=== PATIENT | male | born 1945 | race Caucasian/White ===

== ENCOUNTER → 2019-06-17 16:20 | Outpatient (BNVA) | payer MEDICARE, OTHER, SELFPAY | PROVIDERS: Family Provider Nurse Practitioner; PCP Nurse Practitioner; Visit Provider Nurse Practitioner | DX: M25.519 Pain in unspecified shoulder (principal); M54.2 Cervicalgia | CPT/HCPCS: 72040; 73030 ==

== ENCOUNTER → 2019-07-01 08:05 | Outpatient (BNVA) | payer MEDICARE, OTHER, SELFPAY | PROVIDERS: Family Provider Nurse Practitioner; PCP Nurse Practitioner; Visit Provider Nurse Practitioner | DX: E11.9 Type 2 diabetes mellitus without complications (principal) | CPT/HCPCS: 80053; 80061; 83036 ==

== ENCOUNTER → 2019-07-03 09:35 | Outpatient (BNVA) | payer MEDICARE, OTHER, SELFPAY | PROVIDERS: Family Provider Nurse Practitioner; PCP Nurse Practitioner; Visit Provider Nurse Practitioner | DX: E11.8 Type 2 diabetes mellitus with unspecified complications (principal); E03.8 Other specified hypothyroidism; I10 Essential (primary) hypertension; I25.10 Atherosclerotic heart disease of native coronary artery without angina pectoris; E78.2 Mixed hyperlipidemia; I65.29 Occlusion and stenosis of unspecified carotid artery; K21.9 Gastro-esophageal reflux disease without esophagitis | CPT/HCPCS: 84443 ==

== ENCOUNTER 2019-07-16 13:32 | Outpatient (CLI) | payer MEDICARE, OTHER, SELFPAY ==
--- NOTE | 2019-07-16 14:15 | USCV_ITS ---
Norbert Link Age: 73 Gender: M : 1945 Exam Date: 07/16/2019 13:51 Ordering Phys: Gumaro Foy MD ([email or web address]) Technologist: Nicolette Jain [place] [facility] [place]: CAROTID STENOSIS Risk Factors: Previous Vascular Surgery: None Right Brachial BP: / Left Brachial BP: / Right Left Velocity (cm/s) Spectral Plaque Velocity (cm/s) Spectral Plaque Syst/Diast Broadening Syst/Diast Broadening 46.50/ 6.40 Prox CCA 70.10 / 13.70 32.00/ 8.00 Mid CCA 93.30 / 19.70 30.30/ 9.70 Distal CCA 70.10 / 16.20 175.60/34.20 Prox ICA 101.85/ 22.35 189.00/30.20 Mid ICA 82.80 / 19.70 132.10/23.30 Distal ICA 68.40 / 14.30 55.90 ECA 124.83 5.90 ICA/CCA 1.10 Antegrade Vertebral Antegrade 48.70/ 13.70 cm/s 68.40/ 15.40 cm/s Bi Subclavian Bi 113.6 128.8 0 0 FINDINGS Heavy heterogeneous plaques at the right bifurcation and internal carotid artery Moderate to heavy heterogeneous plaques at the left bifurcation and proximal internal carotid artery. Intimal thickening and minimal plaques in the common carotid arteries bilaterally Antegrade flow in the vertebral arteries bilaterally CONCLUSIONS Heavy heterogeneous plaques at the right bifurcation and internal carotid arterywith velocity elevation consistent with 50-79% stenosis. Moderate to heavy heterogeneous plaques at the left bifurcation and proximal internal carotid arterywith velocity elevation consistent with 16-49% stenosis. Consider CTA, to better evaluate the distal carotids, if this has not been done recently Dr Gumaro Foy MD [facility] (Electronically Signed) Final Date: 20 July 2019 11:14 S
== END 2019-07-16 13:33 | disposition home or self-care (01) ==
LOC: RAD 13:38
PROVIDERS: Family Provider Nurse Practitioner; PCP Nurse Practitioner; Visit Provider Internal Medicine Cardiovascular Disease
DX: I65.23 Occlusion and stenosis of bilateral carotid arteries (principal)
CPT/HCPCS: 93880

== ENCOUNTER 2019-08-12 12:52 | Outpatient (CLI) | payer MEDICARE, OTHER, SELFPAY ==
--- NOTE | 2019-08-12 13:30 | CT_ITS ---
WS: [id number] CT ANGIOGRAM CAROTID ARTERIES HISTORY: carotid artery stenosis TECHNIQUE: CT angiogram is performed of the carotid arteries. During arterial injection imaging is ob tained from the skull base to the aortic arch in 1.25 mm imaging. Coronal and sagittal reformats are submitted, MIP imaging also reviewed. Additional multiplanar reformats of the carotid arteries are quintana bmitted. NASCET criteria utilized. All CT scans at [facility] use at least one of these d ose optimization techniques: automated exposure control; mA and/or kV adjustment per patient size (in cludes targeted exams where dose is matched to clinical indication); or iterative reconstruction. CONTRAST: Visipaque 320; 95 mL IV. DLP: 1953.45 mGy.cm COMPARISON: 11/22/2017 and carotid ultrasound 07/16/2019 Right carotid: Common carotid artery: Arises normally from the innominate artery. No significant plaque or stenosis. Internal carotid artery: Moderate amount of calcified plaque at the bifurcation. Calcification extend s to the bifurcation from the common carotid artery. There is significant stenosis. Proximal RIGHT IC A stenosis 79%. External carotid artery: Patent. Left carotid: Common carotid artery: Common carotid artery arises from the base of the innominate. There is calcifi ed plaque in the mid to distal common carotid artery. Internal carotid artery: Moderate stenosis at the bifurcation with a large amount of calcified plaque . Proximal LEFT ICA stenosis 68%. External carotid artery: Patent. Right vertebral artery: Unremarkable. Left vertebral artery: Unremarkable. Arises normally from the left subclavian artery. Subclavian arteries: No stenosis or abnormality identified. Upper thorax: Normal. Thyroid gland: Normal. Osseous structures: Anterior cervical fusion with interbody spacer at C6-7. Skull base: Moderate plaque through the intracranial carotid arteries. Fluid in the mastoid air cells bilaterally. CT/CT angio neck 71448 IMPRESSION: 1. High-grade stenosis proximal RIGHT ICA 79%. 2. High-grade stenosis proximal LEFT ICA 68%. 3. Moderate carotid artery plaque through the carotid cavernous sinuses approa erik 50% stenosis.
[2019-08-12 14:20] LABS: Blood Urea Nitrogen 22 mg/dL (8-23)
[2019-08-12] MEDS: iodixanol 320 mg/mL 100mL Btl IV (14:30)
== END 2019-08-12 12:53 | disposition home or self-care (01) ==
LOC: CT 12:56
PROVIDERS: Family Provider Nurse Practitioner; PCP Nurse Practitioner; Visit Provider Internal Medicine Cardiovascular Disease
DX: I65.23 Occlusion and stenosis of bilateral carotid arteries (principal)
CPT/HCPCS: 36415; 70498; 82565; 84520

== ENCOUNTER → 2019-09-09 13:45 | Outpatient (BNVA) | payer MEDICARE, OTHER, SELFPAY | PROVIDERS: Family Provider Nurse Practitioner; PCP Nurse Practitioner; Visit Provider Nurse Practitioner | DX: E11.8 Type 2 diabetes mellitus with unspecified complications (principal) | CPT/HCPCS: 80053; 80061; 83036; 83721 ==

== ENCOUNTER 2019-10-19 14:37 | Inpatient (IN) | payer MEDICARE, OTHER, SELFPAY ==
[2019-10-15 09:05] VITALS: BMI 28.5
--- NOTE | 2019-10-15 13:21 | ANES.PREANE2 ---
Pre-Anesthetic Assessment Pre-Anesthetic Assessment: Height/Weight: Height 1.71 m Weight 72.575 kg Proposed Procedure: Operation Date: 10/19/19 08:20 Proposed Procedures p Carotid Endarterectomy 33037 I65.23(Not Applicable) - Parag Parmar MD Social: Social History: No alcohol and No tobacco Exam: Pre-Anes Outpt Exam: alert, oriented x 3, clear to auscultation bilaterally and regular rate & rhythm Airway: MP: 2 Dentition: False Pulmonary: Pulmonary: None reported CV/HEM: CV/HEM: Arrythmia, CAD, HTN, CA and PVD Comments: carotid stenosis, Pacemaker : : Chronic renal Insufficiency GI: GI: GERD Metabolic: Metabolic: DM, Hyperlipidemia and Thyroid Anesthetic Plan: ASA status: 4 Anesthesia: General Risk of > 500 ml blood loss (7ml/kg in children): Yes, adequate IV access and fluids planned PFSH Anesthesia PFSH: Medical History Adult onset hypothyroidism Atherosclerotic cardiovascular disease B12 deficiency Benign hypertension Carotid stenosis Chronic kidney disease, unspecified Controlled diabetes mellitus with complication, without long-term current use of insulin Diabetes GERD (gastroesophageal reflux disease) Mixed hyperlipidemia Presence of cardiac pacemaker Social History Smoking and tobacco status: never smoked Second hand smoke exposure: No Smoking risk assessment/counseling performed?: No Alcohol intake: never Desire information about alcohol rehabilitation?: No Counseling given: No Desire information about substance/drug rehabilitation?: No Counseling given: No Marital status: Single History of recent travel: No Data Anesthesia Cardiac Studies: No Data to Display
--- NOTE | 2019-10-15 13:29 | XR_ITS ---
WS: [id number] XR chest 1V portable [id number] REASON FOR EXAM: Preop right carotid endarterectomy FINDINGS: Dual electrode pacemaker seen extending from the left side. The heart is not enlarged The lung frank are clear there is a scattered calcified granuloma in the right upper lung unchanged since July 14, 2018. There is no pneumonia, pleural effusion, or mass effect. There is a granuloma also seen in the left lung unchanged. XR/XR chest 1V portable [id number] IMPRESSION: Dual electrode pacemaker.
--- NOTE | 2019-10-15 13:29 | ECG_ITS ---
Measurements Intervals [place] Rate: 70 P: 66 NM: 163 QRS: 15 QRSD: 94 T: 42 QT: 389 QTc: 422 SINUS RHYTHM POSSIBLE RIGHT VENTRICULAR CONDUCTION DELAY [RSR (QR) IN V1/V2] Compared to ECG 02/26/2019 09:20:43 No significant changes Electronically Signed On 10-15-2019 14:17:47 CDT by Trish Bui M.D. [email or web address]
[2019-10-15 13:37] LABS: Add Urine Microscopic? NO
[2019-10-15 13:40] LABS: Basophils % 0.5 %; Eosinophils # 0.3 10^3/uL (0.0-0.8); Eosinophils % 3.7 %; Hematocrit 39.8 % (42.0-52.0); Hemoglobin 12.8 g/dL (11.7-16.6); Lymphocytes # 2.1 10^3/uL (0.8-4.8); Lymphocytes % 27.3 %; Mean Corpuscular HGB Conc 32.2 g/dL (30.0-36.0); Mean Corpuscular Hemoglobin 29.9 pg (28.0-34.0); Mean Platelet Volume 10.3 fL (7.4-10.4); Monocytes # 0.5 10^3/uL (0.2-0.9); Monocytes % 6.9 %; Neutrophils # 4.6 10^3/uL (1.8-7.7); Neutrophils % 60.5 %; Nucleated Red Blood Cells % 0 %; Platelet Count 158 10^3/cmm (130-400); Red Blood Count 4.28 10^6/uL (4.1-5.3); Red Cell Distribution Width 14.9 % (12.1-15.1); White Blood Count 7.6 10^3/uL (4.0-10.0)
[2019-10-15 13:49] LABS: INR 1.04 (0.8-1.2)
[2019-10-15 13:54] LABS: Anion Gap 14.6 (5-19); Blood Urea Nitrogen 26 mg/dL (8-23); Calcium 10.2 mg/dL (8.5-10.5); Carbon Dioxide 25 mmol/L (22-29); Chloride 101 mmol/L (98-107); Glucose 354 mg/dL (65-115); Osmolality Calculated 293 mOsm/kg (285-295); Potassium 4.6 mmol/L (3.5-5.1); Sodium 136 mmol/L (136-145)
[2019-10-15 14:49] LABS: Glucose Urine UA 4+ (Normal); Protein Urine Neg (Negative); Specific Gravity, Urine 1.015 (1.005-1.030); Urine Appearance Clear (CLEAR); Urine Color Yellow (Yellow); pH Urine 5 (5-7)
[2019-10-15 14:50] LABS: Bilirubin Urine Neg (NEGATIVE); Blood Urine Neg (Negative); Ketones Urine Negative (Negative); Leukocyte Esterase Urine Negative (Negative); Nitrate Urine Negative (Negative); Urobilinogen Urine Norm (Negative)
[2019-10-19] VITALS (10 sets, daily range): BP systolic 93–123; BP diastolic 44–69; PULSE 71–94; RESP 14–24; TEMP 36.4–36.7; O2SAT 95–100
[2019-10-19 06:58] LABS: Glucose Point of Care 348 mg/dL (70-110)
[2019-10-19] MEDS: insulin regular-human 100 units/1 mL 10 UNIT IVP ×2 (07:10→07:59)
[2019-10-19] MEDS: sodium chloride 0.9% 1,000 ML 30 ML IV (07:10)
--- NOTE | 2019-10-19 07:35 | ANES.PAUD2 ---
Pre-Anesthetic Update Pre-Anesthetic Assessment: Date of Surgery/Procedure: 10/19/19 Proposed Procedure: Operation Date: 10/19/19 08:30 Proposed Procedures p Carotid Endarterectomy 44013 I65.23(Not Applicable) - Parag Parmar MD Any changes to Pre-Anesthetic Assessment?: No Last Intake: Intake Last Liquid Date 10/18/19 Last Liquid Time 19:00 Last Solid Date 10/18/19 Last Solid Time 16:00 Labs Last 48hrs: Laboratory Results - last 48 hr 10/19/19 06:54 POC Glucose 348 Vitals: Temperature 97.5 F L 10/19/19 06:45 Temperature Source Temporal Artery S can 10/19/19 06:45 Pulse Rate 71 10/19/19 06:45 Respiratory Rate 16 10/19/19 06:45 Blood Pressure 104/64 10/19/19 06:45 Blood Pressure Candy n 77 10/19/19 06:45 Pulse Oximetry 98 10/19/19 06:45 Oxygen Delivery Me thod 10/19/19 06:45 Exam: Pre-Anes Outpt Exam: alert, oriented x 3, clear to auscultation bilaterally and regular rate & rhythm Other Pertinent Information: Other Pertinent Information: last plavix on Cardiac Studies: No Data to Display
[2019-10-19 07:51] LABS: Glucose Point of Care 329 mg/dL (70-110)
--- NOTE | 2019-10-19 08:03 | W.PM.OPSUD ---
Surgery/Procedure H&P Update DATE OF PROCEDURE: October 19, 2019 DATE H&P PERFORMED: 10/15/19 H&P UPDATE INFORMATION: I have reviewed H&P completed within last 30 days, I have examined patient prior to procedure (Patient has been appropriately marked for right side carotid endarterectomy) and No changes to prior documentation PREOP DIAGNOSIS: Right internal carotid artery stenosis PLANNED PROCEDURE: Operation Date: 10/19/19 08:30 Proposed Procedures p Carotid Endarterectomy 40094 I65.23(Not Applicable) - Parag Parmar MD
[2019-10-19 08:31] LABS: Glucose Point of Care 246 mg/dL (70-110)
[2019-10-19 08:51] LABS: Glucose Point of Care 216 mg/dL (70-110)
[2019-10-19] MEDS: heparin,porcine 1,000 unit/mL INJ 1 mL 1000 UNIT IRRIGATION (09:35)
[2019-10-19] MEDS: vancomycin 1,000 MG SDV 1000 MG IRRIGATION (09:35)
[2019-10-19 11:37] LABS: Glucose Point of Care 359 mg/dL (70-110)
--- NOTE | 2019-10-19 12:59 | P.OP_ITS ---
Operative Report Date of procedure: October 19, 2019 Pre-op Diagnosis: Right internal carotid artery stenosis Post-op diagnosis: same Procedure Done: Right carotid endarterectomy with patch angioplasty Implants: Hemashield patch Specimens removed/disposition: Right carotid artery plaque Surgeon: Parag Parmar Anesthesia: General Estimated blood loss (mL): 100 Complications: None: Neurologically intact postop Condition: stable Disposition: ICU Brief History: 74-year-old gentleman with bilateral carotid artery disease, 79% on the right and 68% on the left. Right carotid endarterectomy was recommended to reduce the statistical increased risk for spontaneous CVA related to this high-grade lesion. Rationale and risks of the surgery were carefully and frankly reviewed. Proper consents have been reviewed and signed. Procedure: Mr. Link was placed on the OR table and underwent general endotracheal anesthesia with a neurological monitoring endotracheal tube as well as placement of a right radial arterial line. Bihemispheric monitoring pads were placed as well as grounding and sensing pads for nerve conduction evaluation during neck dissection.The entire upper chest and right neck were sterilely prepped and draped. Incision was made along the anterior border of the sternomastoid muscle and carried down to the platysma with cautery. Dissection from this point forward was carried out utilizing Metzenbaum scissors and limited use of bipolar cautery. The internal jugular vein was dissected free and the facial vein was ligated, oversewn, and divided. Dissection was continued down through the ansa cervicalis with preservation of major branches. Minor branches were divided if required to allow for adequate exposure. Nerve conduction evaluation was performed throughout the dissection for protection of the recurrent nerve. We subsequently reached the common carotid artery. Dissection was then continued proximally to distally across the bifurcation. There was moderate adhesive reaction between the soft tissue and the carotid artery at the bifurcation and proximal ICA as well as distal common carotid artery, consistent with the known vascular disease. Vessel loops were placed around the common carotid artery, internal carotid artery, and external carotid artery. Distally, the base of the hypoglossal nerve could be identified and was protected. The internal carotid artery disease went fairly high and extended above the level of the mandibular angle. This did require some traction in this region, but great care was taken to minimize pressure to the hypoglossal nerve, which was protected. Care was taken during this dissection to avoid injury to the vagus nerve. The patient was then heparinized with 10,000 units. The systolic blood pressure was elevated to 160. Following this, in a rapid sequenced fashion, the distal internal carotid artery was clamped followed by clamping of the common carotid artery and external carotid artery. #11 scalpel blade was used to open the common carotid artery proximally. Lynch scissors were then utilized to extend this arteriotomy across the distal common carotid artery and ulcerated very stenotic plaque and continue this further at the bifurcation across the calcific plaque in the internal carotid artery until we had reached normal intima. The internal carotid artery clamp was briefly flashed with evidence of brisk back bleeding, therefore we elected not to shunt. It should be noted that bi-hemispheric oximetry was recorded throughout the procedure. Next, a freer elevator was utilized to create a dissection plane the plaque from intima at the proximal portion of the arteriotomy. This was then divided with a #11 scalpel blade. This plaque was then further dissected along the intimal plane proximally to distally across the bifurcation. Utilizing an everting technique, plaque was removed from the external carotid artery with brisk flow. This plaque was then dissected free up the internal carotid artery but due to continued intimal thickening well beyond our current level, we could not dissected out to a feathered edge we performed a sharp transverse transection of the intima. Heparinized saline solution was utilized to remove any loose debris. Next, a Hemashield patch was brought into the field and sewn into position utilizing a running 6-0 Prolene suture, thereby completing our patch angioplasty. At the completion of the patch, the external carotid artery was opened followed by the common carotid artery and finally the internal carotid artery, thereby reestablishing cerebral flow. Areas of extravasation were repaired with 6-0 Prolene suture. Hand-held Doppler interrogation was performed, after we had to replace one probe at 1 monitor due to default, but was difficult to place the probe as distal as needed on the internal carotid artery to obtain an appropriate signal. Therefore, I elected to perform vascular puncture with direct manometer readings of pressure. This was performed on the external carotid artery which was approximately 90% of the systemic pressure and also performed on the internal carotid artery which was almost exactly the same pressure as our systemic right radial arterial reading. Puncture sites were covered with Surgicel and bleeding ceased spontaneously after heparin reversal. After 5 minutes following micropuncture, heparin was reversed with protamine. Hemostasis was confirmed. The wound was irrigated with antibiotic solution. A small, flat, Candelario-Almanza drain was placed in the wound and connected to bulb suction. Sponge and needle count was correct. The wound was then closed in 2 layers of 3-0 Vicryl suture. Skin was reapproximated in a subcuticular manner with 4-0 Monocryl suture. A pressure dressing was then applied. Mr. Link was awakened from anesthesia and spontaneous movement of all extremities as well as movement to command was noted. He was then transferred to the ICU in stable condition. We did personal financial counselor with his sister by phone throughout the procedure as well as at completion of the procedure. Mr. Link will be monitored in the ICU for the next 24 hours.
--- NOTE | 2019-10-19 13:15 | ANE.PACU2 ---
 Inpatient post-anesthesia follow up: Airway intact: Yes Vital signs: Temperature 97.5 F Pulse Rate 71 Respiratory Rate 16 Blood Pressure 104/64 Pulse Oximetry 98 Oxygen Delivery Me thod Room Air Oxygen Flow Rate Fraction of Inspir ed Oxygen Hydration adequate: Yes Nausea and vomiting: No Pain level: 1 Mental status: Baseline
[2019-10-19 13:32] LABS: Glucose Point of Care 279 mg/dL (70-110)
[2019-10-19] MEDS: lactated ringers 1,000 ML 75 ML IV (14:58)
[2019-10-19 16:51] LABS: Glucose Point of Care 335 mg/dL (70-110)
[2019-10-19] MEDS: ceFAZolin 1,000 MG in sodium chloride 0.9% (plus) 50 ML 100 MG IV (17:03)
--- NOTE | 2019-10-19 18:15 | PC.NURSE ---
D/C ART LINE Arterial line d/c per order. Pressure held until hemostasis achieved. Dressing applied c/d/i. Patient tolerated well.
[2019-10-19] MEDS: aspirin 325 mg Tablet PO (19:28)
[2019-10-19] MEDS: atorvastatin 40 mg Tablet 20 MG PO (20:06)
[2019-10-19 21:51] LABS: Glucose Point of Care 405 mg/dL (70-110)
[2019-10-20] VITALS (8 sets, daily range): BP systolic 101–119; BP diastolic 52–70; PULSE 73–83; RESP 14–22; TEMP 36.5–36.7; O2SAT 94–99
[2019-10-20] MEDS: ceFAZolin 1,000 MG in sodium chloride 0.9% (plus) 50 ML 100 MG IV (01:40)
[2019-10-20] MEDS: TRAMadol 50 mg Tablet PO (03:48)
[2019-10-20] MEDS: lactated ringers 1,000 ML 75 ML IV (03:48)
[2019-10-20 05:54] LABS: Basophils % 0.2 %; Eosinophils % 0.1 %; Hemoglobin 10.2 g/dL (11.7-16.6); Lymphocytes # 1.2 10^3/uL (0.8-4.8); Lymphocytes % 12.4 %; Mean Corpuscular HGB Conc 31.9 g/dL (30.0-36.0); Mean Corpuscular Hemoglobin 30.1 pg (28.0-34.0); Mean Corpuscular Volume 94.4 fL (80-94); Mean Platelet Volume 10.3 fL (7.4-10.4); Monocytes # 0.6 10^3/uL (0.2-0.9); Monocytes % 6.2 %; Neutrophils # 7.7 10^3/uL (1.8-7.7); Neutrophils % 80.4 %; Nucleated Red Blood Cells % 0 %; Platelet Count 120 10^3/cmm (130-400); Red Blood Count 3.39 10^6/uL (4.1-5.3); Red Cell Distribution Width 14.7 % (12.1-15.1); White Blood Count 9.5 10^3/uL (4.0-10.0)
--- NOTE | 2019-10-20 06:03 | P.DS_ITS ---
Discharge Providers Date of Admission: 10/19/19 14:37 Date of Discharge: October 20, 2019 Attending Provider at Admission: Parag Parmar MD Attending Provider at Discharge: Parag Parmar MD Primary Care Provider: SHANNAN Eastman Diagnoses at Discharge Discharge Diagnosis (1) Status post carotid endarterectomy: Status: Acute Reason for Visit Reason for Visit: Reason For Visit: Carotid Stenosis Hospital Course Hospital Course: Mr. iLnk underwent outpatient evaluation for bilateral carotid artery stenoses with subsequent CTA of the neck revealing high-grade right-sided lesion and a 68% left-sided ICA lesion. He was electively admitted for planned carotid endarterectomy to reduce his left testicle increased risk for spontaneous CVA related to this lesion. Yesterday, October 18, he underwent right carotid endarterectomy with patch a ngioplasty. Postoperatively, he remained neurologically intact. No phonation or swallowing difficulties. He convalesced in the ICU with stable vital signs. He had low KAREEN drain output. KAREEN drain was discontinued the morning of the first postop day. Incision clean and dry. No swelling. Trach is midline. Tolerating diet well. Neurologically intact. He will be discharged home today in stable condition. Activity limitations have been provided. He will be scheduled follow-up in heart care services in 1 week. At the time of discharge, he is in stable condition. Physical Exam Neck/C-Spine: COMMON NORMALS: supple GENERAL: Yes normal visual inspection (Right neck incision is clean and dry.) and Yes trachea midline Resp: COMMON NORMALS: clear to auscultation bilaterally EFFORT & INSPECTION: Yes able to speak in complete sentences AUSCULTATION: clear to auscultation bilaterally Cardio: COMMON NORMALS: regular rate, regular rhythm and no murmurs RATE: regular rate RHYTHM: regular rhythm Neuro: COMMON NORMALS: no focal motor deficits and no sensory deficits noted Urinary Catheter Management^: Tay: Cath Placed During This Visit: yes Urinary Catheter Date of Insertion: 10/19/19 Urinary Catheter Time of Insertion: 09:15 Discharge Data Data Completed and Pending: Completed Studies During Hospitalization Category Date Time Status XR chest 1V mark ble [id number] Routine Exams 10/15/19 13:29 Completed Pending at discharge Category Date Time Status Basic Metabolic P jasiel AM LABS Lab 10/20/19 04:00 Ordered PRBC [Leukocyte R educed RBC] Routin e Lab 10/15/19 13:29 Results Type and Screen R outine Lab 10/15/19 13:29 Results Pathology: Surgic al [PTH] Routine Pth 10/19/19 11:16 Ordered Labs from last 24 hours 10/20/19 10/19/19 10/19/19 05:45 20:02 16:45 WBC 9.5 RBC 3.39 L Hgb 10.2 L Hct 32.0 L MCV 94.4 H MCH 30.1 MCHC 31.9 RDW 14.7 Plt Count 120 L MPV 10.3 Neut % (Auto) 80.4 Lymph % (Auto) 12.4 Mcleod % (Auto) 6.2 Eos % (Auto) 0.1 Baso % (Auto) 0.2 Neut # (Auto) 7.7 Lymph # (Auto) 1.2 Mcleod # (Auto) 0.6 Eos # (Auto) 0.0 Baso # (Auto) 0.0 Nucleated RBC % (a uto) 0 Nucleated RBCs # 0.0 POC Glucose 405 335 Blood Type Rho(D) Type Antibody Screen Crossmatch 10/19/19 10/19/19 10/19/19 13:23 11:33 08:47 WBC RBC Hgb Hct MCV MCH MCHC RDW Plt Count MPV Neut % (Auto) Lymph % (Auto) Mcleod % (Auto) Eos % (Auto) Baso % (Auto) Neut # (Auto) Lymph # (Auto) Mcleod # (Auto) Eos # (Auto) Baso # (Auto) Nucleated RBC % (a uto) Nucleated RBCs # POC Glucose 279 359 216 Blood Type Rho(D) Type Antibody Screen Crossmatch 10/19/19 10/19/19 10/19/19 08:26 07:48 06:54 WBC RBC Hgb Hct MCV MCH MCHC RDW Plt Count MPV Neut % (Auto) Lymph % (Auto) Mcleod % (Auto) Eos % (Auto) Baso % (Auto) Neut # (Auto) Lymph # (Auto) Mcleod # (Auto) Eos # (Auto) Baso # (Auto) Nucleated RBC % (a uto) Nucleated RBCs # POC Glucose 246 329 348 Blood Type Rho(D) Type Antibody Screen Crossmatch 10/19/19 06:40 WBC RBC Hgb Hct MCV MCH MCHC RDW Plt Count MPV Neut % (Auto) Lymph % (Auto) Mcleod % (Auto) Eos % (Auto) Baso % (Auto) Neut # (Auto) Lymph # (Auto) Mcleod # (Auto) Eos # (Auto) Baso # (Auto) Nucleated RBC % (a uto) Nucleated RBCs # POC Glucose Blood Type O Positive Rho(D) Type Positive Antibody Screen Negative Crossmatch See Detail Vitals: Last Vital Signs Temp 98.1 F 10/20/19 03:56 Pulse 78 10/20/19 04:00 Resp 20 H 10/20/19 04:00 BP 107/52 10/20/19 04:00 Pulse Ox 97 10/20/19 04:00 Discharge Plan Discharge Patient Disposition: Home, Self-Care Condition: Stable Prescriptions: New hydrocodone-acetaminophen 5-325 mg Tablet 1 tab PO Q6H PRN (Reason: Moderate Pain) Qty: 16 RF: 0 Continued aspirin 325 mg tablet 325 mg PO QDAY RF: 0 atenolol 25 mg tablet 25 mg PO QDAY Qty: 30 RF: 2 clopidogrel 75 mg tablet 75 mg PO QDAY Qty: 30 RF: 2 famotidine 20 mg tablet 20 mg PO BID Qty: 60 RF: 2 fenofibrate nanocrystallized 145 mg tablet 145 mg PO QDAY Qty: 30 RF: 2 glipizide 10 mg tablet extended release 24hr 10 mg PO QDAY Qty: 30 RF: 2 isosorbide mononitrate 30 mg tablet extended release 24 hr 30 mg PO QDAY Qty: 30 RF: 2 levothyroxine 50 mcg tablet 50 mcg PO QDAY Qty: 30 RF: 2 lisinopril 5 mg tablet 5 mg PO QDAY Qty: 30 RF: 2 simvastatin 10 mg tablet 10 mg PO QDAY Qty: 30 RF: 2 diphenhydramine HCl [Benadryl] 25 mg capsule 25 mg PO .COMPLEX PRN (Reason: allergy symptoms) Qty: 1 RF: 0 multivitamin [Daily Multi-Vitamin] Tablet 1 tab PO DAILY RF: 0 Jardiance 10 mg tablet 10 mg PO DAILY RF: 0 Discharge Orders: Discharge Order (Routine); Ordered 10/20/19 Ordered By: Parag Parmar Referrals: Parag Parmar MD [Physician] - 10/29/19 Discharge Diet: Usual diet Discharge Activity: Limit activity as instructed Activity Restrictions/Additional Instructions: May remove bandage tomorrow May begin daily showers in 2 days No swimming or tub baths x 2 weeks No ointments on incision Report drainage, redness, heat, increased pain, or swelling to clinic No heavy lifting or pulling x2 weeks Discharge Attestations Time Spent in Discharge Care*: less than 30 min Specific Discharge Activities: Specific discharge activities: educating patient, discussing with protective services case worker/social workers/dc planners, documenting/other paperwork and evaluating patient/reviewing data Status at Discharge: Cognitive status at discharge: cognitively intact , Functional status at discharge: independent ambulation Overall status at discharge: patient is back to baseline Quality Metrics Clinical Quality Measures During this hospital stay, did patient experience: None Coding Level of Care Code Acute Brass Wind Instrument Maker for Lu Leyva Diagnoses Status post carotid endarterectomy Z98.890
[2019-10-20 06:44] LABS: Anion Gap 17.7 (5-19); Blood Urea Nitrogen 25 mg/dL (8-23); Calcium 7.7 mg/dL (8.5-10.5); Carbon Dioxide 21 mmol/L (22-29); Chloride 102 mmol/L (98-107); Glucose 262 mg/dL (65-115); Osmolality Calculated 288 mOsm/kg (285-295); Potassium 4.7 mmol/L (3.5-5.1); Sodium 136 mmol/L (136-145)
[2019-10-20] MEDS: pantoprazole DR 40 mg Tablet PO (07:53)
[2019-10-20] MEDS: levothyroxine 50 mcg Tablet PO (07:53)
[2019-10-20] MEDS: aspirin 325 mg Tablet PO (07:53)
[2019-10-20] MEDS: clopidogrel 75 mg Tablet PO (07:53)
--- NOTE | 2019-10-20 09:50 | PC.NURSE ---
Discharge Discharge instructions given and patient verbalized understanding. IVs removed x2. Prescription sent to pharmacy. All belongings sent with patient.
== END 2019-10-20 09:52 | disposition home or self-care (01) | DRG 39 ==
LOC: ICU 14:38
PROVIDERS: Admitting Provider Thoracic Surgery (Cardiothoracic Vascular Surgery); Family Provider Nurse Practitioner; PCP Nurse Practitioner; Visit Provider Thoracic Surgery (Cardiothoracic Vascular Surgery)
PROC: 03CK0ZZ Extirpation of Matter from Right Internal Carotid Artery, Open Approach (ICD-10-PCS; CPT 35301; principal; 2019-10-19 08:20)
DX: I65.23 Occlusion and stenosis of bilateral carotid arteries (principal)
CPT/HCPCS: 12345; 36415; 36416; 51702; 71045; 80048; 81003; 82962; 85025; 85610; 86850; 86900; 86920; 88304; 93005; 96372; 96374; J0330; J0690; J1100; J1644; J1815; J2001; J2370; J2405; J2704; J2720; J3010; J3370; J3490; J7030

== ENCOUNTER 2019-11-30 11:48 | Outpatient (CLI) | payer MEDICARE, OTHER, SELFPAY ==
--- NOTE | 2019-11-30 11:45 | USCV_ITS ---
Link Norbert Age: 74 Gender: M : 1945 Exam Date: 11/30/2019 12:05 Ordering Phys: Parag Parmar MD ([facility]) ([email or web address]) Technologist: ALBINO MONSON Exam Location: [facility] [place] Indication: POST RIGHT ICA Risk Factors: Previous Vascular Surgery: Right Brachial BP: / Left Brachial BP: / Right Left Velocity (cm/s) Spectral Plaque Velocity (cm/s) Spectral Plaque Syst/Diast Broadening Syst/Diast Broadening 39.50/ 5.10 Prox CCA 62.20 / 18.60 46.40/ 5.50 Mid CCA 58.60 / 15.60 47.90/ 4.50 Distal CCA 81.50 / 20.20 58.90/ 5.60 Prox ICA 99.40 / 37.30 / Mid ICA 138.30/ 32.60 / Distal ICA 82.70 / 22.10 141.50 ECA 184.90 1.27 ICA/CCA 2.36 Antegrade Vertebral Antegrade 45.30/ 12.00 cm/s 79.40/ 18.70 cm/s Tri Subclavian Tri 125.7 115.8 0 0 FINDINGS No Doppler flow signals in the mid and distal right internal carotid artery. Mild to moderate plaques at the bifurcation and proximal internal carotid artery Moderate to heavy heterogeneous plaques of the left bifurcation and proximal to mid internal carotid artery Antegrade flow in the vertebral arteries bilaterally Normal Doppler flow velocities in the subclavian arteries bilaterally CONCLUSIONS 1. Features of total occlusion of the mid and distal internal carotid artery on the right side. 2. Moderate to heavy heterogeneous plaques at the left bifurcation and proximal to mid internal carotid artery with velocity elevation consistent with 50-79% stenosis. 3. Compared to the study from 07/16/2019, the occlusion of the right internal carotid artery is new. There is progression of disease on the left side, based on the flow velocities. Dr. Parmar was informed about these findings Dr Gumaro Foy MD [facility] (Electronically Signed) Final Date: 01 December 2019 09:12 S
== END 2019-11-30 11:49 | disposition home or self-care (01) ==
LOC: RAD 11:50
PROVIDERS: PCP Nurse Practitioner; Visit Provider Thoracic Surgery (Cardiothoracic Vascular Surgery)
DX: I65.23 Occlusion and stenosis of bilateral carotid arteries (principal)
CPT/HCPCS: 93880

== ENCOUNTER → 2020-01-25 08:31 | Outpatient (BNVA) | payer MEDICARE, OTHER, SELFPAY | PROVIDERS: PCP Nurse Practitioner; Visit Provider Nurse Practitioner | DX: E03.8 Other specified hypothyroidism (principal); E11.8 Type 2 diabetes mellitus with unspecified complications; E78.2 Mixed hyperlipidemia | CPT/HCPCS: 80053; 80061; 83036; 83721; 84443 ==

== ENCOUNTER → 2020-03-18 09:28 | Outpatient (BNVA) | payer MEDICARE, OTHER, SELFPAY | PROVIDERS: PCP Nurse Practitioner; Visit Provider Nurse Practitioner | DX: E11.8 Type 2 diabetes mellitus with unspecified complications (principal); I10 Essential (primary) hypertension; I25.10 Atherosclerotic heart disease of native coronary artery without angina pectoris; E03.8 Other specified hypothyroidism; E78.2 Mixed hyperlipidemia | CPT/HCPCS: 80053; 80061; 83036 ==

== ENCOUNTER → 2020-08-12 09:19 | Outpatient (BNVA) | payer MEDICARE, OTHER, SELFPAY | PROVIDERS: PCP Nurse Practitioner; Visit Provider Nurse Practitioner | DX: E11.8 Type 2 diabetes mellitus with unspecified complications (principal); I10 Essential (primary) hypertension; I25.10 Atherosclerotic heart disease of native coronary artery without angina pectoris; K21.9 Gastro-esophageal reflux disease without esophagitis; E03.8 Other specified hypothyroidism; J30.89 Other allergic rhinitis; E78.2 Mixed hyperlipidemia | CPT/HCPCS: 80053; 80061; 82043; 83036 ==

== ENCOUNTER 2020-08-19 08:44 | Outpatient (CLI) | payer MEDICARE, OTHER, SELFPAY ==
--- NOTE | 2020-08-19 08:45 | USCV_ITS ---
Link, Carl Age: 74 Gender: M : 1945 Exam Date: 08/19/2020 09:05 Ordering Phys: Parag Parmar MD (Andy) ([email or web address] [place]) Technologist: Nicolette Jain [place] [facility] [place]ication: stenosis Risk Factors: Previous Vascular Surgery: Right Brachial BP: / Left Brachial BP: / Right Left Velocity (cm/s) Spectral Plaque Velocity (cm/s) Spectral Plaque Syst/Diast Broadening Syst/Diast Broadening 57.60/ 7.40 Prox CCA 79.10 / 17.20 62.30/ 10.80 Mid CCA 89.30 / 22.30 58.20/ 5.40 Distal CCA 74.40 / 14.90 184.00/10.50 Prox ICA 117.10/ 29.60 / Mid ICA 115.97/ 31.07 / Distal ICA 109.20/ 27.30 224.30 ECA 282.80 2.95 ICA/CCA 1.49 Antegrade Vertebral Antegrade 58.80/ 11.90 cm/s 36.90/ 11.00 cm/s Tri Subclavian Tri 135.2 219.8 0 0 FINDINGS High resistive flow in the right ICA, approximately. No flow is detected in the mid and distal ICA Moderate heterogeneous plaques in the left bifurcation and proximal ICA Mild diffuse plaques in the common carotid arteries bilaterally Elevated velocities in the external carotid arteries bilaterally Elevated velocity in the left subclavian artery CONCLUSIONS 1. Chronically occluded right internal carotid artery. 2. Moderate heterogeneous plaques at the left bifurcation and proximal internal carotid artery with velocity elevation, consistent with less than 50% stenosis. 3. Elevated velocities in the external carotid arteries bilaterally, may suggest hemodynamically significant stenosis. Compared to the previous study from 11/30/2019 elevated Doppler velocities bilaterally, may suggest change in the hemodynamics. Consider CTA, to better evaluate the aortic arch vessels, if clinically indicated Dr Gumaro Foy MD [facility] (Electronically Signed) Final Date: 20 August 2020 19:10 S
== END 2020-08-19 08:45 | disposition home or self-care (01) ==
PROVIDERS: PCP Nurse Practitioner; Visit Provider Thoracic Surgery (Cardiothoracic Vascular Surgery)
DX: I65.23 Occlusion and stenosis of bilateral carotid arteries (principal)
CPT/HCPCS: 93880

== ENCOUNTER 2020-10-07 16:09 | Inpatient (IN) | payer MEDICARE, OTHER, SELFPAY ==
[2020-10-07 16:44] VITALS: BP 150/61; PULSE 67; RESP 18; TEMP 36.9; O2SAT 99; BMI 24.4
--- NOTE | 2020-10-07 17:34 | ECG_ITS ---
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 Measurements Intervals [place] Rate: 67 P: 43 HI: 112 QRS: 9 QRSD: 89 T: 21 QT: 399 QTc: 423 Interpretive Statements SINUS RHYTHM WITH SHORT HI INTERVAL POSSIBLE RIGHT VENTRICULAR CONDUCTION DELAY [RSR (QR) IN V1/V2] Compared to ECG 10/15/2019 13:44:20 Short HI interval now present Electronically Signed On 10-07-2020 19:13:19 CDT by Huey Asencio M.D. [id number]
--- NOTE | 2020-10-07 17:34 | XRR_ITS ---
PROCEDURE INFORMATION: Exam: XR Chest Exam date and time: 10/07/2020 5:58 PM Age: 75 years old Clinical indication: Chest pain; Radiating; Prior surgery; Surgery type: Pacemaker TECHNIQUE: Imaging protocol: XR of the chest. Views: 1 view. Total images: 1 COMPARISON: CR XR chest 1V portable [id number] 10/15/2019 1:31 PM FINDINGS: Tubes, catheters and devices: Pacemaker. Lungs: No visible active interstitial or alveolar airspace disease. Evidence of antecedent granulomatous disease. Pleural spaces: Unremarkable. No pleural effusion. No pneumothorax. Heart/Mediastinum: Cardiac structures and configuration stable with mild arteriosclerosis. Bones/joints: Previous cervical fusion. XR/XR chest 1V portable [id number] IMPRESSION: Nonacute.
--- NOTE | 2020-10-07 17:45 | W.ED.CHESTPA ---
Documented by User: Sha Rios DO 10/13/20 07:22 HPI - Chest Pain General: Chief Complaint: Chest Pain Stated Complaint: L.Arm Pain/CHEST PAIN Time Seen by Provider: 10/07/20 17:34 History of Present Illness: HPI narrative: 75-year-old male who presents emergency room with a history of coronary artery disease. This morning he had an episode of chest pain while at rest that radiated up into his left shoulder and down his left arm. He states he has had multiple stents in the past but he cannot recall the last time he had an angiogram done. He took a single nitro and had relief of pain within 10 minutes he has not had any recurrence of pain since then. This is a first episode he has had like this in months. He is diabetic. He does not smoke. MD complaint: chest pain Pertinent past history: coronary artery disease Onset (ago): hour(s) Timing of current episode: episodic Prior episodes: Yes Onset: during rest Pain location: substernal and left chest Pain radiation: left arm and left shoulder Severity: mild Quality: heaviness and sharp Relieving factors: nitroglycerin Exacerbating factors: nothing Associated symptoms: Deny abdominal pain, diaphoresis, dyspnea, fever(s), leg edema, nausea, palpitations, sense of impending doom, syncope or vomiting Treatment prior to arrival: none Review of Systems Const: Denies: fever(s) or diaphoresis ENMT: Denies: throat pain, ear or mastoid pain, nasal discharge or nasal congestion Card: Denies: palpitations or syncope Resp: Denies: dyspnea GI: Denies: abdominal pain, nausea or vomiting : Denies: flank pain, dysuria, urinary frequency or urinary urgency Skin/Breast: Denies: rash or pruritus [facility] ED PFSH: Medical History Adult onset hypothyroidism Atherosclerotic cardiovascular disease B12 deficiency Benign hypertension Carotid stenosis Chronic kidney disease, unspecified Controlled diabetes mellitus with complication, without long-term current use of insulin Diabetes GERD (gastroesophageal reflux disease) Mixed hyperlipidemia Noncompliance with medication regimen Presence of cardiac pacemaker Surgical History H/O right knee surgery History of cardiac pacemaker in situ History of cervical discectomy History of ear surgery Status post carotid endarterectomy Family History Brother CAD (coronary artery disease) Cancer Diabetes Lung disease Mother CAD (coronary artery disease) Diabetes Family/Other Cancer Diabetes Sister Diabetes Father Diabetes Denies family history of Clotting disorder Dementia Chronic kidney disease (CKD) Suicide Anesthesia complication Bleeding disorder Stroke Social History Smoking and tobacco status: never smoked Second hand smoke exposure: No Smoking risk assessment/counseling performed?: No Alcohol intake: never Desire information about alcohol rehabilitation?: No Counseling given: No Desire information about substance/drug rehabilitation?: No Counseling given: No Adopted: No Caregiver/support person: No Lives independently: Yes Household members: none Housing: House Marital status: Single Number of children: 1 service: Yes branch: [employer] Current occupational status: retired History of recent travel: No Current gender identity: Male Physical Exam Const: COMMON NORMALS: no acute distress GENERAL APPEARANCE: cooperative and comfortable ORIENTATION/CONSCIOUSNESS: Yes awake, Yes oriented to person, Yes oriented to place and Yes oriented to time HENMT: COMMON NORMALS: normocephalic, atraumatic and hearing grossly normal bilaterally HEAD & SCALP: normocephalic and atraumatic Eye: COMMON NORMALS: Equal, round and reactive pupils present, EOMs intact bilaterally, conjunctivae normal and no scleral icterus CONJUNCTIVA: Yes conjunctivae normal PUPIL: Yes Equal, round and reactive pupils present Neck/C-Spine: COMMON NORMALS: full ROM, no lymphadenopathy, supple and no JVD Lymph: LYMPHATIC: no lymphadenopathy noted and no lymphedema noted Resp: COMMON NORMALS: normal respiratory effort, No retractions, No use of accessory muscles and clear to auscultation bilaterally AUSCULTATION: clear to auscultation bilaterally Cardio: COMMON NORMALS: no JVD, regular rate, regular rhythm and No murmurs present (Cardio) RATE: regular rate RHYTHM: regular rhythm GI: COMMON NORMALS: Soft to palpation and No hepatosplenomegaly present AUSCULTATION: Yes normoactive bowel sounds PALPATION: Yes Soft to palpation, No Tenderness to palpation present (GI), No Guarding due to palpation present (GI) and Yes No hepatosplenomegaly present Extremity: COMMON NORMALS: normal to inspection, capillary refill normal, no clubbing, cyanosis or edema, no calf tenderness and no pedal edema Neuro: SENSORIUM/ORIENTATION: Yes oriented to person, Yes oriented to place and Yes oriented to time Skin: COMMON NORMALS: no rashes or lesions noted GENERAL SKIN EXAM: no rashes or lesions noted Course Vital Signs: Vital signs: Vital Signs Temperature 98.0 F 10/10/20 13:32 Pulse Rate 95 10/10/20 13:32 Respiratory Rate 29 H 10/10/20 13:32 Blood Pressure 137/74 10/10/20 13:32 Pulse Oximetry 97 10/10/20 13:32 MDM - Chest Pain MDM Narrative: Medical decision making narrative: Initial troponin is elevated patient started on heparin and Nitropaste. Discussed with Dr. Harkins see his notes for final disposition. Lab Data: Labs: Lab Results 10/07/20 10/07/20 10/07/20 Range/Units 01:58 17:45 17:45 WBC 7.5 (4.0-10.0) 10^3/ uL RBC 3.94 L (4.1-5.3) 10^6/u L Hgb 11.6 L (11.7-16.6) g/dL Hct 36.0 L (42.0-52.0) % MCV 91.4 (80-94) fL MCH 29.4 (28.0-34.0) pg MCHC 32.2 (30.0-36.0) g/dL RDW 13.9 (12.1-15.1) % Plt Count 115 L (130-400) 10^3/c mm MPV 9.9 (7.4-10.4) fL Neut % (Auto) 61.0 % Lymph % (Auto) 25.3 % [place] % (Auto) 7.6 % Eos % (Auto) 5.3 % Baso % (Auto) 0.4 % Neut # (Auto) 4.59 (1.8-7.7) 10^3/u L Lymph # (Auto) 1.9 (0.8-4.8) 10^3/u L [place] # (Auto) 0.6 (0.2-0.9) 10^3/u L Eos # (Auto) 0.4 (0.0-0.8) 10^3/u L Baso # (Auto) 0.0 (0.0-0.1) 10^3/u L Nucleated RBC % (a uto) 0 % Nucleated RBCs # 0.0 /100WBC Sodium 136 (136-145) mmol/L Potassium 4.4 (3.5-5.1) mmol/L Chloride 101 (98-107) mmol/L Carbon Dioxide 27 (22-29) mmol/L Anion Gap 12.4 (5-19) BUN 18 (8-23) mg/dL Creatinine 1.2 (0.7-1.2) mg/dL GFR Calculation Not Reportable Glucose 311 H (65-115) mg/dL Calculated Osmolal ity 296 H (285-295) mOsm/k g Calcium 8.7 (8.5-10.5) mg/dL Total Bilirubin 1.3 H (0.15-1.2) mg/dL AST 33 (0-40) U/L ALT 31 (0-41) U/L Alkaline Phosphata se 121 (40-130) IU/L Troponin T Baselin e (0-15) ng/L Troponin T Hi Sens 6Hr 850.5 H (0-15) ng/L Troponin T Hi Sens 6Hr Delta Not Reportable Total Protein 6.6 (6.6-8.7) g/dL Albumin 4.0 (3.5-5.2) g/dL Globulin 2.6 (1.3-4.6) g/dL 10/07/20 Range/Units 17:45 WBC (4.0-10.0) 10^3/ uL RBC (4.1-5.3) 10^6/u L Hgb (11.7-16.6) g/dL Hct (42.0-52.0) % MCV (80-94) fL MCH (28.0-34.0) pg MCHC (30.0-36.0) g/dL RDW (12.1-15.1) % Plt Count (130-400) 10^3/c mm MPV (7.4-10.4) fL Neut % (Auto) % Lymph % (Auto) % [place] % (Auto) % Eos % (Auto) % Baso % (Auto) % Neut # (Auto) (1.8-7.7) 10^3/u L Lymph # (Auto) (0.8-4.8) 10^3/u L [place] # (Auto) (0.2-0.9) 10^3/u L Eos # (Auto) (0.0-0.8) 10^3/u L Baso # (Auto) (0.0-0.1) 10^3/u L Nucleated RBC % (a uto) % Nucleated RBCs # /100WBC Sodium (136-145) mmol/L Potassium (3.5-5.1) mmol/L Chloride (98-107) mmol/L Carbon Dioxide (22-29) mmol/L Anion Gap (5-19) BUN (8-23) mg/dL Creatinine (0.7-1.2) mg/dL GFR Calculation Glucose (65-115) mg/dL Calculated Osmolal ity (285-295) mOsm/k g Calcium (8.5-10.5) mg/dL Total Bilirubin (0.15-1.2) mg/dL AST (0-40) U/L ALT (0-41) U/L Alkaline Phosphata se (40-130) IU/L Troponin T Baselin e 230 H* (0-15) ng/L Troponin T Hi Sens 6Hr (0-15) ng/L Troponin T Hi Sens 6Hr Delta Total Protein (6.6-8.7) g/dL Albumin (3.5-5.2) g/dL Globulin (1.3-4.6) g/dL Discharge Plan Discharge Patient Disposition: Admitted As Inpatient Admit Provider: Alex Awad Clinical Impression: NSTEMI (non-ST elevated myocardial infarction) Condition: Stable Discharge Diet: Cardiac Discharge Activity: Resume usual activity Coding Level of Care Code ED [employer] for Chg Fwd Exam Comprehensive Documented by User: Malik Harkins DO 10/08/20 03:33 HPI - Chest Pain General: Chief Complaint: Chest Pain Stated Complaint: L.Arm Pain/CHEST PAIN Time Seen by Provider: 10/07/20 17:34 PFSH ED PFSH: Medical History Adult onset hypothyroidism Atherosclerotic cardiovascular disease B12 deficiency Benign hypertension Carotid stenosis Chronic kidney disease, unspecified Controlled diabetes mellitus with complication, without long-term current use of insulin Diabetes GERD (gastroesophageal reflux disease) Mixed hyperlipidemia Noncompliance with medication regimen Presence of cardiac pacemaker Surgical History H/O right knee surgery History of cardiac pacemaker in situ History of cervical discectomy History of ear surgery Status post carotid endarterectomy Family History Brother CAD (coronary artery disease) Cancer Diabetes Lung disease Mother CAD (coronary artery disease) Diabetes Family/Other Cancer Diabetes Sister Diabetes Father Diabetes Denies family history of Clotting disorder Dementia Chronic kidney disease (CKD) Suicide Anesthesia complication Bleeding disorder Stroke Social History Smoking and tobacco status: never smoked Second hand smoke exposure: No Smoking risk assessment/counseling performed?: No Alcohol intake: never Desire information about alcohol rehabilitation?: No Counseling given: No Desire information about substance/drug rehabilitation?: No Counseling given: No Adopted: No Caregiver/support person: No Lives independently: Yes Household members: none Housing: House Marital status: Single Number of children: 1 service: Yes branch: [employer] Current occupational status: retired History of recent travel: No Current gender identity: Male Course Consultations: Consultation #1: irene Vital Signs: Vital signs: Vital Signs Temperature 98.0 F 10/10/20 13:32 Pulse Rate 95 10/10/20 13:32 Respiratory Rate 29 H 10/10/20 13:32 Blood Pressure 137/74 10/10/20 13:32 Pulse Oximetry 97 10/10/20 13:32 MDM - Chest Pain MDM Narrative: Medical decision making narrative: 75-year-old male with a history of coronary disease checked out to me at shift change by Dr. Rios. This gentleman had a brief episode of chest pain at home, which was relieved by nitroglycerin. His pain has not returned. He was hypertensive on arrival. His EKG showed a normal sinus rhythm with a normal axis, no acute ST changes. However, his troponin initially was over 200. This is despite a creatinine of 1.0. He will be admitted for non-ST elevation [place]. He was bolused with heparin in the ER, and Nitropaste was placed on the patient. Lab Data: Labs: Lab Results 10/07/20 10/07/20 10/07/20 Range/Units 01:58 17:45 17:45 WBC 7.5 (4.0-10.0) 10^3/ uL RBC 3.94 L (4.1-5.3) 10^6/u L Hgb 11.6 L (11.7-16.6) g/dL Hct 36.0 L (42.0-52.0) % MCV 91.4 (80-94) fL MCH 29.4 (28.0-34.0) pg MCHC 32.2 (30.0-36.0) g/dL RDW 13.9 (12.1-15.1) % Plt Count 115 L (130-400) 10^3/c mm MPV 9.9 (7.4-10.4) fL Neut % (Auto) 61.0 % Lymph % (Auto) 25.3 % [place] % (Auto) 7.6 % Eos % (Auto) 5.3 % Baso % (Auto) 0.4 % Neut # (Auto) 4.59 (1.8-7.7) 10^3/u L Lymph # (Auto) 1.9 (0.8-4.8) 10^3/u L [place] # (Auto) 0.6 (0.2-0.9) 10^3/u L Eos # (Auto) 0.4 (0.0-0.8) 10^3/u L Baso # (Auto) 0.0 (0.0-0.1) 10^3/u L Nucleated RBC % (a uto) 0 % Nucleated RBCs # 0.0 /100WBC Sodium 136 (136-145) mmol/L Potassium 4.4 (3.5-5.1) mmol/L Chloride 101 (98-107) mmol/L Carbon Dioxide 27 (22-29) mmol/L Anion Gap 12.4 (5-19) BUN 18 (8-23) mg/dL Creatinine 1.2 (0.7-1.2) mg/dL GFR Calculation Not Reportable Glucose 311 H (65-115) mg/dL Calculated Osmolal ity 296 H (285-295) mOsm/k g Calcium 8.7 (8.5-10.5) mg/dL Total Bilirubin 1.3 H (0.15-1.2) mg/dL AST 33 (0-40) U/L ALT 31 (0-41) U/L Alkaline Phosphata se 121 (40-130) IU/L Troponin T Baselin e (0-15) ng/L Troponin T Hi Sens 6Hr 850.5 H (0-15) ng/L Troponin T Hi Sens 6Hr Delta Not Reportable Total Protein 6.6 (6.6-8.7) g/dL Albumin 4.0 (3.5-5.2) g/dL Globulin 2.6 (1.3-4.6) g/dL 10/07/20 Range/Units 17:45 WBC (4.0-10.0) 10^3/ uL RBC (4.1-5.3) 10^6/u L Hgb (11.7-16.6) g/dL Hct (42.0-52.0) % MCV (80-94) fL MCH (28.0-34.0) pg MCHC (30.0-36.0) g/dL RDW (12.1-15.1) % Plt Count (130-400) 10^3/c mm MPV (7.4-10.4) fL Neut % (Auto) % Lymph % (Auto) % [place] % (Auto) % Eos % (Auto) % Baso % (Auto) % Neut # (Auto) (1.8-7.7) 10^3/u L Lymph # (Auto) (0.8-4.8) 10^3/u L [place] # (Auto) (0.2-0.9) 10^3/u L Eos # (Auto) (0.0-0.8) 10^3/u L Baso # (Auto) (0.0-0.1) 10^3/u L Nucleated RBC % (a uto) % Nucleated RBCs # /100WBC Sodium (136-145) mmol/L Potassium (3.5-5.1) mmol/L Chloride (98-107) mmol/L Carbon Dioxide (22-29) mmol/L Anion Gap (5-19) BUN (8-23) mg/dL Creatinine (0.7-1.2) mg/dL GFR Calculation Glucose (65-115) mg/dL Calculated Osmolal ity (285-295) mOsm/k g Calcium (8.5-10.5) mg/dL Total Bilirubin (0.15-1.2) mg/dL AST (0-40) U/L ALT (0-41) U/L Alkaline Phosphata se (40-130) IU/L Troponin T Baselin e 230 H* (0-15) ng/L Troponin T Hi Sens 6Hr (0-15) ng/L Troponin T Hi Sens 6Hr Delta Total Protein (6.6-8.7) g/dL Albumin (3.5-5.2) g/dL Globulin (1.3-4.6) g/dL Discharge Plan Discharge Patient Disposition: Admitted As Inpatient Admit Provider: Alex Awad Clinical Impression: NSTEMI (non-ST elevated myocardial infarction) Condition: Stable Discharge Diet: Cardiac Discharge Activity: Resume usual activity Coding Level of Care Code ED [employer] for Chg Fwd Exam Comprehensive
[2020-10-07 17:50] VITALS: BP 171/71; PULSE 67; PULSE 68; RESP 16; O2SAT 98
[2020-10-07 17:55] LABS: Basophils % 0.4 %; Eosinophils # 0.4 10^3/uL (0.0-0.8); Eosinophils % 5.3 %; Hemoglobin 11.6 g/dL (11.7-16.6); Lymphocytes # 1.9 10^3/uL (0.8-4.8); Lymphocytes % 25.3 %; Mean Corpuscular HGB Conc 32.2 g/dL (30.0-36.0); Mean Corpuscular Hemoglobin 29.4 pg (28.0-34.0); Mean Corpuscular Volume 91.4 fL (80-94); Mean Platelet Volume 9.9 fL (7.4-10.4); Monocytes # 0.6 10^3/uL (0.2-0.9); Monocytes % 7.6 %; Neutrophils # 4.59 10^3/uL (1.8-7.7); Nucleated Red Blood Cells % 0 %; Platelet Count 115 10^3/cmm (130-400); Red Blood Count 3.94 10^6/uL (4.1-5.3); Red Cell Distribution Width 13.9 % (12.1-15.1); White Blood Count 7.5 10^3/uL (4.0-10.0)
[2020-10-07 18:14] LABS: Alanine Aminotransferase 31 U/L (0-41); Alkaline Phosphatase 121 IU/L (40-130); Anion Gap 12.4 (5-19); Aspartate Amino Transferase 33 U/L (0-40); Blood Urea Nitrogen 18 mg/dL (8-23); Calcium 8.7 mg/dL (8.5-10.5); Carbon Dioxide 27 mmol/L (22-29); Chloride 101 mmol/L (98-107); Globulin 2.6 g/dL (1.3-4.6); Glucose 311 mg/dL (65-115); Osmolality Calculated 296 mOsm/kg (285-295); Potassium 4.4 mmol/L (3.5-5.1); Sodium 136 mmol/L (136-145); Total Bilirubin 1.3 mg/dL (0.15-1.2); Total Protein 6.6 g/dL (6.6-8.7)
[2020-10-07 18:21] LABS: Troponin(5th) Baseline 230 ng/L (0-15)
[2020-10-07] MEDS: heparin 5,000 unit/mL INJ 1 mL 4000 UNIT IVP (18:31)
[2020-10-07] MEDS: nitroglycerin 1 gm/inch oint Pkt 1 INCH TOPICAL (18:31)
--- NOTE | 2020-10-07 19:34 | ECG_ITS ---
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
--- NOTE | 2020-10-07 19:46 | PM.HP ---
Providers/Chief Complaint Primary Care Provider: Ree Crooks, ANNAC Chief Complaint: CHEST PAIN History of Present Illness Norbert Link is a 75 year old male who has history of atherosclerotic heart disease, hypertension, pacemaker, mixed hyperlipidemia, carotid endarterectomy, type 2 diabetes, established coronary disease status post 7 stents, presenting today with chief complaint of chest pain. Patient is stating that he was sleeping on his left side when he woke up he started noticing left-sided chest discomfort which was radiating towards his left arm and shoulder, his pain last for about 10 minutes and got relieved with 1 sublingual nitroglycerin, he did not experience any recurrence of symptoms however came to the hospital on request of his sister. He considers himself physically active for his age, no recent orthopnea, PND, shortness of breath, fever, sinus infection, diarrhea. He is describing his chest pain as pressure-like sensation which was radiating towards his left shoulder, duration 10 minutes. No diaphoresis nausea, vomiting or syncopal event. Diagnosis in the ER revealed normal CBC and BMP troponin 230 patient is chest pain-free hemodynamically stable EKG showing normal sinus rhythm with short MS interval status post right carotid endarterectomy by of last year. He had a subsequent occlusion, most probably related to a quite distal dissection. He remains asymptomatic. Recent duplex study performed earlier today reveals a peak velocity on the left side 133 cm/s in the mid ICA Review of Systems Const: Denies: fever(s) Eyes: Denies: change in vision ENMT: Denies: throat pain Card: Reports: chest pain; Denies: syncope, dyspnea on exertion or orthopnea Resp: Denies: dyspnea GI: Denies: abdominal pain : Denies: flank pain Musc: Denies: neck pain Skin/Breast: Denies: rash Neuro: Denies: headache(s) Psych: Denies: anxiety Endo: Denies: polyuria Levar/Lymph: Denies: easy bruising All/Imm: Denies: urticaria Medications/Allergies Home Medications Medication Instructions Recorded Confirmed Last Taken Type aspirin 325 mg tablet 325 mg PO DAILY@0600 06/25/19 10/07/20 10/07/20 History multivitamin [Daily Multi-Vitamin] 1 tab PO DAILY@0600 10/15/19 10/07/20 10/07/20 History pen needle, diabetic 33 gauge x #100 each 04/08/20 10/07/20 Unknown Rx omega-3 fatty acids 1,000 mg 1,000 mg PO DAILY@0600 07/05/20 10/07/20 10/07/20 History capsule fluticasone propionate 50 2 spray INTRANASAL DAILY #16 g 08/12/20 10/07/20 Unknown Rx mcg/actuation nasal spray,suspension Lipitor 40 mg PO DAILY@0610/07/20 10/07/20 10/07/20 History atenolol 25 mg PO DAILY@0610/07/20 10/07/20 10/07/20 History clopidogrel 75 mg PO DAILY@0610/07/20 10/07/20 10/07/20 History famotidine 20 mg PO DAILY@59910/07/20 10/07/20 10/07/20 History glipizide 10 mg PO DAILY@0600 10/07/20 10/07/20 10/07/20 History insulin detemir U-100 [Levemir 25 unit SUBCUT DAILY@0610/07/20 10/07/20 10/07/20 History FlexTouch U-100 Insuln] isosorbide mononitrate 30 mg PO DAILY@0610/07/20 10/07/20 10/07/20 History levothyroxine 50 mcg PO DAILY@0600 10/07/20 10/07/20 10/07/20 History lisinopril 5 mg PO DAILY@0600 10/07/20 10/07/20 10/07/20 History Allergies Allergy/AdvReac Type Severity Reaction Status Date / Time metformin Allergy Severe ADR-Nausea Verified 08/19/20 10:28 Iodinated Contrast Media Allergy Unknown ALGY-Hives Verified 08/19/20 10:28 PFSH Acute PFSH: Medical History (Updated 10/07/20 @ 21:39 by Alex Awad MD) Adult onset hypothyroidism Atherosclerotic cardiovascular disease B12 deficiency Benign hypertension Carotid stenosis Chronic kidney disease, unspecified Controlled diabetes mellitus with complication, without long-term current use of insulin Diabetes GERD (gastroesophageal reflux disease) Mixed hyperlipidemia Noncompliance with medication regimen Presence of cardiac pacemaker Surgical History (Updated 10/07/20 @ 21:39 by Alex Awad MD) H/O right knee surgery History of cardiac pacemaker in situ History of cervical discectomy History of ear surgery Status post carotid endarterectomy Family History Brother CAD (coronary artery disease) Cancer Diabetes Lung disease Mother CAD (coronary artery disease) Diabetes Family/Other Cancer Diabetes Sister Diabetes Father Diabetes Denies family history of Clotting disorder Dementia Chronic kidney disease (CKD) Suicide Anesthesia complication Bleeding disorder Stroke Social History Smoking and tobacco status: never smoked Second hand smoke exposure: No Smoking risk assessment/counseling performed?: No Alcohol intake: never Desire information about alcohol rehabilitation?: No Counseling given: No Desire information about substance/drug rehabilitation?: No Counseling given: No Adopted: No Caregiver/support person: No Lives independently: Yes Household members: none Housing: House Marital status: Single Number of children: 1 service: Yes branch: [employer] Current occupational status: retired History of recent travel: No Current gender identity: Male Vitals/I&O/Wt Last Vital Signs Temp 98.5 F 10/07/20 16:44 Pulse 68 10/07/20 17:50 Resp 16 10/07/20 17:50 BP 171/71 10/07/20 17:50 Pulse Ox 98 10/07/20 17:50 Weight last 48 hrs Weight 70.76 kg Physical Exam Narrative: EXAM NARRATIVE: elderly male very pleasant and cooperative Laying flat in his bed normal hemodynamics saturating well No active chest pain shortness of breath S1, S2 no murmur appreciated no carotid bruit, pacemaker left upper chest Abdomen soft nontender Bilateral breath sounds without adventitious loud stridor or rhonchi Bilateral lower extremity without any edema Appropriate mood and affect No neurological deficits EOMI, PERRLA No skin changes of ischemia gangrene ulcer ,no joint swelling Data : 10/07/20 17:45 10/07/20 17:45 A&P Assessment and plan (1) Unstable angina: Status: Acute (2) NSTEMI (non-ST elevated myocardial infarction): Status: Acute Additional A&P Information NSTEMI with unstable angina Currently chest pain-free EKG without ischemic or infarctive changes, short MS interval troponin above 200, low risk for PE will check D-dimer Started on therapeutic dose of Lovenox however received bolus of heparin as well Echo in the morning to see any new wall motion abnormalities, in case of recurrence of symptoms will consult cardiology on stat basis but for now I will monitor him on cardiac/telemetry floor Type 2 diabetes: Consistent carb diet/cardiac/moderate sliding scale Carotid endarterectomy No active neurological signs or symptoms Continue high-dose aspirin and statin DVT prophylaxis not indicated due to therapeutic dose of Lovenox Chest pain-free Consistent carb diet Full code Attestations Medical Necessity Statement*: Anticipating discharge in less than 48 hours continued overnight monitoring because of troponin leak and history of established coronary disease current diagnoses NSTEMI/unstable angina Time Spent in Patient Care: (>than 50% of time spent in counselling and/or direct pt care on unit). 35mins Coding Level of Care Code Acute Wallpaper Embosser Helper for Lu Leyva Diagnoses Unstable angina I20.0 NSTEMI (non-ST elevated myocardial infarction) I21.4
[2020-10-07 20:35] VITALS: BP 178/70; PULSE 67; RESP 18; O2SAT 98
[2020-10-07 21:06] VITALS: BP 162/78; PULSE 68; RESP 18; O2SAT 98
[2020-10-07 21:09] LABS: D Dimer 0.35 ug/mIFEU (0-0.59)
[2020-10-07 21:40] VITALS: BP 164/79; PULSE 73; RESP 20; O2SAT 100
[2020-10-07 21:42] LABS: Troponin 5 2HR 939.1 ng/L (0-15); Troponin 5 2HR Delta 709.1 ABS# (0-10)
--- NOTE | 2020-10-07 21:49 | PC.NURSE ---
Informed Dr Awad of critical two hour troponin with significant change.
[2020-10-07 22:00] VITALS: PULSE 71
[2020-10-07] MEDS: sodium chloride 0.9% 1,000 ML 30 ML IV (22:34)
[2020-10-07] MEDS: enoxaparin 80 mg/0.8 mL Syringe 70 MG SUBCUT (22:34)
--- NOTE | 2020-10-07 23:31 | PC.NURSE ---
Patient received from ED via stretcher. Patient is A & O x4. Patient vital signs are stable. Patient has no complaints of pain or other needs at this time.
--- NOTE | 2020-10-07 23:34 | ECG_ITS ---
[facility] Test Date: 2020-10-07 Pat Name: Norbert Link Department: Room: 112 Gender: Male Foundation Relations Director: : 1945 Requested By: Sha Vickers Order Number: [id number] Terrell MD: ALAYNA MONTOYA Measurements Intervals Ceres Rate: 76 P: 72 HI: 185 QRS: -1 QRSD: 93 T: 57 QT: 402 QTc: 454 Interpretive Statements SINUS RHYTHM INCOMPLETE RIGHT BUNDLE BRANCH BLOCK [90+ ms QRS DURATION, TERMINAL R IN V1/V2, 40+ ms S IN I/aVL/V4/V5/V6] Compared to ECG 10/07/2020 19:29:53 Incomplete right bundle-branch block now present Electronically Signed On 10-09-2020 22:30:10 CDT by ALAYNA MONTOYA [id number]
[2020-10-08] VITALS (39 sets, daily range): BP systolic 80–164; BP diastolic 48–90; PULSE 68–94; RESP 10–28; TEMP 36.4–36.9; O2SAT 94–98
[2020-10-08 03:03] LABS: Anion Gap 14.4 (5-19); Blood Urea Nitrogen 18 mg/dL (8-23); Calcium 8.4 mg/dL (8.5-10.5); Carbon Dioxide 23 mmol/L (22-29); Chloride 105 mmol/L (98-107); Glucose 237 mg/dL (65-115); Osmolality Calculated 296 mOsm/kg (285-295); Potassium 4.4 mmol/L (3.5-5.1); Sodium 138 mmol/L (136-145)
[2020-10-08 03:12] LABS: Troponin 5 6HR 850.5 ng/L (0-15)
[2020-10-08] MEDS: lisinopril 5 mg Tablet PO (05:13)
[2020-10-08] MEDS: isosorbide mononitrate ER 30 mg Tablet PO (05:13)
[2020-10-08] MEDS: famotidine 20 mg Tablet PO (05:13)
[2020-10-08] MEDS: clopidogrel 75 mg Tablet PO (05:13)
[2020-10-08] MEDS: levothyroxine 50 mcg Tablet PO (05:13)
[2020-10-08] MEDS: atorvastatin 40 mg Tablet 80 MG PO (05:14)
[2020-10-08] MEDS: aspirin 325 mg Tablet PO (05:14)
[2020-10-08 06:34] LABS: Glucose Point of Care 243 mg/dL (70-110)
--- NOTE | 2020-10-08 07:43 | PM.CONSULT ---
Providers/Reason For Consult Consulting Physican/Specialty*: Cardiology Reason for Consult*: Non-ST elevation GA Attending Physician: Alex Awad MD Primary Care Provider: SHANNAN Eastman History of Present Illness History of Present Illness Norbert Link is a 75 year old male past medical history significant for coronary artery disease, peripheral artery disease, history of myocardial infarction status post carotid endarterectomy last year status post multiple stents to RCA and circumflex few years ago woke up yesterday morning with chest pain radiating to left arm and neck. When pain did not subsided he took nitroglycerin and came to ER. He was ruled in for non-ST elevation GA. He was treated as per ACS protocol. His troponin bump was more than 900. Currently he is chest pain-free. His other comorbidities are hypertension and diabetes mellitus. He takes clopidogrel and other optimal medical management. I have been asked by our hospitalist colleague to assist in his care. At this point would recommend proceeding with left heart catheter non-ST elevation GA. I have detailed discussion with the patient regarding all the risks benefits and alternative for the procedure. He understand the risk of urgent emergent surgery, major minor bleed, stroke, arrhythmia and worse case scenario . He takes dual antiplatelet therapy and agrees to take it further for at least couple of years. Review of Systems Const: Denies: fever(s) Eyes: Denies: change in vision or photophobia ENMT: Denies: throat pain Card: Reports: chest pain; Denies: syncope, dyspnea on exertion or orthopnea Resp: Denies: dyspnea GI: Denies: abdominal pain : Denies: flank pain Musc: Denies: neck pain or joint warmth Skin/Breast: Denies: rash Neuro: Denies: headache(s) Psych: Denies: anxiety Endo: Denies: polyuria Levar/Lymph: Denies: easy bruising All/Imm: Denies: urticaria or acute wheezing Meds/Allergies Home Medications and Allergies Home Medications Medication Instructions Recorded Confirmed Last Taken Type aspirin 325 mg tablet 325 mg PO DAILY@0600 06/25/19 10/07/20 10/07/20 History multivitamin [Daily Multi-Vitamin] 1 tab PO DAILY@0600 10/15/19 10/07/20 10/07/20 History pen needle, diabetic 33 gauge x #100 each 04/08/20 10/07/20 Unknown Rx omega-3 fatty acids 1,000 mg 1,000 mg PO DAILY@0607/05/20 10/07/20 10/07/20 History capsule fluticasone propionate 50 2 spray INTRANASAL DAILY #16 g 08/12/20 10/07/20 Unknown Rx mcg/actuation nasal spray,suspension Lipitor 40 mg PO DAILY@0610/07/20 10/07/20 10/07/20 History atenolol 25 mg PO DAILY@0600 10/07/20 10/07/20 10/07/20 History clopidogrel 75 mg PO DAILY@0600 10/07/20 10/07/20 10/07/20 History famotidine 20 mg PO DAILY@0610/07/20 10/07/20 10/07/20 History glipizide 10 mg PO DAILY@0600 10/07/20 10/07/20 10/07/20 History insulin detemir U-100 [Levemir 25 unit SUBCUT DAILY@0610/07/20 10/07/20 10/07/20 History FlexTouch U-100 Insuln] isosorbide mononitrate 30 mg PO DAILY@0600 10/07/20 10/07/20 10/07/20 History levothyroxine 50 mcg PO DAILY@0600 10/07/20 10/07/20 10/07/20 History lisinopril 5 mg PO DAILY@0600 10/07/20 10/07/20 10/07/20 History Allergies Allergy/AdvReac Type Severity Reaction Status Date / Time metformin Allergy Severe ADR-Nausea Verified 08/19/20 10:28 Iodinated Contrast Media Allergy Unknown ALGY-Hives Verified 08/19/20 10:28 Current Medications Current Medications Generic Name Dose Route Start Last Admin Trade Name Freq PRN Reason Stop Dose Admin Aspirin 325 mg 10/08/20 06:00 10/08/20 05:14 Aspirin 325 Mg Tablet PO 325 mg DAILY@0600 [facility] Administration Atorvastatin Calcium 80 mg 10/08/20 06:00 10/08/20 05:14 Atorvastatin 40 Mg Tablet PO 80 mg DAILY@0600 [facility] Administration Clopidogrel Bisulfate 75 mg 10/08/20 06:00 10/08/20 05:13 Clopidogrel 75 Mg Tablet PO 75 mg DAILY@0600 RK Administration Enoxaparin Sodium 70 mg 10/07/20 22:07 10/07/20 22:34 Enoxaparin 80 Mg/0.8 Ml Syringe SUBCUT 70 mg Q12H RK Administration Famotidine 20 mg 10/08/20 06:00 10/08/20 05:13 Famotidine 20 Mg Tablet PO 20 mg DAILY@0600 RK Administration Sodium Chloride 1,000 mls @ 30 mls/hr 10/07/20 22:07 10/07/20 22:34 Sodium Chloride 0.9% IV 30 mls/hr .Q24H RK Administration Isosorbide Mononitrate 30 mg 10/08/20 06:00 10/08/20 05:13 Isosorbide Mononitrate Er 30 Mg Tablet PO 30 mg DAILY@0600 RK Administration Levothyroxine Sodium 50 mcg 10/08/20 06:00 10/08/20 05:13 Levothyroxine 50 Mcg Tablet PO 50 mcg DAILY@0600 RK Administration Lisinopril 5 mg 10/08/20 06:00 10/08/20 05:13 Lisinopril 5 Mg Tablet PO 5 mg DAILY@0600 RK Administration PFSH Acute PFSH: Medical History (Updated 10/08/20 @ 03:33 by Malik Harkins DO) Adult onset hypothyroidism Atherosclerotic cardiovascular disease B12 deficiency Benign hypertension Carotid stenosis Chronic kidney disease, unspecified Controlled diabetes mellitus with complication, without long-term current use of insulin Diabetes GERD (gastroesophageal reflux disease) Mixed hyperlipidemia Noncompliance with medication regimen Presence of cardiac pacemaker Surgical History (Updated 10/07/20 @ 21:39 by Alex Awad MD) H/O right knee surgery History of cardiac pacemaker in situ History of cervical discectomy History of ear surgery Status post carotid endarterectomy Family History Brother CAD (coronary artery disease) Cancer Diabetes Lung disease Mother CAD (coronary artery disease) Diabetes Family/Other Cancer Diabetes Sister Diabetes Father Diabetes Denies family history of Clotting disorder Dementia Chronic kidney disease (CKD) Suicide Anesthesia complication Bleeding disorder Stroke Social History Smoking and tobacco status: never smoked Second hand smoke exposure: No Smoking risk assessment/counseling performed?: No Alcohol intake: never Desire information about alcohol rehabilitation?: No Counseling given: No Desire information about substance/drug rehabilitation?: No Counseling given: No Adopted: No Caregiver/support person: No Lives independently: Yes Household members: none Housing: House Marital status: Single Number of children: 1 service: Yes branch: [employer] Current occupational status: retired History of recent travel: No Current gender identity: Male Dietary Habits: Current diet type/program: diabetic Caffeine: Yes Caffeine intake frequency: coffee Number of coffee servings: 2 During the past year weight has: remained stable Exercise: What type of physical activity do you participate in?: none Safety: Seatbelt use: always Helmet use: No Drive intoxicated or ride with intoxicated trailer driver?: never Vitals/I&O/Wt Last Vital Signs Temp 97.6 F 10/08/20 03:37 Pulse 73 10/08/20 06:00 Resp 18 10/08/20 03:37 BP 164/69 10/08/20 03:37 Pulse Ox 95 10/08/20 03:37 Weight last 48 hrs Weight 156 lb Physical Exam Narrative: EXAM NARRATIVE: GENERAL: Patient is alert, awake and oriented x3. NECK: No jugular vein distension. HEENT: No cyanosis. No icterus. No pallor. HEART: Regular S1 and S2. No murmur, rub or gallop. LUNGS: Clear to auscultate bilaterally. ABDOMEN: Soft, nontender and nondistended. Positive bowel sounds. No guarding, rebound or tenderness. CENTRAL NERVOUS SYSTEM: Grossly nonfocal. EXTREMITIES: Lower extremities without edema bilaterally. A&P Assessment and plan (1) NSTEMI (non-ST elevated myocardial infarction): Patient has been ruled in for non-ST elevation GA. He was treated as per ACS protocol. We will proceed with left heart cath and PCI if indicated. Further plan will advise as per progress of the patient Status: Acute (2) Benign hypertension: Well-controlled. Continue meds Status: Chronic (3) Mixed hyperlipidemia: Continue statin Status: Chronic (4) Presence of cardiac pacemaker: Continue to monitor Status: Acute (5) Controlled diabetes mellitus with complication, without long-term current use of insulin: As per medicine. Status: Chronic Qualifiers: Diabetes mellitus type: type 2 Qualified Code(s): E11.8 - Type 2 diabetes mellitus with unspecified complications Consult Attestations Medical Necessity Statement: Patient require continuation hospitalization for above defined care Coding Level of Care Code New Pt Acute Riveter Hand for Chg Fwd Patient Type New History Comprehensive Exam Comprehensive Medical Decision Making Moderate Complexity Diagnoses NSTEMI (non-ST elevated myocardial infarction) I21.4 Benign hypertension I10 Mixed hyperlipidemia E78.2 Presence of cardiac pacemaker Z95.0 Controlled diabetes mellitus with complication, without long-term current use of insulin E11.8 Diabetes mellitus type: type 2
--- NOTE | 2020-10-08 07:55 | XACV_ITS ---
Exam Room: [facility] Ht: 170 cm Wt: 71 kg BSA: 1.84 m2 Gender: Male : 1945 Any Known Allergies: Other Exam Priority: Routine Procedure(s): Procedure Description: Diagnostic procedure Procedure Description: PCI procedure Procedure Description: Left ventriculography Procedure Description: Drug Eluting Coronary Stent Procedure Description: PTCA Procedure Description: Coronary Angiography Diagnostic Cath Status: Elective Diagnostic Findings * Left Main has no disease. * Left Anterior Descending has no disease. * Proximal Right Coronary Artery: severe 90% stenosis, TING: 3 flow. * Distal Right Coronary Artery to Right Posterior AV: severe 90% stenosis, TING: 2 flow. * Proximal Circumflex: critical 95% stenosis, TING: 2 flow. * Distal Circumflex: total occlusion, TING: 3 flow. * Posterior Descending Right: moderate 50% stenosis, TING: 2 flow. * Coronary angiography shows right dominance. Interventional Findings * Proximal Right Coronary Artery: 90% stenosis treated with a MDT R GABRIELA 2.25X15 DAMEON, and MDT NC EUPHORA RX [id number] BALLOON. 0% residual stenosis, TING: 3 flow. * Distal Right Coronary Artery to Right Posterior AV: 90% stenosis treated with a AB MINI TREK 2.00X12 RX BALLOON. 40% residual stenosis, TING: 3 flow. * Proximal Circumflex: 95% stenosis treated with a AB TREK 2.25X12 RX BALLOON, AB TREK 2.25X20 RX BALLOON, MDT NC EUPHORA RX [id number] BALLOON, MDT R GABRIELA 3.0X15 DAMEON, and MDT NC EUPHORA RX [id number] BALLOON. 0% residual stenosis, TING: 3 flow. * Distal Circumflex: 100% stenosis treated with a MDT R GABRIELA 2.25X12 DAMEON. 0% residual stenosis, TING: 3 flow. * Posterior Descending Right: 50% stenosis treated with a AB MINI TREK 2.00X20 RX BALLOON. 20% residual stenosis, TING: 3 flow. Conclusions 1. There is total occlusion coronary artery disease with two vessel disease. 2. Proximal Right Coronary Artery was treated with a Drug Eluting Stent, and Balloon. 3. Distal Right Coronary Artery to Right Posterior AV was treated with a Balloon. 4. Proximal Circumflex was treated with a Balloon, Balloon, Balloon, Drug Eluting Stent, and Balloon. 5. Distal Circumflex was treated with a Drug Eluting Stent. 6. Posterior Descending Right was treated with a Balloon. Recommendations * Continue current medical management and risk factor modification. Pressures Phase:Rest AO : 48 / 22 ( 32 ) @ 8:36:00 AM 78 / 4 ( 20 ) @ 8:37:00 AM Clinical Evaluation EBL: 5mL-10mL Procedural Details Procedure Consent Obtained. Pre-Procedure Time Out. Identified patient by full name and date of as verbalized by the patient/guarantor. Does the consent match the physician's order: Yes. Accurate & Complete Informed Consent: Yes. Inpatient/Outpatient History & Physical on Chart: Yes. If H&P is completed, is and addenduem needed: No; If yes, is the addendum complete: N/A. Visualize and Verify Site with Patient/Guarantor: N/A. Relevant Radiology Images available: Yes. The risks, benefits, and alternatives of sedation and/or procedure were discussed by physician. The patient agrees to continue. Procedure started. Correct patient, site and procedure confirmed by cath team. Current diagnosis: NSTEMI. PERRLA. 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 Lungs clear x 5 lobes. IV Site on Arrival: 20 gauge in the left anticubital. Pre Procedural Pulses: bilateral dorsalis pedis was 2+. Pre Procedural Pulses: bilateral posterior tibial was 2+. Pre Procedural Pulses: bilateral radial was 3+. Oxygen started at 2liters/min via nasal canula. bilateral groins was prepped with chloroprep then draped in the usual sterile fashion. right radial was prepped with chloroprep then draped in the usual sterile fashion. Physician notified. Baseline sample Acquired. HR: 91 BPM. Equipment: 6F - Femoral. Physician arrived. Physician scrubbed in. Immediate Pre-Procedure Time Out. Correct Patient: Yes; Correct Procedure: Yes; Correct Site: Yes; Correct Patient Position: Yes; Correct Supplies: Yes; Dried Flammable Prep: Yes; Blood Products Available: No;. Lidocaine 1% infiltrated to the right groin. Arterial access obtained. A 5 turkmen JL4 catheter in over wire. Multiple views taken of left coronary artery. Catheter removed over the exchange wire. A 5 turkmen JR4 catheter in over wire. Multiple views taken of right coronary artery. Catheter out. 6 turkmen XB 3.5 guide catheter was inserted over the wire. Guide catheter out. 6 turkmen XB 3 guide catheter was inserted over the wire. Guide catheter out. 6 turkmen JL 3.5 guide catheter was inserted over the wire. [place] guidewire was advanced through the guide catheter to lesion in the prox Circ. Inflation number : 1 A AB TREK 2.25X12 RX BALLOON was prepped and advanced across the Prox CX , then inflated to 12 ISAAC for 0:08 seconds. Inflation number: 2 The AB TREK 2.25X12 RX BALLOON was reinflated across the Prox CX, to 12 ISAAC for 0:17 seconds. Inflation number: 3 The AB TREK 2.25X12 RX BALLOON was reinflated across the Prox CX, to 12 ISAAC for 0:16 seconds. Inflation number: 4 The AB TREK 2.25X12 RX BALLOON was reinflated across the Prox CX, to 12 ISAAC for 0:07 seconds. Inflation number: 5 The AB TREK 2.25X12 RX BALLOON was reinflated across the Prox CX, to 6 ISAAC for 0:08 seconds. Inflation number: 6 The AB TREK 2.25X12 RX BALLOON was reinflated across the Prox CX, to 12 ISAAC for 0:13 seconds. Inflation number: 7 The AB TREK 2.25X12 RX BALLOON was reinflated across the Prox CX, to 4 ISAAC for 0:13 seconds. Inflation number: 8 The AB TREK 2.25X12 RX BALLOON was reinflated across the Prox CX, to 14 ISAAC for 0:15 seconds. Inflation number: 9 The AB TREK 2.25X12 RX BALLOON was reinflated across the Prox CX, to 4 ISAAC for 0:10 seconds. Balloon out. Inflation number : 10 A AB TREK 2.25X20 RX BALLOON was prepped and advanced across the Prox CX , then inflated to 16 ISAAC for 0:18 seconds. Balloon out. Inflation Number : 1 A MDT R GABRIELA 2.25X12 DAMEON -Lot Number# [id number] was prepped and advanced across the Dist CX. The stent was deployed at 16 ISAAC for 0:14 seconds. Expiration date: 05/30/2022. Stent balloon out over wire. 3.0mm x 15mm stent inserted but removed undeployed and intact. Inflation number : 11 A MDT NC EUPHORA RX [id number] BALLOON was prepped and advanced across the Prox CX , then inflated to 20 ISAAC for 0:31 seconds. Inflation number: 12 The MDT NC EUPHORA RX [id number] BALLOON was reinflated across the Prox CX, to 24 ISAAC for 0:17 seconds. Balloon out. Inflation Number : 13 A MDT R GABRIELA 3.0X15 DAMEON -Lot Number#[id number] was prepped and advanced across the Prox CX. The stent was deployed at 18 ISAAC for 0:18 seconds. Stent expiration date: 06/22/2022. Stent balloon out over wire. Inflation number : 14 A MDT NC EUPHORA RX [id number] BALLOON was prepped and advanced across the Prox CX , then inflated to 18 ISAAC for 0:16 seconds. Inflation number: 15 The MDT NC EUPHORA RX [id number] BALLOON was reinflated across the Prox CX, to 18 ISAAC for 0:20 seconds. Balloon out. Wire out. Guide catheter out. 6 turkmen JR 4 guide catheter was inserted over the wire. [place] guidewire was advanced through the guide catheter to lesion in the prox RCA. Inflation number : 1 A AB MINI TREK 2.00X12 RX BALLOON was prepped and advanced across the 1st RPL , then inflated to 16 ISAAC for 0:23 seconds. Balloon out. [place] repositioned to PDA. Wire out. [place] guidewire was advanced through the guide catheter to lesion in the PDA. 2.25mm x 15mm stent inserted but removed undeployed and intact. Wire out. 6 turkmen JR 4 SH guide catheter was inserted over the wire. Runthrough inserted. Inflation number : 1 A AB MINI TREK 2.00X20 RX BALLOON was prepped and advanced across the R PDA , then inflated to 20 ISAAC for 0:19 seconds. Inflation number: 2 The AB MINI TREK 2.00X20 RX BALLOON was reinflated across the R PDA, to 20 ISAAC for 0:10 seconds. Inflation Number : 1 A MDT R GABRIELA 2.25X15 DAMEON -Lot Number# [id number] was prepped and advanced across the Prox RCA. The stent was deployed at 26 ISAAC for 0:05 seconds. Expiration date: 05/13/2022. Stent balloon out over wire. Inflation number : 2 A MDT NC EUPHORA RX [id number] BALLOON was prepped and advanced across the Prox RCA , then inflated to 14 ISAAC for 0:17 seconds. Balloon out. Wire out. Guide catheter out. A Suture was successful obtaining hemostatsis at the Right Femoral artery insertion site. Sheath(s) sutured into position with 2-0 silk and sterile 4x4's and Op-site applied over the site. No oozing or signs and symptoms of hematoma noted. Arterial sheath flushed and connected to tranducer and pressure bag with heparinized saline. Post Procedure: Pulses reassessed and unchanged. PERRLA. 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 No VTE prophylaxis required. Medication's Wasted: Lidocaine 1% = 10 mL. Medication's Wasted: Heparin = 4000 units. Medication's Wasted: Other = Versed 1 mg. Medication's Wasted: Other = Fentanyl 25 mcg. Vital chart was stopped. Total IV fluids: 119 mL. Contrast type used: Omnipaque 300 mgI/mL, 500 mL bottle. PCI Indication: NSTE. [facility] Clinical Fraility Score: 4: Vulnerable. Top Closer Indications: Suspected CAD. Chest Pain Symptom Assessment: Typical Angina Symptoms. Cardiovascular Instability: No. Post-op diagnosis: Multivessel CAD. Complications: None. Estimated blood loss: 5mL-10mL. Procedure completed. Patient transferred by bed to 1st floor. Access Site Site: Right Femoral artery Sheath Size: 6 Fr Hemostasis Method: Suture Hemostasis Success: Successful Procedure Medications Start: 8:23 AM Stop: 8:23 AM Medication: Versed Amount: 1 mg Route: I.V. Start: 8:23 AM Stop: 8:23 AM Medication: Fentanyl Amount: 50 mcg Route: I.V. Start: 8:29 AM Stop: 8:29 AM Medication: Versed Amount: 1 mg Route: I.V. Start: 8:31 AM Stop: 8:31 AM Medication: Fentanyl Amount: 50 mcg Route: I.V. Start: 8:38 AM Stop: 8:38 AM Medication: Versed Amount: 1 mg Route: I.V. Start: 8:50 AM Stop: 8:50 AM Medication: Benadryl Amount: 50 mg Route: I.V. Start: 8:51 AM Stop: 8:51 AM Medication: Lovenox (Enoxaparin) Amount: 40 mg Route: I.V. bolus Start: 8:53 AM Stop: 8:53 AM Medication: Solu-Medrol (methylprednisolone) Amount: 125 mg Route: I.V. Start: 8:54 AM Stop: 8:54 AM Medication: Pepcid Amount: 40 mg Route: I.V. Start: 9:04 AM Stop: 9:04 AM Medication: Versed Amount: 1 mg Route: I.V. Start: 9:23 AM Stop: 9:23 AM Medication: Versed Amount: 1 mg Route: I.V. Start: 9:30 AM Stop: 9:30 AM Medication: Versed Amount: 1 mg Route: I.V. Start: 9:55 AM Stop: 9:55 AM Medication: Versed 1 mg and Fentanyl 25 mcg Amount: 1 Route: I.V. I, the attending physician, have reviewed and verified all procedure medications. Yes, all medications given per verbal order History/Risk Factors Hypertension: No Dyslipidemia: No Peripheral Arterial Disease (PAD): No Myocardial Infarction (ND): No Obesity: No Renal Disease: No Prior Interventions PCI: No CABG: No Valve Surgery: No Report Signatures Finalized by Alex Abraham MD on 10/18/2020 09:32 PM
--- NOTE | 2020-10-08 09:48 | PM.PN ---
Subjective Subjective: Interval history: Overnight labs and H&P reviewed. Patient underwent cardiac cath this morning, had 4 stents placed. Resting comfortably post procedure, no active complaints at this time. 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 Details per cardiology note. ASA , Plavix , atorvastsatin, lisinopril and metoprolol to continue Echocardiogram remains pending Type 2 diabetes: Consistent carb diet/cardiac/moderate sliding scale Carotid endarterectomy No active neurological signs or symptoms Continue high-dose aspirin and statin DVT prophylaxis : lovenox Chest pain-free Consistent carb diet Full code Attestations Medical Necessity Statement*: NSTEMi s/p PCI today Coding Level of Care Code Acute Urology Physician for Lu Leyva Diagnoses Unstable angina I20.0 NSTEMI (non-ST elevated myocardial infarction) I21.4
[2020-10-08 11:36] LABS: Glucose Point of Care 215 mg/dL (70-110)
--- NOTE | 2020-10-08 12:20 | PC.NURSE ---
Patient has femoral sheath to right groin, per order may not dc until 1600. Patient is not following safety instructions and keeps attempting to get out of bed. Patient has been educated over his femoral sheath and to stay in bed and not move his right leg, patient will not follow instructions. Patient has been oriented to room, situation. Patient still tells racebook writer that he will get out of the bed as soon as she leaves his room. Dr. Abraham called at patient bedside and ordered 1:1 sitter until patient is more oriented. Will continue to monitor patient.
[2020-10-08 16:23] LABS: Glucose Point of Care 384 mg/dL (70-110)
[2020-10-08 20:18] LABS: Glucose Point of Care 475 mg/dL (70-110)
--- NOTE | 2020-10-08 22:07 | USCV_ITS ---
Norbert Link Age: 75 Gender: M : 1945 Exam Date: 10/08/2020 14:03 Ordering Phys: Alex Awad MD Technologist: Carine Griffith Exam Location: [facility] Indication: NSTEMI BP: 120 / 54 HR: Rhythm: Sinus Technical Quality: Fair MEASUREMENTS (Male / Female) Normal Values 2D ECHO LV Diastolic Diameter PLAX 3.3 cm 4.2 - 5.9 / 3.9 - 5.3 cm LV Systolic Diameter PLAX 1.5 cm LV Chamber Size 3.4 cm IVS Diastolic Thickness 1.4 cm 0.6 - 1.0 / 0.6 - 0.9 cm IVS Systolic Thickness 1.7 cm LVPW Diastolic Thickness 1.2 cm 0.6 - 1.0 / 0.6 - 0.9 cm LVPW Systolic Thickness 1.5 cm RV Chamber Size 2.2 cm LVOT Diameter 1.7 cm LV Ejection Fraction 2D Teich 85.0 % LV Ejection Fraction MOD 2C 76.3 % LV Ejection Fraction 2C AL 75.8 % LA Diameter 2.8 cm LA Width 2.6 cm LA Height 5.1 cm RA Width 1.6 cm RA Height 3.2 cm Aorta at Sinotubular Diameter 2.6 cm M-MODE LV Diastolic Diameter MM 3.9 cm 4.2 - 5.9 / 3.9 - 5.3 cm LV Systolic Diameter MM 2.3 cm LV Ejection Fraction MM Teich 73.2 % IVS Diastolic Thickness MM 1.2 cm 0.6 - 1.0 / 0.6 - 0.9 cm IVS Systolic Thickness MM 1.1 cm LVPW Diastolic Thickness MM 1.0 cm 0.6 - 1.0 / 0.6 - 0.9 cm LVPW Systolic Thickness MM 1.6 cm RV Diastolic Diameter MM 1.1 cm Aortic Annulus Diameter 2.7 cm LA Ao Ratio MM 1.4 MV E Point Septal Separation 0.8 cm DOPPLER AV Peak Velocity 123.0 cm/s LVOT Peak Velocity 71.0 cm/s AV Area Cont Eq vti 1.7 cm squared AV Area Cont Eq pk 1.3 cm squared MV Area PHT 3.0 cm squared Mitral E to A Ratio 0.7 MV E' Velocity 33.5 cm/s Mitral E to MV E' Ratio 9.5 Mitral E to LV E' Lateral Ratio 7.6 Mitral E to LV E' Septal Ratio 12.8 TV Peak E Velocity 66.0 cm/s Right Atrial Pressure 3.0 mmHg PV Peak Velocity 74.0 cm/s RV Acceleration Time 0.1 s RV Ejection Time 0.2 s RV AcT/ET 0.4 FINDINGS Left Ventricle Normal left ventricular cavity size. Normal left ventricular systolic function. No regional wall motion abnormalities. Left ventricular ejection fraction is estimated at 60 %. Grade I/IV diastolic dysfunction (abnormal relaxation filling pattern), normal to mildly elevated filling pressures. Right Ventricle The right ventricle is normal in size and function. RVSP could not be calculated due to incomplete tricuspid regurgitation velocity profile. Right Atrium The right atrium is normal in size. Left Atrium The left atrium is normal in size. Mitral Valve Moderately thickened mitral valve. No mitral valve stenosis. Mild-moderate mitral valve regurgitation. Aortic Valve Moderate aortic valve calcification. No aortic valve stenosis. Trace aortic valve regurgitation. Tricuspid Valve Structurally normal tricuspid valve without significant stenosis or regurgitation. Pulmonic Valve Structurally normal pulmonic valve without significant stenosis. There is no pulmonic regurgitation. Pericardium Normal pericardium without effusion. Aorta Normal ascending aorta dimension. CONCLUSIONS 1-Normal left ventricular cavity size. Normal left ventricular systolic function. No regional wall motion abnormalities. Left ventricular ejection fraction is estimated at 60 %. Grade I/IV diastolic dysfunction (abnormal relaxation filling pattern), normal to mildly elevated filling pressures. 2-Moderate aortic valve calcification. No aortic valve stenosis. Trace aortic valve regurgitation. 3-Moderately thickened mitral valve. No mitral valve stenosis. Mild-moderate mitral valve regurgitation. 4-The right ventricle is normal in size and function. RVSP could not be calculated due to incomplete tricuspid regurgitation velocity profile. 5-There is no pericardial effusion. 6-Right atrial pressure is around 5 mm of mercury. 7-No significant change since the prior echocardiogram study of. 02/02/2017 Alex Abraham MD (Electronically Signed) Final Date: 08 Oct 2020 23:50 S
[2020-10-09] VITALS (10 sets, daily range): BP systolic 141–163; BP diastolic 57–72; PULSE 85–99; RESP 17–24; TEMP 36.5–36.7; O2SAT 95–98
[2020-10-09 05:35] LABS: Basophils % 0.2 %; Hematocrit 34.1 % (42.0-52.0); Hemoglobin 10.9 g/dL (11.7-16.6); Lymphocytes # 0.9 10^3/uL (0.8-4.8); Lymphocytes % 8.9 %; Mean Corpuscular Hemoglobin 29.1 pg (28.0-34.0); Mean Corpuscular Volume 90.9 fL (80-94); Mean Platelet Volume 10.8 fL (7.4-10.4); Monocytes # 0.4 10^3/uL (0.2-0.9); Monocytes % 4.4 %; Neutrophils # 8.67 10^3/uL (1.8-7.7); Nucleated Red Blood Cells % 0 %; Platelet Count 134 10^3/cmm (130-400); Red Blood Count 3.75 10^6/uL (4.1-5.3); Red Cell Distribution Width 14.1 % (12.1-15.1); White Blood Count 10.1 10^3/uL (4.0-10.0)
[2020-10-09] MEDS: famotidine 20 mg Tablet PO (05:49)
[2020-10-09] MEDS: atorvastatin 40 mg Tablet 80 MG PO (05:49)
[2020-10-09 05:50] LABS: Anion Gap 16.9 (5-19); Blood Urea Nitrogen 28 mg/dL (8-23); Calcium 8.3 mg/dL (8.5-10.5); Carbon Dioxide 21 mmol/L (22-29); Chloride 103 mmol/L (98-107); Glucose 368 mg/dL (65-115); Osmolality Calculated 302 mOsm/kg (285-295); Potassium 4.9 mmol/L (3.5-5.1); Sodium 136 mmol/L (136-145)
[2020-10-09] MEDS: levothyroxine 50 mcg Tablet PO (05:50)
[2020-10-09] MEDS: isosorbide mononitrate ER 30 mg Tablet PO (05:50)
[2020-10-09] MEDS: lisinopril 5 mg Tablet PO (05:50)
[2020-10-09] MEDS: clopidogrel 75 mg Tablet PO (05:50)
[2020-10-09] MEDS: aspirin 325 mg Tablet PO (05:50)
[2020-10-09 06:48] LABS: Glucose Point of Care 361 mg/dL (70-110)
[2020-10-09] MEDS: metoprolol succinate ER (24 HR) 25 mg Tablet 12.5 MG PO (08:00)
--- NOTE | 2020-10-09 10:05 | PC.NURSE ---
Reported creatinine of 1.[address] Abraham. Ordered 100ml/hr normal saline.
[2020-10-09] MEDS: sodium chloride 0.9% 1,000 ML 100 ML IV ×2 (10:22→20:33)
[2020-10-09 11:07] LABS: Glucose Point of Care 368 mg/dL (70-110)
--- NOTE | 2020-10-09 11:19 | PM.PN ---
Subjective Subjective: Interval history: no acute interim events, cr at 1.6 today from 1.1 yesetrday, started on IVF, eager to go home. 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 Type 2 diabetes: Consistent carb diet/cardiac/moderate sliding scale Carotid endarterectomy No active neurological signs or symptoms Continue high-dose aspirin and statin DVT prophylaxis : lovenox Chest pain-free Consistent carb diet Full code Attestations Medical Necessity Statement*: JACK, need fro IVF, monitor for ODETTE Coding Level of Care Code Acute Professor Of Poultry Science for Chg Fwd Diagnoses Unstable angina I20.0 NSTEMI (non-ST elevated myocardial infarction) I21.4
[2020-10-09 16:50] LABS: Glucose Point of Care 360 mg/dL (70-110)
--- NOTE | 2020-10-09 17:28 | P.PN_ITS ---
Subjective Subjective: Interval history: Creatinine has bumped up however it is his baseline in general 1.6 but before test it was 1.0 if we see prior labs it mostly stays around 1.6. He is status post stent to proximal RCA and balloon angioplasty to distal RCA also is status post drug-eluting stent to proximal and distal circumflex. Vitals/I&O/Wt Last Vital Signs Temp 98.0 F 10/09/20 14:50 Pulse 89 10/09/20 14:50 Resp 20 H 10/09/20 14:50 BP 152/62 10/09/20 14:50 Pulse Ox 96 10/09/20 14:50 10/09/20 10/09/20 10/09/20 06:59 14:59 22:59 Intake Total 720 / 720 Balance 720 / 720 Physical Exam Narrative: EXAM NARRATIVE: GENERAL: Patient is alert, awake and oriented x3. NECK: No jugular vein distension. HEENT: No cyanosis. No icterus. No pallor. HEART: Regular S1 and S2. No murmur, rub or gallop. LUNGS: Clear to auscultate bilaterally. ABDOMEN: Soft, nontender and nondistended. Positive bowel sounds. No guarding, rebound or tenderness. CENTRAL NERVOUS SYSTEM: Grossly nonfocal. EXTREMITIES: Lower extremities without edema bilaterally. Data : 10/09/20 04:29 10/09/20 04:29 A&P Assessment and plan (1) NSTEMI (non-ST elevated myocardial infarction): Status post drug-eluting stent to proximal distal circumflex and proximal RCA. Status post balloon angioplasty to distal RCA PLB and PDA from a cardiovascular perspective and patient doing fine. Patient was about to get discharged however her creatinine came back at 1.6 it is changed from 1.0 however if you look most of the time patient creatinine stays in between 1.4-1. 6. We decided to proceed with IV fluid and keep him 1 more day. Patient is feeling much better continue current regimen Status: Acute (2) Benign hypertension: Well-controlled Status: Chronic (3) Chronic kidney disease, unspecified: As above baseline creatinine 1.4-1.5. I will keep IV fluid on for next 10 hours we will recheck creatinine in the morning and hold from GLEN Status: Acute Qualifiers: Chronic kidney disease stage: stage 3 (moderate) Chronic kidney disease stage 3 subtype: stage 3b (GFR 30-44) Qualified Code(s): N18.32 - Chronic kidney disease, stage 3b Attestations Medical Necessity Statement*: Patient require continuation hospitalization for above defined care with Coding Level of Care Code Established Pt Acute Supervisor Yard for Chg Fwd Patient Type Established History Detailed Exam Detailed Medical Decision Making Moderate Complexity Diagnoses NSTEMI (non-ST elevated myocardial infarction) I21.4 Benign hypertension I10 Chronic kidney disease, unspecified N18.32 Chronic kidney disease stage: stage 3 (moderate) Chronic kidney disease stage 3 subtype: stage 3b (GFR 30-44)
[2020-10-09] MEDS: insulin glargine 100 units/1 mL 10 UNIT SUBCUT (20:31)
[2020-10-09] MEDS: temazepam 15 mg Capsule PO (20:33)
[2020-10-09 20:43] LABS: Glucose Point of Care 369 mg/dL (70-110)
[2020-10-10 04:00] VITALS: BP 171/84; PULSE 97; RESP 27; TEMP 36.8; O2SAT 94
[2020-10-10 04:13] LABS: Alanine Aminotransferase 21 U/L (0-41); Albumin Level 3.2 g/dL (3.5-5.2); Alkaline Phosphatase 117 IU/L (40-130); Anion Gap 13.3 (5-19); Aspartate Amino Transferase 24 U/L (0-40); Blood Urea Nitrogen 36 mg/dL (8-23); Carbon Dioxide 22 mmol/L (22-29); Chloride 108 mmol/L (98-107); Globulin 2.3 g/dL (1.3-4.6); Glucose 278 mg/dL (65-115); Osmolality Calculated 306 mOsm/kg (285-295); Potassium 4.3 mmol/L (3.5-5.1); Sodium 139 mmol/L (136-145); Total Bilirubin 0.6 mg/dL (0.15-1.2); Total Protein 5.5 g/dL (6.6-8.7)
[2020-10-10 05:05] VITALS: PULSE 76
--- NOTE | 2020-10-10 05:07 | PC.NURSE ---
Asked patient if he would like a bath or shower. Patient stated I would rather wait until I get home.
[2020-10-10] MEDS: famotidine 20 mg Tablet PO (05:22)
[2020-10-10] MEDS: clopidogrel 75 mg Tablet PO (05:22)
[2020-10-10] MEDS: aspirin 325 mg Tablet PO (05:22)
[2020-10-10] MEDS: isosorbide mononitrate ER 30 mg Tablet PO (05:23)
[2020-10-10] MEDS: levothyroxine 50 mcg Tablet PO (05:23)
[2020-10-10] MEDS: atorvastatin 40 mg Tablet 80 MG PO (05:23)
[2020-10-10] MEDS: sodium chloride 0.9% 1,000 ML 100 ML IV (05:30)
[2020-10-10 07:00] LABS: Glucose Point of Care 280 mg/dL (70-110)
[2020-10-10 07:26] VITALS: BP 137/74; PULSE 95; RESP 29; TEMP 36.7; O2SAT 97
[2020-10-10] MEDS: metoprolol succinate ER (24 HR) 25 mg Tablet 12.5 MG PO (08:41)
--- NOTE | 2020-10-10 09:40 | PC.SOCIAL ---
IMM Update Pg. 2 of IMM Updated and reviewed with patient, who verbalized understanding. Copy provided.
[2020-10-10 11:32] LABS: Glucose Point of Care 403 mg/dL (70-110)
--- NOTE | 2020-10-10 11:38 | P.DS_ITS ---
Discharge Providers Date of Admission: 10/07/20 19:55 Date of Discharge: October 10, 2020 Attending Provider at Admission: Alex Awad MD Attending Provider at Discharge: France Figueroa MD Primary Care Provider: SHANNAN Eastman Diagnoses at Discharge Discharge Diagnosis (1) NSTEMI (non-ST elevated myocardial infarction): Status: Acute (2) Benign hypertension: Status: Chronic (3) Chronic kidney disease, unspecified: Status: Acute Qualifiers: Chronic kidney disease stage: stage 3 (moderate) Chronic kidney disease stage 3 subtype: stage 3b (GFR 30-44) Qualified Code(s): N18.32 - Chronic kidney disease, stage 3b Reason for Visit Reason for Visit: CHEST PAIN Hospital Course Hospital Course Norbert Link is a 75 year old male who has history of atherosclerotic heart disease, hypertension, pacemaker, mixed hyperlipidemia, carotid endarterectomy, type 2 diabetes, established coronary disease status, presented to the ER on 10/07 with c/o chest pain.He was ruled in for non-ST elevation UT. He was treated as per ACS protocol. His troponin bump was more than 900. He underwent LHC on 10/08/20 status post stent to proximal RCA and balloon angioplasty to distal RCA also is status post drug-eluting stent to proximal and distal circumflex. Post porocedure course notable for creatinine bump from 1.1 to 1.6, trending back ove rth apast year his baseline renal function has ranged between 1.4-2.2. He received IVF for 24 hrs, repeat cr stable at 1.7. ow chest pain free, being discharged in stabel condition. Recommend follow up with [facility] in 3 days for creatinien check. 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 Routin e Exams 10/08/20 07:55 Taken Labs from last 24 hours 05/08/2810/10/20 10/10/20 11:30 06:42 03:08 Sodium 139 Potassium 4.3 Chloride 108 H Carbon Dioxide 22 Anion Gap 13.3 BUN 36 H Creatinine 1.7 H GFR Calculation Not Reportable Glucose 278 H POC Glucose 403 H 280 H Calculated Osmolal ity 306 H Calcium 8.0 L Total Bilirubin 0.6 AST 24 ALT 21 Alkaline Phosphata se 117 Total Protein 5.5 L Albumin 3.2 L Globulin 2.3 10/09/20 10/09/20 20:26 16:47 Sodium Potassium Chloride Carbon Dioxide Anion Gap BUN Creatinine GFR Calculation Glucose POC Glucose 369 H 360 H Calculated Osmolal ity Calcium Total Bilirubin AST ALT Alkaline Phosphata se Total Protein Albumin Globulin Vitals: Last Vital Signs Temp 98.0 F 10/10/20 07:26 Pulse 95 10/10/20 07:26 Resp 29 H 10/10/20 07:26 BP 137/74 10/10/20 07:26 Pulse Ox 97 10/10/20 07:26 Discharge Plan Discharge Patient Disposition: Home Condition: Stable Prescriptions: New metoprolol succinate 25 mg Tablet Extended Release 24 Hr 12.5 mg PO DAILY 30 Days Qty: 30 RF: 0 Continued fluticasone propionate [Flonase Allergy Relief] 50 mcg/actuation spray,suspension 2 spray intranasal DAILY Qty: 16 RF: 2 aspirin 325 mg tablet 325 mg PO DAILY@0600 RF: 0 omega-3 fatty acids [Fish Oil Concentrate] 1,000 mg capsule 1,000 mg PO DAILY@0600 RF: 0 (DME) pen needle, diabetic 33 gauge x 5/32 needle See Rx Instructions .ROUTE .MEDSUPPLY Qty: 100 RF: 2 multivitamin [Daily Multi-Vitamin] Tablet 1 tab PO DAILY@0600 RF: 0 Lipitor 40 mg tablet 40 mg PO DAILY@0600 RF: 0 glipizide 10 mg tablet extended release 24hr 10 mg PO DAILY@0600 RF: 0 isosorbide mononitrate 30 mg tablet extended release 24 hr 30 mg PO DAILY@0600 RF: 0 clopidogrel 75 mg tablet 75 mg PO DAILY@0600 RF: 0 famotidine 20 mg tablet 20 mg PO DAILY@0600 RF: 0 levothyroxine 50 mcg tablet 50 mcg PO DAILY@0600 RF: 0 Levemir FlexTouch U-100 Insuln 100 unit/mL (3 mL) insulin pen 25 unit SUBCUT DAILY@0600 RF: 0 Held lisinopril 5 mg tablet 5 mg PO DAILY@0600 RF: 0 Hold Instructions: Resume on 10/14/20. resume after following up with Indira Nevarez Discontinued atenolol 25 mg tablet 25 mg PO DAILY@0600 RF: 0 Discharge Orders: Discharge Order (Routine); Ordered 10/10/20 Ordered By: France Figueroa Other Ambulatory Orders: Comprehensive Metabolic Panel (Routine) Timeframe: 20201013 Facility: [facility] - Location: Lab - Main Lab Ordered By: France Figueroa Referrals: Ree Crooks FNP-C [Primary Care Provider] - 10/19/20 10:40 am (You have a hospital Followup with SHANNAN Alves at [facility] on October 19 at 10:40am) Indira Nevarez FNP [Nurse Practitioner] - 10/13/20 3:15 pm (You have a cardiology followup with KEYA Rodriguez at [facility] on , October 13 at 3:15pm) Discharge Diet: Cardiac Discharge Activity: Resume usual activity Patient Instructions: Metoprolol (By mouth), Opioid Safety, Post Angiogram Home Care Instructions Activity Restrictions/Additional Instructions: Please go to [facility] here at the hospital at LEAST 2 HOURS before you go to your appointment with Indira Nevarez. It is important to get your blood tested within the specified time frame to monitor kidney function . Please check in a admissions prior to heading to the Lab. Thank You Discharge Attestations Time Spent in Discharge Care*: greater than 30 min Status at Discharge: Cognitive status at discharge: cognitively intact , Quality Metrics Clinical Quality Measures During this hospital stay, did patient experience: AMI Clinical Trial Participant: No Contraindication to aspirin (AMI): Aspirin given Contraindication to statin: Statin prescribed Contraindication to PCI: PCI performed Contraindication to Fibrinolytics: Fibrinolytics given Coding Level of Care Code Acute Chg FW DC note Diagnoses NSTEMI (non-ST elevated myocardial infarction) I21.4 Benign hypertension I10 Chronic kidney disease, unspecified N18.32 Chronic kidney disease stage: stage 3 (moderate) Chronic kidney disease stage 3 subtype: stage 3b (GFR 30-44)
[2020-10-10 13:32] VITALS: BP 137/74; PULSE 95; RESP 29; TEMP 36.7; O2SAT 97
--- NOTE | 2020-10-10 13:33 | PC.NURSE ---
Patient education has been given to patient and reinforced. Educated patient on post angiogram home care instructions. IV removed with no issues, pressure dressing applied. Patient had no questions or concerns. Patient left via ambulation and was escorted our with sister by this nurse.
== END 2020-10-10 12:30 | disposition home or self-care (01) | DRG 247 ==
LOC: ER 19:54 → CSU 21:08
PROVIDERS: Family Medicine; Internal Medicine Cardiovascular Disease; Admitting Provider Internal Medicine; Emergency Provider Emergency Medicine; PCP Nurse Practitioner; Visit Provider Student in an Organized Health Care Education/Training Program
PROC: 027236Z Dilation of Coronary Artery, Three Arteries with Three Drug-eluting Intraluminal Devices, Percutaneous Approach (ICD-10-PCS; principal; 2020-10-08 08:30)
PROC: 027236Z Dilation of Coronary Artery, Three Arteries with Three Drug-eluting Intraluminal Devices, Percutaneous Approach (ICD-10-PCS; 2020-10-08 08:30)
DX: I21.4 Non-ST elevation (NSTEMI) myocardial infarction (principal); I25.110 Atherosclerotic heart disease of native coronary artery with unstable angina pectoris; E11.22 Type 2 diabetes mellitus with diabetic chronic kidney disease; I12.9 Hypertensive chronic kidney disease with stage 1 through stage 4 chronic kidney disease, or unspecified chronic kidney disease; N18.32 Chronic kidney disease, stage 3b; E11.51 Type 2 diabetes mellitus with diabetic peripheral angiopathy without gangrene; E78.2 Mixed hyperlipidemia; E03.9 Hypothyroidism, unspecified; K21.9 Gastro-esophageal reflux disease without esophagitis; Z95.0 Presence of cardiac pacemaker; Z82.49 Family history of ischemic heart disease and other diseases of the circulatory system; Z79.82 Long term (current) use of aspirin; Z79.02 Long term (current) use of antithrombotics/antiplatelets; Z79.4 Long term (current) use of insulin; Z95.5 Presence of coronary angioplasty implant and graft
CPT/HCPCS: 36415; 36416; 71045; 80048; 80053; 82962; 84484; 85025; 85378; 93005; 93306; 93454; 96372; 96374; 99285; C1725; C1769; C1874; C1887; C1894; C9600; C9601; J1200; J1644; J1650; J1815 ×2; J2250; J2930; J3010; J3490; J7030; Q9967

== ENCOUNTER 2020-10-13 13:40 | Outpatient (CLI) | payer MEDICARE, OTHER, SELFPAY ==
[2020-10-13 14:38] LABS: Alanine Aminotransferase 24 U/L (0-41); Albumin Level 3.7 g/dL (3.5-5.2); Alkaline Phosphatase 124 IU/L (40-130); Anion Gap 16.3 (5-19); Aspartate Amino Transferase 20 U/L (0-40); Blood Urea Nitrogen 26 mg/dL (8-23); Calcium 8.5 mg/dL (8.5-10.5); Carbon Dioxide 22 mmol/L (22-29); Chloride 100 mmol/L (98-107); Globulin 2.9 g/dL (1.3-4.6); Glucose 399 mg/dL (65-115); Osmolality Calculated 299 mOsm/kg (285-295); Potassium 4.3 mmol/L (3.5-5.1); Sodium 134 mmol/L (136-145); Total Bilirubin 1.4 mg/dL (0.15-1.2); Total Protein 6.6 g/dL (6.6-8.7)
== END 2020-10-13 13:41 | disposition home or self-care (01) ==
LOC: LAB 13:46
PROVIDERS: PCP Nurse Practitioner; Visit Provider Student in an Organized Health Care Education/Training Program
DX: N18.9 Chronic kidney disease, unspecified (principal)
CPT/HCPCS: 36415; 80053

== ENCOUNTER → 2020-10-19 09:45 | Outpatient (BNVA) | payer MEDICARE, OTHER, SELFPAY | PROVIDERS: PCP Nurse Practitioner; Visit Provider Nurse Practitioner | DX: I25.10 Atherosclerotic heart disease of native coronary artery without angina pectoris (principal); E11.65 Type 2 diabetes mellitus with hyperglycemia; E03.8 Other specified hypothyroidism; K21.9 Gastro-esophageal reflux disease without esophagitis; Z79.4 Long term (current) use of insulin | CPT/HCPCS: 80053; 83036 ==

== ENCOUNTER 2020-12-07 09:42 | Inpatient (IN) | payer MEDICARE, OTHER, SELFPAY ==
[2020-12-07] VITALS (7 sets, daily range): BP systolic 99–159; BP diastolic 60–80; PULSE 68–81; RESP 15–20; TEMP 36.4–36.5; O2SAT 95–99; BMI 23.3
--- NOTE | 2020-12-07 09:49 | ECG_ITS ---
[facility] Test Date: 2020-12-07 Pat Name: Norbert Link Department: Room: Gender: Male Urgent Care Physician Assistant: : 1945 Requested By: Anurag Flood Order Number: [id number] Terrell MD: Trish Bui M.D. Measurements Intervals [place] Rate: 82 P: 77 MD: 171 QRS: 16 QRSD: 84 T: 35 QT: 354 QTc: 414 Interpretive Statements SINUS RHYTHM Compared to ECG 10/07/2020 23:55:37 Incomplete right bundle-branch block no longer present Electronically Signed On 12-08-2020 7:03:42 CDT by Trish Bui M.D. [id number] f
--- NOTE | 2020-12-07 09:49 | XR_ITS ---
WS: [id number] Portable AP upright chest, 12/07/2020 Clinical Data: chest pain Comparison: Portable chest, 10/07/2020. Findings: No nodules, masses or effusions are seen. The heart is normal. The pulmonary vascularity is not increased. No pneumonia or pneumothorax is seen. There is a permanent pacemaker in good position . Monitor leads are on the chest wall. There is an anterior cervical disc fusion. XR/XR chest 1V portable [id number] Impression: Prominent cardiac pacemaker.
--- NOTE | 2020-12-07 09:50 | W.ED.CHESTPA ---
HPI - Chest Pain General: Chief Complaint: Chest Pain Stated Complaint: Chest Pain, L arm Pain Time Seen by Provider: 12/07/20 09:48 Source: patient Mode of arrival: ambulatory Limitations: no limitations History of Present Illness: HPI narrative: Chest pain started this morning while walking from the barn. He states chest pain is substernal. Pain also in the left side of the neck and down the left arm. He also had some shortness of breath and nauseated associated with the pain while he was walking. Denies any shortness of breath or nausea now. He states pain was similar to the pain he had with a heart attack in September of this year. Patient was diagnosed with non-STEMI at that time. Patient also has history of chronic kidney disease.. He did have stents at that time. He states he did have his Plavix today. He also took a nitroglycerin which helped his pain. see nursing assessment. 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 Onset (ago): hour(s) (1) Timing of current episode: other (Still has mild chest pain now.) Prior episodes: Yes Onset: during exertion Pain location: substernal Pain radiation: left arm Severity: mild Quality: aching Relieving factors: nitroglycerin and rest Exacerbating factors: exertion Associated symptoms: Reports dyspnea and nausea; Deny abdominal pain, diaphoresis, fever(s), leg edema, palpitations, syncope or vomiting Treatment prior to arrival: nitroglycerin and other (Plavix) Review of Systems Const: Denies: fever(s) or diaphoresis Eyes: Denies: change in vision ENMT: Denies: throat pain Card: Reports: chest pain; Denies: palpitations, edema or syncope Resp: Reports: dyspnea GI: Reports: nausea; Denies: abdominal pain or vomiting : Denies: flank pain Musc: Denies: neck pain or back pain Skin/Breast: Denies: rash or pruritus Neuro: Denies: headache(s) or numbness in extremities Psych: Denies: anxiety Levar/Lymph: Denies: enlarged lymph nodes PFS ED PFSH: Medical History Adult onset hypothyroidism Atherosclerotic cardiovascular disease B12 deficiency Benign hypertension Carotid stenosis Chronic kidney disease, unspecified Coronary artery disease Diabetes Diabetes mellitus with hyperglycemia, with long-term current use of insulin GERD (gastroesophageal reflux disease) Mixed hyperlipidemia Noncompliance with medication regimen Presence of cardiac pacemaker Surgical History H/O right knee surgery History of cardiac pacemaker in situ History of cervical discectomy History of ear surgery Status post carotid endarterectomy Family History Brother CAD (coronary artery disease) Cancer Diabetes Lung disease Mother CAD (coronary artery disease) Diabetes Family/Other Cancer Diabetes Sister Diabetes Father Diabetes Denies family history of Clotting disorder Dementia Chronic kidney disease (CKD) Suicide Anesthesia complication Bleeding disorder Stroke Social History Smoking and tobacco status: never smoked Second hand smoke exposure: No Smoking risk assessment/counseling performed?: No Alcohol intake: never Desire information about alcohol rehabilitation?: No Counseling given: No Desire information about substance/drug rehabilitation?: No Counseling given: No Adopted: No Caregiver/support person: No Lives independently: Yes Household members: none Housing: House Marital status: Single Number of children: 1 service: Yes branch: [employer] Current occupational status: retired History of recent travel: No Current gender identity: Male Physical Exam Const: COMMON NORMALS: no acute distress, patient oriented x3, no limitations and well nourished GENERAL APPEARANCE: cooperative HENMT: COMMON NORMALS: normocephalic and atraumatic HEAD & SCALP: normocephalic and atraumatic FACE & SINUS: normal facial exam Eye: COMMON NORMALS: EOMs intact bilaterally Neck/C-Spine: COMMON NORMALS: full ROM, no lymphadenopathy, supple, no meningeal signs and no JVD GENERAL: Yes normal visual inspection and No JVD Lymph: LYMPHATIC: no lymphadenopathy noted Chest: COMMONS NORMALS: normal inspection of the chest and normal palpation of entire chest wall CHEST: No Ecchymosis present and No rash Resp: COMMON NORMALS: normal respiratory effort, No retractions, No use of accessory muscles and clear to auscultation bilaterally EFFORT & INSPECTION: No respiratory distress AUSCULTATION: clear to auscultation bilaterally Cardio: COMMON NORMALS: no JVD, regular rate, regular rhythm and Peripheral pulses 2+ throughout JUGULAR VENOUS DISTENTION: no JVD RATE: regular rate RHYTHM: regular rhythm PERIPHERAL PULSES: Peripheral pulses 2+ throughout GI: COMMON NORMALS: Normal to inspection, nondistended, normoactive bowel sounds present, Soft to palpation, non-tender, no masses and no bruits PALPATION: Yes Soft to palpation : COMMON NORMALS: Yes no CVA tenderness BLADDER/KIDNEY EXAM: Yes no CVA tenderness Back/Pelvis: COMMON NORMALS: no CVA tenderness Extremity: COMMON NORMALS: normal to inspection, full ROM and capillary refill normal NARRATIVE EXTREMITY EXAM: Peripheral pulses are normal. Neuro: COMMON NORMALS: patient oriented x3, CN's II-XII intact bilaterally, moves all extremities, no focal motor deficits and no sensory deficits noted MENINGEAL SIGNS: Yes no meningeal signs Psych: COMMON NORMALS: mental status grossly normal, Normal thought process present, cooperative, normal affect and speech normal (Talkative) SPEECH: Yes normal speech (Talkative) THOUGHT PROCESS: Normal thought process present Skin: COMMON NORMALS: no rashes or lesions noted, no wounds, no jaundice and no petechiae GENERAL SKIN EXAM: no rashes or lesions noted Course Vital Signs: Vital signs: Vital Signs Temperature 97.6 F 12/07/20 11:45 Pulse Rate 81 12/07/20 12:49 Respiratory Rate 20 H 12/07/20 12:49 Blood Pressure 99/73 12/07/20 12:49 Pulse Oximetry 99 12/07/20 12:49 MDM - Chest Pain MDM Narrative: Medical decision making narrative: 1204: Patient feeling fine now. He has no chest pain now. No shortness of breath. Patient has telemetry showing normal sinus rhythm heart rate is 79. 1218: No chest pain or shortness of breath. Patient states he takes insulin and glipizide for control of his diabetes. He is not on Metformin. 1245: d/w dr. muniz hospitalist. will admit. asked that I call [employer]. 1250: d/w dr. granado. continue present therapy. will see as health management consultant today. Orders written for admit to [facility]. Lab Data: Attestation: I reviewed the patient's lab results. Labs: Lab Results 12/07/20 12/07/20 12/07/20 Range/Units 09:55 09:55 09:55 WBC 7.4 (4.0-10.0) 10^3/ uL RBC 3.99 L (4.1-5.3) 10^6/u L Hgb 11.8 (11.7-16.6) g/dL Hct 36.5 L (42.0-52.0) % MCV 91.5 (80-94) fL MCH 29.6 (28.0-34.0) pg MCHC 32.3 (30.0-36.0) g/dL RDW 14.2 (12.1-15.1) % Plt Count 131 (130-400) 10^3/c mm MPV 9.9 (7.4-10.4) fL Neut % (Auto) 63.6 % Lymph % (Auto) 24.8 % Faulk % (Auto) 5.8 % Eos % (Auto) 4.6 % Baso % (Auto) 0.8 % Neut # (Auto) 4.70 (1.8-7.7) 10^3/u L Lymph # (Auto) 1.8 (0.8-4.8) 10^3/u L Faulk # (Auto) 0.4 (0.2-0.9) 10^3/u L Eos # (Auto) 0.3 (0.0-0.8) 10^3/u L Baso # (Auto) 0.1 (0.0-0.1) 10^3/u L Nucleated RBC % (a uto) 0 % Nucleated RBCs # 0.0 /100WBC PT (12.1-14.9) SECO NDS INR (0.8-1.2) APTT (23.9-36.7) SECO NDS Sodium 136 (136-145) mmol/L Potassium 4.6 (3.5-5.1) mmol/L Chloride 102 (98-107) mmol/L Carbon Dioxide 22 (22-29) mmol/L Anion Gap 16.6 (5-19) BUN 19 (8-23) mg/dL Creatinine 1.5 H (0.7-1.2) mg/dL GFR Calculation Not Reportable Glucose 305 H (65-115) mg/dL Calculated Osmolal ity 296 H (285-295) mOsm/k g Calcium 9.0 (8.5-10.5) mg/dL Troponin T Baselin e 55 H (0-15) ng/L Troponin T 120 [place] (0-15) ng/L Delta Troponin T (0-10) ABS# NT-Pro-B Natriuret Pep 344 (0-450) pg/mL 12/07/20 12/07/20 Range/Units 10:00 11:45 WBC (4.0-10.0) 10^3/ uL RBC (4.1-5.3) 10^6/u L Hgb (11.7-16.6) g/dL Hct (42.0-52.0) % MCV (80-94) fL MCH (28.0-34.0) pg MCHC (30.0-36.0) g/dL RDW (12.1-15.1) % Plt Count (130-400) 10^3/c mm MPV (7.4-10.4) fL Neut % (Auto) % Lymph % (Auto) % Faulk % (Auto) % Eos % (Auto) % Baso % (Auto) % Neut # (Auto) (1.8-7.7) 10^3/u L Lymph # (Auto) (0.8-4.8) 10^3/u L Faulk # (Auto) (0.2-0.9) 10^3/u L Eos # (Auto) (0.0-0.8) 10^3/u L Baso # (Auto) (0.0-0.1) 10^3/u L Nucleated RBC % (a uto) % Nucleated RBCs # /100WBC PT 15.20 H (12.1-14.9) SECO NDS INR 1.16 (0.8-1.2) APTT 37.1 H (23.9-36.7) SECO NDS Sodium (136-145) mmol/L Potassium (3.5-5.1) mmol/L Chloride (98-107) mmol/L Carbon Dioxide (22-29) mmol/L Anion Gap (5-19) BUN (8-23) mg/dL Creatinine (0.7-1.2) mg/dL GFR Calculation Glucose (65-115) mg/dL Calculated Osmolal ity (285-295) mOsm/k g Calcium (8.5-10.5) mg/dL Troponin T Baselin e (0-15) ng/L Troponin T 120 [address] [place] 120.0 H (0-15) ng/L Delta Troponin T 65.0 H* (0-10) ABS# NT-Pro-B Natriuret Pep (0-450) pg/mL 2-hour troponin has elevated. Delta is 65. Patient continues to have no chest pain. No shortness of breath. Imaging Data^: CXR: Attestation: I personally reviewed and interpreted this imaging study as follows: Radiologist's impression: [place] [id number] [facility].[place], [place] [address]PWgf ReportSigned Patient: Norbert Link #: [id number]: 1945cct#:[id number]/Sex: 75 / MADM Date: 12/07/20Loc: ERRoom/Bed:Attending Dr: Ordering Provider/Ordering MD: Anurag Jesus MD Date of Service: 12/07/20 Procedure(s): XR chest 1V portable [id number] Accession Number(s): [id number] Report Number: [id number] WS: [id number] Portable AP upright chest, 12/07/2020 Clinical Data: chest pain Comparison: Portable chest, 10/07/2020. Findings: No nodules, masses or effusions are seen. The heart is normal. The pulmonary vascularity is not increased. No pneumonia or pneumothorax is seen. There is a permanent pacemaker in good position. Monitor leads are on the chest wall. There is an anterior cervical disc fusion. XR/XR chest 1V portable [id number] Impression: Prominent cardiac pacemaker. Dictated By:Nitza Isaac MDSigned By:Nitza Isaac MDSigned Date/Time:12/07/20 1028 EKG Data^: EKG 1: Attestation: I personally reviewed and interpreted this EKG as follows: EKG interpretation date: 12/07/20 EKG interpretation time: 09:56 Prior EKG tracings: available for review (no change from 10/07/20) Interpretation: Normal sinus rhythm. Normal EKG. Normal TX interval. Normal QRS interval. Normal QT interval. Normal QRS, normal ST segment, normal P waves, normal T wave. Normal axis. Impression normal EKG. EKG 2: Attestation: I personally reviewed and interpreted this EKG as follows: EKG interpretation date: 12/07/20 EKG interpretation time: 11:39 Prior EKG tracings: available for review Interpretation: No changes to the EKG from previous earlier today. EKG appears normal. Normal sinus rhythm. Normal TX interval. Normal QRS interval. Normal QT interval. Normal axis. Normal T waves. Normal ST segment. Impression: normal EKG Critical Care Time Critical Care Time: Critical Care Time: Yes Total Critical Care Time: 45 Attestation: See orders. Patient given IV heparin due to mildly elevated troponin. Diagnosis non-STEMI. Discharge Plan Discharge Patient Disposition: Admitted As Inpatient Clinical Impression: Unstable angina pectoris, Non-ST elevated myocardial infarction (non-STEMI) Chronic kidney disease (CKD) Qualifiers: Chronic kidney disease stage: unspecified stage Qualified Code(s): N18.9 - Chronic kidney disease, unspecified Condition: Stable Coding Level of Care Code ED Hand Spring Repairer for g Fwd Exam Comprehensive
[2020-12-07 10:02] LABS: Basophils # 0.1 10^3/uL (0.0-0.1); Basophils % 0.8 %; Eosinophils # 0.3 10^3/uL (0.0-0.8); Eosinophils % 4.6 %; Hematocrit 36.5 % (42.0-52.0); Hemoglobin 11.8 g/dL (11.7-16.6); Lymphocytes # 1.8 10^3/uL (0.8-4.8); Lymphocytes % 24.8 %; Mean Corpuscular HGB Conc 32.3 g/dL (30.0-36.0); Mean Corpuscular Hemoglobin 29.6 pg (28.0-34.0); Mean Corpuscular Volume 91.5 fL (80-94); Mean Platelet Volume 9.9 fL (7.4-10.4); Monocytes # 0.4 10^3/uL (0.2-0.9); Monocytes % 5.8 %; Neutrophils % 63.6 %; Nucleated Red Blood Cells % 0 %; Platelet Count 131 10^3/cmm (130-400); Red Blood Count 3.99 10^6/uL (4.1-5.3); Red Cell Distribution Width 14.2 % (12.1-15.1); White Blood Count 7.4 10^3/uL (4.0-10.0)
[2020-12-07 10:25] LABS: INR 1.16 (0.8-1.2)
[2020-12-07 10:26] LABS: Partial Thromboplastin Time 37.1 SECONDS (23.9-36.7)
[2020-12-07 10:30] LABS: Troponin(5th) Baseline 55 ng/L (0-15)
[2020-12-07 10:37] LABS: Anion Gap 16.6 (5-19); Blood Urea Nitrogen 19 mg/dL (8-23); Carbon Dioxide 22 mmol/L (22-29); Chloride 102 mmol/L (98-107); Glucose 305 mg/dL (65-115); NT Pro B Type Natriuretic Pept 344 pg/mL (0-450); Osmolality Calculated 296 mOsm/kg (285-295); Potassium 4.6 mmol/L (3.5-5.1); Sodium 136 mmol/L (136-145)
[2020-12-07] MEDS: heparin drip 25,000 UNIT/500 ML PREMIX 16.44 UNIT IV (11:21)
[2020-12-07] MEDS: heparin 5,000 unit/mL INJ 1 mL 4000 UNIT IVP (11:23)
--- NOTE | 2020-12-07 11:49 | ECG_ITS ---
[facility] Test Date: 2020-12-07 Pat Name: Norbert Link Department: Room: Gender: Male Food Order Expediter: : 1945 Requested By: Anurag Flood Order Number: [id number] Terrell MD: Trish Bui M.D. Measurements Intervals [place] Rate: 73 P: 67 IA: 178 QRS: 0 QRSD: 82 T: 18 QT: 370 QTc: 409 Interpretive Statements SINUS RHYTHM Compared to ECG 12/07/2020 09:54:32 No significant changes Electronically Signed On 12-08-2020 7:19:15 CDT by Trish Bui M.D. [id number]
--- NOTE | 2020-12-07 12:16 | PC.NURSE ---
Critical 2hr troponin of 120 (delta 65) reported to Dr. Jesus
--- NOTE | 2020-12-07 12:49 | USCV_ITS ---
Norbert Link Age: 75 Gender: M : 1945 Exam Date: 12/07/2020 13:23 Ordering Phys: You Escalante MD Technologist: Wandy Negrete Exam Location: [facility] [place]ication: NSTEMI WITH STENTS IN 10/28 BP: 117 / 60 HR: 66 Rhythm: Sinus Technical Quality: Adequate MEASUREMENTS (Male / Female) Normal Values 2D ECHO LV Diastolic Diameter PLAX 3.3 cm 4.2 - 5.9 / 3.9 - 5.3 cm LV Systolic Diameter PLAX 2.7 cm LV Chamber Size 3.0 cm IVS Diastolic Thickness 1.0 cm 0.6 - 1.0 / 0.6 - 0.9 cm IVS Systolic Thickness 1.4 cm LVPW Diastolic Thickness 1.4 cm 0.6 - 1.0 / 0.6 - 0.9 cm LVPW Systolic Thickness 1.5 cm RV Chamber Size 2.5 cm LVOT Diameter 2.1 cm LV Ejection Fraction 2D Teich 53.5 % LV Ejection Fraction MOD 2C 72.5 % LV Ejection Fraction 2C AL 71.9 % LA Diameter 3.1 cm LA Width 2.7 cm LA Height 4.2 cm RA Width 3.8 cm RA Height 3.2 cm Aorta at Sinotubular Diameter 2.8 cm M-MODE Aortic Annulus Diameter 2.9 cm LA Ao Ratio MM 1.2 MV E Point Septal Separation 0.5 cm DOPPLER AV Peak Velocity 114.0 cm/s LVOT Peak Velocity 71.0 cm/s AV Area Cont Eq vti 2.0 cm squared AV Area Cont Eq pk 2.1 cm squared MV Area PHT 2.8 cm squared Mitral E to A Ratio 0.7 MV E' Velocity 31.0 cm/s Mitral E to MV E' Ratio 8.5 Mitral E to LV E' Lateral Ratio 10.4 Mitral E to LV E' Septal Ratio 7.2 TR Peak Velocity 104.7 cm/s TR Peak Gradient 4.4 mmHg TR Mean Velocity 89.7 cm/s TR Mean Gradient 3.3 mmHg TR Velocity Time Integral 30.3 cm TV Peak E Velocity 61.0 cm/s PV Peak Velocity 68.0 cm/s RV Acceleration Time 0.1 s RV Ejection Time 0.3 s RV AcT/ET 0.4 FINDINGS Left Ventricle Normal left ventricular size. LV systolic function is normal with EF of 55-60%. No regional wall motion abnormalities.Grade 1 diastolic dysfunction. Right Ventricle The right ventricle is normal in size and function. Pacemaker wire is noted Right Atrium The right atrium is normal in size. Pacemaker wire is noted Left Atrium The left atrium is normal in size. Mitral Valve Mild mitral annular calcification is noted. There is no mitral regurgitation. Aortic Valve Thickened aortic valve without stenosis. There is no aortic regurgitation. Tricuspid Valve Structurally normal tricuspid valve without significant stenosis or regurgitation. Insufficient TR jet to calculate RVSP Pulmonic Valve Structurally normal pulmonic valve without significant stenosis. There is no pulmonic regurgitation. Pericardium Normal pericardium without effusion. Aorta Normal ascending aorta dimension. CONCLUSIONS LV systolic function is normal with EF of 55-60% Grade 1 diastolic dysfunction No significant valvular heart disease Compared to prior echocardiogram from 10/08/2020, no significant changes are noted Huey Asencio MD (Electronically Signed) Final Date: 07 December 2020 17:05 S
--- NOTE | 2020-12-07 13:05 | ED_ITS ---
HPI - Chest Pain General: Chief Complaint: Chest Pain Stated Complaint: Chest Pain, L arm Pain Time Seen by Provider: 12/07/20 09:48 Source: patient Mode of arrival: ambulatory Limitations: no limitations History of Present Illness: Pain location: substernal Quality: aching Relieving factors: nitroglycerin and rest Exacerbating factors: exertion PFSH ED PFSH: Medical History Adult onset hypothyroidism Atherosclerotic cardiovascular disease B12 deficiency Benign hypertension Carotid stenosis Chronic kidney disease, unspecified Coronary artery disease Diabetes Diabetes mellitus with hyperglycemia, with long-term current use of insulin GERD (gastroesophageal reflux disease) Mixed hyperlipidemia Noncompliance with medication regimen Presence of cardiac pacemaker Surgical History H/O right knee surgery History of cardiac pacemaker in situ History of cervical discectomy History of ear surgery Status post carotid endarterectomy Family History Brother CAD (coronary artery disease) Cancer Diabetes Lung disease Mother CAD (coronary artery disease) Diabetes Family/Other Cancer Diabetes Sister Diabetes Father Diabetes Denies family history of Clotting disorder Dementia Chronic kidney disease (CKD) Suicide Anesthesia complication Bleeding disorder Stroke Social History Smoking and tobacco status: never smoked Second hand smoke exposure: No Smoking risk assessment/counseling performed?: No Alcohol intake: never Desire information about alcohol rehabilitation?: No Counseling given: No Desire information about substance/drug rehabilitation?: No Counseling given: No Adopted: No Caregiver/support person: No Lives independently: Yes Household members: none Housing: House Marital status: Single Number of children: 1 service: Yes branch: [employer] Current occupational status: retired History of recent travel: No Current gender identity: Male Course Vital Signs: Vital signs: Vital Signs Temperature 97.6 F 12/07/20 11:45 Pulse Rate 81 12/07/20 12:49 Respiratory Rate 20 H 12/07/20 12:49 Blood Pressure 99/73 12/07/20 12:49 Pulse Oximetry 99 12/07/20 12:49 MDM - Chest Pain Lab Data: Labs: Lab Results 12/07/20 12/07/20 12/07/20 Range/Units 09:55 09:55 09:55 WBC 7.4 (4.0-10.0) 10^3/ uL RBC 3.99 L (4.1-5.3) 10^6/u L Hgb 11.8 (11.7-16.6) g/dL Hct 36.5 L (42.0-52.0) % MCV 91.5 (80-94) fL MCH 29.6 (28.0-34.0) pg MCHC 32.3 (30.0-36.0) g/dL RDW 14.2 (12.1-15.1) % Plt Count 131 (130-400) 10^3/c mm MPV 9.9 (7.4-10.4) fL Neut % (Auto) 63.6 % Lymph % (Auto) 24.8 % Parker % (Auto) 5.8 % Eos % (Auto) 4.6 % Baso % (Auto) 0.8 % Neut # (Auto) 4.70 (1.8-7.7) 10^3/u L Lymph # (Auto) 1.8 (0.8-4.8) 10^3/u L Parker # (Auto) 0.4 (0.2-0.9) 10^3/u L Eos # (Auto) 0.3 (0.0-0.8) 10^3/u L Baso # (Auto) 0.1 (0.0-0.1) 10^3/u L Nucleated RBC % (a uto) 0 % Nucleated RBCs # 0.0 /100WBC PT (12.1-14.9) SECO NDS INR (0.8-1.2) APTT (23.9-36.7) SECO NDS Sodium 136 (136-145) mmol/L Potassium 4.6 (3.5-5.1) mmol/L Chloride 102 (98-107) mmol/L Carbon Dioxide 22 (22-29) mmol/L Anion Gap 16.6 (5-19) BUN 19 (8-23) mg/dL Creatinine 1.5 H (0.7-1.2) mg/dL GFR Calculation Not Reportable Glucose 305 H (65-115) mg/dL Calculated Osmolal ity 296 H (285-295) mOsm/k g Calcium 9.0 (8.5-10.5) mg/dL Troponin T Baselin e 55 H (0-15) ng/L Troponin T 120 Min wilfred (0-15) ng/L Delta Troponin T (0-10) ABS# NT-Pro-B Natriuret Pep 344 (0-450) pg/mL 12/07/20 12/07/20 Range/Units 10:00 11:45 WBC (4.0-10.0) 10^3/ uL RBC (4.1-5.3) 10^6/u L Hgb (11.7-16.6) g/dL Hct (42.0-52.0) % MCV (80-94) fL MCH (28.0-34.0) pg MCHC (30.0-36.0) g/dL RDW (12.1-15.1) % Plt Count (130-400) 10^3/c mm MPV (7.4-10.4) fL Neut % (Auto) % Lymph % (Auto) % Parker % (Auto) % Eos % (Auto) % Baso % (Auto) % Neut # (Auto) (1.8-7.7) 10^3/u L Lymph # (Auto) (0.8-4.8) 10^3/u L [place] # (Auto) (0.2-0.9) 10^3/u L Eos # (Auto) (0.0-0.8) 10^3/u L Baso # (Auto) (0.0-0.1) 10^3/u L Nucleated RBC % (a uto) % Nucleated RBCs # /100WBC PT 15.20 H (12.1-14.9) SECO NDS INR 1.16 (0.8-1.2) APTT 37.1 H (23.9-36.7) SECO NDS Sodium (136-145) mmol/L Potassium (3.5-5.1) mmol/L Chloride (98-107) mmol/L Carbon Dioxide (22-29) mmol/L Anion Gap (5-19) BUN (8-23) mg/dL Creatinine (0.7-1.2) mg/dL GFR Calculation Glucose (65-115) mg/dL Calculated Osmolal ity (285-295) mOsm/k g Calcium (8.5-10.5) mg/dL Troponin T Baselin e (0-15) ng/L Troponin T 120 Min wilfred 120.0 H (0-15) ng/L Delta Troponin T 65.0 H* (0-10) ABS# NT-Pro-B Natriuret Pep (0-450) pg/mL Discharge Plan Discharge Patient Disposition: Admitted As Inpatient Clinical Impression: Unstable angina pectoris, Non-ST elevated myocardial infarction (non-STEMI) Chronic kidney disease (CKD) Qualifiers: Chronic kidney disease stage: unspecified stage Qualified Code(s): N18.9 - Chronic kidney disease, unspecified Condition: Stable Coding Level of Care Code ED Rehab Director for Lu Leyva
--- NOTE | 2020-12-07 13:54 | P.HP_ITS ---
Providers/Chief Complaint Primary Care Provider: Ree Crooks, KEYA-C Chief Complaint: Chest Pain, L arm Pain History of Present Illness Norbert Link is a 75 year old male with a past medical history of CAD, hypertension, pacemaker placement, hyperlipidemia, carotid endarterectomy, type 2 diabetes, recent history of CAD status post stent placement proximal and distal circumflex, and RCA who presents to [facility] due to complaints of chest pain. Patient tells me that this morning he woke up at 8 AM, to start some byers, only start developed severe substernal chest pain, radiating down the left arm, associate with shortness of breath, it lasted a few minutes, he called his sister, who advised him to take a nitroglycerin and she would come pick him up. He tells me that he took the nitroglycerin and the chest pain improved. Denies a history of chest pain since his hospital discharge. Tells that he is compliant with aspirin, statin, Plavix. No history of smoking. No history of drug use. No recent fevers, no chills, no cough, no sick contacts, work-up in the emergency room showed troponin of 55, 120-minute 120, delta 65, EKG no acute ST-T wave changes, creatinine of 1.5, Dr. Asencio has been consulted, patient has been placed on a heparin drip, hospitalist team was called for admission Review of Systems Const: Denies: fever(s), chills, fatigue or malaise Eyes: Denies: change in vision ENMT: Denies: nasal congestion Resp: Denies: dyspnea, productive cough, non-productive cough or wheezing GI: Denies: abdominal pain, nausea, vomiting, hematemesis or diarrhea : Denies: flank pain Musc: Denies: neck pain or back pain Skin/Breast: Denies: rash Neuro: Denies: headache(s), dizziness or vertigo Psych: Denies: anxiety or depression Endo: Denies: polyuria or polydipsia Medications/Allergies Home Medications Medication Instructions Recorded Confirmed Last Taken Type aspirin 325 mg tablet 325 mg PO DAILY@0600 06/25/19 12/07/20 12/07/20 History multivitamin [Daily Multi-Vitamin] 1 tab PO DAILY@0600 10/15/19 12/07/20 12/07/20 History pen needle, diabetic 33 gauge x #100 each 04/08/20 12/07/20 Unknown Rx omega-3 fatty acids 1,000 mg 1,000 mg PO DAILY@0600 07/05/20 12/07/20 12/07/20 History capsule atorvastatin 40 mg tablet 40 mg PO DAILY@0600 #30 tab 10/19/20 12/07/20 12/07/20 Rx clopidogrel 75 mg tablet 75 mg PO DAILY@0600 #30 tab 10/19/20 12/07/20 12/07/20 Rx famotidine 20 mg tablet 20 mg PO DAILY@0600 #30 tab 10/19/20 12/07/20 12/07/20 Rx glipizide 10 mg tablet, extended 10 mg PO DAILY@0600 #30 tab 10/19/20 12/07/20 12/07/20 Rx release 24 hr isosorbide mononitrate 30 mg 30 mg PO DAILY@0600 #30 tab 10/19/20 12/07/20 12/07/20 Rx tablet,extended release 24 hr levothyroxine 50 mcg tablet 50 mcg PO DAILY@0600 #30 tab 10/19/20 12/07/20 Unknown Rx lisinopril 5 mg tablet 5 mg PO DAILY@0600 #30 tab 10/19/20 12/07/20 12/07/20 Rx insulin detemir U-100 [Levemir 35 unit SUBCUT DAILY@0600 12/07/20 12/07/2012/07 History FlexTouch U-100 Insuln] metoprolol succinate 12.5 mg PO DAILY@0600 12/07/20 12/07/20 12/07/20 History vit C,P-Kk-rrykd-lutein-zeaxan 1 tab PO BID@0600,1800 12/07/20 12/07/20 12/07/20 History [PreserVision AREDS-2] Allergies Allergy/AdvReac Type Severity Reaction Status Date / Time metformin Allergy Severe ADR-Nausea Verified 10/13/20 15:36 Iodinated Contrast Media Allergy Unknown ALGY-Hives Verified 10/13/20 15:36 PFSH Acute PFSH: Medical History Adult onset hypothyroidism Atherosclerotic cardiovascular disease B12 deficiency Benign hypertension Carotid stenosis Chronic kidney disease, unspecified Coronary artery disease Diabetes Diabetes mellitus with hyperglycemia, with long-term current use of insulin GERD (gastroesophageal reflux disease) Mixed hyperlipidemia Noncompliance with medication regimen Presence of cardiac pacemaker Surgical History H/O right knee surgery History of cardiac pacemaker in situ History of cervical discectomy History of ear surgery Status post carotid endarterectomy Family History Brother CAD (coronary artery disease) Cancer Diabetes Lung disease Mother CAD (coronary artery disease) Diabetes Family/Other Cancer Diabetes Sister Diabetes Father Diabetes Denies family history of Clotting disorder Dementia Chronic kidney disease (CKD) Suicide Anesthesia complication Bleeding disorder Stroke Social History Smoking and tobacco status: never smoked Second hand smoke exposure: No Smoking risk assessment/counseling performed?: No Alcohol intake: never Desire information about alcohol rehabilitation?: No Counseling given: No Desire information about substance/drug rehabilitation?: No Counseling given: No Adopted: No Caregiver/support person: No Lives independently: Yes Household members: none Housing: House Marital status: Single Number of children: 1 service: Yes branch: [employer] Current occupational status: retired History of recent travel: No Current gender identity: Male Vitals/I&O/Wt Last Vital Signs Temp 97.6 F 12/07/20 11:45 Pulse 81 12/07/20 12:49 Resp 20 H 12/07/20 12:49 BP 99/73 12/07/20 12:49 Pulse Ox 99 12/07/20 12:49 Weight last 48 hrs Weight 68.492 kg Physical Exam Const: COMMON NORMALS: no acute distress and patient oriented x3 HENMT: COMMON NORMALS: normocephalic HEAD & SCALP: normocephalic Eye: COMMON NORMALS: Equal, round and reactive pupils present and EOMs intact bilaterally GENERAL EYE: appearance normal, both eyes and all related structures PUPIL: Yes Equal, round and reactive pupils present Lymph: LYMPHATIC: no lymphadenopathy noted Resp: COMMON NORMALS: normal respiratory effort, No retractions, No use of accessory muscles and clear to auscultation bilaterally AUSCULTATION: clear to auscultation bilaterally Cardio: COMMON NORMALS: no JVD, regular rate, regular rhythm, S1 normal heart sound present, S2 normal heart sound present, No gallops present (Cardio), No clicks present (Cardio) and No murmurs present (Cardio) RATE: regular rate RHYTHM: regular rhythm HEART SOUNDS: S1 normal heart sound present and S2 normal heart sound present GI: COMMON NORMALS: Normal to inspection, nondistended, normoactive bowel sounds present, Soft to palpation and non-tender Extremity: COMMON NORMALS: normal to inspection and no pedal edema Neuro: COMMON NORMALS: patient oriented x3, CN's II-XII intact bilaterally, moves all extremities and no focal motor deficits Psych: COMMON NORMALS: mental status grossly normal, Normal thought process present and cooperative THOUGHT PROCESS: Normal thought process present Data : 12/07/20 09:55 12/07/20 09:55 A&P Assessment and plan (1) Non-ST elevated myocardial infarction (non-STEMI): Plan -Monitor for chest pain -Serial troponins, serial EKGs, troponin monitoring, EKG monitoring, telemetry monitoring -Aspirin, Plavix, statin, -Currently on heparin drip -If continues to have chest pain will have to place a nitro drip -Creatinine 1.5, about at baseline -Takes Levemir 35 units in the afternoon, hold for now, low-dose sliding scale -Cardiac echocardiogram -Full code -Heparin for DVT prophylaxis Status: Acute (2) Chronic kidney disease (CKD): Status: Acute Qualifiers: Chronic kidney disease stage: unspecified stage Qualified Code(s): N18.9 - Chronic kidney disease, unspecified (3) Diabetes mellitus with hyperglycemia, with long-term current use of insulin: Status: Chronic Qualifiers: Diabetes mellitus type: type 2 Qualified Code(s): E11.65 - Type 2 diabetes mellitus with hyperglycemia; Z79.4 - exterminator helper termite (current) use of insulin (4) Coronary artery disease: Status: Acute Qualifiers: Coronary Disease-Associated Artery/Lesion type: [place] artery [place] vs. transplanted heart: [place] heart Associated angina: with unspecified form of angina Qualified Code(s): I25.119 - Atherosclerotic heart disease of [place] coronary artery with unspecified angina pectoris (5) GERD (gastroesophageal reflux disease): Status: Chronic (6) Status post carotid endarterectomy: Status: Acute (7) Adult onset hypothyroidism: Status: Chronic (8) Atherosclerotic cardiovascular disease: Status: Chronic Attestations Medical Necessity Statement*: Patient requires hospitalization, outpatient with observation, for chest pain, NSTEMI Coding Level of Care Code Acute Teacher Associate for Chg Fwd Diagnoses Non-ST elevated myocardial infarction (non-STEMI) I21.4 Chronic kidney disease (CKD) N18.9 Chronic kidney disease stage: unspecified stage Diabetes mellitus with hyperglycemia, with long-term current use of insulin E11.65; Z79.4 Diabetes mellitus type: type 2 Coronary artery disease I25.119 Coronary Disease-Associated Artery/Lesion type: [place] artery [place] vs. transplanted heart: [place] heart Associated angina: with unspecified form of angina GERD (gastroesophageal reflux disease) K21.9 Status post carotid endarterectomy Z98.890 Adult onset hypothyroidism E03.8 Atherosclerotic cardiovascular disease I25.10
--- NOTE | 2020-12-07 15:49 | ECG_ITS ---
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 Measurements Intervals [place] Rate: 73 P: 68 DC: 189 QRS: 2 QRSD: 85 T: 39 QT: 373 QTc: 413 Interpretive Statements SINUS RHYTHM Compared to ECG 12/07/2020 11:36:58 No significant changes Electronically Signed On 12-08-2020 7:14:20 CDT by Trish Bui M.D. [id number]
[2020-12-07 17:10] LABS: Troponin 5 6HR 255.4 ng/L (0-15); Troponin 5 6HR Delta 200.4 ng/L (0-12)
[2020-12-07 17:28] LABS: Glucose Point of Care 105 mg/dL (70-110)
--- NOTE | 2020-12-07 18:55 | P.CONIM_ITS ---
Providers/Reason For Consult Consulting Physician/Specialty*: Huey Asencio MD/Cardiology Reason for Consult*: NSTEMI Requesting Physician: Dr Jesus Attending Physician: You Escalante MD Primary Care Provider: SHANNAN Eastman History of Present Illness History of Present Illness Norbert Link is a 75 year old male with a past medical history of CAD, hypertension, pacemaker placement, hyperlipidemia, carotid endarterectomy, type 2 diabetes, recent PCI to proximal and distal left circumflex artery and RCA who presented to the hospital with complaints of chest pain. According to patient earlier in the morning he was working and started noticing severe substernal chest pain radiating to the jaw and between the shoulder blades. He called his sister who advised to take nitro. After 2 nitros chest pain started improving. He came to the hospital there was found to have significantly elevated troponin with an upward trend consistent with non-ST elevation [place]. Review of Systems Const: Denies: fever(s), chills, fatigue or malaise Eyes: Denies: change in vision ENMT: Denies: nasal congestion Card: Reports: chest pain Resp: Denies: dyspnea, productive cough, non-productive cough or wheezing GI: Denies: abdominal pain, nausea, vomiting, hematemesis or diarrhea : Denies: flank pain Musc: Denies: neck pain or back pain Skin/Breast: Denies: rash Neuro: Denies: headache(s), dizziness or vertigo Psych: Denies: anxiety or depression Endo: Denies: polyuria or polydipsia Meds/Allergies Home Medications and Allergies Home Medications Medication Instructions Recorded Confirmed Last Taken Type aspirin 325 mg tablet 325 mg PO DAILY@0600 06/25/19 12/07/20 12/07/20 History multivitamin [Daily Multi-Vitamin] 1 tab PO DAILY@59910/15/19 12/07/20 12/07/20 History pen needle, diabetic 33 gauge x #100 each 04/08/20 12/07/20 Unknown Rx omega-3 fatty acids 1,000 mg 1,000 mg PO DAILY@0600 07/05/20 12/07/20 12/07/20 History capsule atorvastatin 40 mg tablet 40 mg PO DAILY@0600 #30 tab 10/19/20 12/07/20 12/07/20 Rx clopidogrel 75 mg tablet 75 mg PO DAILY@0600 #30 tab 10/19/20 12/07/20 12/07/20 Rx famotidine 20 mg tablet 20 mg PO DAILY@0600 #30 tab 10/19/20 12/07/20 12/07/20 Rx glipizide 10 mg tablet, extended 10 mg PO DAILY@0600 #30 tab 10/19/20 12/07/20 12/07/20 Rx release 24 hr isosorbide mononitrate 30 mg 30 mg PO DAILY@0600 #30 tab 10/19/20 12/07/20 12/07/20 Rx tablet,extended release 24 hr levothyroxine 50 mcg tablet 50 mcg PO DAILY@0600 #30 tab 10/19/20 12/07/20 Unknown Rx lisinopril 5 mg tablet 5 mg PO DAILY@0600 #30 tab 10/19/20 12/07/20 12/07/20 Rx insulin detemir U-100 [Levemir 35 unit SUBCUT DAILY@0600 12/07/20 12/07/20 12/07/20 History FlexTouch U-100 Insuln] metoprolol succinate 12.5 mg PO DAILY@0600 12/07/20 12/07/20 12/07/20 History vit C,M-Nh-sbvkw-lutein-zeaxan 1 tab PO BID@0600,1800 12/07/20 12/07/20 12/07/20 History [PreserVision AREDS-2] Allergies Allergy/AdvReac Type Severity Reaction Status Date / Time metformin Allergy Severe ADR-Nausea Verified 10/13/20 15:36 Iodinated Contrast Media Allergy Unknown ALGY-Hives Verified 10/13/20 15:36 Current Medications Current Medications Generic Name Dose Route Start Last Admin Trade Name Freq PRN Reason Stop Dose Admin Heparin Sodium/Sodium Chloride 25,000 unit in 500 mls @ 16.438 mls/hr 12/07/20 11:00 12/07/20 11:21 Heparin Drip IV 12 unit/kg/hr .Q24H RK 16.44 mls/hr Administration 12 UNIT/KG/HR PFSH Acute PFSH: Medical History Adult onset hypothyroidism Atherosclerotic cardiovascular disease B12 deficiency Benign hypertension Carotid stenosis Chronic kidney disease, unspecified Coronary artery disease Diabetes Diabetes mellitus with hyperglycemia, with long-term current use of insulin GERD (gastroesophageal reflux disease) Mixed hyperlipidemia Noncompliance with medication regimen Presence of cardiac pacemaker Surgical History H/O right knee surgery History of cardiac pacemaker in situ History of cervical discectomy History of ear surgery Status post carotid endarterectomy Family History Brother CAD (coronary artery disease) Cancer Diabetes Lung disease Mother CAD (coronary artery disease) Diabetes Family/Other Cancer Diabetes Sister Diabetes Father Diabetes Denies family history of Clotting disorder Dementia Chronic kidney disease (CKD) Suicide Anesthesia complication Bleeding disorder Stroke Social History Smoking and tobacco status: never smoked Second hand smoke exposure: No Smoking risk assessment/counseling performed?: No Alcohol intake: never Desire information about alcohol rehabilitation?: No Counseling given: No Desire information about substance/drug rehabilitation?: No Counseling given: No Adopted: No Caregiver/support person: No Lives independently: Yes Household members: none Housing: House Marital status: Single Number of children: 1 service: Yes branch: [employer] Current occupational status: retired History of recent travel: No Current gender identity: Male Vitals/I&O/Wt Last Vital Signs Temp 97.6 F 12/07/20 11:45 Pulse 79 12/07/20 14:42 Resp 16 12/07/20 14:42 BP 114/68 12/07/20 14:42 Pulse Ox 98 12/07/20 14:42 Weight last 48 hrs Weight 151 lb Physical Exam Narrative: EXAM NARRATIVE: GENERAL: Patient is alert, awake and oriented x3. [] NECK: No jugular vein distension. [] HEENT: No cyanosis. No icterus. No pallor. [] HEART: Regular S1 and S2. No murmur, rub or gallop. [] LUNGS: Clear to auscultate bilaterally. [] ABDOMEN: Soft, nontender and nondistended. Positive bowel sounds. No guarding, rebound or tenderness. [] CENTRAL NERVOUS SYSTEM: Grossly nonfocal. [] EXTREMITIES: Lower extremities with 1+ edema bilaterally. Pulses palpable in the lower extremities, both dorsalis pedis and posterior tibial. [] A&P Assessment and plan (1) Non-ST elevated myocardial infarction (non-STEMI): Status: Acute (2) Chronic kidney disease (CKD): Status: Acute Qualifiers: Chronic kidney disease stage: unspecified stage Qualified Code(s): N18.9 - Chronic kidney disease, unspecified (3) Diabetes mellitus with hyperglycemia, with long-term current use of insulin: Status: Chronic Qualifiers: Diabetes mellitus type: type 2 Qualified Code(s): E11.65 - Type 2 diabetes mellitus with hyperglycemia; Z79.4 - assisted (current) use of insulin (4) Coronary artery disease: Status: Acute Qualifiers: Coronary Disease-Associated Artery/Lesion type: [place] artery [place] vs. transplanted heart: [place] heart Associated angina: with unspecified form of angina Qualified Code(s): I25.119 - Atherosclerotic heart disease of [place] coronary artery with unspecified angina pectoris (5) Carotid stenosis: Status: Acute Qualifiers: Laterality: bilateral Qualified Code(s): I65.23 - Occlusion and stenosis of bilateral carotid arteries Patient has presented with non-ST elevation [place]. Continue aspirin and Plavix. Therapeutic anticoagulation with IV heparin. Keep patient n.p.o. past midnight for left heart cath with possible percutaneous coronary intervention in the morning. Risks and benefits of the procedure have been described. Patient understands the risks and benefits and wants to proceed with the procedure. Patient has CKD with a elevated creatinine. IV fluids to be started today. He has contrast allergy and will be premedicated with prednisone and Benadryl. Echocardiogram performed today did not reveal significant wall motion abnormalities. Thank you for involving us with the care of this patient. We will continue to follow. Please call with questions. Coding Level of Care Code Acute Environmental Safety Specialist for Lu Leyva Diagnoses Non-ST elevated myocardial infarction (non-STEMI) I21.4 Chronic kidney disease (CKD) N18.9 Chronic kidney disease stage: unspecified stage Diabetes mellitus with hyperglycemia, with long-term current use of insulin E11.65; Z79.4 Diabetes mellitus type: type 2 Coronary artery disease I25.119 Coronary Disease-Associated Artery/Lesion type: [place] artery [place] vs. transplanted heart: [place] heart Associated angina: with unspecified form of angina Carotid stenosis I65.23 Laterality: bilateral
--- NOTE | 2020-12-07 23:19 | PC.NURSE ---
arrived from ED, Heparin gtt running at 16 ml/hr, per weight based protocol should be runnig at 20 ml/hr, no PTT drawn since 10:00 AM, Heparin shut off PTT drawn and protocol started over
[2020-12-07 23:57] LABS: Partial Thromboplastin Time 110.9 SECONDS (23.9-36.7)
[2020-12-08] VITALS (37 sets, daily range): BP systolic 108–169; BP diastolic 51–111; PULSE 66–100; RESP 14–27; TEMP 36.5; O2SAT 94
[2020-12-08] MEDS: diphenhydrAMINE 50 mg Capsule PO (04:58)
[2020-12-08] MEDS: sodium chloride 0.9% 1,000 ML 50 ML IV ×2 (04:58→11:16)
[2020-12-08 05:07] LABS: Basophils % 0.6 %; Eosinophils # 0.4 10^3/uL (0.0-0.8); Eosinophils % 5.3 %; Hematocrit 36.2 % (42.0-52.0); Hemoglobin 11.6 g/dL (11.7-16.6); Lymphocytes # 1.7 10^3/uL (0.8-4.8); Lymphocytes % 25.2 %; Mean Corpuscular Hemoglobin 29.1 pg (28.0-34.0); Mean Platelet Volume 10.1 fL (7.4-10.4); Monocytes # 0.5 10^3/uL (0.2-0.9); Monocytes % 6.6 %; Neutrophils # 4.23 10^3/uL (1.8-7.7); Neutrophils % 61.9 %; Nucleated Red Blood Cells % 0 %; Platelet Count 119 10^3/cmm (130-400); Red Blood Count 3.98 10^6/uL (4.1-5.3); Red Cell Distribution Width 14.1 % (12.1-15.1); White Blood Count 6.8 10^3/uL (4.0-10.0)
[2020-12-08 05:16] LABS: INR 1.22 (0.8-1.2)
[2020-12-08 05:23] LABS: Alanine Aminotransferase 21 U/L (0-41); Albumin Level 3.6 g/dL (3.5-5.2); Alkaline Phosphatase 88 IU/L (40-130); Anion Gap 12.5 (5-19); Aspartate Amino Transferase 26 U/L (0-40); Blood Urea Nitrogen 20 mg/dL (8-23); Calcium 9.1 mg/dL (8.5-10.5); Carbon Dioxide 27 mmol/L (22-29); Chloride 104 mmol/L (98-107); Globulin 2.9 g/dL (1.3-4.6); Glucose 164 mg/dL (65-115); Magnesium 1.7 mg/dL (1.7-2.3); Osmolality Calculated 294 mOsm/kg (285-295); Phosphorus 3.3 mg/dL (2.5-4.5); Potassium 4.5 mmol/L (3.5-5.1); Sodium 139 mmol/L (136-145); Total Bilirubin 0.7 mg/dL (0.15-1.2); Total Protein 6.5 g/dL (6.6-8.7)
[2020-12-08 05:27] LABS: Partial Thromboplastin Time 139.7 SECONDS (23.9-36.7)
--- NOTE | 2020-12-08 06:05 | XACV_ITS ---
Exam Room: [facility] Ht: 170 cm Wt: 68 kg BSA: 1.81 m2 Gender: Male : 1945 Any Known Allergies: Other Exam Priority: Routine Procedure(s): Procedure Description: Diagnostic procedure Procedure Description: PCI procedure Procedure Description: Drug Eluting Coronary Stent Procedure Description: PTCA Procedure Description: Coronary Angiography Diagnostic Cath Status: Urgent Diagnostic Findings * Left Anterior Descending has mild luminal irregularities. * Proximal lcx stent has 20% in stent restenosis. Very Distal Circumflex: significant 80% stenosis, TING: 3 flow. * RCA has mid to distal vessel stents. Distal stent has severe 90% in stent restenosis. This stenosis continues into the non-stented segment and extends into the PDA and PLV ostia. Distal Right Coronary Artery to Distal Right Coronary Artery: severe 90% stenosis, TING: 2 flow. * Left Main has no disease. * Coronary angiography shows right dominance. PCI Status: Urgent PCI Indication: NSTE - ACS Interventional Findings * Procedure details: We engaged RCA with a JR4 guide catheter. IV heparin was administered to maintain an ACT above 250 seconds. A 0.014 run-through guidewire was used to cross the stenosis and was placed in PDA branch. 2.25 x 12 mm semicompliant balloon was used to predilate the stenosis in the distal RCA/ PDA branch. This was followed by placement of 2.25x 15 mm resolute Gabriela drug-eluting stent. We postdilated the stent with 2.5x6 mm NC balloon. At this time final angiogram was performed that showed excellent stent expansion, TING-3 flow and no residual stenosis. Guidewire and guide catheter were removed. 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 * Distal Right Coronary Artery to Distal Right Coronary Artery: 90% stenosis treated with a AB TREK 2.25X12 RX BALLOON, AB TREK 2.50X12 RX BALLOON, MDAleena Azevedo GABRIELA 2.25X15 DAMEON, and MDT ADEOLA EUPHORA RX [id number] BALLOON. 0% residual stenosis, TING: 3 flow. Conclusions 1. Severe stenosis of the distal RCA/PDA/PLV s/p successful revascularization with DAMEON x 1 (from distal RCA to PDA). 2. Distal LCx has severe stenosis but lesion is very distal in a small sized vessel. Plan for medical therapy. 3. Distal Right Coronary Artery to Distal Right Coronary Artery was treated with a Balloon, Balloon, Drug Eluting Stent, and Balloon. Recommendations * Aspirin and plavix for atleast 1 year. * Aggressive risk factor modification. * Order echocardiogram. * High intensity statin therapy. * Outpatient cardiology follow up in 4 weeks. Interventional RX Recommendation: PCI w/o planned CABG Diagnostic RX Recommendation: PCI w/o planned CABG Anticoagulation: Heparin Pressures Phase:Rest AO : 90 / 54 ( 71 ) @ 6:03:00 AM Clinical Evaluation EBL: 5mL-10mL Procedural Details Procedure Consent Obtained. Admit Source: In Patient. Identified patient by full name and date of as verbalized by the patient/guarantor. Identified patient by full name and date of as verbalized by the patient/guarantor. Does the consent match the physician's order: Yes. Accurate & Complete Informed Consent: Yes. Inpatient/Outpatient History & Physical on Chart: Yes. If H&P is completed, is and addenduem needed: Yes; If yes, is the addendum complete: No. The risks, benefits, and alternatives of sedation and/or procedure were discussed by physician. The patient agrees to continue. Procedure started. Correct patient, site and procedure confirmed by cath team. Current diagnosis: NSTEMI. IV Fluids: 0.9% NaCl at KVO. 0 mL infused prior to pathology lab technician. Oxygen started at 2liters/min via nasal canula. bilateral groins was prepped with chloroprep then draped in the usual sterile fashion. Physician notified. Baseline sample Acquired. HR: 81 BPM. Physician arrived. Physician scrubbed in. Immediate Pre-Procedure Time Out. Correct Patient: Yes; Correct Procedure: Yes; Correct Site: Yes; Correct Patient Position: Yes; Correct Supplies: Yes; Dried Flammable Prep: Yes; Blood Products Available: N/A. Lidocaine 1% infiltrated to the right groin. Arterial access obtained with micropuncture set. A 5 israeli JL4 catheter in over wire. Multiple views taken of left coronary artery. Catheter out. A 5 israeli JR4 catheter in over wire. Multiple views taken of right coronary artery. Catheter out. 6 israeli JR 4 guide catheter was inserted over the wire. Runthrough guidewire was advanced through the guide catheter to lesion in the PDA. Inventory is TR 180cm Runthrough NS extra floppy 0.014 wire. Inventory is TR 180cm Runthrough NS extra floppy 0.014 wire. 6 israeli JR 4 SH guide catheter was inserted over the wire. Runthrough guidewire was advanced through the guide catheter to lesion in the PLV. Inflation number : 1 A AB TREK 2.25X12 RX BALLOON was prepped and advanced across the Dist RCA , then inflated to 12 ISAAC for 0:17 seconds. Inflation number: 2 The AB TREK 2.25X12 RX BALLOON was reinflated across the Dist RCA, to 12 ISAAC for 0:17 seconds. Inflation number: 3 The AB TREK 2.25X12 RX BALLOON was reinflated across the Dist RCA, to 14 ISAAC for 0:15 seconds. Balloon out. Results checked. Runthrough wire to PLV out. Perez Roa was relieved by Magdalena Kidd, BUTTON BROACHER as monitoring person. MDT R GABRIELA 2.25x15 DAMEON inserted, unable to cross lesion in RCA. Intact stent removed. Guideliner inserted. MDT R GABRIELA 2.25x15 DAMEON inserted, unable to cross lesion in RCA. Intact stent removed. Inflation number : 4 A AB TREK 2.50X12 RX BALLOON was prepped and advanced across the Dist RCA , then inflated to 8 ISAAC for 0:14 seconds. Inflation number: 5 The AB TREK 2.50X12 RX BALLOON was reinflated across the Dist RCA, to 8 ISAAC for 0:10 seconds. Inflation number: 6 The AB TREK 2.50X12 RX BALLOON was reinflated across the Dist RCA, to 12 ISAAC for 0:10 seconds. Inflation Number : 7 A MDT R GABRIELA 2.25X15 DAMEON -Lot Number# [id number] exp date 05/07/2022 was prepped and advanced across the Dist RCA. The stent was deployed at 12 ISAAC for 0:23 seconds. Stent balloon out over wire. Guideliner out. Results checked. Inflation number : 8 A MDT NC EUPHORA RX [id number] BALLOON was prepped and advanced across the Dist RCA , then inflated to 14 ISAAC for 0:15 seconds. Inflation number: 9 The MDT NC EUPHORA RX [id number] BALLOON was reinflated across the Dist RCA, to 12 ISAAC for 0:17 seconds. Balloon out. Results checked. Wire out. A Right femoral angiogram was performed to determine safe placement of closure device. Guide catheter out. A Angio-Seal VIP ([place]) was successful obtaining hemostatsis at the Right Femoral artery insertion site. Angioseal placed without complications. No signs or symptoms of hematoma noted. Sterile dressing applied per usual sterile fashion. Post Procedure: Pulses reassessed and unchanged. Physician scrubbed out. PERRLA. Strong, equal hand neurology physician bilaterally. No VTE prophylaxis required. [facility] Clinical Fraility Score: 3: Managing Well. 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 Chest Pain Symptom Assessment: Typical Angina Symptoms. Cardiovascular Instability: No. PCI Indication: NSTE. Post-op diagnosis: NSTEMI. Complications: none. Contrast type used: Visipaque 320 mgI/mL, 500 mL bottle. Medication's Wasted: Nitro = 49.9 mg. Total IV fluids: 500 mL. Medication's Wasted: Lidocaine 1% = 10 mL. Medication's Wasted: Heparin = 2000 units. Estimated blood loss: 5mL-10mL. Procedure completed. Patient transferred by bed to ICU. Access Site Site: Right Femoral artery Sheath Size: 6 Fr Hemostasis Method: Angio-Seal VIP ([place]) Hemostasis Success: Successful Procedure Medications Start: 6:14 AM Stop: 6:14 AM Medication: Versed Amount: 1 mg Route: I.V. Start: 6:15 AM Stop: 6:15 AM Medication: Fentanyl Amount: 50 mcg Route: I.V. Start: 6:15 AM Stop: 6:15 AM Medication: Solu-Medrol (methylprednisolone) Amount: 125 mg Route: I.V. Start: 6:22 AM Stop: 6:22 AM Medication: Versed Amount: 1 mg Route: I.V. Start: 6:34 AM Stop: 6:34 AM Medication: Heparin Amount: 7000 units Route: I.V. Start: 6:36 AM Stop: 6:36 AM Medication: Fentanyl Amount: 25 mcg Route: I.V. Start: 6:47 AM Stop: 6:47 AM Medication: 0.9% Saline Amount: 250 ml Route: I.V. bolus Start: 6:52 AM Stop: 6:52 AM Medication: Heparin Amount: 2000 units Route: I.V. Start: 6:57 AM Stop: 6:57 AM Medication: Fentanyl Amount: 25 mcg Route: I.V. Start: 7:07 AM Stop: 7:07 AM Medication: Nitrogylcerin Amount: 100 mcg Route: I.C. Start: 7:08 AM Stop: 7:08 AM Medication: 0.9% Saline Amount: 250 ml Route: I.V. bolus Start: 7:19 AM Stop: 7:19 AM Medication: Plavix Amount: 300 mg Route: P.O. I, the attending physician, have reviewed and verified all procedure medications. Yes, all medications given per verbal order History/Risk Factors Hypertension: Yes Dyslipidemia: Yes Peripheral Arterial Disease (PAD): No Myocardial Infarction (TX): Yes Obesity: No Renal Disease: No Tobacco Use: Never Prior Interventions PCI: Yes CABG: No Valve Surgery: No Date of PCI: 10/07/2020 Report Signatures Finalized by Huey Asencio MD on 12/22/2020 05:31 PM
--- NOTE | 2020-12-08 06:05 | PC.NURSE ---
patient off unit at this time with supervisor dental laboratory staff
--- NOTE | 2020-12-08 06:06 | PC.NURSE ---
0500 bilateral right groin and wrist cleaned with chlorexidine for 0600 cath
--- NOTE | 2020-12-08 06:11 | W.PM.OPSUD ---
Surgery/Procedure H&P Update DATE OF PROCEDURE: December 08, 2020 DATE H&P PERFORMED: 12/07/20 H&P UPDATE INFORMATION: I have reviewed H&P completed within last 30 days and No changes to prior documentation PREOP DIAGNOSIS: NSTEMI PRIMARY INDICATION FOR PROCEDURE: NSTEMI PLANNED PROCEDURE: Left heart cath with possible percutaneous coronary intervention PATIENT REASSESSED PRIOR TO SEDATION, WITH NO CHANGE NOTED: Yes PHYSICAL EXAM: alert, oriented x 3, clear to auscultation bilaterally and regular rate & rhythm AIRWAY EVAL/ANESTHESIA PLAN: ASA III, Monitored Anesthesia, Local Anesthesia, Risks, benefits & alternatives of sedation and/or procedure discussed and Patient agrees to continue as planned
[2020-12-08 06:22] LABS: Thyroid Stimulating Hormone 2.17 uIU/mL (0.27-4.20)
[2020-12-08 06:36] LABS: NT Pro B Type Natriuretic Pept 584 pg/mL (0-450)
--- NOTE | 2020-12-08 09:05 | PC.CHAP ---
Pastoral Care Encounter/Spiritual Assessment Type of Contact [] Declined regulatory affairs internship visit [] Patient/Family/Request visit [] Outpatient visit [] Follow-up visit [] Physician referral [] Code/Alert [x] Routine visit [] Staff referral [] Actively dying [] Patient sleeping [x] Family support [] [] Out of room [] Palliative care [] [] Receiving care in room [] Pre-surgical visit [] Trauma [] Long length of stay [x] ICU visit [] Other: Relational/Emotional Strength [] Patient feels connected with others/family/visitors/staff [] Distress [] Loneliness/isolation [] Abandonment Spirituality of Patient [x] Person of [place] [] Attends Spiritism of their [place] [] Believes in Prayer [] Reads Bible or Islam materials [] There are Spiritual issues to be addressed General Engineer Interventions [x] Prayer [x] Active listening [x] Non-anxious presence [x] Spiritual/emotional support [] Crisis/trauma care [] Spiritual counseling [] Bereavement support [] Provided bereavement packet [] Provided Bible/devotional materials [] Provided toy/stuffed animal, coloring book to patient or family member [] Provided Communion [] Anointing/[place] [] Salvation [x] Completed spiritual assessment [] Other: Impact on Illness or Injury [] Angry [] Fearful [] Anxious [] Often cries [] Exhaustion [] Unable to work [] Unable to attend temple [] Unable to walk/stand [] Unable to read [] Unable to drive [] Unable to eat/drink [] Unable to sleep [] Unable to be with family [] Patient intubated [] Other: Summary patient had surgery... scheduled to go home tomorrow.. very pleasant individual... Time spent with patient 10 min
--- NOTE | 2020-12-08 09:18 | P.PN_ITS ---
Subjective Subjective: Interval history: Patient is doing well. He underwent successful revascularization of the distal RCA to PDA today. Vitals/I&O/Wt Last Vital Signs Temp 97.6 F 12/07/20 11:45 Pulse 77 12/08/20 08:26 Resp 22 H 12/08/20 04:00 BP 151/84 12/08/20 04:00 Pulse Ox 94 12/08/20 08:26 12/07/20 12/08/20 12/08/20 22:59 06:59 14:59 Intake Total 303.393 / 303.393 Output Total 400 / 400 Balance -96.607 / -96.607 Weight last 48 hrs Weight 151 lb Physical Exam Narrative: EXAM NARRATIVE: GENERAL: Patient is alert, awake and oriented x3. [] NECK: No jugular vein distension. [] HEENT: No cyanosis. No icterus. No pallor. [] HEART: Regular S1 and S2. No murmur, rub or gallop. [] LUNGS: Clear to auscultate bilaterally. [] ABDOMEN: Soft, nontender and nondistended. Positive bowel sounds. No guarding, rebound or tenderness. [] CENTRAL NERVOUS SYSTEM: Grossly nonfocal. [] EXTREMITIES: Lower extremities with 1+ edema bilaterally. Pulses palpable in the lower extremities, both dorsalis pedis and posterior tibial. [] Data : 12/08/20 04:30 12/08/20 04:30 A&P Assessment and plan (1) Non-ST elevated myocardial infarction (non-STEMI): Status: Acute (2) Chronic kidney disease (CKD): Status: Acute Qualifiers: Chronic kidney disease stage: unspecified stage Qualified Code(s): N18.9 - Chronic kidney disease, unspecified (3) Diabetes mellitus with hyperglycemia, with long-term current use of insulin: Status: Chronic Qualifiers: Diabetes mellitus type: type 2 Qualified Code(s): E11.65 - Type 2 diabetes mellitus with hyperglycemia; Z79.4 - extermination inspector (current) use of insulin (4) Coronary artery disease: Status: Acute Qualifiers: Coronary Disease-Associated Artery/Lesion type: [place] artery [place] vs. transplanted heart: [place] heart Associated angina: with unspecified form of angina Qualified Code(s): I25.119 - Atherosclerotic heart disease of [place] coronary artery with unspecified angina pectoris (5) Carotid stenosis: Status: Acute Qualifiers: Laterality: bilateral Qualified Code(s): I65.23 - Occlusion and stenosis of bilateral carotid arteries Patient presented with non-ST elevation [place]. He underwent successful revascularization of distal RCA into PDA with DAMEON x1. He is overall doing well. Continue aspirin and Plavix. Stop therapeutic heparin Given elevated creatinine we will continue with IV fluids. Echocardiogram performed, did not reveal significant wall motion abnormalities. Thank you for involving us with the care of this patient. We will continue to follow. Please call with questions. Attestations Medical Necessity Statement*: Care expected to cross 2 midnights. Coding Level of Care Code Acute Wind Site Manager for [facility] Fwd Diagnoses Non-ST elevated myocardial infarction (non-STEMI) I21.4 Chronic kidney disease (CKD) N18.9 Chronic kidney disease stage: unspecified stage Diabetes mellitus with hyperglycemia, with long-term current use of insulin E11.65; Z79.4 Diabetes mellitus type: type 2 Coronary artery disease I25.119 Coronary Disease-Associated Artery/Lesion type: [place] artery [place] vs. transplanted heart: [place] heart Associated angina: with unspecified form of angina Carotid stenosis I65.23 Laterality: bilateral
--- NOTE | 2020-12-08 10:00 | PC.NURSE ---
Pt attempting to get out of bed. Instructed pt that he is to remain in bed and not bend the right leg until 1400. States that he understands
[2020-12-08] MEDS: levothyroxine 50 mcg Tablet PO (11:13)
[2020-12-08] MEDS: famotidine 20 mg Tablet PO (11:14)
[2020-12-08] MEDS: atorvastatin 40 mg Tablet PO (11:15)
[2020-12-08] MEDS: aspirin 325 mg Tablet 81 MG PO (11:15)
[2020-12-08] MEDS: metoprolol succinate ER (24 HR) 25 mg Tablet 12.5 MG PO (11:16)
[2020-12-08] MEDS: sodium chloride 0.9% 1,000 ML 100 ML IV ×2 (11:26→17:56)
--- NOTE | 2020-12-08 12:55 | PC.NURSE ---
Pt sitting with his legs up. reminded him that he needs to straighten his legs out.
--- NOTE | 2020-12-08 14:31 | PM.PN ---
Subjective Subjective: Interval history: This morning patient was examined, he has returned for the cardiac catheterization lab, he was found to have severe distal RCA stenosis, stent was placed by Dr. Asencio, he tells me he is doing well, no chest pain currently, Vitals/I&O/Wt Last Vital Signs Temp 97.6 F 12/07/20 11:45 Pulse 87 12/08/20 13:15 Resp 18 12/08/20 13:15 BP 142/66 12/08/20 13:15 Pulse Ox 94 12/08/20 08:26 12/07/20 12/08/20 12/08/20 22:59 06:59 14:59 Intake Total 303.393 / 303.393 555 / 555 Output Total 400 / 400 700 / 700 Balance -96.607 / -96.607 -145 / -145 Weight last 48 hrs Weight 68.492 kg Physical Exam Const: COMMON NORMALS: no acute distress and patient oriented x3 Resp: COMMON NORMALS: normal respiratory effort, No retractions, No use of accessory muscles and clear to auscultation bilaterally AUSCULTATION: clear to auscultation bilaterally Cardio: COMMON NORMALS: regular rate, regular rhythm, S1 normal heart sound present and S2 normal heart sound present RATE: regular rate RHYTHM: regular rhythm HEART SOUNDS: S1 normal heart sound present and S2 normal heart sound present GI: COMMON NORMALS: Normal to inspection, nondistended, normoactive bowel sounds present, Soft to palpation and non-tender PALPATION: Yes Soft to palpation Extremity: COMMON NORMALS: no pedal edema Neuro: COMMON NORMALS: patient oriented x3 Psych: COMMON NORMALS: mental status grossly normal Data : 12/08/20 04:30 12/08/20 04:30 A&P Assessment and plan (1) Non-ST elevated myocardial infarction (non-STEMI): -Status post drug-eluting stent to RCA Plan -Monitor for chest pain -Aspirin, Plavix, statin, -Imdur -Monitor creatinine, continue IV fluids -Takes Levemir 35 units resume tomorrow morning -Cardiac echocardiogram shows an EF of 55 to 60%, grade 1 diastolic dysfunction -Full code -Heparin for DVT prophylaxis to be resumed after 24 hours -will moved to cardiac stepdown unit Status: Acute (2) Chronic kidney disease (CKD): Status: Acute Qualifiers: Chronic kidney disease stage: unspecified stage Qualified Code(s): N18.9 - Chronic kidney disease, unspecified (3) Diabetes mellitus with hyperglycemia, with long-term current use of insulin: Status: Chronic Qualifiers: Diabetes mellitus type: type 2 Qualified Code(s): E11.65 - Type 2 diabetes mellitus with hyperglycemia; Z79.4 - custodial (current) use of insulin (4) Coronary artery disease: Status: Acute Qualifiers: Coronary Disease-Associated Artery/Lesion type: [place] artery [place] vs. transplanted heart: [place] heart Associated angina: with unspecified form of angina Qualified Code(s): I25.119 - Atherosclerotic heart disease of [place] coronary artery with unspecified angina pectoris (5) GERD (gastroesophageal reflux disease): Status: Chronic (6) Status post carotid endarterectomy: Status: Acute (7) Adult onset hypothyroidism: Status: Chronic (8) Atherosclerotic cardiovascular disease: Status: Chronic Attestations Medical Necessity Statement*: Patient requires hospitalization for chest pain, status post RCA stenting Coding Level of Care Code Acute Registered Clinical Dietitian for [facility] Fwd Diagnoses Non-ST elevated myocardial infarction (non-STEMI) I21.4 Chronic kidney disease (CKD) N18.9 Chronic kidney disease stage: unspecified stage Diabetes mellitus with hyperglycemia, with long-term current use of insulin E11.65; Z79.4 Diabetes mellitus type: type 2 Coronary artery disease I25.119 Coronary Disease-Associated Artery/Lesion type: [place] artery [place] vs. transplanted heart: [place] heart Associated angina: with unspecified form of angina GERD (gastroesophageal reflux disease) K21.9 Status post carotid endarterectomy Z98.890 Adult onset hypothyroidism E03.8 Atherosclerotic cardiovascular disease I25.10
[2020-12-08 17:51] LABS: Glucose Point of Care 454 mg/dL (70-110)
[2020-12-08 19:09] LABS: Glucose Point of Care 460 mg/dL (70-110)
--- NOTE | 2020-12-08 19:09 | PC.NURSE ---
BS recheck was 460. Called Dr. Escalante to let him know and told him that his 0600 am Levimer was not given prior to his cath surgery. New orders received.
[2020-12-08 20:58] LABS: Glucose Point of Care 377 mg/dL (70-110)
[2020-12-09] VITALS: BP 129/67; PULSE 91; RESP 17
[2020-12-09 04:00] VITALS: BP 117/71; PULSE 85; RESP 21; TEMP 36.7
[2020-12-09 04:03] LABS: Basophils % 0.2 %; Lymphocytes # 0.9 10^3/uL (0.8-4.8); Lymphocytes % 8.6 %; Mean Corpuscular HGB Conc 32.4 g/dL (30.0-36.0); Mean Corpuscular Hemoglobin 29.5 pg (28.0-34.0); Mean Corpuscular Volume 91.2 fL (80-94); Mean Platelet Volume 10.2 fL (7.4-10.4); Monocytes # 0.6 10^3/uL (0.2-0.9); Monocytes % 5.8 %; Neutrophils # 9.05 10^3/uL (1.8-7.7); Neutrophils % 84.6 %; Nucleated Red Blood Cells % 0 %; Platelet Count 132 10^3/cmm (130-400); Red Blood Count 3.73 10^6/uL (4.1-5.3); Red Cell Distribution Width 14.1 % (12.1-15.1); White Blood Count 10.7 10^3/uL (4.0-10.0)
[2020-12-09 04:12] LABS: INR 1.13 (0.8-1.2)
[2020-12-09 04:22] LABS: Alanine Aminotransferase 19 U/L (0-41); Albumin Level 3.8 g/dL (3.5-5.2); Alkaline Phosphatase 92 IU/L (40-130); Anion Gap 15.7 (5-19); Aspartate Amino Transferase 18 U/L (0-40); Blood Urea Nitrogen 23 mg/dL (8-23); Calcium 8.7 mg/dL (8.5-10.5); Carbon Dioxide 22 mmol/L (22-29); Chloride 107 mmol/L (98-107); Globulin 2.6 g/dL (1.3-4.6); Glucose 195 mg/dL (65-115); Magnesium 1.6 mg/dL (1.7-2.3); Osmolality Calculated 299 mOsm/kg (285-295); Phosphorus 2.8 mg/dL (2.5-4.5); Potassium 4.7 mmol/L (3.5-5.1); Sodium 140 mmol/L (136-145); Total Bilirubin 0.7 mg/dL (0.15-1.2); Total Protein 6.4 g/dL (6.6-8.7)
[2020-12-09] MEDS: sodium chloride 0.9% 1,000 ML 100 ML IV (04:23)
[2020-12-09 04:24] LABS: NT Pro B Type Natriuretic Pept 1958 pg/mL (0-450)
[2020-12-09] MEDS: atorvastatin 40 mg Tablet PO (05:28)
[2020-12-09] MEDS: famotidine 20 mg Tablet PO (05:28)
[2020-12-09] MEDS: levothyroxine 50 mcg Tablet PO (05:28)
[2020-12-09] MEDS: isosorbide mononitrate ER 30 mg Tablet PO (05:29)
[2020-12-09] MEDS: clopidogrel 75 mg Tablet PO (05:29)
[2020-12-09] MEDS: omega-3 fatty acids 1,000 mg Capsule 1000 MG PO (05:29)
[2020-12-09] MEDS: metoprolol succinate ER (24 HR) 25 mg Tablet 12.5 MG PO (05:29)
[2020-12-09] MEDS: aspirin 325 mg Tablet 81 MG PO (05:30)
[2020-12-09 06:00] VITALS: PULSE 83
[2020-12-09 06:31] LABS: Glucose Point of Care 185 mg/dL (70-110)
--- NOTE | 2020-12-09 07:52 | PM.PN ---
Subjective Subjective: Interval history: Patient is doing well. No complaints of chest pain, shortness of breath or palpitations. Vitals/I&O/Wt Last Vital Signs Temp 98.1 F 12/09/20 04:00 Pulse 83 12/09/20 06:00 Resp 21 H 12/09/20 04:00 BP 117/71 12/09/20 04:00 Pulse Ox 94 12/08/20 08:26 12/08/20 12/09/20 12/09/20 22:59 06:59 14:59 Intake Total 650 / 1205 2000 / 3205 Output Total 800 / 1500 Balance 650 / 505 1200 / 1705 Weight last 48 hrs Weight 151 lb Physical Exam Narrative: EXAM NARRATIVE: GENERAL: Patient is alert, awake and oriented x3. [] NECK: No jugular vein distension. [] HEENT: No cyanosis. No icterus. No pallor. [] HEART: Regular S1 and S2. No murmur, rub or gallop. [] LUNGS: Clear to auscultate bilaterally. [] ABDOMEN: Soft, nontender and nondistended. Positive bowel sounds. No guarding, rebound or tenderness. [] CENTRAL NERVOUS SYSTEM: Grossly nonfocal. [] EXTREMITIES: Lower extremities with 1+ edema bilaterally. Pulses palpable in the lower extremities, both dorsalis pedis and posterior tibial. [] Data : 12/09/20 03:45 12/09/20 03:45 A&P Assessment and plan (1) Non-ST elevated myocardial infarction (non-STEMI): Status: Acute (2) Chronic kidney disease (CKD): Status: Acute Qualifiers: Chronic kidney disease stage: unspecified stage Qualified Code(s): N18.9 - Chronic kidney disease, unspecified (3) Diabetes mellitus with hyperglycemia, with long-term current use of insulin: Status: Chronic Qualifiers: Diabetes mellitus type: type 2 Qualified Code(s): E11.65 - Type 2 diabetes mellitus with hyperglycemia; Z79.4 - intermediate (current) use of insulin (4) Coronary artery disease: Status: Acute Qualifiers: Coronary Disease-Associated Artery/Lesion type: [place] artery [place] vs. transplanted heart: [place] heart Associated angina: with unspecified form of angina Qualified Code(s): I25.119 - Atherosclerotic heart disease of [place] coronary artery with unspecified angina pectoris (5) Carotid stenosis: Status: Acute Qualifiers: Laterality: bilateral Qualified Code(s): I65.23 - Occlusion and stenosis of bilateral carotid arteries Patient presented with non-ST elevation [place]. He underwent successful revascularization of distal RCA into PDA with DAMEON x1. He is overall doing well. Continue aspirin and Plavix. Creatinine has remained stable since the procedure Echocardiogram performed, did not reveal significant wall motion abnormalities. Thank you for involving us with the care of this patient. Patient is ready to be discharged from cardiology standpoint. Please call with questions. Attestations Medical Necessity Statement*: Care expected to cross 2 midnights. Coding Level of Care Code Acute Construction Trades Teacher for [facility] Fwd Diagnoses Non-ST elevated myocardial infarction (non-STEMI) I21.4 Chronic kidney disease (CKD) N18.9 Chronic kidney disease stage: unspecified stage Diabetes mellitus with hyperglycemia, with long-term current use of insulin E11.65; Z79.4 Diabetes mellitus type: type 2 Coronary artery disease I25.119 Coronary Disease-Associated Artery/Lesion type: [place] artery [place] vs. transplanted heart: [place] heart Associated angina: with unspecified form of angina Carotid stenosis I65.23 Laterality: bilateral
[2020-12-09 08:00] VITALS: BP 128/56; PULSE 89; RESP 12; O2SAT 96
--- NOTE | 2020-12-09 11:17 | PC.CHAP ---
Pastoral Care Encounter/Spiritual Assessment Type of Contact [] Declined relationship mgr visit [] Patient/Family/Request visit [] Outpatient visit [] Follow-up visit [] Physician referral [] Code/Alert [] Routine visit [] Staff referral [] Actively dying [] Patient sleeping [] Family support [] [] Out of room [] Palliative care [] [xx] Receiving care in room [] Pre-surgical visit [] Trauma [] Long length of stay [] ICU visit [] Other: Relational/Emotional Strength [] Patient feels connected with others/family/visitors/staff [] Distress [] Loneliness/isolation [] Abandonment Spirituality of Patient [] Person of [place] [] Attends Oriental Orthodox of their [place] [] Believes in Prayer [] Reads Bible or Latter Day materials [] There are Spiritual issues to be addressed Unix Manager Interventions [] Prayer [] Active listening [] Non-anxious presence [] Spiritual/emotional support [] Crisis/trauma care [] Spiritual counseling [] Bereavement support [] Provided bereavement packet [] Provided Bible/devotional materials [] Provided toy/stuffed animal, coloring book to patient or family member [] Provided Communion [] Anointing/[place] [] Salvation [] Completed spiritual assessment [] Other: Impact on Illness or Injury [] Angry [] Fearful [] Anxious [] Often cries [] Exhaustion [] Unable to work [] Unable to attend sikhism [] Unable to walk/stand [] Unable to read [] Unable to drive [] Unable to eat/drink [] Unable to sleep [] Unable to be with family [] Patient intubated [] Other: Summary Patient was being very uncooperative with staff requiring customs and border protection inspector attention at time of relationship mgr's rounds. Follow up is needed at later time. Time spent with patient 1 minute
[2020-12-09 11:28] LABS: Glucose Point of Care 290 mg/dL (70-110)
[2020-12-09 11:37] VITALS: BP 135/55; PULSE 96; RESP 12; O2SAT 96
--- NOTE | 2020-12-09 12:20 | P.DS_ITS ---
Discharge Providers Date of Admission: 12/08/20 15:00 Date of Discharge: December 09, 2020 Attending Provider at Admission: You Escalante MD Attending Provider at Discharge: You Escalante MD Primary Care Provider: SHANNAN Eastman Diagnoses at Discharge Discharge Diagnosis (1) Non-ST elevated myocardial infarction (non-STEMI): Status: Acute (2) Chronic kidney disease (CKD): Status: Acute Qualifiers: Chronic kidney disease stage: unspecified stage Qualified Code(s): N18.9 - Chronic kidney disease, unspecified (3) Diabetes mellitus with hyperglycemia, with long-term current use of insulin: Status: Chronic Qualifiers: Diabetes mellitus type: type 2 Qualified Code(s): E11.65 - Type 2 diabetes mellitus with hyperglycemia; Z79.4 - half-way (current) use of insulin (4) Coronary artery disease: Status: Acute Qualifiers: Coronary Disease-Associated Artery/Lesion type: [place] artery [place] vs. transplanted heart: [place] heart Associated angina: with unspecified form of angina Qualified Code(s): I25.119 - Atherosclerotic heart disease of [place] coronary artery with unspecified angina pectoris (5) GERD (gastroesophageal reflux disease): Status: Chronic (6) Status post carotid endarterectomy: Status: Acute (7) Adult onset hypothyroidism: Status: Chronic (8) Atherosclerotic cardiovascular disease: Status: Chronic Reason for Visit Reason for Visit: Chest Pain, L arm Pain Hospital Course Hospital Course Norbert Link is a 75 year old male with a past medical history of CAD, hypertension, pacemaker placement, hyperlipidemia, carotid endarterectomy, type 2 diabetes, recent history of CAD status post stent placement proximal and distal circumflex, and RCA who presents to [facility] due to complaints of chest pain. Patient was admitted to [facility] for non-ST elevation myocardial infarct, cardiology was consulted, had a cardiac catheterization status post drug-eluting stent to RCA, tolerated procedure well, creatinine monitor for the next 24 hours with IV hydration, creatinine on discharge 1.4. Patient was advised to continue aspirin, Plavix, statin, Imdur and follow-up with cardiology as outpatient. Physical Exam Const: COMMON NORMALS: no acute distress and patient oriented x3 Resp: COMMON NORMALS: normal respiratory effort, No retractions, No use of accessory muscles and clear to auscultation bilaterally AUSCULTATION: clear to auscultation bilaterally Cardio: COMMON NORMALS: regular rate, regular rhythm, S1 normal heart sound present and S2 normal heart sound present RATE: regular rate RHYTHM: regular rhythm HEART SOUNDS: S1 normal heart sound present and S2 normal heart sound present GI: COMMON NORMALS: Normal to inspection, nondistended, normoactive bowel sounds present and Soft to palpation PALPATION: Yes Soft to palpation Neuro: COMMON NORMALS: patient oriented x3 Psych: COMMON NORMALS: mental status grossly normal Discharge Data Data Completed and Pending: Completed Studies During Hospitalization Category Date Time Status XR chest 1V mark ble [id number] Stat Exams 12/07/20 09:49 Completed CV. echo complete * [id number] Stat Ultrasound 12/07/20 12:49 Completed Pending at discharge Category Date Time Status PEER COUNSELOR request for service Routin e Exams 12/08/20 06:05 Taken Complete Blood Co unt w/Auto AM LABS Lab 12/10/20 04:00 Ordered Comprehensive Met abolic Panel AM LA BS Lab 12/10/20 04:00 Ordered Magnesium AM LABS Lab 12/10/20 04:00 Ordered NT Pro B Type Leonela riuretic Pept QAM Lab 12/10/20 06:00 Ordered Phosphorus AM LAB S Lab 12/10/20 04:00 Ordered Prothrombin Time INR AM LABS Lab 12/10/20 04:00 Ordered Labs from last 24 hours 12/09/20 12/09/20 12/09/20 11:24 06:23 03:45 WBC RBC Hgb Hct MCV MCH MCHC RDW Plt Count MPV Neut % (Auto) Lymph % (Auto) [place] % (Auto) Eos % (Auto) Baso % (Auto) Neut # (Auto) Lymph # (Auto) [place] # (Auto) Eos # (Auto) Baso # (Auto) Nucleated RBC % (a uto) Nucleated RBCs # PT INR Sodium Potassium Chloride Carbon Dioxide Anion Gap BUN Creatinine GFR Calculation Glucose POC Glucose 290 H 185 H Calculated Osmolal ity Calcium Phosphorus Magnesium Total Bilirubin AST ALT Alkaline Phosphata se NT-Pro-B Natriuret Pep 1958 H Total Protein Albumin Globulin 12/09/20 12/09/20 12/09/20 03:45 03:45 03:45 WBC 10.7 H RBC 3.73 L Hgb 11.0 L Hct 34.0 L MCV 91.2 MCH 29.5 MCHC 32.4 RDW 14.1 Plt Count 132 MPV 10.2 Neut % (Auto) 84.6 Lymph % (Auto) 8.6 [place] % (Auto) 5.8 Eos % (Auto) 0.0 Baso % (Auto) 0.2 Neut # (Auto) 9.05 H Lymph # (Auto) 0.9 [place] # (Auto) 0.6 Eos # (Auto) 0.0 Baso # (Auto) 0.0 Nucleated RBC % (a uto) 0 Nucleated RBCs # 0.0 PT 14.80 INR 1.13 Sodium 140 Potassium 4.7 Chloride 107 Carbon Dioxide 22 Anion Gap 15.7 BUN 23 Creatinine 1.4 H GFR Calculation Not Reportable Glucose 195 H POC Glucose Calculated Osmolal ity 299 H Calcium 8.7 Phosphorus 2.8 Magnesium 1.6 L Total Bilirubin 0.7 AST 18 ALT 19 Alkaline Phosphata se 92 NT-Pro-B Natriuret Pep Total Protein 6.4 L Albumin 3.8 Globulin 2.6 12/08/20 12/08/20 12/08/20 20:45 19:05 17:47 WBC RBC Hgb Hct MCV MCH MCHC RDW Plt Count MPV Neut % (Auto) Lymph % (Auto) [place] % (Auto) Eos % (Auto) Baso % (Auto) Neut # (Auto) Lymph # (Auto) [place] # (Auto) Eos # (Auto) Baso # (Auto) Nucleated RBC % (a uto) Nucleated RBCs # PT INR Sodium Potassium Chloride Carbon Dioxide Anion Gap BUN Creatinine GFR Calculation Glucose POC Glucose 377 H 460 H 454 H Calculated Osmolal ity Calcium Phosphorus Magnesium Total Bilirubin AST ALT Alkaline Phosphata se NT-Pro-B Natriuret Pep Total Protein Albumin Globulin Vitals: Last Vital Signs Temp 98.1 F 12/09/20 04:00 Pulse 96 12/09/20 11:37 Resp 12 12/09/20 11:37 BP 135/55 12/09/20 11:37 Pulse Ox 96 12/09/20 11:37 Discharge Plan Discharge Patient Disposition: Home Condition: Stable Prescriptions: New aspirin 325 mg Tablet 81 mg PO DAILY@0600 30 Days Qty: 30 RF: 0 nitroglycerin 0.4 mg Tablet, Sublingual 0.4 mg sublingual Q5M PRN (Reason: Chest Pain) 30 Days Qty: 30 RF: 0 Continued omega-3 fatty acids [Fish Oil Concentrate] 1,000 mg capsule 1,000 mg PO DAILY@0600 RF: 0 lisinopril 5 mg tablet 5 mg PO DAILY@0600 Qty: 30 RF: 2 Hold Instructions: Resume on 10/14/20. resume after following up with Indira Nevarez glipizide 10 mg tablet extended release 24hr 10 mg PO DAILY@0600 Qty: 30 RF: 2 levothyroxine 50 mcg tablet 50 mcg PO DAILY@0600 Qty: 30 RF: 2 (DME) pen needle, diabetic 33 gauge x 5/32 needle See Rx Instructions .ROUTE .MEDSUPPLY Qty: 100 RF: 2 multivitamin [Daily Multi-Vitamin] Tablet 1 tab PO DAILY@0600 RF: 0 metoprolol succinate 25 mg tablet extended release 24 hr 12.5 mg PO DAILY@0600 RF: 0 Levemir FlexTouch U-100 Insuln 100 unit/mL (3 mL) insulin pen 35 unit SUBCUT DAILY@0600 RF: 0 PreserVision AREDS-2 250-90-40-1 mg Capsule 1 tab PO BID@0600,1800 RF: 0 Lipitor 40 mg tablet 40 mg PO DAILY@0600 30 Days Qty: 30 RF: 2 famotidine 20 mg tablet 20 mg PO DAILY@0600 Qty: 30 RF: 0 clopidogrel 75 mg tablet 75 mg PO DAILY@0600 30 Days Qty: 30 RF: 0 isosorbide mononitrate 30 mg tablet extended release 24 hr 30 mg PO DAILY@0600 30 Days Qty: 30 RF: 0 Discontinued aspirin 325 mg tablet 325 mg PO DAILY@0600 RF: 0 Discharge Orders: Discharge Order (Routine); Ordered 12/09/20 Ordered By: You Escalante Referrals: Ree Crooks, RADIOLOGIC ELECTRONIC SPECIALIST-C [Primary Care Provider] - Huey Asencio M.D [Physician] - 4-7 days Discharge Diet: Cardiac Discharge Activity: Resume usual activity Patient Instructions: Myocardial Infarction (DC), Opioid Safety Activity Restrictions/Additional Instructions: -Please take aspirin, statin, Plavix as prescribed -Please follow-up with cardiology in 1 week -Please follow-up with primary care in 1 to 2 weeks Discharge Attestations Time Spent in Discharge Care*: less than 30 min Status at Discharge: Cognitive status at discharge: cognitively intact , Quality Metrics Clinical Quality Measures During this hospital stay, did patient experience: AMI Clinical Trial Participant: No Contraindication to aspirin (AMI): Aspirin given Contraindication to statin: Statin prescribed Coding Level of Care Code Acute Chg FW DC note Diagnoses Non-ST elevated myocardial infarction (non-STEMI) I21.4 Chronic kidney disease (CKD) N18.9 Chronic kidney disease stage: unspecified stage Diabetes mellitus with hyperglycemia, with long-term current use of insulin E11.65; Z79.4 Diabetes mellitus type: type 2 Coronary artery disease I25.119 Coronary Disease-Associated Artery/Lesion type: [place] artery [place] vs. transplanted heart: [place] heart Associated angina: with unspecified form of angina GERD (gastroesophageal reflux disease) K21.9 Status post carotid endarterectomy Z98.890 Adult onset hypothyroidism E03.8 Atherosclerotic cardiovascular disease I25.10
[2020-12-09 12:53] VITALS: BP 135/55; PULSE 96; RESP 12; O2SAT 96
== END 2020-12-09 13:15 | disposition home or self-care (01) | DRG 247 ==
LOC: ER 15:10 → ICU 17:47 → CSU 12-08 22:36
PROVIDERS: Internal Medicine; Admitting Provider Family Medicine; Emergency Provider Family Medicine; PCP Nurse Practitioner; Visit Provider Family Medicine
PROC: 027034Z Dilation of Coronary Artery, One Artery with Drug-eluting Intraluminal Device, Percutaneous Approach (ICD-10-PCS; principal; 2020-12-08 06:00)
PROC: 027034Z Dilation of Coronary Artery, One Artery with Drug-eluting Intraluminal Device, Percutaneous Approach (ICD-10-PCS; 2020-12-08 06:00)
DX: I21.4 Non-ST elevation (NSTEMI) myocardial infarction (principal); I25.119 Atherosclerotic heart disease of native coronary artery with unspecified angina pectoris; Z95.5 Presence of coronary angioplasty implant and graft; E11.22 Type 2 diabetes mellitus with diabetic chronic kidney disease; E11.65 Type 2 diabetes mellitus with hyperglycemia; I12.9 Hypertensive chronic kidney disease with stage 1 through stage 4 chronic kidney disease, or unspecified chronic kidney disease; N18.9 Chronic kidney disease, unspecified; Z95.0 Presence of cardiac pacemaker; E78.2 Mixed hyperlipidemia; K21.9 Gastro-esophageal reflux disease without esophagitis; E03.9 Hypothyroidism, unspecified; Z79.4 Long term (current) use of insulin; Z79.02 Long term (current) use of antithrombotics/antiplatelets
CPT/HCPCS: 36415; 36416; 71045; 80048; 80053; 82962; 83735; 83880; 84100; 84443; 84484; 85025; 85610; 85730; 93005; 93306; 93454; 94664; 96372; 97161; 97165; 97530; 99291; 99292; C1725; C1760; C1769; C1874; C1887; C1894; C9600; G0378; J1644; J1815; J2250; J2930; J3010; J3490; J7030; Q0163; Q9967

== ENCOUNTER → 2021-01-02 12:30 | Outpatient (BNVA) | payer MEDICARE, OTHER, SELFPAY | PROVIDERS: PCP Nurse Practitioner; Visit Provider Internal Medicine Cardiovascular Disease | DX: I65.29 Occlusion and stenosis of unspecified carotid artery (principal); E78.2 Mixed hyperlipidemia; R06.02 Shortness of breath; Z95.0 Presence of cardiac pacemaker | CPT/HCPCS: 80048 ==

== ENCOUNTER → 2021-01-23 08:31 | Outpatient (BNVA) | payer MEDICARE, OTHER, SELFPAY | PROVIDERS: PCP Nurse Practitioner; Visit Provider Nurse Practitioner | DX: E11.65 Type 2 diabetes mellitus with hyperglycemia (principal); Z79.4 Long term (current) use of insulin | CPT/HCPCS: 80048 ==

== ENCOUNTER 2021-02-20 12:23 | Outpatient (CLI) | payer MEDICARE, OTHER, SELFPAY ==
--- NOTE | 2021-02-20 12:45 | USCV_ITS ---
Link Norbert Age: 75 Gender: M : 1945 Exam Date: 02/20/2021 13:00 Ordering Phys: Parag Parmar MD (Andy) ([email or web address] [place]) Technologist: Brianne Zuniga Exam Location: [facility] [place] Indication: KNOWN RIGHT ICA OCCLUSION Risk Factors: Previous Vascular Surgery: Right Brachial BP: / Left Brachial BP: / Right Left Velocity (cm/s) Spectral Plaque Velocity (cm/s) Spectral Plaque Syst/Diast Broadening Syst/Diast Broadening 46.60/ 10.10 Prox CCA 109.20/ 26.50 35.70/ 9.30 Mid CCA 86.00 / 28.70 129.00/17.60 Distal CCA 83.80 / 28.70 / Prox ICA 110.40/ 43.40 / Mid ICA 64.50 / 21.80 / Distal ICA 98.10 / 34.20 129.00 ECA 203.30 ICA/CCA 1.01 Antegrade Vertebral Antegrade 49.10/ 13.40 cm/s 53.00/ 15.40 cm/s Tri Subclavian Tri 108.1 122.4 0 0 FINDINGS Comparison:. 08/19/20. Known complete occlusion right ICA. Moderate plaque in the right CCA. Moderate diffuse atherosclerotic plaque left carotid without significant stenosis. Bilateral antegrade vertebral arteries. CONCLUSIONS Chronic occlusion right ICA. Left ICA stenosis < 50%. Diffuse irregular plaque left carotid artery. Dr. Lauren Escalona DO (Electronically Signed) Final Date: 20 February 2021 13:39 S
== END 2021-02-20 12:24 | disposition home or self-care (01) ==
LOC: US 12:25
PROVIDERS: PCP Nurse Practitioner; Visit Provider Thoracic Surgery (Cardiothoracic Vascular Surgery)
DX: I65.23 Occlusion and stenosis of bilateral carotid arteries (principal)
CPT/HCPCS: 93880

== ENCOUNTER → 2021-04-14 08:56 | Outpatient (BNVA) | payer MEDICARE, OTHER, SELFPAY | PROVIDERS: PCP Nurse Practitioner; Visit Provider Nurse Practitioner | DX: E11.65 Type 2 diabetes mellitus with hyperglycemia (principal); Z79.4 Long term (current) use of insulin | CPT/HCPCS: 80053; 83036 ==

== ENCOUNTER 2021-05-19 13:32 | Inpatient (IN) | payer MEDICARE, OTHER, SELFPAY ==
[2021-05-19] VITALS (7 sets, daily range): BP systolic 119–128; BP diastolic 59–71; PULSE 76–86; RESP 16; TEMP 36.8; O2SAT 97–100; BMI 21.9
--- NOTE | 2021-05-19 13:38 | XR_ITS ---
WS: [id number] Exam: XR chest 1V portable [id number] Date/Time of Exam: 05/19/2021 1:38 PM Reason For Exam: sob Comparison 12/07/2020. The lungs are clear and fully expanded. No pleural effusions. Cardiomediastinal silhouette is unremar kable. Coronary artery stenting is noted. A permanent cardiac pacer superimposes the left chest. XR/XR chest 1V portable [id number] IMPRESSION: 1. No acute cardiopulmonary finding.
[2021-05-19 14:58] LABS: Basophils # 0.1 10^3/uL (0.0-0.1); Basophils % 0.6 %; Eosinophils # 0.4 10^3/uL (0.0-0.8); Eosinophils % 2.4 %; Hematocrit 39.5 % (42.0-52.0); Hemoglobin 12.5 g/dL (11.7-16.6); Lymphocytes # 1.6 10^3/uL (0.8-4.8); Mean Corpuscular HGB Conc 31.6 g/dL (30.0-36.0); Mean Corpuscular Hemoglobin 28.7 pg (28.0-34.0); Mean Corpuscular Volume 90.6 fl (80-94); Mean Platelet Volume 9.9 fL (7.4-10.4); Monocytes # 1.1 10^3/uL (0.2-0.9); Monocytes % 6.9 %; Neutrophils % 79.5 %; Nucleated Red Blood Cells % 0 %; Platelet Count 209 10^3/cmm (130-400); Red Blood Count 4.36 10^6/uL (4.1-5.3); Red Cell Distribution Width 14.1 % (12.1-15.1); White Blood Count 15.7 10^3/uL (4.0-10.0)
--- NOTE | 2021-05-19 15:14 | W.ED.GENADLT ---
HPI - General Adult General: Chief complaint: Altered Mental Status Stated complaint: COUGH,N/V FALL ABD PAINS RIB PAINS Time Seen by Provider: 05/19/21 15:13 History of Present Illness: HPI narrative: Mr. Link is a 75-year-old gentleman with complicated past medical history including hypertension, hyperlipidemia, diabetes, CAD, CKD, history of stroke with carotid disease who presents to the emergency department due to generalized symptoms. Symptom onset was 4 days ago and gradual. The patient endorses abdominal pain, nausea, vomiting, increased falls and generalized malaise. No fevers identified or other specific source of infection. He has fallen for unclear reasons and hit his head. Overall the intensity symptoms is moderate. Course has been worsening. No other known specific exacerbating relieving factors identified. Upon learning of findings supplemental history includes a number of months of weight loss related to pain after eating, he uses significant bouts of [id number] medications and still has decreased p.o. intake. Review of Systems General: Reports: 10 or more systems reviewed and unremarkable except in HPI and below PFSH ED PFSH: Medical History Adult onset hypothyroidism Atherosclerotic cardiovascular disease B12 deficiency Benign hypertension Carotid stenosis Chronic kidney disease, unspecified Coronary artery disease COVID-19 vaccine administered 2 primary doses and booster Diabetes mellitus with hyperglycemia, with long-term current use of insulin GERD (gastroesophageal reflux disease) Mixed hyperlipidemia Noncompliance with medication regimen Presence of cardiac pacemaker Surgical History H/O right knee surgery History of cardiac pacemaker in situ History of cervical discectomy History of ear surgery History of PTCA -distal RCA DAMEON 12/2020 -proximal RCA DAMEON, distal RCA balloon angioplasty, proximal and distal left circumflex DAMEON 10/2020 -previous RCA and circ stents in 2010 Status post carotid endarterectomy (10/19/19) right Family History Brother CAD (coronary artery disease) Cancer Diabetes Lung disease Mother CAD (coronary artery disease) Diabetes Family/Other Cancer Diabetes Sister Diabetes Father Diabetes Denies family history of Clotting disorder Dementia Chronic kidney disease (CKD) Suicide Anesthesia complication Bleeding disorder Stroke Social History Smoking and tobacco status: former smoker Second hand smoke exposure: No Alcohol intake: never Adopted: No Caregiver/support person: No Lives independently: Yes Household members: none Housing: House Marital status: Single Number of children: 1 service: Yes branch: [employer] Current occupational status: retired Current occupation: [employer] Current gender identity: Male Physical Exam Narrative: EXAM NARRATIVE: GENERAL/CONSTITUTIONAL - somwhat ill-appearing. Eyes - PERRL, no conjunctival injection ENMT - Atraumatic external nose and ears. dry mucous membranes NECK - supple. trachea midline CARDIOVASCULAR - regular rate and rhythm. Peripheral pulses 2+ and equal RESPIRATORY -clear to auscultation bilaterally. No retractions or accessory muscle use. ABDOMEN/GI - generalized ttp, worse in upper abd. No remote peritonitis. MSK - Extremities without obvious deformity or tenderness to palpation SKIN - Warm, Dry NEURO - alert and appropriately oriented. Moves all extremities equally. Course ED course: - Patient was seen and evaluated by me at bedside - Patient placed on cardiac monitors, IV access obtained - Initial evaluation notable for exam as noted above - symptom treatment ordered - Labs notable for leukocytosis, mild transaminitis, elevated creatinine - Imaging notable for CT concerning for cholecystitis confirmed on ultrasound. Additional imaging obtained due to recurrent falls, balance problems, rib pain concerning for fracture and other concerning elements of history reported by patient - Discussed with general surgery - Upon serial reexamination after treatment the patient was improved with analgesia - Based on patient history, evaluation, labs, and imaging as interpreted the most likely cause of the patient's condition is acute cholecystitis - The results of ED evaluation were discussed with the patient including plan for admission due to requirement for level of care not available if discharged to prevent significant worsening/deterioration. -hospitalist contacted and agreed to admit the patient - Patient was admitted without further deterioration or significant events. Vital Signs: Vital signs: Vital Signs Temperature 97.9 F 05/21/21 14:44 Pulse Rate 81 05/21/21 14:44 Respiratory Rate 18 05/21/21 14:44 Blood Pressure 120/61 05/21/21 14:44 Pulse Oximetry 99 05/21/21 14:44 MDM - General Adult Medical Records: Attestation: I reviewed the patient's medical records. Lab Data: Attestation: I reviewed the patient's lab results. Labs: Lab Results 05/19/21 05/19/21 05/19/21 14:50 14:50 14:50 WBC 15.7 10^3/uL H 10 ^3/uL (4.0-10.0) RBC 4.36 10^6/uL 10^6 /uL (4.1-5.3) Hgb 12.5 g/dL g/dL (11.7-16.6) Hct 39.5 % L % (42.0-52.0) MCV 90.6 fl fl (80-94) MCH 28.7 pg pg (28.0-34.0) MCHC 31.6 g/dL g/dL (30.0-36.0) RDW 14.1 % % (12.1-15.1) Plt Count 209 10^3/cmm 10^3 /cmm (130-400) MPV 9.9 fL fL (7.4-10.4) Neut % (Auto) 79.5 % % Lymph % (Auto) 10.0 % % [place] % (Auto) 6.9 % % Eos % (Auto) 2.4 % % Baso % (Auto) 0.6 % % Neut # (Auto) 12.50 10^3/uL H 1 0^3/uL (1.8-7.7) Lymph # (Auto) 1.6 10^3/uL 10^3/ uL (0.8-4.8) [place] # (Auto) 1.1 10^3/uL H 10^ 3/uL (0.2-0.9) Eos # (Auto) 0.4 10^3/uL 10^3/ uL (0.0-0.8) Baso # (Auto) 0.1 10^3/uL 10^3/ uL (0.0-0.1) Nucleated RBC % (a uto) 0 % % Nucleated RBCs # 0.0 /100WBC /100W BC PT INR APTT Sodium 133 mmol/L L mmol /L (136-145) Potassium 4.3 mmol/L mmol/L (3.5-5.1) Chloride 97 mmol/L L mmol/ L (98-107) Carbon Dioxide 18 mmol/L L mmol/ L (22-29) Anion Gap 22.3 H (5-19) BUN 31 mg/dL H mg/dL (8-23) Creatinine 1.5 mg/dL H mg/dL (0.7-1.2) GFR Calculation Not Reportable Glucose 242 mg/dL H mg/dL (65-115) POC Glucose Calculated Osmolal ity 291 mOsm/kg mOsm/ kg (285-295) Calcium 8.5 mg/dL mg/dL (8.5-10.5) Phosphorus Magnesium Total Bilirubin 1.4 mg/dL H mg/dL (0.15-1.2) AST 49 U/L H U/L (0-40) ALT 48 U/L H U/L (0-41) Alkaline Phosphata se 287 IU/L H IU/L (40-130) Troponin T Baselin e Troponin T 120 Min [place] Troponin T Troponin T Hi Sens 6Hr Troponin T Hi Sens 6Hr Delta C-Reactive Protein NT-Pro-B Natriuret Pep Total Protein 6.1 g/dL L g/dL (6.6-8.7) Albumin 3.7 g/dL g/dL (3.5-5.2) Globulin 2.4 g/dL g/dL (1.3-4.6) Lipase 34 U/L U/L (13-60) Procalcitonin TSH 1.61 uIU/mL uIU/m L (0.27-4.20) Urine Color Urine Appearance Urine pH Ur Specific Gravit y Urine Protein Urine Glucose (UA) Urine Ketones Urine Blood Urine Nitrate Urine Bilirubin Urine Urobilinogen Ur Leukocyte Harmony ase SARS-CoV-2 Ag (Rap id) 05/19/21 05/19/21 05/19/21 15:30 17:16 18:21 WBC RBC Hgb Hct MCV MCH MCHC RDW Plt Count MPV Neut % (Auto) Lymph % (Auto) [place] % (Auto) Eos % (Auto) Baso % (Auto) Neut # (Auto) Lymph # (Auto) [place] # (Auto) Eos # (Auto) Baso # (Auto) Nucleated RBC % (a uto) Nucleated RBCs # PT INR APTT Sodium Potassium Chloride Carbon Dioxide Anion Gap BUN Creatinine GFR Calculation Glucose POC Glucose 120 mg/dL H mg/dL (70-110) Calculated Osmolal ity Calcium Phosphorus Magnesium Total Bilirubin AST ALT Alkaline Phosphata se Troponin T Baselin e Troponin T 120 Min [place] Troponin T Troponin T Hi Sens 6Hr Troponin T Hi Sens 6Hr [place] C-Reactive Protein NT-Pro-B Natriuret Pep Total Protein Albumin Globulin Lipase Procalcitonin TSH Urine Color Yellow (Yellow) Urine Appearance Clear (CLEAR) Urine pH 5 (5-7) Ur Specific Gravit y 1.010 (1.005-1.030) Urine Protein Neg (Negative) Urine Glucose (UA) 4+ H (Normal) Urine Ketones Negative (Negative) Urine Blood Neg (Negative) Urine Nitrate Negative (Negative) Urine Bilirubin Neg (Negative) Urine Urobilinogen Norm mg/dL mg/dL (Negative) Ur Leukocyte Harmony ase Negative (Negative) SARS-CoV-2 Ag (Rap id) Negative (Negative) 05/19/21 05/19/21 05/19/21 19:00 20:16 21:05 WBC RBC Hgb Hct MCV MCH MCHC RDW Plt Count MPV Neut % (Auto) Lymph % (Auto) [place] % (Auto) Eos % (Auto) Baso % (Auto) Neut # (Auto) Lymph # (Auto) [place] # (Auto) Eos # (Auto) Baso # (Auto) Nucleated RBC % (a uto) Nucleated RBCs # PT INR APTT Sodium Potassium Chloride Carbon Dioxide Anion Gap BUN Creatinine GFR Calculation Glucose POC Glucose 149 mg/dL H mg/dL (70-110) Calculated Osmolal ity Calcium Phosphorus Magnesium Total Bilirubin AST ALT Alkaline Phosphata se Troponin T Baselin e 49 ng/L H ng/L (0-15) Troponin T 120 Min [place] 39.55 ng/L H ng/L (0-15) Delta Troponin T -9.45 ABS# L ABS# (0-10) Troponin T Hi Sens 6Hr Troponin T Hi Sens 6Hr [place] C-Reactive Protein NT-Pro-B Natriuret Pep Total Protein Albumin Globulin Lipase Procalcitonin TSH Urine Color Urine Appearance Urine pH Ur Specific Gravit y Urine Protein Urine Glucose (UA) Urine Ketones Urine Blood Urine Nitrate Urine Bilirubin Urine Urobilinogen Ur Leukocyte Harmony ase SARS-CoV-2 Ag (Rap id) 05/20/21 05/20/21 05/20/21 01:05 01:29 01:29 WBC 13.4 10^3/uL H 10 ^3/uL (4.0-10.0) RBC 4.20 10^6/uL 10^6 /uL (4.1-5.3) Hgb 11.9 g/dL g/dL (11.7-16.6) Hct 37.1 % L % (42.0-52.0) MCV 88.3 fl fl (80-94) MCH 28.3 pg pg (28.0-34.0) MCHC 32.1 g/dL g/dL (30.0-36.0) RDW 14.1 % % (12.1-15.1) Plt Count 168 10^3/cmm 10^3 /cmm (130-400) MPV 9.5 fL fL (7.4-10.4) Neut % (Auto) 78.6 % % Lymph % (Auto) 9.5 % % [place] % (Auto) 7.7 % % Eos % (Auto) 3.6 % % Baso % (Auto) 0.3 % % Neut # (Auto) 10.49 10^3/uL H 1 0^3/uL (1.8-7.7) Lymph # (Auto) 1.3 10^3/uL 10^3/ uL (0.8-4.8) [place] # (Auto) 1.0 10^3/uL H 10^ 3/uL (0.2-0.9) Eos # (Auto) 0.5 10^3/uL 10^3/ uL (0.0-0.8) Baso # (Auto) 0.0 10^3/uL 10^3/ uL (0.0-0.1) Nucleated RBC % (a uto) 0 % % Nucleated RBCs # 0.0 /100WBC /100W BC PT INR APTT Sodium Potassium Chloride Carbon Dioxide Anion Gap BUN Creatinine GFR Calculation Glucose POC Glucose 140 mg/dL H mg/dL (70-110) Calculated Osmolal ity Calcium Phosphorus Magnesium Total Bilirubin AST ALT Alkaline Phosphata se Troponin T Baselin e Troponin T 120 Min [place] Troponin T Troponin T Hi Sens 6Hr 40.40 ng/L H ng/L (0-15) Troponin T Hi Sens 6Hr [place] -8.60 ng/L L ng/L (0-12) C-Reactive Protein NT-Pro-B Natriuret Pep Total Protein Albumin Globulin Lipase Procalcitonin TSH Urine Color Urine Appearance Urine pH Ur Specific Gravit y Urine Protein Urine Glucose (UA) Urine Ketones Urine Blood Urine Nitrate Urine Bilirubin Urine Urobilinogen Ur Leukocyte Harmony ase SARS-CoV-2 Ag (Rap id) 05/20/21 05/20/21 05/20/21 01:29 01:29 01:29 WBC RBC Hgb Hct MCV MCH MCHC RDW Plt Count MPV Neut % (Auto) Lymph % (Auto) [place] % (Auto) Eos % (Auto) Baso % (Auto) Neut # (Auto) Lymph # (Auto) [place] # (Auto) Eos # (Auto) Baso # (Auto) Nucleated RBC % (a uto) Nucleated RBCs # PT 15.40 SECONDS H S ECONDS (12.1-14.9) INR 1.19 (0.8-1.2) APTT 39.0 SECONDS H SE CONDS (23.9-36.7) Sodium 136 mmol/L mmol/L (136-145) Potassium 4.2 mmol/L mmol/L (3.5-5.1) Chloride 101 mmol/L mmol/L (98-107) Carbon Dioxide 17 mmol/L L mmol/ L (22-29) Anion Gap 22.2 H (5-19) BUN 29 mg/dL H mg/dL (8-23) Creatinine 1.4 mg/dL H mg/dL (0.7-1.2) GFR Calculation Not Reportable Glucose 143 mg/dL H mg/dL (65-115) POC Glucose Calculated Osmolal ity 290 mOsm/kg mOsm/ kg (285-295) Calcium 7.9 mg/dL L mg/dL (8.5-10.5) Phosphorus 2.9 mg/dL mg/dL (2.5-4.5) Magnesium 2.1 mg/dL mg/dL (1.7-2.3) Total Bilirubin 1.4 mg/dL H mg/dL (0.15-1.2) AST 68 U/L H U/L (0-40) ALT 57 U/L H U/L (0-41) Alkaline Phosphata se 330 IU/L H IU/L (40-130) Troponin T Baselin e Troponin T 120 Min [place] Troponin T Troponin T Hi Sens 6Hr Troponin T Hi Sens 6Hr [place] C-Reactive Protein 122.2 mg/L H mg/L (0.0-4.9) NT-Pro-B Natriuret Pep 364 pg/mL pg/mL (0-450) Total Protein 5.9 g/dL L g/dL (6.6-8.7) Albumin 3.6 g/dL g/dL (3.5-5.2) Globulin 2.3 g/dL g/dL (1.3-4.6) Lipase Procalcitonin 0.49 ng/mL ng/mL (0-0.5) TSH Urine Color Urine Appearance Urine pH Ur Specific Gravit y Urine Protein Urine Glucose (UA) Urine Ketones Urine Blood Urine Nitrate Urine Bilirubin Urine Urobilinogen Ur Leukocyte Harmony ase SARS-CoV-2 Ag (Rap id) 05/20/21 05/20/21 05/20/21 06:31 11:17 17:17 WBC RBC Hgb Hct MCV MCH MCHC RDW Plt Count MPV Neut % (Auto) Lymph % (Auto) [place] % (Auto) Eos % (Auto) Baso % (Auto) Neut # (Auto) Lymph # (Auto) [place] # (Auto) Eos # (Auto) Baso # (Auto) Nucleated RBC % (a uto) Nucleated RBCs # PT INR APTT Sodium Potassium Chloride Carbon Dioxide Anion Gap BUN Creatinine GFR Calculation Glucose POC Glucose 121 mg/dL H mg/dL 249 mg/dL H mg/dL 154 mg/dL H mg/dL (70-110) (70-110) (70-110) Calculated Osmolal ity Calcium Phosphorus Magnesium Total Bilirubin AST ALT Alkaline Phosphata se Troponin T Baselin e Troponin T 120 Min [place] Troponin T Troponin T Hi Sens 6Hr Troponin T Hi Sens 6Hr [place] C-Reactive Protein NT-Pro-B Natriuret Pep Total Protein Albumin Globulin Lipase Procalcitonin TSH Urine Color Urine Appearance Urine pH Ur Specific Gravit y Urine Protein Urine Glucose (UA) Urine Ketones Urine Blood Urine Nitrate Urine Bilirubin Urine Urobilinogen Ur Leukocyte Harmony ase SARS-CoV-2 Ag (Rap id) EKG Data^: EKG 1: Attestation: I personally reviewed and interpreted this EKG as follows: EKG interpretation date: 05/19/21 EKG interpretation time: 20:51 Interpretation: Twelve-lead EKG shows a regular rhythm at a rate of 78. SC interval 176. QRS duration 92. QTc 415. Normal [place]. . Interpretation: Sinus rhythm. . Computer generated interpretation: Chest X-Ray 05/19/21 13:38 IMPRESSION: 1. No acute cardiopulmonary finding. Head CT 05/19/21 15:21 IMPRESSION: 1. No acute intracranial hemorrhage or edema. 2. Mild atrophy and mild chronic microvascular ischemic disease. No acute infarct. Chest/Abdomen/Pelvis CT 05/19/21 16:05 IMPRESSION: 1. No acute finding. 2. Left pulmonary nodules measuring up to 5 mm. For patients at low risk (minimal or absent history of smoking and of other known risk factors), no routine follow-up is indicated. For patients at high risk (history of smoking or of other known risk factors), consider optional CT Chest at 12 IMPRESSION: 1. Findings suspicious for acute cholecystitis with multiple small calcified gallstones. Follow-up with gallbladder ultrasound is recommended. 2. Mild diverticulosis of the distal colon. No diverticulitis. Abdomen Ultrasound 05/19/21 18:08 IMPRESSION: 1. Small gallstones with mild gallbladder wall thickening, suspicious for acute cholecystitis. Discharge Plan Discharge Patient Disposition: Placed in Observation Admit Provider: Jeanna Canseco Clinical Impression: Cholecystitis Discharge Diet: As Directed Discharge Activity: Increase activity as tolerated Coding Level of Care Code ED Manager Drug Safety for Chg Gordon
--- NOTE | 2021-05-19 15:17 | PC.NURSE ---
PT TAKEN DIRECTLY TO ROOM AND REPORT GIVEN TO YULIYA RN ASSUMED CARE.
--- NOTE | 2021-05-19 15:21 | CT_ITS ---
WS: [id number] CT HEAD NONCONTRAST HISTORY: fall, hit head on anticoagulation TECHNIQUE: Contiguous axial imaging performed through the brain in 2.5 mm imaging. Bone and soft tiss ue windows. Sagittal and coronal reformats reviewed. All CT scans at [facility] use at least one of these dose optimization techniques: automated exposure control; mA and/or kV adjustment per pa tient size (includes targeted exams where dose is matched to clinical indication); or iterative recon struction. DLP: 884.39 mGy.cm COMPARISON: 07/14/2018 No acute intracranial hemorrhage, midline shift or mass effect. Mild bilateral atrophy and mild chronic microvascular ischemic disease. No prior infarct. Lacunar infarct anterior limb RIGHT internal capsule. Ventricles: Asymmetry of the lateral ventricles is stable. The LEFT lateral ventricle is larger than the RIGHT. There is a very mild ventriculomegaly which is probably related to atrophy. Intracranial carotid artery calcifications, moderate. Paranasal sinuses: As visualized are clear. Mastoid air cells: Well pneumatized. Calvarium and scalp: Skull is intact with no soft tissue edema or swelling. CT/CT head wo con* [id number] IMPRESSION: 1. No acute intracranial hemorrhage or edema. 2. Mild atrophy and mild chronic microvascular ischemic disease. No acute infa rct.
[2021-05-19 15:28] LABS: Alanine Aminotransferase 48 U/L (0-41); Albumin Level 3.7 g/dL (3.5-5.2); Alkaline Phosphatase 287 IU/L (40-130); Anion Gap 22.3 (5-19); Aspartate Amino Transferase 49 U/L (0-40); Blood Urea Nitrogen 31 mg/dL (8-23); Calcium 8.5 mg/dL (8.5-10.5); Carbon Dioxide 18 mmol/L (22-29); Chloride 97 mmol/L (98-107); Globulin 2.4 g/dL (1.3-4.6); Glucose 242 mg/dL (65-115); Osmolality Calculated 291 mOsm/kg (285-295); Potassium 4.3 mmol/L (3.5-5.1); Sodium 133 mmol/L (136-145); Total Bilirubin 1.4 mg/dL (0.15-1.2); Total Protein 6.1 g/dL (6.6-8.7)
[2021-05-19 15:33] LABS: Glucose Point of Care 120 mg/dL (70-110)
[2021-05-19 15:47] LABS: Lipase 34 U/L (13-60); Thyroid Stimulating Hormone 1.61 uIU/mL (0.27-4.20)
--- NOTE | 2021-05-19 16:05 | CTR_ITS ---
PROCEDURE INFORMATION: Exam: CT Chest Without Contrast; Diagnostic Exam date and time: 05/19/2021 4:05 PM Age: 75 years old Clinical indication: Nausea and vomiting; Cough and shortness of breath; Prior surgery; Surgery type: Pacemaker, carotid; Additional info: Cough, n/v, weakness, fall, ? infection source. TECHNIQUE: Imaging protocol: Diagnostic computed tomography of the chest without contrast. Radiation optimization: All CT scans at this facility use at least one of these dose optimization techniques: automated exposure control; mA and/or kV adjustment per patient size (includes targeted exams where dose is matched to clinical indication); or iterative reconstruction. COMPARISON: CT Abdomen/Pelvis Renal [id number] 10/25/2016 3:52 PM RADIATION DOSE METRICS: Total DLP (mGy-cm): 1111.65 FINDINGS: Tubes, catheters and devices: Left-sided pacemaker with leads in the heart. Lungs: Emphysema. Calcified granuloma and adjacent scarring in the right upper lobe. Smaller 4 mm perifissural nodule along the left diaphragm, most likely pulmonary lymph node. Calcified granuloma in the lingula. 5 mm left upper lobe nodule, series 4, image 32. Pleural spaces: Unremarkable. No pneumothorax. No pleural effusion. Heart: Coronary artery calcifications. The heart size is normal. Aorta: Unremarkable. No aortic aneurysm. Lymph nodes: No lymphadenopathy. Bones/joints: Fusion hardware in the lower cervical spine. Mild degenerative changes of the thoracic spine. No fracture identified. Soft tissues: Unremarkable. months. (Reference: Nancy) References: Nancy H, et al. Guidelines for Management of Incidental Pulmonary Nodules Detected on CT Images: From the Fleischner Society 2017. Radiology. 2017;284(1):228-243. PROCEDURE INFORMATION: Exam: CT Abdomen And Pelvis Without Contrast Exam date and time: 05/19/2021 4:05 PM Age: 75 years old Clinical indication: Nausea and vomiting; Cough and shortness of breath; Prior surgery; Surgery type: Pacemaker, carotid; Additional info: Cough, n/v, weakness, fall, ? infection source. TECHNIQUE: Imaging protocol: Computed tomography of the abdomen and pelvis without contrast. Radiation optimization: All CT scans at this facility use at least one of these dose optimization techniques: automated exposure control; mA and/or kV adjustment per patient size (includes targeted exams where dose is matched to clinical indication); or iterative reconstruction. COMPARISON: CT Abdomen/Pelvis Renal [id number] 10/25/2016 3:52 PM RADIATION DOSE METRICS: Total DLP (mGy-cm): 1111.65 FINDINGS: Liver: Normal. No mass. Gallbladder and bile ducts: Distended gallbladder with multiple small calcified stones, mild wall thickening, and pericholecystic fat stranding. The bile ducts are within normal limits. Pancreas: Normal. No ductal dilation. Spleen: Calcified granulomas in the spleen. Small splenule near the hilum. Adrenal glands: Normal. No mass. Kidneys and ureters: Bilateral perinephric stranding is most likely chronic and physiologic. No calculus or hydronephrosis. Stomach and bowel: Mild diverticulosis of the distal colon. No diverticulitis. The stomach and small bowel are unremarkable. No wall thickening or obstruction. Appendix: The appendix is visualized and is normal. Intraperitoneal space: Unremarkable. No free air. No significant fluid collection. Vasculature: Severe atherosclerotic disease. Calcified plaque at the origin of the celiac artery with probable mild stenoses. Lymph nodes: Unremarkable. No enlarged lymph nodes. Urinary bladder: Unremarkable as visualized. Reproductive: Unremarkable as visualized. Bones/joints: Mild degenerative changes of the lumbar spine. No fracture identified. Soft tissues: Fat stranding in the anterior abdominal wall is most likely medication injection sites. CT/CT chest abd pel wo con IMPRESSION: 1. No acute finding. 2. Left pulmonary nodules measuring up to 5 mm. For patients at low risk (minimal or absent history of smoking and of other known risk factors), no routine follow-up is indicated. For patients at high risk (history of smoking or of other known risk factors), consider optional CT Chest at 12 IMPRESSION: 1. Findings suspicious for acute cholecystitis with multiple small calcified gallstones. Follow-up with gallbladder ultrasound is recommended. 2. Mild diverticulosis of the distal colon. No diverticulitis.
[2021-05-19] MEDS: sodium chloride 0.9% 500 ML 999 ML IV (16:45)
[2021-05-19 17:50] LABS: SARS Covid-2 Antigen Negative (Negative)
--- NOTE | 2021-05-19 18:08 | USR_ITS ---
PROCEDURE INFORMATION: Exam: US Abdomen, Limited; Right Upper Quadrant Exam date and time: 05/19/2021 6:08 PM Age: 75 years old Clinical indication: Abdominal pain; Acute; Additional info: Abnormal CT, ? cholecystitis TECHNIQUE: Imaging protocol: US abdomen. Real time ultrasound with image documentation. Limited exam focused on the right upper quadrant. COMPARISON: CT chest abd pel wo con 05/19/2021 4:30 PM FINDINGS: Liver: The liver is of normal echogenicity measuring 13.9 cm. Gallbladder: Small gallstones in the dependent portion of the gallbladder. The gallbladder wall is mildly thickened measuring 3.6 mm. Positive Reese's sign. Common bile duct: Normal. No stones. No dilation. Pancreas: Visualized pancreas is unremarkable. Right kidney: Normal. No mass. No hydronephrosis. Intraperitoneal space: No ascites. US/US abdomen limited [id number] IMPRESSION: 1. Small gallstones with mild gallbladder wall thickening, suspicious for acute cholecystitis.
[2021-05-19 18:32] LABS: Add Urine Microscopic? NO; Charge for UA Resulting for Rev
[2021-05-19 18:37] LABS: Urine Appearance Clear (CLEAR); Urine Color Yellow (Yellow)
[2021-05-19 18:38] LABS: Bilirubin Urine Neg (Negative); Blood Urine Neg (Negative); Glucose Urine UA 4+ (Normal); Ketones Urine Negative (Negative); Leukocyte Esterase Urine Negative (Negative); Nitrate Urine Negative (Negative); Protein Urine Neg (Negative); Urobilinogen Urine Norm (Negative); pH Urine 5 (5-7)
[2021-05-19] MEDS: piperacillin-tazobactam 4.5 GM in sodium chloride 0.9% (plus) 50 ML IV (20:17)
--- NOTE | 2021-05-19 20:30 | ECG_ITS ---
[facility] Test Date: 2021-05-19 Pat Name: Norbert Link Department: Room: Gender: Male Documentation Clerk: : 1945 Requested By: Enrrique Alvarez Order Number: [id number] Terrell MD: Huey Asencio M.D. Measurements Intervals [place] Rate: 78 P: 68 NM: 176 QRS: 14 QRSD: 92 T: 52 QT: 381 QTc: 437 Interpretive Statements SINUS RHYTHM WITH OCCASIONAL VENTRICULAR PREMATURE COMPLEXES Compared to ECG 12/07/2020 16:20:35 Ventricular premature complex(es) now present Electronically Signed On 05-20-2021 7:35:21 PRIVACY SPECIALIST by Huey Asencio M.D. [id number]
--- NOTE | 2021-05-19 20:35 | P.HP_ITS ---
Providers/Chief Complaint Admitting Physician: Jeanna Canseco MD Primary Care Provider: Ree Crooks, NUCLE[employer]ONS CUSTODIAN-C Chief Complaint: COUGH,N/V FALL ABD PAINS RIB PAINS History of Present Illness Norbert Link is a 75 year old male who presented to the emergency room with chief complaint of abdominal pain and episodes of vomiting. He has also been weaker and had a couple of falls. Symptoms have been present to some degree for about a week or so. In the past couple of days he has had 6-7 episodes of vomiting bilious material. No hematemesis. Pain in the abdomen is rated at a 6-7 out of 10, but has become constant. It is located in the periumbilical area extending to the epigastrium and right upper quadrant. Occasionally it radiates up into his chest and left shoulder. He lives alone and is generally fairly active, taking care of his horses daily. He has not been inhibited in his activities of daily living until the past couple of days. Denies worsening chest pain or dyspnea on exertion when he is out and about. He has felt weaker and reports falling down in his house at least twice and one other time outside of the house. He said he just felt overwhelmingly weak and his legs gave out. He states he chronically has issues with his left upper extremity functioning right although his strength is good. Denies numbness. He has not had similar abdominal pain symptoms before. Work-up in the emergency room included a CT scan that showed some gallstones and mild elevation in liver function studies. White count was 15,000. Gallbladder ultrasound showed some mild gallbladder wall thickening and small gallstones along with a positive Reese sign, suspici ous for acute cholecystitis. Patient received a dose of Zosyn and surgery was consulted. He is being admitted for further evaluation and treatment. In talking with the patient and on review of prior medical records, he has a known history of coronary artery disease with stent placement as recently as December of this year. He is chronically on aspirin and Plavix. Rapid Covid testing was done in the emergency room and was negative. PCR has been sent this patient given potential for surgical intervention. Patient is fully vaccinated including recent booster. Review of Systems Const: Reports: change in appetite and change in weight (Weight loss); Denies: fever(s) or chills Eyes: Denies: change in vision ENMT: Reports: dry mouth and nasal congestion; Denies: throat pain Card: Reports: chest pain (sometimes, I am just used to it , not worse recently); Denies: palpitations, edema or dyspnea on exertion Resp: Reports: dyspnea (with pain, nausea, cough) and non-productive cough (mild); Denies: productive cough, wheezing or chest congestion GI: Reports: abdominal pain, nausea and vomiting; Denies: diarrhea, constipation, hematochezia or melena : Reports: other (darker urine, not bloody); Denies: difficulty urinating Musc: Reports: extremity pain (left upper extremity shoulder other joints, not new, does not stop his ADLs) Skin/Breast: Denies: rash or sores Neuro: Reports: weakness in extremities (general more than focal, except left arm don't work right sometimes ), difficulty walking and frequent falls (x3 last week, no injury); Denies: headache(s), numbness in extremities, dizziness or confusion Psych: Denies: anxiety or depression Levar/Lymph: Denies: easy bruising or easy bleeding Medications/Allergies Home Medications Medication Instructions Recorded Confirmed Last Taken Type multivitamin [Daily Multi-Vitamin] 1 tab PO DAILY@0600 10/15/19 05/19/21 05/19/21 History omega-3 fatty acids 1,000 mg 1,000 mg PO DAILY@0600 07/05/20 05/19/21 05/19/21 History capsule PreserVision AREDS-2 1 tab PO BID@0600,1800 12/07/20 05/19/21 05/19/21 History pen needle, diabetic 33 gauge x #100 each 12/23/20 05/19/21 Unknown Rx aspirin 81 mg tablet,delayed 81 mg PO DAILY 12/27/20 05/19/21 05/19/21 History release clopidogrel 75 mg tablet 75 mg PO DAILY@0600 #90 tab 04/06/21 05/19/21 05/19/21 Rx atorvastatin 40 mg tablet 40 mg PO DAILY@0600 30 Days #30 tab 04/14/21 05/19/21 05/19/21 Rx empagliflozin 25 mg tablet 25 mg PO QAM #90 tab 04/14/21 05/19/21 05/19/21 Rx isosorbide mononitrate 30 mg 30 mg PO DAILY@0600 30 Days #30 tab 11/05/21 12/10/21 12/10/21 Rx tablet,extended release 24 hr levothyroxine 50 mcg tablet 50 mcg PO DAILY@0600 #30 tab 04/14/21 05/19/21 05/19/21 Rx lisinopril 5 mg tablet 5 mg PO DAILY@0600 #30 tab 04/14/21 05/19/21 05/19/21 Rx metoprolol succinate 25 mg 12.5 mg PO DAILY@0600 #16 tab 04/14/21 05/19/21 05/19/21 Rx tablet,extended release 24 hr cyanocobalamin (vitamin B-12) 500 mcg PO DAILY 05/19/21 05/19/21 05/19/21 History [Vitamin B-12] famotidine 20 mg PO DAILY@0600 05/19/21 05/19/21 05/19/21 History insulin detemir U-100 [Levemir 64 unit SUBCUT DAILY@1500 05/19/21 05/19/21 05/18/21 History FlexTouch U-100 Insuln] Allergies Allergy/AdvReac Type Severity Reaction Status Date / Time metformin Allergy Severe ADR-Nausea Verified 03/23/21 10:15 Iodinated Contrast Media Allergy Unknown ALGY-Hives Verified 03/23/21 10:15 PFSH Acute PFSH: Medical History (Updated 05/19/21 @ 22:59 by Jeanna Canseco MD) Adult onset hypothyroidism Atherosclerotic cardiovascular disease B12 deficiency Benign hypertension Carotid stenosis Chronic kidney disease, unspecified Coronary artery disease COVID-19 vaccine administered 2 primary doses and booster Diabetes mellitus with hyperglycemia, with long-term current use of insulin GERD (gastroesophageal reflux disease) Mixed hyperlipidemia Noncompliance with medication regimen Presence of cardiac pacemaker Surgical History (Updated 05/19/21 @ 22:49 by Jeanna Canseco MD) H/O right knee surgery History of cardiac pacemaker in situ History of cervical discectomy History of ear surgery History of PTCA -distal RCA DAMEON 12/2020 -proximal RCA DAMEON, distal RCA balloon angioplasty, proximal and distal left circumflex DAMEON 10/2020 -previous RCA and circ stents in 2010 Status post carotid endarterectomy (10/19/19) right Family History Brother CAD (coronary artery disease) Cancer Diabetes Lung disease Mother CAD (coronary artery disease) Diabetes Family/Other Cancer Diabetes Sister Diabetes Father Diabetes Denies family history of Clotting disorder Dementia Chronic kidney disease (CKD) Suicide Anesthesia complication Bleeding disorder Stroke Social History (Updated 05/19/21 @ 23:22 by Jeanna Canseco MD) Smoking and tobacco status: former smoker Second hand smoke exposure: No Alcohol intake: never Substance/Drug Use: never Adopted: No Caregiver/support person: No Lives independently: Yes Household members: none Housing: House Marital status: Single Number of children: 1 service: Yes branch: [employer] Current occupational status: retired Current occupation: [employer] Current gender identity: Male Vitals/I&O/Wt Last Vital Signs Temp 98.2 F 05/19/21 14:59 Pulse 76 05/19/21 20:17 Resp 16 05/19/21 14:59 BP 121/71 05/19/21 20:17 Pulse Ox 98 05/19/21 20:17 05/19/21 05/19/21 05/19/21 06:59 14:59 22:59 Intake Total 500 / 500 Balance 500 / 500 Weight last 48 hrs Weight 63.503 kg Physical Exam Narrative: EXAM NARRATIVE: Constitutional: Asleep, easily arousable, slightly hard of hearing, looks like he has not been feeling well, alert and oriented x3 HEENT: Normocephalic, atraumatic, slightly muddy sclera, extraocular movements are intact, nasopharynx is clear, oropharynx edentulous with dry mucous membranes Neck: Supple Respiratory: Clear to auscultation bilaterally Cardiovascular: Regular rate and rhythm, no murmurs gallops or rubs, pacemaker intact left upper chest Abdomen: Soft, tender in the epigastric, right upper quadrant regions and to a lesser degree in right flank, positive bowel sounds, some voluntary guarding but no rebound Extremities: No pitting edema or acute synovitis Skin: Dry, scattered minor ecchymoses and evidence of chronic sun exposure Neuro: Speech clear, face symmetric with a sunken cheek appearance from edentulous status, pupils are reactive, strength is equal in both upper extremities proximally and distally and distally in the lower extremities, toes downgoing Psych: Normal affect Data : 05/19/21 14:50 05/19/21 14:50 Other Labs: Laboratory Results WBC 15.7 10^3/uL (4.0-10.0) H 05/19/21 14:50 RBC 4.36 10^6/uL (4.1-5.3) 05/19/21 14:50 Hgb 12.5 g/dL (11.7-16.6) 05/19/21 14:50 Hct 39.5 % (42.0-52.0) L 05/19/21 14:50 MCV 90.6 fl (80-94) 05/19/21 14:50 MCH 28.7 pg (28.0-34.0) 05/19/21 14:50 MCHC 31.6 g/dL (30.0-36.0) 05/19/21 14:50 RDW 14.1 % (12.1-15.1) 05/19/21 14:50 Plt Count 209 10^3/cmm (130-400) 05/19/21 14:50 MPV 9.9 fL (7.4-10.4) 05/19/21 14:50 Neut % (Auto) 79.5 % 05/19/21 14:50 Lymph % (Auto) 10.0 % 05/19/21 14:50 [place]k % (Auto) 6.9 % 05/19/21 14:50 Eos % (Auto) 2.4 % 05/19/21 14:50 Baso % (Auto) 0.6 % 05/19/21 14:50 Neut # (Auto) 12.50 10^3/uL (1.8-7.7) H 05/19/21 14:50 Lymph # (Auto) 1.6 10^3/uL (0.8-4.8) 05/19/21 14:50 [place]k # (Auto) 1.1 10^3/uL (0.2-0.9) H 05/19/21 14:50 Eos # (Auto) 0.4 10^3/uL (0.0-0.8) 05/19/21 14:50 Baso # (Auto) 0.1 10^3/uL (0.0-0.1) 05/19/21 14:50 Nucleated RBC % (auto) 0 % 05/19/21 14:50 Nucleated RBCs # 0.0 /100WBC 05/19/21 14:50 Sodium 133 mmol/L (136-145) L 05/19/21 14:50 Potassium 4.3 mmol/L (3.5-5.1) 05/19/21 14:50 Chloride 97 mmol/L (98-107) L 05/19/21 14:50 Carbon Dioxide 18 mmol/L (22-29) L 05/19/21 14:50 Anion Gap 22.3 (5-19) H 05/19/21 14:50 BUN 31 mg/dL (8-23) H 05/19/21 14:50 Creatinine 1.5 mg/dL (0.7-1.2) H 05/19/21 14:50 GFR Calculation Not Reportable 05/19/21 14:50 Glucose 242 mg/dL (65-115) H 05/19/21 14:50 POC Glucose 120 mg/dL (70-110) H 05/19/21 15:30 Calculated Osmolality 291 mOsm/kg (285-295) 05/19/21 14:50 Calcium 8.5 mg/dL (8.5-10.5) 05/19/21 14:50 Total Bilirubin 1.4 mg/dL (0.15-1.2) H 05/19/21 14:50 AST 49 U/L (0-40) H 05/19/21 14:50 ALT 48 U/L (0-41) H 05/19/21 14:50 Alkaline Phosphatase 287 IU/L (40-130) H 05/19/21 14:50 Total Protein 6.1 g/dL (6.6-8.7) L 05/19/21 14:50 Albumin 3.7 g/dL (3.5-5.2) 05/19/21 14:50 Globulin 2.4 g/dL (1.3-4.6) 05/19/21 14:50 Lipase 34 U/L (13-60) 05/19/21 14:50 TSH 1.61 uIU/mL (0.27-4.20) 05/19/21 14:50 Urine Color Yellow (Yellow) 05/19/21 18:21 Urine Appearance Clear (CLEAR) 05/19/21 18:21 Urine pH 5 (5-7) 05/19/21 18:21 Ur Specific [place] 1.010 (1.005-1.030) 05/19/21 18:21 Urine Protein Neg (Negative) 05/19/21 18:21 Urine Glucose (UA) 4+ (Normal) H 05/19/21 18:21 Urine Ketones Negative (Negative) 05/19/21 18:21 Urine Blood Neg (Negative) 05/19/21 18:21 Urine Nitrate Negative (Negative) 05/19/21 18:21 Urine Bilirubin Neg (Negative) 05/19/21 18:21 Urine Urobilinogen Norm mg/dL (Negative) 05/19/21 18:21 Ur Leukocyte Esterase Negative (Negative) 05/19/21 18:21 SARS-CoV-2 Ag (Rapid) Negative (Negative) 05/19/21 17:16 Impressions Chest X-Ray 05/19/21 13:38 IMPRESSION: 1. No acute cardiopulmonary finding. Head CT 05/19/21 15:21 IMPRESSION: 1. No acute intracranial hemorrhage or edema. 2. Mild atrophy and mild chronic microvascular ischemic disease. No acute infarct. Chest/Abdomen/Pelvis CT 05/19/21 16:05 IMPRESSION: 1. No acute finding. 2. Left pulmonary nodules measuring up to 5 mm. For patients at low risk (minimal or absent history of smoking and of other known risk factors), no routine follow-up is indicated. For patients at high risk (history of smoking or of other known risk factors), consider optional CT Chest at 12 IMPRESSION: 1. Findings suspicious for acute cholecystitis with multiple small calcified gallstones. Follow-up with gallbladder ultrasound is recommended. 2. Mild diverticulosis of the distal colon. No diverticulitis. Abdomen Ultrasound 05/19/21 18:08 IMPRESSION: 1. Small gallstones with mild gallbladder wall thickening, suspicious for acute cholecystitis. Other data: EKG: per my interpretation sinus rhythm 78, PVC noted, no acute st segment chanes Prior or outside records reviewed: reveiewed records from procedures and admissions this year as well as cardio and CV surgery outpatient notes Discussed with other providers: Dr. Bagley A&P Assessment and plan (1) Cholecystitis: Acute, present on admission. Suboptimal candidate for surgical i ntervention given percutaneous intervention in the coronary arteries a few months ago necessitating continued antiplatelet therapy. He has however been quite symptomatic the last couple of days with abdominal pain that is progressed to constant and vomiting along with several falls. He has gallbladder wall thickening, mild elevation in LFTs and some leukocytosis. Clinically appears dry in association with symptoms. Status: Acute (2) History of PTCA: Had stenting of proximal RCA and proximal and left distal circumflex in October followed in December by distal RCA stenting. Follows with Dr. Foy on an outpatient basis. Spoke briefly with him regarding antiplatelet therapy. Recommendation is not to stop aspirin and Plavix at this time. Describes some chest pain occasionally radiating up into his left arm though difficult to ascertain any recent change with this suggestive of ongoing angina. Chronically on aspirin, statin, Plavix, isosorbide mononitrate, GLEN inhibitor and beta-blockade Status: Chronic (3) Diabetes mellitus with hyperglycemia, with long-term current use of insulin: Chronically on Levemir and empagliflozin, currently with hyperglycemia and some glucosuria Status: Chronic Qualifiers: Diabetes mellitus type: type 2 Qualified Code(s): E11.65 - Type 2 diabetes mellitus with hyperglycemia; Z79.4 - halfway (current) use of insulin (4) Chronic kidney disease (CKD): Stage IIIa, baseline creatinine around 1.5 Status: Chronic Qualifiers: Chronic kidney disease stage: unspecified stage Qualified Code(s): N18.9 - Chronic kidney disease, unspecified (5) Status post carotid endarterectomy: Right-sided in October 2019. Carotid Doppler in February of this year showed chronic occlusion of the right ICA with left ICA stenosis less than 50%. Complains of some nonspecific left upper extremity not working right at times but good strength and no numbness presently. Has had some falls recently but has coincided with episodes of vomiting and abdominal pain. He denies any focal weakness or other definitive symptoms precipitating falls. Status: Chronic (6) Benign hypertension: Controlled on current medication regimen Status: Chronic (7) Presence of cardiac pacemaker: Left upper chest Status: Chronic (8) Adult onset hypothyroidism: Chronically on levothyroxine Status: Chronic (9) GERD (gastroesophageal reflux disease): Chronically on Pepcid Status: Chronic (10) B12 deficiency: Chronically on B12 replacement Status: Chronic (11) Pulmonary nodule: On CT imaging, given advanced age, current size and comorbid conditions will defer to primary care and other providers to determine utility of repeat imaging. He does have a prior history of smoking. Status: Chronic Additional A&P Information Observation admission currently Surgical consultation with Dr. Bagley, discussed with him Zosyn IV Check CRP Recheck LFTs in the morning Clear liquids currently Low volume IV fluids Check orthostatic vital signs Monitor renal function acute change Covid PCR has been sent in the event that he does require surgical intervention Current plan is for initiation of medical management with reevaluation given comorbid conditions Continue home aspirin, Plavix given percutaneous coronary intervention less than 6 months ago Continue statin, omega-3, isosorbide, beta-blockade, lisinopril Serial cardiac enzymes and EKGs Sliding scale insulin and a significantly lower dose of long-acting insulin Continue home levothyroxine PPI currently, hold home Pepcid Continue home B12, other home vitamins currently held Pain control as needed Laxative therapy Fall precautions Primary care or other chronic providers to follow-up regarding pulmonary nodule incidentally noted Supportive care otherwise Findings, concerns and plans were discussed with patient including the fact that we will reevaluate him tomorrow before making any determination regarding surgical intervention. SCDs currently for DVT prophylaxis, no pharmacological prophylaxis secondary to potential need for surgical intervention in the next 24 hours Anticipate discharge home, patient lives alone and is independent in his ADLs normally CODE STATUS was discussed and while patient would not want long-term resuscitative efforts, he does want to be full code in the short-term. Order has been written. Attestations Medical Necessity Statement*: Anticipated stay greater than two midnights presently in a 75-year-old gentleman with evidence of acute cholecystitis. While he has been quite symptomatic by description and has objective findings on labs and imaging, he had percutaneous coronary intervention less than 6 months ago and is on antiplatelet therapy. Gallbladder wall thickening and LFT elevations are mild and he has not yet required any pain control or antiemetics in the emergency room. Will initiate treatment medically with IV antibiotics and reevaluation in the morning. Coding Level of Care Code Acute Market Asset Protection Manager for Chg Fwd Diagnoses Cholecystitis K81.9 History of PTCA Z98.61 Diabetes mellitus with hyperglycemia, with long-term current use of insulin E11.65; Z79.4 Diabetes mellitus type: type 2 Chronic kidney disease (CKD) N18.9 Chronic kidney disease stage: unspecified stage Status post carotid endarterectomy Z98.890 Benign hypertension I10 Presence of cardiac pacemaker Z95.0 Adult onset hypothyroidism E03.8 GERD (gastroesophageal reflux disease) K21.9 B12 deficiency E53.8 Pulmonary nodule R91.1
[2021-05-19 21:01] LABS: Troponin(5th) Baseline 49 ng/L (0-15)
[2021-05-19 21:31] LABS: Troponin 5 2HR 39.55 ng/L (0-15)
[2021-05-20] VITALS (7 sets, daily range): BP systolic 96–128; BP diastolic 55–75; PULSE 74–84; RESP 16–18; TEMP 36.4–36.9; O2SAT 92–98; BMI 21.8
[2021-05-20 01:30] LABS: Glucose Point of Care 140 mg/dL (70-110)
[2021-05-20 01:38] LABS: Basophils % 0.3 %; Eosinophils # 0.5 10^3/uL (0.0-0.8); Eosinophils % 3.6 %; Hematocrit 37.1 % (42.0-52.0); Hemoglobin 11.9 g/dL (11.7-16.6); Lymphocytes # 1.3 10^3/uL (0.8-4.8); Lymphocytes % 9.5 %; Mean Corpuscular HGB Conc 32.1 g/dL (30.0-36.0); Mean Corpuscular Hemoglobin 28.3 pg (28.0-34.0); Mean Corpuscular Volume 88.3 fl (80-94); Mean Platelet Volume 9.5 fL (7.4-10.4); Monocytes % 7.7 %; Neutrophils # 10.49 10^3/uL (1.8-7.7); Neutrophils % 78.6 %; Nucleated Red Blood Cells % 0 %; Platelet Count 168 10^3/cmm (130-400); Red Cell Distribution Width 14.1 % (12.1-15.1); White Blood Count 13.4 10^3/uL (4.0-10.0)
[2021-05-20] MEDS: pantoprazole DR 40 mg Tablet PO ×2 (01:45→08:33)
[2021-05-20] MEDS: sodium chlor 0.9% + KCl 20 mEq 20 MEQ/1,000 ML BAG 75 MEQ IV ×2 (01:45→16:19)
[2021-05-20 01:50] LABS: INR 1.19 (0.8-1.2)
[2021-05-20 02:05] LABS: NT Pro B Type Natriuretic Pept 364 pg/mL (0-450); Procalcitonin 0.49 ng/mL (0-0.5)
[2021-05-20 02:16] LABS: C Reactive Protein 122.2 mg/L (0.0-4.9)
--- NOTE | 2021-05-20 02:30 | ECG_ITS ---
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 Measurements Intervals [place] Rate: 78 P: 73 WV: 181 QRS: 17 QRSD: 88 T: 45 QT: 374 QTc: 427 Interpretive Statements SINUS RHYTHM Compared to ECG 05/19/2021 20:49:27 Ventricular premature complex(es) no longer present Electronically Signed On 05-20-2021 7:43:45 PORTER SAMPLE CASE by Huey Asencio M.D. [email or web address]
[2021-05-20 02:39] LABS: Alanine Aminotransferase 57 U/L (0-41); Albumin Level 3.6 g/dL (3.5-5.2); Alkaline Phosphatase 330 IU/L (40-130); Anion Gap 22.2 (5-19); Aspartate Amino Transferase 68 U/L (0-40); Blood Urea Nitrogen 29 mg/dL (8-23); Calcium 7.9 mg/dL (8.5-10.5); Carbon Dioxide 17 mmol/L (22-29); Chloride 101 mmol/L (98-107); Globulin 2.3 g/dL (1.3-4.6); Glucose 143 mg/dL (65-115); Magnesium 2.1 mg/dL (1.7-2.3); Osmolality Calculated 290 mOsm/kg (285-295); Phosphorus 2.9 mg/dL (2.5-4.5); Potassium 4.2 mmol/L (3.5-5.1); Sodium 136 mmol/L (136-145); Total Bilirubin 1.4 mg/dL (0.15-1.2); Total Protein 5.9 g/dL (6.6-8.7)
[2021-05-20] MEDS: piperacillin-tazobactam 3.375 GM in sodium chloride 0.9% (plus) 50 ML IV ×3 (03:50→17:43)
--- NOTE | 2021-05-20 04:56 | P.CONIM_ITS ---
Providers/Reason For Consult Consulting Physician/Specialty*: Anthony Bagley MD Reason for Consult*: Acute cholecystitis Requesting Physician: Dr. Canseco Attending Physician: Jeanna aCnseco MD Primary Care Provider: KEYA Eastman-Scooter History of Present Illness History of Present Illness Chief Complaint: My tummy hurts but I feel better now History of present illness: Mr.Carl Jhon Link is a pleasant 75 year old male presented to the emergency department with worsening abdominal pain being intermittent in nature for the past week or so with nausea and vomiting. Patient was further evaluated and was found that he does have upper abdominal pain particularly in the epigastrium and right side without being referred mostly dull aching. Nothing seems to make it better or worse. Yet during the clinical encounter patient feels better now. And he reports that he does have history of fatty dyspepsia and he tries to avoid greasy food. But he was never aware that he does have gallbladder stones. Patient 6 months ago had a coronary artery stent and was placed on aspirin and Plavix since December 2020. Patient currently denies any nausea vomiting fevers or chills or jaundice CT scan of the abdomen pelvis shows 1. No acute finding. 2. Left pulmonary nodules measuring up to 5 mm. For patients at low risk (minimal or absent history of smoking and of other known risk factors), no routine follow-up is indicated. For patients at high risk (history of smoking or of other known risk factors), consider optional CT Chest at 12 IMPRESSION: 1. Findings suspicious for acute cholecystitis with multiple small calcified gallstones. Follow-up with gallbladder ultrasound is recommended. 2. Mild diverticulosis of the distal colon. No diverticulitis. Ultrasound liver and gallbladder shows 1. Small gallstones with mild gallbladder wall thickening, suspicious for acute cholecystitis. General surgery was consulted for further evaluation and potential management. During the clinical encounter patient reports that he is hungry and he wants to go home Review of Systems General: Reports: 10 or more systems reviewed and unremarkable except in HPI and below Meds/Allergies Home Medications and Allergies Home Medications Medication Instructions Recorded Confirmed Last Taken Type multivitamin [Daily Multi-Vitamin] 1 tab PO DAILY@0600 10/15/19 05/19/21 05/19/21 History omega-3 fatty acids 1,000 mg 1,000 mg PO DAILY@0600 07/05/20 05/19/21 05/19/21 History capsule PreserVision AREDS-2 1 tab PO BID@0600,1800 12/07/20 05/19/21 05/19/21 History pen needle, diabetic 33 gauge x #100 each 12/23/20 05/19/21 Unknown Rx aspirin 81 mg tablet,delayed 81 mg PO DAILY 12/27/20 05/19/21 05/19/21 History release clopidogrel 75 mg tablet 75 mg PO DAILY@0600 #90 tab 04/06/21 05/19/21 05/19/21 Rx atorvastatin 40 mg tablet 40 mg PO DAILY@0600 30 Days #30 tab 04/14/21 05/19/21 05/19/21 Rx empagliflozin 25 mg tablet 25 mg PO QAM #90 tab 04/14/21 05/19/21 05/19/21 Rx isosorbide mononitrate 30 mg 30 mg PO DAILY@0600 30 Days #30 tab 04/14/21 05/19/21 05/19/21 Rx tablet,extended release 24 hr levothyroxine 50 mcg tablet 50 mcg PO DAILY@0600 #30 tab 04/14/21 05/19/21 05/19/21 Rx lisinopril 5 mg tablet 5 mg PO DAILY@0600 #30 tab 04/14/21 05/19/21 05/19/21 Rx metoprolol succinate 25 mg 12.5 mg PO DAILY@0600 #16 tab 04/14/21 05/19/21 05/19/21 Rx tablet,extended release 24 hr cyanocobalamin (vitamin B-12) 500 mcg PO DAILY 05/19/21 05/19/21 05/19/21 History [Vitamin B-12] famotidine 20 mg PO DAILY@0600 05/19/21 05/19/21 05/19/21 History insulin detemir U-100 [Levemir 64 unit SUBCUT DAILY@1500 05/19/21 05/19/21 05/18/21 History FlexTouch U-100 Insuln] Allergies Allergy/AdvReac Type Severity Reaction Status Date / Time metformin Allergy Severe ADR-Nausea Verified 05/20/21 08:58 Iodinated Contrast Media Allergy Unknown ALGY-Hives Verified 05/20/21 08:58 Current Medications Current Medications Generic Name Dose Route Start Last Admin Trade Name Tatyana PRN Reason Stop Dose Admin Potassium Chloride/Sodium Chloride 20 meq in 1,000 mls @ 75 mls/hr 05/20/21 00:33 05/20/21 03:54 Sodium Chlor 0.9% + Kcl 20 Meq IV 0 mls/hr .[id number] RK Infusion Piperacillin Sod/Tazobactam 50 mls @ 12.5 mls/hr 05/20/21 03:00 05/20/21 03:50 Sod 3.375 gm/ Sodium Chloride IV 12.5 mls/hr Q8H RK Administration Protocol Insulin Human Lispro 0 unit 05/20/21 00:33 05/20/21 01:34 Insulin Lispro 100 Unit/1 Ml SUBCUT Not Given BEDTIME RK Protocol Pantoprazole Sodium 40 mg 05/20/21 00:33 05/20/21 01:[address] 40 Mg Tablet PO 40 mg DAILY RK Administration PFSH Acute PFSH: Medical History Adult onset hypothyroidism Atherosclerotic cardiovascular disease B12 deficiency Benign hypertension Carotid stenosis Chronic kidney disease, unspecified Coronary artery disease COVID-19 vaccine administered 2 primary doses and booster Diabetes mellitus with hyperglycemia, with long-term current use of insulin GERD (gastroesophageal reflux disease) Mixed hyperlipidemia Noncompliance with medication regimen Presence of cardiac pacemaker Surgical History H/O right knee surgery History of cardiac pacemaker in situ History of cervical discectomy History of ear surgery History of PTCA -distal RCA DAMEON 12/2020 -proximal RCA DAMEON, distal RCA balloon angioplasty, proximal and distal left circumflex DAMEON 10/2020 -previous RCA and circ stents in 2010 Status post carotid endarterectomy (10/19/19) right Family History Brother CAD (coronary artery disease) Cancer Diabetes Lung disease Mother CAD (coronary artery disease) Diabetes Family/Other Cancer Diabetes Sister Diabetes Father Diabetes Denies family history of Clotting disorder Dementia Chronic kidney disease (CKD) Suicide Anesthesia complication Bleeding disorder Stroke Social History Smoking and tobacco status: former smoker Second hand smoke exposure: No Alcohol intake: never Substance/Drug Use: never Adopted: No Caregiver/support person: No Lives independently: Yes Household members: none Housing: House Marital status: Single Number of children: 1 service: Yes branch: [employer] Current occupational status: retired Current occupation: [employer] Current gender identity: Male Vitals/I&O/Wt Last Vital Signs Temp 97.6 F 05/20/21 00:33 Pulse 83 05/20/21 00:36 Resp 18 05/20/21 00:33 BP 128/59 05/20/21 00:36 Pulse Ox 98 05/20/21 00:36 05/19/21 05/19/21 05/20/21 14:59 22:59 06:59 Intake Total 550 / 550 161.25 / 711.25 Balance 550 / 550 161.25 / 711.25 Weight last 48 hrs Weight 141 lb 9.6 oz Weight 140 lb Physical Exam Const: COMMON NORMALS: no acute distress and patient oriented x3 GENERAL APPEARANCE: cooperative ORIENTATION/CONSCIOUSNESS: Yes awake, Yes oriented to person, Yes oriented to place and Yes oriented to time HENMT: COMMON NORMALS: normocephalic HEAD & SCALP: normocephalic Eye: COMMON NORMALS: Equal, round and reactive pupils present and no scleral icterus PUPIL: Yes Equal, round and reactive pupils present Lymph: LYMPHATIC: no lymphadenopathy noted Chest: COMMONS NORMALS: normal inspection of the chest Resp: COMMON NORMALS: normal respiratory effort and clear to auscultation bilaterally AUSCULTATION: clear to auscultation bilaterally Cardio: COMMON NORMALS: S1 normal heart sound present and S2 normal heart sound present; negative for No murmurs present (Cardio) HEART SOUNDS: S1 normal heart sound present and S2 normal heart sound present GI: COMMON NORMALS: Soft to palpation; negative for No hepatosplenomegaly present INSPECTION: Yes normal to inspection PALPATION: Yes Soft to palpation, No Firmness to palpation present (GI), Yes Tenderness to palpation present (GI) Details: RUQ (Positive Reese's sign), No Guarding due to palpation present (GI), No Rigid due to palpation and No No hepatosplenomegaly present Neuro: COMMON NORMALS: patient oriented x3 SENSORIUM/ORIENTATION: Yes oriented to person, Yes oriented to place and Yes oriented to time Psych: COMMON NORMALS: mental status grossly normal Skin: COMMON NORMALS: no rashes or lesions noted GENERAL SKIN EXAM: no rashes or lesions noted A&P Assessment and plan (1) Cholecystitis: After history taking physical examination and reviewing the chart and images of the ultrasound and the CT scan of the abdomen and pelvis with my personal interpretation, there is evidence of mild wall thickness of the gallbladder and associated cholelithiasis. Concerning for acute calculus cholecystitis. From surgical standpoint of view patient would benefit from laparoscopic cholecystectomy once he is off blood thinners and medically optimized. Any intervention at the present will carry higher risk particularly on the patient's cardiac condition. I agree on managing the patient's conservatively for now we will plan to see the patient on outpatient basis to schedule his surgery down the road. We will continue to follow on patient's clinical progress Patient can have full liquid diet Assurance and education All questions have been answered and all concerns have been addressed to patient's satisfaction. Thank you for consulting general surgery to participate taking care Mr. 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
[2021-05-20] MEDS: clopidogrel 75 mg Tablet PO (06:28)
[2021-05-20] MEDS: omega-3 fatty acids 1,000 mg Capsule 1000 MG PO (06:28)
[2021-05-20] MEDS: isosorbide mononitrate ER 30 mg Tablet PO (06:28)
[2021-05-20] MEDS: metoprolol succinate ER (24 HR) 25 mg Tablet 12.5 MG PO (06:28)
[2021-05-20] MEDS: atorvastatin 40 mg Tablet PO (06:28)
[2021-05-20] MEDS: levothyroxine 50 mcg Tablet PO (06:28)
[2021-05-20] MEDS: lisinopril 5 mg Tablet PO (06:29)
[2021-05-20] MEDS: docusate sodium 100 mg Capsule PO ×2 (08:33→17:43)
[2021-05-20] MEDS: cyanocobalamin 1,000 mcg Tablet 500 MCG PO (08:33)
[2021-05-20] MEDS: aspirin 81 mg EC Tablet PO (08:34)
--- NOTE | 2021-05-20 11:40 | PC.CHAP ---
Pastoral Care Encounter/Spiritual Assessment Type of Contact [] Declined fine arts teacher visit [] Patient/Family/Request visit [] Outpatient visit [] Follow-up visit [] Physician referral [] Code/Alert [XX] Routine visit [] Staff referral [] Actively dying [] Patient sleeping [] Family support [] [] Out of room [] Palliative care [] [] Receiving care in room [] Pre-surgical visit [] Trauma [] Long length of stay [] ICU visit [] Other: Relational/Emotional Strength [XX] Patient feels connected with others/family/visitors/staff [] Distress [] Loneliness/isolation [] Abandonment Spirituality of Patient [] Person of [place] [] Attends Oriental Orthodox of their [place] [] Believes in Prayer [] Reads Bible or Mosque materials [] There are Spiritual issues to be addressed Stage Manager Interventions [] Prayer [XX] Active listening [XX] Non-anxious presence [] Spiritual/emotional support [] Crisis/trauma care [] Spiritual counseling [] Bereavement support [] Provided bereavement packet [] Provided Bible/devotional materials [] Provided toy/stuffed animal, coloring book to patient or family member [] Provided Communion [] Anointing/[place] [] Salvation [XX] Completed spiritual assessment [] Other: Impact on Illness or Injury [] Angry [] Fearful [] Anxious [] Often cries [] Exhaustion [] Unable to work [] Unable to attend uatsdin [] Unable to walk/stand [] Unable to read [] Unable to drive [] Unable to eat/drink [] Unable to sleep [] Unable to be with family [] Patient intubated [XX] Other: Pt understands that treatment will be antibiotics so he wants to go home. Summary Pt reports that surgery not an option due to being on blood thinners, so he wants to go home. He does not have a way to communicate with family, so fine arts teacher reminded him to ask nurse to call his family if he wants to speak with them. Stage Manager partially completed spiritual assessment but did not finish due to patient being sleepy and requesting that fine arts teacher let him sleep. Time spent with patient 5 mins
--- NOTE | 2021-05-20 11:47 | PM.PN ---
Subjective Subjective: Interval history: Patient was seen and examined this morning, denies any abdominal pain nausea vomiting. His other vitals and labs have been reviewed. Medications: Reviewed: Yes Vitals/I&O/Wt Last Vital Signs Temp 97.8 F 05/20/21 11:36 Pulse 79 05/20/21 11:36 Resp 16 05/20/21 11:36 BP 102/55 05/20/21 11:36 Pulse Ox 95 05/20/21 11:36 05/19/21 05/20/21 05/20/21 22:59 06:59 14:59 Intake Total 550 / 550 161.25 / 711.25 410 / 410 Output Total 300 / 300 Balance 550 / 550 161.25 / 711.25 110 / 110 Weight last 48 hrs Weight 64.229 kg Weight 63.503 kg Physical Exam Const: COMMON NORMALS: patient oriented x3 HENMT: COMMON NORMALS: normocephalic and atraumatic HEAD & SCALP: normocephalic and atraumatic Resp: COMMON NORMALS: clear to auscultation bilaterally AUSCULTATION: clear to auscultation bilaterally Cardio: COMMON NORMALS: regular rate, regular rhythm, S1 normal heart sound present, S2 normal heart sound present, No gallops present (Cardio), No murmurs present (Cardio), No rub (Cardio) and Peripheral pulses 2+ throughout RATE: regular rate RHYTHM: regular rhythm HEART SOUNDS: S1 normal heart sound present and S2 normal heart sound present PERIPHERAL PULSES: Peripheral pulses 2+ throughout GI: COMMON NORMALS: Normal to inspection, nondistended, normoactive bowel sounds present, Soft to palpation, non-tender, No hepatosplenomegaly present and no masses AUSCULTATION: Yes normoactive bowel sounds PALPATION: Yes Soft to palpation and Yes No hepatosplenomegaly present RECTAL EXAM: Yes deferred Extremity: COMMON NORMALS: no clubbing, cyanosis or edema and no pedal edema Neuro: COMMON NORMALS: patient oriented x3 Data : 05/20/21 01:29 05/20/21 01:29 A&P Assessment and plan (1) Cholecystitis: Acute, present on admission. Suboptimal candidate for surgical intervention given percutaneous intervention in the coronary arteries a few months ago necessitating continued antiplatelet therapy. He has however been quite symptomatic the last couple of days with abdominal pain that is progressed to constant and vomiting along with several falls. He has gallbladder wall thickening, mild elevation in LFTs and some leukocytosis. Clinically appears dry in association with symptoms. Status: Acute (2) History of PTCA: Had stenting of proximal RCA and proximal and left distal circumflex in October followed in December by distal RCA stenting. Follows with Dr. Foy on an outpatient basis. Spoke briefly with him regarding antiplatelet therapy. Recommendation is not to stop aspirin and Plavix at this time. Describes some chest pain occasionally radiating up into his left arm though difficult to ascertain any recent change with this suggestive of ongoing angina. Chronically on aspirin, statin, Plavix, isosorbide mononitrate, GLEN inhibitor and beta-blockade Status: Chronic (3) Diabetes mellitus with hyperglycemia, with long-term current use of insulin: Chronically on Levemir and empagliflozin, currently with hyperglycemia and some glucosuria Status: Chronic Qualifiers: Diabetes mellitus type: type 2 Qualified Code(s): E11.65 - Type 2 diabetes mellitus with hyperglycemia; Z79.4 - residential (current) use of insulin (4) Chronic kidney disease (CKD): Stage IIIa, baseline creatinine around 1.5 Status: Chronic Qualifiers: Chronic kidney disease stage: unspecified stage Qualified Code(s): N18.9 - Chronic kidney disease, unspecified (5) Status post carotid endarterectomy: Right-sided in October 2019. Carotid Doppler in February of this year showed chronic occlusion of the right ICA with left ICA stenosis less than 50%. Complains of some nonspecific left upper extremity not working right at times but good strength and no numbness presently. Has had some falls recently but has coincided with episodes of vomiting and abdominal pain. He denies any focal weakness or other definitive symptoms precipitating falls. Status: Chronic (6) Benign hypertension: Controlled on current medication regimen Status: Chronic (7) Presence of cardiac pacemaker: Left upper chest Status: Chronic (8) Adult onset hypothyroidism: Chronically on levothyroxine Status: Chronic (9) GERD (gastroesophageal reflux disease): Chronically on Pepcid Status: Chronic (10) B12 deficiency: Chronically on B12 replacement Status: Chronic (11) Pulmonary nodule: On CT imaging, given advanced age, current size and comorbid conditions will defer to primary care and other providers to determine utility of repeat imaging. He does have a prior history of smoking. Status: Chronic Additional A&P Information Observation admission currently Surgical consultation with Dr. Bagley, discussed with him Zosyn IV Check CRP Recheck LFTs in the morning Clear liquids currently Low volume IV fluids Check orthostatic vital signs Monitor renal function acute change Covid PCR has been sent in the event that he does require surgical intervention Current plan is for initiation of medical management with reevaluation given comorbid conditions Continue home aspirin, Plavix given percutaneous coronary intervention less than 6 months ago Continue statin, omega-3, isosorbide, beta-blockade, lisinopril Serial cardiac enzymes and EKGs Sliding scale insulin and a significantly lower dose of long-acting insulin Continue home levothyroxine PPI currently, hold home Pepcid Continue home B12, other home vitamins currently held Pain control as needed Laxative therapy Fall precautions Primary care or other chronic providers to follow-up regarding pulmonary nodule incidentally noted Supportive care otherwise Findings, concerns and plans were discussed with patient including the fact that we will reevaluate him tomorrow before making any determination regarding surgical intervention. SCDs currently for DVT prophylaxis, no pharmacological prophylaxis secondary to potential need for surgical intervention in the next 24 hours Anticipate discharge home, patient lives alone and is independent in his ADLs normally CODE STATUS was discussed and while patient would not want long-term resuscitative efforts, he does want to be full code in the short-term. Order has been written. Attestations Medical Necessity Statement*: Patient needs to be in hospital for management of acute cholecystitis Coding Level of Care Code Acute Space Studies Faculty Member for g Fwd Exam Detailed Diagnoses Cholecystitis K81.9 History of PTCA Z98.61 Diabetes mellitus with hyperglycemia, with long-term current use of insulin E11.65; Z79.4 Diabetes mellitus type: type 2 Chronic kidney disease (CKD) N18.9 Chronic kidney disease stage: unspecified stage Status post carotid endarterectomy Z98.890 Benign hypertension I10 Presence of cardiac pacemaker Z95.0 Adult onset hypothyroidism E03.8 GERD (gastroesophageal reflux disease) K21.9 B12 deficiency E53.8 Pulmonary nodule R91.1
[2021-05-20] MEDS: insulin lispro 100 unit/1 mL SUBCUT ×3 (11:53→22:58)
[2021-05-20 12:29] LABS: Glucose Point of Care 121 mg/dL (70-110)
[2021-05-20 12:29] LABS: Glucose Point of Care 249 mg/dL (70-110)
[2021-05-20] MEDS: insulin glargine 100 units/1 mL 10 UNIT SUBCUT (16:20)
[2021-05-20 22:38] LABS: Glucose Point of Care 239 mg/dL (70-110)
[2021-05-20 22:38] LABS: Glucose Point of Care 154 mg/dL (70-110)
[2021-05-20] MEDS: sennosides 8.6 mg Tablet 17.2 MG PO (22:59)
[2021-05-21 01:08] VITALS: BP 115/56; PULSE 82; RESP 16; TEMP 36.9; O2SAT 97
--- NOTE | 2021-05-21 04:24 | PC.NURSE ---
Pt accidentally removed IV access. Nurse attempted to restart IV and vein in left forearm blew. Patient refused to allow nurse to place IV. Charge nurse YESSI Gomez spoke with patient and he again refused to allow staff to place another IV he stated he was going home in the morning and he didn't need anymore antibiotics. Pt states he is better and his abdomen no longer hurts so he feels he no longer needs to be here. Nursing staff educated pt on the importance of finishing his IV antibiotics but patient still refused.
[2021-05-21 04:41] VITALS: BP 134/63; PULSE 82; RESP 17; TEMP 36.8; O2SAT 100
[2021-05-21 06:24] LABS: Glucose Point of Care 145 mg/dL (70-110)
[2021-05-21] MEDS: lisinopril 5 mg Tablet PO (06:31)
[2021-05-21] MEDS: isosorbide mononitrate ER 30 mg Tablet PO (06:31)
[2021-05-21] MEDS: atorvastatin 40 mg Tablet PO (06:31)
[2021-05-21] MEDS: metoprolol succinate ER (24 HR) 25 mg Tablet 12.5 MG PO (06:32)
[2021-05-21] MEDS: clopidogrel 75 mg Tablet PO (06:33)
[2021-05-21] MEDS: omega-3 fatty acids 1,000 mg Capsule 1000 MG PO (06:33)
[2021-05-21] MEDS: levothyroxine 50 mcg Tablet PO (06:33)
[2021-05-21 07:35] VITALS: BP 109/60; PULSE 77; RESP 18; TEMP 36.5; O2SAT 98
[2021-05-21] MEDS: insulin lispro 100 unit/1 mL SUBCUT (09:22)
[2021-05-21] MEDS: cyanocobalamin 1,000 mcg Tablet 500 MCG PO (09:23)
[2021-05-21] MEDS: pantoprazole DR 40 mg Tablet PO (09:23)
[2021-05-21] MEDS: aspirin 81 mg EC Tablet PO (09:23)
[2021-05-21] MEDS: docusate sodium 100 mg Capsule PO (09:23)
--- NOTE | 2021-05-21 09:45 | PM.PN ---
Subjective Subjective: Interval history: Patient continues to do well and feels better. Denies any abdominal pain. Tolerated full liquid diet. Trending down leukocytosis Medications: Reviewed: Yes Vitals/I&O/Wt Last Vital Signs Temp 97.7 F 05/21/21 07:35 Pulse 77 05/21/21 07:35 Resp 18 05/21/21 07:35 BP 109/60 05/21/21 07:35 Pulse Ox 98 05/21/21 07:35 05/20/21 05/21/21 05/21/21 22:59 06:59 14:59 Intake Total 530 / 1230 1240 / 2470 720 / 720 Output Total 800 / 1100 850 / 1950 Balance -270 / 130 390 / 520 720 / 720 Weight last 48 hrs Weight 141 lb 9.6 oz Weight 140 lb Physical Exam Narrative: EXAM NARRATIVE: Patient is conscious alert oriented X3 BMI 21.9 Head and neck examination PERRLA no masses no cervical lymphadenopathy no jaundice Abdomen nontender nondistended soft no organomegaly guarding or rigidity/no signs of peritonitis Data : 05/20/21 01:29 05/20/21 01:29 A&P Assessment and plan (1) Cholecystitis: Can advance diet as tolerated From surgical standpoint of view ,if patient continues to do well can be discharged on oral antibiotics and follow-up as an outpatient Assurance and education All questions have been answered and all concerns have been addressed to patient's satisfaction. Thank you for consulting general surgery to participate taking care Mr. Link Status: Acute Attestations Medical Necessity Statement*: Per admitting service Coding Level of Care Code Acute Assembler Show Motor for [facility] Fws[facility]rina Diagnoses Cholecystitis K81.9
[2021-05-21 11:08] LABS: Alanine Aminotransferase 56 U/L (0-41); Albumin Level 2.9 g/dL (3.5-5.2); Alkaline Phosphatase 346 IU/L (40-130); Anion Gap 14.5 (5-19); Aspartate Amino Transferase 52 U/L (0-40); Blood Urea Nitrogen 18 mg/dL (8-23); Calcium 7.7 mg/dL (8.5-10.5); Carbon Dioxide 21 mmol/L (22-29); Chloride 106 mmol/L (98-107); Globulin 3.1 g/dL (1.3-4.6); Glucose 250 mg/dL (65-115); Osmolality Calculated 294 mOsm/kg (285-295); Potassium 4.5 mmol/L (3.5-5.1); Sodium 137 mmol/L (136-145); Total Bilirubin 0.8 mg/dL (0.15-1.2)
--- NOTE | 2021-05-21 11:37 | P.DS_ITS ---
Discharge Providers Date of Admission: 05/20/21 18:03 Date of Discharge: May 21, 2021 Attending Provider at Admission: Jeanna Canseco MD Attending Provider at Discharge: Leon Flood MD Primary Care Provider: SHANNAN Eastman Diagnoses at Discharge Discharge Diagnosis (1) Cholecystitis: Reason for Visit Reason for Visit: COUGH,N/V FALL ABD PAINS RIB PAINS Hospital Course Hospital Course 75 year old male who presented to the emergency room with chief complaint of abdominal pain and episodes of vomiting. He has also been weaker and had a couple of falls. Symptoms have been present to some degree for about a week or so. In the past couple of days he has had 6-7 episodes of vomiting bilious material. No hematemesis. Pain in the abdomen is rated at a 6-7 out of 10, but has become constant. It is located in the periumbilical area extending to the epigastrium and right upper quadrant. Occasionally it radiates up into his chest and left shoulder. He lives alone and is generally fairly active.Detailed evaluation revealed Ac cholecystitis he was kept npo,pain control,i.vhydration, lft and other pertinent labs were was monitored was on broad spectrum abxs,he responded well to above medical and surgical management at the time of discharge he denied any abdominal pain,nausea,vomitting, was tolerating diet well,he was discharged on po augmentin BID for another 7 days,he will follow surgery as outpatient for elective intervention.He was discharged in stable condition to home. Physical Exam Const: COMMON NORMALS: patient oriented x3 HENMT: COMMON NORMALS: normocephalic and atraumatic HEAD & SCALP: normocephalic and atraumatic Resp: COMMON NORMALS: clear to auscultation bilaterally AUSCULTATION: clear to auscultation bilaterally Cardio: COMMON NORMALS: regular rate, regular rhythm, S1 normal heart sound present, S2 normal heart sound present, No gallops present (Cardio), No murmurs present (Cardio), No rub (Cardio) and Peripheral pulses 2+ throughout RATE: regular rate RHYTHM: regular rhythm HEART SOUNDS: S1 normal heart sound present and S2 normal heart sound present PERIPHERAL PULSES: Peripheral pulses 2+ throughout GI: COMMON NORMALS: Normal to inspection, nondistended, normoactive bowel sounds present, Soft to palpation, non-tender, No hepatosplenomegaly present and no masses AUSCULTATION: Yes normoactive bowel sounds PALPATION: Yes Soft to palpation and Yes No hepatosplenomegaly present RECTAL EXAM: Yes deferred Extremity: COMMON NORMALS: no clubbing, cyanosis or edema and no pedal edema Neuro: COMMON NORMALS: patient oriented x3 Discharge Data Data Completed and Pending: Completed Studies During Hospitalization Category Date Time Status CT chest abd pel wo con Urgent Cat Scan 05/19/21 16:[address] head wo con* 7 0450 Urgent Cat Scan 05/19/21 15:21 Completed XR chest 1V mark ble 50050 Urgent Exams 05/19/21 13:38 Completed US abdomen limite d 54285 Urgent Ultrasound 05/19/21 18:08 Completed Labs from last 24 hours 05/19/21 20:16 POC Glucose 149 H Vitals: Last Vital Signs Temp 97.9 F 05/21/21 14:44 Pulse 81 05/21/21 14:44 Resp 18 05/21/21 14:44 BP 120/61 05/21/21 14:44 Pulse Ox 99 05/21/21 14:44 Discharge Plan Discharge Patient Disposition: Home Condition: Stable Prescriptions: New Augmentin 500-125 mg tablet 1 tab PO BID 7 Days Qty: 14 RF: 0 Continued aspirin 81 mg tablet,delayed release (DR/EC) 81 mg PO DAILY RF: 0 Lipitor 40 mg tablet 40 mg PO DAILY@0600 30 Days Qty: 30 RF: 2 Jardiance 25 mg tablet 25 mg PO QAM Qty: 90 RF: 0 isosorbide mononitrate 30 mg tablet extended release 24 hr 30 mg PO DAILY@0600 30 Days Qty: 30 RF: 2 levothyroxine 50 mcg tablet 50 mcg PO DAILY@0600 Qty: 30 RF: 2 lisinopril 5 mg tablet 5 mg PO DAILY@0600 Qty: 30 RF: 2 Hold Instructions: Resume on 10/14/20. resume after following up with Indira Nevarez metoprolol succinate 25 mg tablet extended release 24 hr 12.5 mg PO DAILY@0600 Qty: 16 RF: 2 omega-3 fatty acids [Fish Oil Concentrate] 1,000 mg capsule 1,000 mg PO DAILY@0600 RF: 0 (DME) pen needle, diabetic 33 gauge x 5/32 needle See Rx Instructions .ROUTE .MEDSUPPLY Qty: 100 RF: 2 clopidogrel 75 mg tablet 75 mg PO DAILY@0600 Qty: 90 RF: 3 multivitamin [Daily Multi-Vitamin] Tablet 1 tab PO DAILY@0600 RF: 0 PreserVision AREDS-2 250-90-40-1 mg Capsule 1 tab PO BID@0600,1800 RF: 0 famotidine 20 mg Tablet 20 mg PO DAILY@0600 RF: 0 Vitamin B-12 500 mcg Tablet 500 mcg PO DAILY RF: 0 Levemir FlexTouch U-100 Insuln 100 unit/mL (3 mL) insulin pen 64 unit SUBCUT DAILY@1500 RF: 0 Discharge Orders: Discharge Order (Routine); Ordered 05/21/21 Ordered By: Leon Flood Referrals: Anthony Bagley MD [Physician] - (Return to surgery office in 4-week) Ree Crooks FNP-C [Primary Care Provider] - Discharge Diet: As Directed Discharge Activity: Increase activity as tolerated Patient Instructions: Amoxicillin/Clavulanate Potassium (By mouth), Cholecystitis (DC), Opioid Safety Activity Restrictions/Additional Instructions: Education about low-fat diet Discharge Attestations Time Spent in Discharge Care*: less than 30 min Specific Discharge Activities: educating patient, educating and/or supporting family/caregiver, discussing with pcp/other providers, discussing with mattress spring encaser/social workers/dc planners, documenting/other paperwork and evaluating patient/reviewing data Status at Discharge: Cognitive status at discharge: cognitively intact , Quality Metrics Clinical Quality Measures During this hospital stay, did patient experience: None Coding Level of Care Code Acute Chg FW DC note Diagnoses Cholecystitis K81.9
[2021-05-21 12:00] VITALS: BP 120/61; PULSE 81; RESP 18; TEMP 36.6; O2SAT 99
[2021-05-21 14:44] VITALS: BP 120/61; PULSE 81; RESP 18; TEMP 36.6; O2SAT 99
[2021-05-21 22:33] LABS: Glucose Point of Care 227 mg/dL (70-110)
[2021-05-22 21:09] LABS: Glucose Point of Care 149 mg/dL (70-110)
== END 2021-05-21 14:45 | disposition home or self-care (01) | DRG 446 ==
LOC: ER 20:19 → MEDSURG 05-20 00:07
PROVIDERS: Admitting Provider Hospitalist; Emergency Provider Emergency Medicine; PCP Nurse Practitioner; Visit Provider Internal Medicine
DX: K81.0 Acute cholecystitis (principal); E11.22 Type 2 diabetes mellitus with diabetic chronic kidney disease; I12.9 Hypertensive chronic kidney disease with stage 1 through stage 4 chronic kidney disease, or unspecified chronic kidney disease; N18.31 Chronic kidney disease, stage 3a; I25.10 Atherosclerotic heart disease of native coronary artery without angina pectoris; R91.1 Solitary pulmonary nodule; E11.65 Type 2 diabetes mellitus with hyperglycemia; E53.8 Deficiency of other specified B group vitamins; E78.2 Mixed hyperlipidemia; K21.9 Gastro-esophageal reflux disease without esophagitis; E03.9 Hypothyroidism, unspecified; R29.6 Repeated falls; Z79.4 Long term (current) use of insulin; Z79.84 Long term (current) use of oral hypoglycemic drugs; Z79.82 Long term (current) use of aspirin; Z95.0 Presence of cardiac pacemaker; Z87.891 Personal history of nicotine dependence; Z95.5 Presence of coronary angioplasty implant and graft; Z79.02 Long term (current) use of antithrombotics/antiplatelets
CPT/HCPCS: 36415; 36416; 70450; 71045; 71250; 74176; 76705; 80053; 81003; 82962; 83690; 83735; 83880; 84100; 84145; 84443; 84484; 85025; 85610; 85730; 86140; 87426; 93005; 96365; 96372; 99285; G0378; J1815 ×2; J2543; J7040

== ENCOUNTER → 2021-05-29 10:58 | Outpatient (BNVA) | payer MEDICARE, OTHER, SELFPAY | PROVIDERS: PCP Nurse Practitioner; Visit Provider Nurse Practitioner | DX: E11.65 Type 2 diabetes mellitus with hyperglycemia (principal); Z79.4 Long term (current) use of insulin | CPT/HCPCS: 80048; 85025 ==

== ENCOUNTER 2021-06-25 10:19 | Inpatient (IN) | payer MEDICARE, OTHER, SELFPAY ==
[2021-06-25] VITALS (31 sets, daily range): BP systolic 93–135; BP diastolic 43–100; PULSE 63–104; RESP 11–21; O2SAT 95–100; BMI 22.1
--- NOTE | 2021-06-25 10:43 | USR_ITS ---
PROCEDURE INFORMATION: Exam: US Abdomen, Limited; Right Upper Quadrant Exam date and time: 06/25/2021 10:43 AM Age: 75 years old Clinical indication: Abdominal pain; Epigastric; Additional info: Ruq abd pain TECHNIQUE: Imaging protocol: US abdomen. Real time ultrasound with image documentation. Limited exam focused on the right upper quadrant. COMPARISON: US abdomen limited [id number] 05/19/2021 6:37 PM FINDINGS: Liver: There is increased echogenicity of the liver indicating fatty liver. No obvious liver masses. Gallbladder: Cholelithiasis. The gallbladder wall is not thickened at 2.6 mm. Reese sign is positive. Common bile duct: The common bile duct is at the upper limit of normal diameter at 6.3 mm. Pancreas: The pancreas was obscured by bowel gas. Right kidney: Normal. No mass. No hydronephrosis. Aorta: The aorta is obscured by bowel gas. US/US gall bladder [id number] IMPRESSION: 1. Cholelithiasis. 2. Positive Reese sign. 3. Fatty liver.
--- NOTE | 2021-06-25 10:45 | ED_ITS ---
Documented by User: Daniel Kessler MD 06/25/21 15:55 HPI - Abdominal Pain General: Chief Complaint: Abdominal Pain Stated Complaint: ABD PAIN Time Seen by Provider: 06/25/21 10:23 History of Present Illness: HPI narrative: Patient comes in with right upper quadrant abdominal pain/chest pain which he describes as sharp, constant, started at 4 AM this morning, associated with nausea, radiates to his right shoulder and into his back. States that he has gallbladder problems and is scheduled for surgery in August. Denies fever, or diarrhea. Associated Symptoms: Reports nausea and vomiting; Denies dysuria and fever(s) Review of Systems Const: Denies: fever(s) or body aches Eyes: Denies: change in vision or blurry vision ENMT: Denies: throat pain or odynophagia Card: Reports: chest pain; Denies: palpitations Resp: Denies: dyspnea or productive cough GI: Reports: abdominal pain, nausea and vomiting : Denies: flank pain or dysuria Musc: Denies: neck pain or back pain Skin/Breast: Denies: rash or pruritus Neuro: Denies: headache(s) or numbness in extremities Psych: Denies: anxiety or change in appetite Endo: Denies: polyuria or excessive sweating PFSH ED PFSH: Medical History Adult onset hypothyroidism Atherosclerotic cardiovascular disease B12 deficiency Benign hypertension Carotid stenosis Cholecystitis Chronic kidney disease (CKD) Chronic kidney disease, unspecified Coronary artery disease COVID-19 vaccine administered 2 primary doses and booster Diabetes mellitus with hyperglycemia, with long-term current use of insulin GERD (gastroesophageal reflux disease) Mixed hyperlipidemia Noncompliance with medication regimen Presence of cardiac pacemaker Pulmonary nodule 5 mm on the left on CT imaging 05/19/2021 Surgical History (Updated 06/27/21 @ 16:52 by Froylan Phillips MD) H/O right knee surgery History of cardiac pacemaker in situ History of cervical discectomy History of ear surgery History of PTCA -distal RCA DAMEON 12/2020 -proximal RCA [facility], distal RCA balloon angioplasty, proximal and distal left circumflex [facility] 10/2020 -previous RCA and circ stents in 2010 Status post carotid endarterectomy (10/19/19) right Status post laparoscopic cholecystectomy (06/26/21) Family History Brother CAD (coronary artery disease) Cancer Diabetes Lung disease Mother CAD (coronary artery disease) Diabetes Family/Other Cancer Diabetes Sister Diabetes Father Diabetes Denies family history of Clotting disorder Dementia Chronic kidney disease (CKD) Suicide Anesthesia complication Bleeding disorder Stroke Social History Smoking and tobacco status: former smoker Second hand smoke exposure: No Smoking risk assessment/counseling performed?: No Alcohol intake: never Desire information about alcohol rehabilitation?: No Counseling given: No Desire information about substance/drug rehabilitation?: No Counseling given: No Adopted: No Caregiver/support person: No Lives independently: Yes Household members: none Housing: House Marital status: Single Number of children: 1 service: Yes branch: [employer] Current occupational status: retired Current occupation: [employer] History of recent travel: No Current gender identity: Male Physical Exam Const: COMMON NORMALS: no acute distress, patient oriented x3, healthy appearing and alert HENMT: COMMON NORMALS: normocephalic and atraumatic HEAD & SCALP: normocephalic and atraumatic Eye: COMMON NORMALS: Equal, round and reactive pupils present and EOMs intact bilaterally PUPIL: Yes Equal, round and reactive pupils present Neck/C-Spine: COMMON NORMALS: full ROM and supple Resp: COMMON NORMALS: normal respiratory effort, No retractions and No use of accessory muscles Cardio: COMMON NORMALS: regular rate and regular rhythm RATE: regular rate RHYTHM: regular rhythm GI: COMMON NORMALS: Normal to inspection, nondistended, normoactive bowel sounds present and Soft to palpation PALPATION: Yes Soft to palpation and Yes Tenderness to palpation present (GI) Details: RUQ Back/Pelvis: COMMON NORMALS: thoracic and lumbar spine normal to inspection and no thoracic nor lumbar tenderness Extremity: COMMON NORMALS: normal to inspection and full ROM Neuro: COMMON NORMALS: patient oriented x3 SENSORIUM/ORIENTATION: Yes alert Psych: COMMON NORMALS: mental status grossly normal and cooperative Skin: COMMON NORMALS: no rashes or lesions noted and no wounds GENERAL SKIN EXAM: no rashes or lesions noted Course Vital Signs: Vital signs: Vital Signs Temperature 100.1 F H 06/28/21 04:00 Pulse Rate 61 06/28/21 04:00 Respiratory Rate 18 06/28/21 04:00 Blood Pressure 126/72 01/19/22 04:00 Pulse Oximetry 97 06/28/21 04:00 MDM - Abdominal Pain MDM Narrative: Medical decision making narrative: Patient comes in with right upper quadrant abdominal pain/chest pain which he describes as sharp, constant, started at 4 AM this morning, associated with nausea, radiates to his right shoulder and into his back. States that he has gallbladder problems and is scheduled for surgery in August. Denies fever, or diarrhea. On physical exam he has right upper quadrant abdominal tenderness to palpation. Will check labs, ultrasound, give IV fluids, treat nausea with IV antiemetics, treat pain with IV morphine, and reassess. On reassessment I talked to the patient about the test results. He has a pacem silvano which prevents us from doing an MRCP here. We do not have the ability to do an ERCP here. I discussed the case with surgery and we will begin the process of transferring the patient to another facility with ERCP capability. Lab Data: Labs: Lab Results 06/25/21 06/25/21 06/25/21 10:34 10:34 10:34 WBC 7.7 10^3/uL 10^3/ uL (4.0-10.0) RBC 4.68 10^6/uL 10^6 /uL (4.1-5.3) Hgb 13.3 g/dL g/dL (11.7-16.6) Hct 42.5 % % (42.0-52.0) MCV 90.8 fl fl (80-94) MCH 28.4 pg pg (28.0-34.0) MCHC 31.3 g/dL g/dL (30.0-36.0) RDW 15.4 % H % (12.1-15.1) Plt Count 147 10^3/cmm 10^3 /cmm (130-400) MPV 10.1 fL fL (7.4-10.4) Neut % (Auto) 76.4 % % Lymph % (Auto) 14.2 % % [place] % (Auto) 7.1 % % Eos % (Auto) 1.3 % % Baso % (Auto) 0.7 % % Neut # (Auto) 5.85 10^3/uL 10^3 /uL (1.8-7.7) Lymph # (Auto) 1.1 10^3/uL 10^3/ uL (0.8-4.8) [place] # (Auto) 0.5 10^3/uL 10^3/ uL (0.2-0.9) Eos # (Auto) 0.1 10^3/uL 10^3/ uL (0.0-0.8) Baso # (Auto) 0.1 10^3/uL 10^3/ uL (0.0-0.1) Nucleated RBC % (a uto) 0 % % Nucleated RBCs # 0.0 /100WBC /100W BC PT INR Sodium 137 mmol/L mmol/L (136-145) Potassium 4.6 mmol/L mmol/L (3.5-5.1) Chloride 100 mmol/L mmol/L (98-107) Carbon Dioxide 22 mmol/L mmol/L (22-29) Anion Gap 19.6 H (5-19) BUN 19 mg/dL mg/dL (8-23) Creatinine 1.3 mg/dL H mg/dL (0.7-1.2) GFR Calculation Not Reportable Glucose 265 mg/dL H mg/dL (65-115) POC Glucose Calculated Osmolal ity 296 mOsm/kg H mOs m/kg (285-295) Lactic Acid Lactate 2.2 mmol/L mmol/L (0.5-2.2) Calcium 9.3 mg/dL mg/dL (8.5-10.5) Total Bilirubin 2.2 mg/dL H mg/dL (0.15-1.2) AST 181 U/L H U/L (0-40) ALT 125 U/L H U/L (0-41) Alkaline Phosphata se 553 IU/L H IU/L (40-130) Total Protein 7.2 g/dL g/dL (6.6-8.7) Albumin 4.3 g/dL g/dL (3.5-5.2) Globulin 2.9 g/dL g/dL (1.3-4.6) Lipase 34 U/L U/L (13-60) SARS-CoV-2 Ag (Rap id) 06/25/21 06/26/21 06/26/21 13:38 00:05 06:38 WBC RBC Hgb Hct MCV MCH MCHC RDW Plt Count MPV Neut % (Auto) Lymph % (Auto) [place] % (Auto) Eos % (Auto) Baso % (Auto) Neut # (Auto) Lymph # (Auto) [place] # (Auto) Eos # (Auto) Baso # (Auto) Nucleated RBC % (a uto) Nucleated RBCs # PT INR Sodium 139 mmol/L mmol/L (136-145) Potassium 4.3 mmol/L mmol/L (3.5-5.1) Chloride 103 mmol/L mmol/L (98-107) Carbon Dioxide 23 mmol/L mmol/L (22-29) Anion Gap 17.3 (5-19) BUN 17 mg/dL mg/dL (8-23) Creatinine 1.3 mg/dL H mg/dL (0.7-1.2) GFR Calculation Not Reportable Glucose 191 mg/dL H mg/dL (65-115) POC Glucose 310 mg/dL H mg/dL (70-110) Calculated Osmolal ity 295 mOsm/kg mOsm/ kg (285-295) Lactic Acid Lactate Calcium 8.3 mg/dL L mg/dL (8.5-10.5) Total Bilirubin 2.3 mg/dL H mg/dL (0.15-1.2) AST 177 U/L H U/L (0-40) ALT 146 U/L H U/L (0-41) Alkaline Phosphata se 516 IU/L H IU/L (40-130) Total Protein 6.2 g/dL L g/dL (6.6-8.7) Albumin 3.5 g/dL g/dL (3.5-5.2) Globulin 2.7 g/dL g/dL (1.3-4.6) Lipase SARS-CoV-2 Ag (Rap id) Negative (Negative) 06/26/21 06/26/21 06/26/21 07:10 12:08 16:14 WBC RBC Hgb Hct MCV MCH MCHC RDW Plt Count MPV Neut % (Auto) Lymph % (Auto) [place] % (Auto) Eos % (Auto) Baso % (Auto) Neut # (Auto) Lymph # (Auto) [place] # (Auto) Eos # (Auto) Baso # (Auto) Nucleated RBC % (a uto) Nucleated RBCs # PT 14.90 SECONDS SEC ONDS (12.1-14.9) INR 1.13 (0.8-1.2) Sodium Potassium Chloride Carbon Dioxide Anion Gap BUN Creatinine GFR Calculation Glucose POC Glucose 135 mg/dL H mg/dL (70-110) Calculated Osmolal ity Lactic Acid 1.5 mmol/L mmol/L (0.5-2.2) Lactate Calcium Total Bilirubin AST ALT Alkaline Phosphata se Total Protein Albumin Globulin Lipase SARS-CoV-2 Ag (Rap id) Discharge Plan Discharge Patient Disposition: Xfer Short-Term Hosp Clinical Impression: Choledocholithiasis Condition: Stable Sign Out Sign Out Data: Patient Sign Out occurred on 06/26/21 at 06:18. Patient's care was discussed, and care was transferred from to Sha Rios DO. Coding Level of Care Code ED Respiratory Care Practitioner for Chg Fwd Exam Comprehensive Documented by User: Sha Rios DO 06/28/21 05:30 HPI - Abdominal Pain General: Chief Complaint: Abdominal Pain Stated Complaint: ABD PAIN Time Seen by Provider: 06/25/21 10:23 [facility] ED PFSH: Medical History Adult onset hypothyroidism Atherosclerotic cardiovascular disease B12 deficiency Benign hypertension Carotid stenosis Cholecystitis Chronic kidney disease (CKD) Chronic kidney disease, unspecified Coronary artery disease COVID-19 vaccine administered 2 primary doses and booster Diabetes mellitus with hyperglycemia, with long-term current use of insulin GERD (gastroesophageal reflux disease) Mixed hyperlipidemia Noncompliance with medication regimen Presence of cardiac pacemaker Pulmonary nodule 5 mm on the left on CT imaging 05/19/2021 Surgical History (Updated 06/27/21 @ 16:52 by Froylan Phillips MD) H/O right knee surgery History of cardiac pacemaker in situ History of cervical discectomy History of ear surgery History of PTCA -distal RCA [facility] 12/2020 -proximal RCA [facility], distal RCA balloon angioplasty, proximal and distal left circumflex [facility] 10/2020 -previous RCA and circ stents in 2010 Status post carotid endarterectomy (10/19/19) right Status post laparoscopic cholecystectomy (06/26/21) Family History Brother CAD (coronary artery disease) Cancer Diabetes Lung disease Mother CAD (coronary artery disease) Diabetes Family/Other Cancer Diabetes Sister Diabetes Father Diabetes Denies family history of Clotting disorder Dementia Chronic kidney disease (CKD) Suicide Anesthesia complication Bleeding disorder Stroke Social History Smoking and tobacco status: former smoker Second hand smoke exposure: No Smoking risk assessment/counseling performed?: No Alcohol intake: never Desire information about alcohol rehabilitation?: No Counseling given: No Desire information about substance/drug rehabilitation?: No Counseling given: No Adopted: No Caregiver/support person: No Lives independently: Yes Household members: none Housing: House Marital status: Single Number of children: 1 service: Yes branch: [employer] Current occupational status: retired Current occupation: [employer] History of recent travel: No Current gender identity: Male Course Vital Signs: Vital signs: Vital Signs Temperature 100.1 F H 06/28/21 04:00 Pulse Rate 61 06/28/21 04:00 Respiratory Rate 18 06/28/21 04:00 Blood Pressure 126/72 06/28/21 04:00 Pulse Oximetry 97 06/28/21 04:00 MDM - Abdominal Pain MDM Narrative: Medical decision making narrative: Care assumed at change of shift. We were able to secure a facility to receive on transfer patient remained stable was transferred via ground ambulance. Lab Data: Labs: Lab Results 06/25/21 06/25/21 06/25/21 10:34 10:34 10:34 WBC 7.7 10^3/uL 10^3/ uL (4.0-10.0) RBC 4.68 10^6/uL 10^6 /uL (4.1-5.3) Hgb 13.3 g/dL g/dL (11.7-16.6) Hct 42.5 % % (42.0-52.0) MCV 90.8 fl fl (80-94) MCH 28.4 pg pg (28.0-34.0) MCHC 31.3 g/dL g/dL (30.0-36.0) RDW 15.4 % H % (12.1-15.1) Plt Count 147 10^3/cmm 10^3 /cmm (130-400) MPV 10.1 fL fL (7.4-10.4) Neut % (Auto) 76.4 % % Lymph % (Auto) 14.2 % % [place] % (Auto) 7.1 % % Eos % (Auto) 1.3 % % Baso % (Auto) 0.7 % % Neut # (Auto) 5.85 10^3/uL 10^3 /uL (1.8-7.7) Lymph # (Auto) 1.1 10^3/uL 10^3/ uL (0.8-4.8) [place] # (Auto) 0.5 10^3/uL 10^3/ uL (0.2-0.9) Eos # (Auto) 0.1 10^3/uL 10^3/ uL (0.0-0.8) Baso # (Auto) 0.1 10^3/uL 10^3/ uL (0.0-0.1) Nucleated RBC % (a uto) 0 % % Nucleated RBCs # 0.0 /100WBC /100W BC PT INR Sodium 137 mmol/L mmol/L (136-145) Potassium 4.6 mmol/L mmol/L (3.5-5.1) Chloride 100 mmol/L mmol/L (98-107) Carbon Dioxide 22 mmol/L mmol/L (22-29) Anion Gap 19.6 H (5-19) BUN 19 mg/dL mg/dL (8-23) Creatinine 1.3 mg/dL H mg/dL (0.7-1.2) GFR Calculation Not Reportable Glucose 265 mg/dL H mg/dL (65-115) POC Glucose Calculated Osmolal ity 296 mOsm/kg H mOs m/kg (285-295) Lactic Acid Lactate 2.2 mmol/L mmol/L (0.5-2.2) Calcium 9.3 mg/dL mg/dL (8.5-10.5) Total Bilirubin 2.2 mg/dL H mg/dL (0.15-1.2) AST 181 U/L H U/L (0-40) ALT 125 U/L H U/L (0-41) Alkaline Phosphata se 553 IU/L H IU/L (40-130) Total Protein 7.2 g/dL g/dL (6.6-8.7) Albumin 4.3 g/dL g/dL (3.5-5.2) Globulin 2.9 g/dL g/dL (1.3-4.6) Lipase 34 U/L U/L (13-60) SARS-CoV-2 Ag (Rap id) 06/25/21 06/26/21 06/26/21 13:38 00:05 06:38 WBC RBC Hgb Hct MCV MCH MCHC RDW Plt Count MPV Neut % (Auto) Lymph % (Auto) [place] % (Auto) Eos % (Auto) Baso % (Auto) Neut # (Auto) Lymph # (Auto) [place] # (Auto) Eos # (Auto) Baso # (Auto) Nucleated RBC % (a uto) Nucleated RBCs # PT INR Sodium 139 mmol/L mmol/L (136-145) Potassium 4.3 mmol/L mmol/L (3.5-5.1) Chloride 103 mmol/L mmol/L (98-107) Carbon Dioxide 23 mmol/L mmol/L (22-29) Anion Gap 17.3 (5-19) BUN 17 mg/dL mg/dL (8-23) Creatinine 1.3 mg/dL H mg/dL (0.7-1.2) GFR Calculation Not Reportable Glucose 191 mg/dL H mg/dL (65-115) POC Glucose 310 mg/dL H mg/dL (70-110) Calculated Osmolal ity 295 mOsm/kg mOsm/ kg (285-295) Lactic Acid Lactate Calcium 8.3 mg/dL L mg/dL (8.5-10.5) Total Bilirubin 2.3 mg/dL H mg/dL (0.15-1.2) AST 177 U/L H U/L (0-40) ALT 146 U/L H U/L (0-41) Alkaline Phosphata se 516 IU/L H IU/L (40-130) Total Protein 6.2 g/dL L g/dL (6.6-8.7) Albumin 3.5 g/dL g/dL (3.5-5.2) Globulin 2.7 g/dL g/dL (1.3-4.6) Lipase SARS-CoV-2 Ag (Rap id) Negative (Negative) 06/26/21 06/26/21 06/26/21 07:10 12:08 16:14 WBC RBC Hgb Hct MCV MCH MCHC RDW Plt Count MPV Neut % (Auto) Lymph % (Auto) [place] % (Auto) Eos % (Auto) Baso % (Auto) Neut # (Auto) Lymph # (Auto) [place] # (Auto) Eos # (Auto) Baso # (Auto) Nucleated RBC % (a uto) Nucleated RBCs # PT 14.90 SECONDS SEC ONDS (12.1-14.9) INR 1.13 (0.8-1.2) Sodium Potassium Chloride Carbon Dioxide Anion Gap BUN Creatinine GFR Calculation Glucose POC Glucose 135 mg/dL H mg/dL (70-110) Calculated Osmolal ity Lactic Acid 1.5 mmol/L mmol/L (0.5-2.2) Lactate Calcium Total Bilirubin AST ALT Alkaline Phosphata se Total Protein Albumin Globulin Lipase SARS-CoV-2 Ag (Rap id) Discharge Plan Discharge Patient Disposition: Xfer Short-Term Hosp Clinical Impression: Choledocholithiasis Condition: Stable Sign Out Sign Out Data: Patient Sign Out occurred on 06/26/21 at 06:18. Patient's care was discussed, and care was transferred from to Sha Rios DO. Coding Level of Care Code ED Respiratory Care Practitioner for Chg Fwd Exam Comprehensive
[2021-06-25] MEDS: morphine 4 mg/mL SDV 1 mL IVP (10:48)
[2021-06-25] MEDS: sodium chloride 0.9% 1,000 ML 999 ML IV (10:48)
[2021-06-25] MEDS: ondansetron 2 mg/ML SDV 2 mL 4 MG IVP (10:49)
[2021-06-25 10:53] LABS: Basophils # 0.1 10^3/uL (0.0-0.1); Basophils % 0.7 %; Eosinophils # 0.1 10^3/uL (0.0-0.8); Eosinophils % 1.3 %; Hematocrit 42.5 % (42.0-52.0); Hemoglobin 13.3 g/dL (11.7-16.6); Lymphocytes # 1.1 10^3/uL (0.8-4.8); Lymphocytes % 14.2 %; Mean Corpuscular HGB Conc 31.3 g/dL (30.0-36.0); Mean Corpuscular Hemoglobin 28.4 pg (28.0-34.0); Mean Corpuscular Volume 90.8 fl (80-94); Mean Platelet Volume 10.1 fL (7.4-10.4); Monocytes # 0.5 10^3/uL (0.2-0.9); Monocytes % 7.1 %; Neutrophils # 5.85 10^3/uL (1.8-7.7); Neutrophils % 76.4 %; Nucleated Red Blood Cells % 0 %; Platelet Count 147 10^3/cmm (130-400); Red Blood Count 4.68 10^6/uL (4.1-5.3); Red Cell Distribution Width 15.4 % (12.1-15.1); White Blood Count 7.7 10^3/uL (4.0-10.0)
[2021-06-25] MEDS: metoclopramide 5 mg/mL SDV 2 mL 10 MG IVP (11:01)
[2021-06-25 11:34] LABS: Lactate (Lactic Acid level) 2.2 mmol/L (0.5-2.2)
[2021-06-25 11:35] LABS: Alanine Aminotransferase 125 U/L (0-41); Albumin Level 4.3 g/dL (3.5-5.2); Alkaline Phosphatase 553 IU/L (40-130); Anion Gap 19.6 (5-19); Aspartate Amino Transferase 181 U/L (0-40); Blood Urea Nitrogen 19 mg/dL (8-23); Calcium 9.3 mg/dL (8.5-10.5); Carbon Dioxide 22 mmol/L (22-29); Chloride 100 mmol/L (98-107); Creatinine Clr Calc Pharmacy 43.9134; Globulin 2.9 g/dL (1.3-4.6); Glucose 265 mg/dL (65-115); Lipase 34 U/L (13-60); Osmolality Calculated 296 mOsm/kg (285-295); Potassium 4.6 mmol/L (3.5-5.1); Sodium 137 mmol/L (136-145); Total Bilirubin 2.2 mg/dL (0.15-1.2); Total Protein 7.2 g/dL (6.6-8.7)
[2021-06-25 14:19] LABS: SARS Covid-2 Antigen Negative (Negative)
[2021-06-26] VITALS (17 sets, daily range): BP systolic 110–163; BP diastolic 45–93; PULSE 69–86; RESP 16–28; TEMP 36.2–37.1; O2SAT 93–100; BMI 23.3
--- NOTE | 2021-06-26 | SCC_ITS ---
Procedure Done: 1. Laparoscopic cholecystectomy with intraoperative cholangiogram 26.3 seconds of fluoroscopic guidance, for a cumulative dose of 43.30 mGy, was provided to Dr. Phillips by the radiology department. C-arm images of the abdomen were saved for the patient's permanent record. [facility]
[2021-06-26 00:31] LABS: Alanine Aminotransferase 146 U/L (0-41); Albumin Level 3.5 g/dL (3.5-5.2); Alkaline Phosphatase 516 IU/L (40-130); Anion Gap 17.3 (5-19); Aspartate Amino Transferase 177 U/L (0-40); Blood Urea Nitrogen 17 mg/dL (8-23); Calcium 8.3 mg/dL (8.5-10.5); Carbon Dioxide 23 mmol/L (22-29); Chloride 103 mmol/L (98-107); Globulin 2.7 g/dL (1.3-4.6); Glucose 191 mg/dL (65-115); Osmolality Calculated 295 mOsm/kg (285-295); Potassium 4.3 mmol/L (3.5-5.1); Sodium 139 mmol/L (136-145); Total Bilirubin 2.3 mg/dL (0.15-1.2); Total Protein 6.2 g/dL (6.6-8.7)
[2021-06-26 00:32] LABS: Creatinine Clr Calc Pharmacy 43.9134
[2021-06-26 06:42] LABS: Glucose Point of Care 310 mg/dL (70-110)
[2021-06-26] MEDS: sodium chloride 0.9% 1,000 ML 999 ML IV (07:01)
[2021-06-26] MEDS: piperacillin-tazobactam 4.5 GM in sodium chloride 0.9% (plus) 50 ML IV (07:01)
[2021-06-26] MEDS: insulin lispro 100 unit/1 mL SUBCUT (07:42)
[2021-06-26 07:51] LABS: Lactic Sepsis W/Reflex 1.5 mmol/L (0.5-2.2)
[2021-06-26] MEDS: sodium chlor 0.9% + KCl 20 mEq 20 MEQ/1,000 ML BAG 125 MEQ IV (08:06)
--- NOTE | 2021-06-26 09:06 | PM.CONSULT ---
Providers/Reason For Consult Consulting Physician/Specialty*: Clive Mejia MD, hospitalist Reason for Consult*: Medical management Primary Care Provider: SHANNAN Eastman History of Present Illness History of Present Illness Norbert Link is a 75 year old male who presented to the ER yesterday for worsening abdominal pain over the past 3-4 weeks with associated vomiting. PMH is significant for HTN, diabetes, hypothyroidism, and history of pacemaker and stents. The abdominal pain is located in the middle of his abdomen and radiates to his right shoulder and wraps around to his right mid-back. It comes and goes. It is better when he eats cream of mushroom and worse when he eats hard foods. His appetite has been normal recently. Gallbladder ultrasound in the ER showed cholelithiasis. He currently denies feeling any abdominal pain right now. He is unable to get an MRCP. There is concern regarding his cholestatic pattern, and elevated bilirubin on his enzymes that he may require ERCP. This is being clarified, through surgery and radiology. There is also concern regarding holding his Plavix as he required drug-eluting stents in the past. Currently he reports no chest discomfort, and has been doing very well since his last intervention December 08 of this 2020. He is vaccinated against COVID and has no past history of COVID. Review of Systems General: Reports: 10 or more systems reviewed and unremarkable except in HPI and below Const: Denies: fever(s) or chills Eyes: Denies: change in vision ENMT: Denies: throat pain Card: Denies: chest pain Resp: Denies: dyspnea GI: Reports: abdominal pain; Denies: hematemesis, diarrhea or constipation : Denies: urinary urgency Musc: Denies: joint swelling Skin/Breast: Denies: rash Neuro: Denies: headache(s) Psych: Denies: anxiety Endo: Denies: polyuria Levar/Lymph: Denies: easy bruising All/Imm: Denies: urticaria Medications/Allergies Home Medications Medication Instructions Recorded Confirmed Last Taken Type multivitamin [Daily Multi-Vitamin] 1 tab PO DAILY@0600 10/15/19 06/21/21 05/19/21 History omega-3 fatty acids 1,000 mg 1,000 mg PO DAILY@0600 07/05/20 06/21/21 05/19/21 History capsule PreserVision AREDS-2 1 tab PO BID@0600,1800 12/07/20 06/21/21 05/19/21 History pen needle, diabetic 33 gauge x #100 each 12/23/20 06/21/21 Unknown Rx aspirin 81 mg tablet,delayed 81 mg PO DAILY 12/27/20 06/21/21 05/19/21 History release clopidogrel 75 mg tablet 75 mg PO DAILY@0600 #90 tab 04/06/21 06/21/21 05/19/21 Rx atorvastatin 40 mg tablet 40 mg PO DAILY@0600 30 Days #30 tab 04/14/21 06/21/21 05/19/21 Rx empagliflozin 25 mg tablet 25 mg PO QAM #90 tab 04/14/21 06/21/21 05/19/21 Rx isosorbide mononitrate 30 mg 30 mg PO DAILY@0600 30 Days #30 tab 04/14/21 06/21/21 05/19/21 Rx tablet,extended release 24 hr levothyroxine 50 mcg tablet 50 mcg PO DAILY@0600 #30 tab 04/14/21 06/21/21 05/19/21 Rx lisinopril 5 mg tablet 5 mg PO DAILY@0600 #30 tab 04/14/21 06/21/21 05/19/21 Rx metoprolol succinate 25 mg 12.5 mg PO DAILY@0600 #16 tab 04/14/21 06/21/21 05/19/21 Rx tablet,extended release 24 hr Vitamin B-12 500 mcg PO DAILY 05/19/21 06/21/21 05/19/21 History famotidine 20 mg PO DAILY@0600 05/19/21 06/21/21 05/19/21 History insulin detemir U-100 100 unit/mL 34 unit SUBCUT DAILY@1500 ml 05/29/21 06/21/21 Unknown History (3 mL) subcutaneous pen Allergies Allergy/AdvReac Type Severity Reaction Status Date / Time metformin Allergy Severe ADR-Nausea Verified 06/21/21 08:18 Iodinated Contrast Media Allergy Unknown ALGY-Hives Verified 06/21/21 08:18 Current Medications Generic Name Dose Route Start Last Admin Trade Name Freq PRN Reason Stop Dose Admin Piperacillin Sod/Tazobactam 50 mls @ 12.5 mls/hr 06/26/21 06:30 06/26/21 07:01 Sod 4.5 gm/ Sodium Chloride IV 12.5 mls/hr Q6H RK Administration Protocol Potassium Chloride/Sodium Chloride 20 meq in 1,000 mls @ 125 mls/hr 06/26/21 06:30 06/26/21 08:06 Sodium Chlor 0.9% + Kcl 20 Meq IV 125 mls/hr .Q8H RK Administration Insulin Human Lispro 0 unit 06/26/21 08:00 06/26/21 07:42 Insulin Lispro 100 Unit/1 Ml SUBCUT 10 unit WM&BEDTIME RK Administration Protocol PFSH Acute PFSH: Medical History Adult onset hypothyroidism Atherosclerotic cardiovascular disease B12 deficiency Benign hypertension Carotid stenosis Cholecystitis Chronic kidney disease (CKD) Chronic kidney disease, unspecified Coronary artery disease COVID-19 vaccine administered 2 primary doses and booster Diabetes mellitus with hyperglycemia, with long-term current use of insulin GERD (gastroesophageal reflux disease) Mixed hyperlipidemia Noncompliance with medication regimen Presence of cardiac pacemaker Pulmonary nodule 5 mm on the left on CT imaging 05/19/2021 Surgical History H/O right knee surgery History of cardiac pacemaker in situ History of cervical discectomy History of ear surgery History of PTCA -distal RCA DAMEON 12/2020 -proximal RCA DAMEON, distal RCA balloon angioplasty, proximal and distal left circumflex DAMEON 10/2020 -previous RCA and circ stents in 2010 Status post carotid endarterectomy (10/19/19) right Family History Brother CAD (coronary artery disease) Cancer Diabetes Lung disease Mother CAD (coronary artery disease) Diabetes Family/Other Cancer Diabetes Sister Diabetes Father Diabetes Denies family history of Clotting disorder Dementia Chronic kidney disease (CKD) Suicide Anesthesia complication Bleeding disorder Stroke Social History Smoking and tobacco status: former smoker Second hand smoke exposure: No Smoking risk assessment/counseling performed?: No Alcohol intake: never Desire information about alcohol rehabilitation?: No Counseling given: No Desire information about substance/drug rehabilitation?: No Counseling given: No Adopted: No Caregiver/support person: No Lives independently: Yes Household members: none Housing: House Marital status: Single Number of children: 1 service: Yes branch: [employer] Current occupational status: retired Current occupation: [employer] History of recent travel: No Current gender identity: Male Vitals/I&O/Wt Last Vital Signs Temp 98.6 F 06/26/21 05:59 Pulse 69 06/26/21 08:00 Resp 23 H 06/26/21 08:00 BP 133/67 06/26/21 08:00 Pulse Ox 100 06/26/21 08:00 06/25/21 06/26/21 06/26/21 22:59 06:59 14:59 Intake Total 1000 / 1000 Balance 1000 / 1000 Weight last 48 hrs Weight 63.957 kg Physical Exam Narrative: EXAM NARRATIVE: General exam is a white male, currently reporting no abdominal discomfort, in no distress. HEENT: Atraumatic normocephalic. Pupils equally round. Oropharynx clear. Neck is supple no lymphadenopathy or thyromegaly Cardiovascular regular rate and rhythm without murmur, no S3 or S4 Lungs clear no wheezing or crackles Abdomen is soft, with positive bowel sounds. I do not delineate any tenderness. No obvious organomegaly. exam was deferred Extremities no cyanosis clubbing or edema, cap refill brisk Skin no rash Neuro no obvious focal deficits. Data Micro: Micro: Microbiology 06/26/21 06:58 Blood Culture - Pr eliminary Blood SPECIMEN [facility] 06/26/21 07:10 Blood Culture - Pr eliminary Blood SPECIMEN [facility] Other Data: Other data: Bilirubin 2.2 initially, 2.3 today. AST 181, then 177. ALT 125 and 146. Alk phos 553, now 516. Albumin 3.5 Rapid COVID-negative Gallbladder ultrasound cholelithiasis, positive Reese sign, fatty liver Previous abdomen pelvis CT May 19 demonstrated left pulmonary nodules, acute cholecystitis, mild diverticulosis A&P Assessment and plan (1) Cholecystitis: Patient with cholecystitis, clinical exam initially and history consistent with this. There is concern regarding his elevated bilirubin. From my understanding he is going to have a HIDA scan done, surgery consult, and then determine whether he is a surgical candidate here or proceeding with transfer and ERCP secondary to his cholestatic pattern on his laboratory. Agree with Renuka Doll n.p.o. Await surgical consultation Not candidate for MRCP here secondary to pacemaker. Status: Resolved (2) Atherosclerotic cardiovascular disease: His most recent stenting was December 08, 2020 He is currently on Plavix, aspirin, Imdur, metoprolol He has not been having any cardiac symptoms As it has been over 6 months since his intervention Plavix will be held currently. I clarified this with his private housing grant analyst as well. Status: Chronic (3) Diabetes mellitus with hyperglycemia, with long-term current use of insulin: Sliding scale insulin Status: Chronic Qualifiers: Diabetes mellitus type: type 2 Qualified Code(s): E11.65 - Type 2 diabetes mellitus with hyperglycemia; Z79.4 - FDC (current) use of insulin Additional A&P Information Multiple other medical problems as outlined in his past medical history Full code Lovenox for DVT prophylaxis Consult Attestations Medical Necessity Statement: Needs evaluation for cholecystectomy, potential for ERCP in this patient that now has had several hospital stays for acute cholecystitis. Is anticipated hospital stay is greater than 2 midnights. Time Spent in Patient Care: Greater than 35 minutes Coding Level of Care Code Acute Coding Assistant for [facility] Diagnoses Cholecystitis K81.9 Atherosclerotic cardiovascular disease I25.10 Diabetes mellitus with hyperglycemia, with long-term current use of insulin E11.65; Z79.4 Diabetes mellitus type: type 2
--- NOTE | 2021-06-26 09:18 | NM_ITS ---
WS: [id number] NUCLEAR MEDICINE HIDA SCAN HISTORY: cholecystitis, evaluate patency of common bile duct. COMPARISON: Gallbladder ultrasound 06/25/2021. TECHNIQUE: The patient was intravenously injected with 7.6 mCi of TC99m Mebrofenin. Immediate imaging over the right upper quadrant was followed by 5 minute image and additional images for a total of 60 minutes. Normal uptake of radiotracer throughout the liver. Activity within the gallbladder is not identified up to 120 minutes. The common bile duct is identifi ed and patent by 15 minutes. There is good filling of the common bile duct and small bowel. There is mild retention of the radiotracer within the liver at 120 minutes. This may indicate hepatocellular d ysfunction or partial obstruction. NM/NM hepatobiliary wo phar [id number] IMPRESSION: 1. Common bile duct is patent. At 15 minutes there is excretion into the commo n bile duct and small bowel. 2. Gallbladder is not identified 120 minutes. Favor cystic duct obstruction fr om acute cholecystitis. 3. Delayed excretion from the liver at 120 minutes. This can be seen with cirr hosis, hepatic cellular dysfunction and biliary obstruction. Common bile duct i s patent.
--- NOTE | 2021-06-26 16:02 | PM.HP ---
Providers/Chief Complaint Primary Care Provider: SHANNAN Eastman Chief Complaint: ABD PAIN History of Present Illness Norbert Link is a 75 year old male who had cardiac stents placed 6 months ago who now presents to the ER with complaints of abdominal pain, nausea and vomiting. Patient states that the pain has been ongoing for couple of days and he has been in the emergency room for about 30 hours and at present is completely asymptomatic. Denies any fevers chills or jaundice. He has had similar episodes in the past and had seen my partner but due to significant cardiac history surgery was on hold as patient had recently been not that symptomatic. Review of Systems General: Reports: 10 or more systems reviewed and unremarkable except in HPI and below Medications/Allergies Home Medications Medication Instructions Recorded Confirmed Last Taken Type multivitamin [Daily Multi-Vitamin] 1 tab PO DAILY@0600 10/15/19 06/26/21 06/25/21 History omega-3 fatty acids 1,000 mg 1,000 mg PO DAILY@0600 07/05/20 06/26/21 06/25/21 History capsule PreserVision AREDS-2 1 tab PO DAILY@0600 12/07/20 06/26/21 06/25/21 History pen needle, diabetic 33 gauge x #100 each 12/23/20 06/26/21 Unknown Rx aspirin 81 mg tablet,delayed 81 mg PO DAILY 12/27/20 06/26/21 06/25/21 History release clopidogrel 75 mg tablet 75 mg PO DAILY@0600 #90 tab 04/06/21 06/26/21 06/25/21 Rx atorvastatin 40 mg tablet 40 mg PO DAILY@0600 30 Days #30 tab 04/14/21 06/26/21 06/25/21 Rx empagliflozin 25 mg tablet 25 mg PO QAM #90 tab 04/14/21 06/26/21 06/25/21 Rx isosorbide mononitrate 30 mg 30 mg PO DAILY@0600 30 Days #30 tab 04/14/21 06/26/21 06/25/21 Rx tablet,extended release 24 hr levothyroxine 50 mcg tablet 50 mcg PO DAILY@0600 #30 tab 04/14/21 06/26/21 06/25/21 Rx lisinopril 5 mg tablet 5 mg PO DAILY@0600 #30 tab 1106/26/21 06/25/21 Rx metoprolol succinate 25 mg 12.5 mg PO DAILY@0600 #16 tab 04/14/21 06/26/21 06/25/21 Rx tablet,extended release 24 hr cyanocobalamin (vitamin B-12) 500 mcg PO DAILY 05/19/21 06/26/21 06/25/21 History [Vitamin B-12] famotidine 20 mg PO DAILY@0600 05/19/21 06/26/21 06/25/21 History insulin detemir U-100 100 unit/mL 34 unit SUBCUT DAILY@1500 ml 05/29/21 06/26/21 06/25/21 History (3 mL) subcutaneous pen Allergies Allergy/AdvReac Type Severity Reaction Status Date / Time metformin Allergy Severe ADR-Nausea Verified 06/21/21 08:18 Iodinated Contrast Media Allergy Unknown ALGY-Hives Verified 06/21/21 08:18 PFSH Acute PFSH: Medical History Adult onset hypothyroidism Atherosclerotic cardiovascular disease B12 deficiency Benign hypertension Carotid stenosis Cholecystitis Chronic kidney disease (CKD) Chronic kidney disease, unspecified Coronary artery disease COVID-19 vaccine administered 2 primary doses and booster Diabetes mellitus with hyperglycemia, with long-term current use of insulin GERD (gastroesophageal reflux disease) Mixed hyperlipidemia Noncompliance with medication regimen Presence of cardiac pacemaker Pulmonary nodule 5 mm on the left on CT imaging 05/19/2021 Surgical History H/O right knee surgery History of cardiac pacemaker in situ History of cervical discectomy History of ear surgery History of PTCA -distal RCA DAMEON 12/2020 -proximal RCA DAMEON, distal RCA balloon angioplasty, proximal and distal left circumflex DAMEON 10/2020 -previous RCA and circ stents in 2010 Status post carotid endarterectomy (10/19/19) right Family History Brother CAD (coronary artery disease) Cancer Diabetes Lung disease Mother CAD (coronary artery disease) Diabetes Family/Other Cancer Diabetes Sister Diabetes Father Diabetes Denies family history of Clotting disorder Dementia Chronic kidney disease (CKD) Suicide Anesthesia complication Bleeding disorder Stroke Social History Smoking and tobacco status: former smoker Second hand smoke exposure: No Smoking risk assessment/counseling performed?: No Alcohol intake: never Desire information about alcohol rehabilitation?: No Counseling given: No Desire information about substance/drug rehabilitation?: No Counseling given: No Adopted: No Caregiver/support person: No Lives independently: Yes Household members: none Housing: House Marital status: Single Number of children: 1 service: Yes branch: [employer] Current occupational status: retired Current occupation: [employer] History of recent travel: No Current gender identity: Male Vitals/I&O/Wt Last Vital Signs Temp 98.6 F 06/26/21 05:59 Pulse 74 06/26/21 12:00 Resp 28 H 06/26/21 12:00 BP 142/64 06/26/21 12:00 Pulse Ox 99 06/26/21 12:00 06/26/21 06/26/21 06/26/21 06:59 14:59 22:59 Intake Total 1050 / 1050 Balance 1050 / 1050 Weight last 48 hrs Weight 141 lb Physical Exam Narrative: EXAM NARRATIVE: HEENT: Normocephalic Eye: Sclera /conjunctiva normal Respiratory and chest: Bilateral clear breath sounds on auscultation Cardiovascular: Normal S1 and S2 heart sounds Abdomen: Soft to palpation, nontender, nondistended Neurological: Oriented to place person and time Skin: Intact, no lesions appreciated on gross exam Data : 06/25/21 10:34 06/26/21 00:05 Micro: Microbiology 06/26/21 06:58 Blood Culture - Preliminary Blood SPECIMEN COLLECTED 06/26/21 07:10 Blood Culture - Preliminary Blood SPECIMEN COLLECTED A&P Assessment and plan (1) Cholecystitis: 75-year-old male who presents to the ER with complaints of abdominal pain, nausea and vomiting and was noted to have elevated LFTs. At present patient is completely asymptomatic. Ultrasound of the gallbladder showed cholelithiasis. HIDA scan showed acute cholecystitis with normal common bile duct and hepatocellular dysfunction. Discussed options with the patient Plan for laparoscopic possible open cholecystectomy Patient is on IV Zosyn Procedure, risks, benefits and alternatives have been discussed with the patient who wishes to proceed with surgery. Status: Resolved Attestations Medical Necessity Statement*: Acute cholecystitis Coding Level of Care Code Acute Tightener for [facility] Diagnoses Cholecystitis K81.9
--- NOTE | 2021-06-26 16:34 | ANES.PREANE2 ---
Pre-Anesthetic Assessment Pre-Anesthetic Assessment: Height/Weight: Height 1.7 m Weight 63.957 kg Temp Pulse Resp BP Pulse Ox 98.1 F 80 16 163/84 99 06/26/21 16:32 06/26/21 16:32 06/26/21 16:32 06/26/21 16:32 06/26/21 16:32 Preop Diagnosis: Acute cholecystitis Proposed Procedure: Operation Date: 06/26/21 15:50 Proposed Procedures p Laparoscopic Cholecystectomy(Not Applicable) - Froylan Phillips MD Was Beta Delores taken within 24 hours: N/A Was Clonidine taken within 24 hours: N/A Social: Social History: No alcohol and No tobacco Exam: Pre-Anes Outpt Exam: alert, oriented x 3, clear to auscultation bilaterally and regular rate & rhythm Airway: Submandibular: WNL Cervical ROM: WNL MP: 2 Dentition: False CV/HEM: CV/HEM: CAD (stents), HTN and PVD GI: GI: GERD Metabolic: Metabolic: DM and Thyroid Anesthetic Plan: ASA status: 3 Anesthesia: General (Mod RSI) Risk of > 500 ml blood loss (7ml/kg in children): No Medications/Allergies Current Medications: Current Medications Generic Name Dose Route Start Last Admin Trade Name Freq PRN Reason Stop Dose Admin Piperacillin Sod/T azobactam 50 mls @ 12.5 mls /hr 06/26/21 06:30 06/26/21 13:09 Sod 4.5 gm/ Sodi um Chloride IV Infused Q6H RK Infusion Protocol Potassium Chloride /Sodium Chloride 20 meq in 1,000 m ls @ 125 mls/hr 06/26/21 06:30 06/26/21 08:06 Sodium Chlor 0.9 % + Kcl 20 Meq IV 125 mls/hr .Q8H RK Administration Insulin Human Lisp ro 0 unit 06/26/21 08:00 06/26/21 12:58 Insulin Lispro 1 00 Unit/1 Ml SUBCUT Not Given WM&BEDTIME RK Protocol PFSH Anesthesia PFSH: Medical History Adult onset hypothyroidism Atherosclerotic cardiovascular disease B12 deficiency Benign hypertension Carotid stenosis Cholecystitis Chronic kidney disease (CKD) Chronic kidney disease, unspecified Coronary artery disease COVID-19 vaccine administered 2 primary doses and booster Diabetes mellitus with hyperglycemia, with long-term current use of insulin GERD (gastroesophageal reflux disease) Mixed hyperlipidemia Noncompliance with medication regimen Presence of cardiac pacemaker Pulmonary nodule 5 mm on the left on CT imaging 05/19/2021 Surgical History H/O right knee surgery History of cardiac pacemaker in situ History of cervical discectomy History of ear surgery History of PTCA -distal RCA DAMEON 12/2020 -proximal RCA DAMEON, distal RCA balloon angioplasty, proximal and distal left circumflex DAMEON 10/2020 -previous RCA and circ stents in 2010 Status post carotid endarterectomy (10/19/19) right Family History Brother CAD (coronary artery disease) Cancer Diabetes Lung disease Mother CAD (coronary artery disease) Diabetes Family/Other Cancer Diabetes Sister Diabetes Father Diabetes Denies family history of Clotting disorder Dementia Chronic kidney disease (CKD) Suicide Anesthesia complication Bleeding disorder Stroke Social History Smoking and tobacco status: former smoker Second hand smoke exposure: No Smoking risk assessment/counseling performed?: No Alcohol intake: never Desire information about alcohol rehabilitation?: No Counseling given: No Desire information about substance/drug rehabilitation?: No Counseling given: No Adopted: No Caregiver/support person: No Lives independently: Yes Household members: none Housing: House Marital status: Single Number of children: 1 service: Yes branch: [employer] Current occupational status: retired Current occupation: [employer] History of recent travel: No Current gender identity: Male Data Anesthesia CBC & Chem 7: 06/25/21 10:34 06/26/21 00:05 Other Labs: Laboratory Results - last 48 hr 06/25/21 06/25/21 06/25/21 10:34 10:34 10:34 WBC 7.7 RBC 4.68 Hgb 13.3 Hct 42.5 MCV 90.8 MCH 28.4 MCHC 31.3 RDW 15.4 H Plt Count 147 MPV 10.1 Neut % (Auto) 76.4 Lymph % (Auto) 14.2 [place] % (Auto) 7.1 Eos % (Auto) 1.3 Baso % (Auto) 0.7 Neut # (Auto) 5.85 Lymph # (Auto) 1.1 [place] # (Auto) 0.5 Eos # (Auto) 0.1 Baso # (Auto) 0.1 Nucleated RBC % (auto) 0 Nucleated RBCs # 0.0 Sodium 137 Potassium 4.6 Chloride 100 Carbon Dioxide 22 Anion Gap 19.6 H BUN 19 Creatinine 1.3 H GFR Calculation Not Reportable Glucose 265 H POC Glucose Calculated Osmolality 296 H Lactic Acid Lactate 2.2 Calcium 9.3 Total Bilirubin 2.2 H AST 181 H ALT 125 H Alkaline Phosphatase 553 H Total Protein 7.2 Albumin 4.3 Globulin 2.9 Lipase 34 SARS-CoV-2 Ag (Rapid) 06/25/21 06/26/21 06/26/21 13:38 00:05 06:38 WBC RBC Hgb Hct MCV MCH MCHC RDW Plt Count MPV Neut % (Auto) Lymph % (Auto) [place] % (Auto) Eos % (Auto) Baso % (Auto) Neut # (Auto) Lymph # (Auto) [place] # (Auto) Eos # (Auto) Baso # (Auto) Nucleated RBC % (auto) Nucleated RBCs # Sodium 139 Potassium 4.3 Chloride 103 Carbon Dioxide 23 Anion Gap 17.3 BUN 17 Creatinine 1.3 H GFR Calculation Not Reportable Glucose 191 H POC Glucose 310 H Calculated Osmolality 295 Lactic Acid Lactate Calcium 8.3 L Total Bilirubin 2.3 H AST 177 H ALT 146 H Alkaline Phosphatase 516 H Total Protein 6.2 L Albumin 3.5 Globulin 2.7 Lipase SARS-CoV-2 Ag (Rapid) Negative 06/26/21 07:10 WBC RBC Hgb Hct MCV MCH MCHC RDW Plt Count MPV Neut % (Auto) Lymph % (Auto) [place] % (Auto) Eos % (Auto) Baso % (Auto) Neut # (Auto) Lymph # (Auto) [place] # (Auto) Eos # (Auto) Baso # (Auto) Nucleated RBC % (auto) Nucleated RBCs # Sodium Potassium Chloride Carbon Dioxide Anion Gap BUN Creatinine GFR Calculation Glucose POC Glucose Calculated Osmolality Lactic Acid 1.5 Lactate Calcium Total Bilirubin AST ALT Alkaline Phosphatase Total Protein Albumin Globulin Lipase SARS-CoV-2 Ag (Rapid) Micro: Microbiology 06/26/21 06:58 Blood Culture - Preliminary Blood SPECIMEN COLLECTED 06/26/21 07:10 Blood Culture - Preliminary Blood SPECIMEN COLLECTED Cardiac Studies: Echocardiogram 12/07/20 Echocardiogram Ultrasound 10/08/20
[2021-06-26] MEDS: sodium chloride 0.9% 1,000 ML 30 ML IV (16:35)
[2021-06-26 17:01] LABS: INR 1.13 (0.8-1.2)
[2021-06-26 17:58] LABS: Glucose Point of Care 135 mg/dL (70-110)
--- NOTE | 2021-06-26 18:12 | XR_ITS ---
WS: [id number] Exam: XR cholangio operative [id number] Date/Time of Exam: 06/26/2021 6:12 PM Reason For Exam: OPERATIVE CHOLANGIOGRAM C-arm images of operative cholangiogram are submitted for evaluation. There is dilatation of the intrahepatic ducts as well as the common bile duct. Questionable tiny fill ing defect seen in the distal common bile duct could represent a retained stone. There is some spilla ge of contrast into the duodenal C-loop. Recommendations: If thought to be clinically warranted, further workup with ERCP or MRCP might be con sidered. XR/XR cholangio operative [id number] IMPRESSION: 1. Dilatation of intra and extrahepatic bile ducts worrisome for at least parti al obstruction of the distal common bile duct. On image 23 of the series there is a questionable small rounded filling defect at the distal common duct could be a retained stone. There is some spillage of contrast into the duodenal C-loo p noted on several images.
[2021-06-26] MEDS: iohexol 300 mg/mL 50 mL Btl (OR ONLY) XX (18:30)
[2021-06-26] MEDS: piperacillin-tazobactam 3.375 GM in sodium chloride 0.9% (plus) 50 ML IV (19:03)
--- NOTE | 2021-06-26 19:42 | PM.OP ---
Operative Report Date of procedure: June 26, 2021 Pre-op Diagnosis: Acute calculus cholecystitis, cystic obstruction noted on HIDA scan Pre-op Diagnosis: Elevated LFTs, MRCP could not be obtained due to pacemaker HIDA scan showed nonfilling of gallbladder suggestive of acute cholecystitis with drainage of contrast through CBD. Patient could not be transferred due to lack of bed availability Post-op Diagnosis: Acute calculus cholecystitis Intraoperative cholangiogram showed filling of the dilated right and left hepatic ducts, CBD with drainage of contrast into the duodenum which was improved after administration of glucagon. Earlier images showed a possible 5 mm stone in the distal CBD but it could not be visualized later. Procedure Done: 1. Laparoscopic cholecystectomy with intraoperative cholangiogram Specimens removed/disposition: Gallbladder Surgeon: Froylan Phillips Anesthesia: General Estimated blood loss (mL): 150 Condition: stable Disposition: PACU Procedure: The patient was taken to the operating room and was intubated under general anesthesia. After the antibiotic had been administered, the abdomen was prepped and draped in a sterile manner. Using a #15 blade, a 1 centimeter infraumbilical curvilinear incision was made and using an open Leah technique the peritoneal cavity was entered. A 10 millimeter port was placed and 15 millimeters of pneumoperitoneum was created. A 10 millimeter, 30 degrees scope was then introduced. Three 5 millimeter ports were placed in the epigastric, midclavicular and the anterior axillary line two fingerbreadths below the costal margin on the right side under the direct visualization. The gallbladder was acutely inflamed and packed with stones. Ratcheted forceps were introduced into the lateral most port and was used to retract the fundus of the gallbladder cephalad and using forceps the infundibulum of the gallbladder was retracted laterally. The omentum as well as the antrum of the stomach was peeled from the body of the gallbladder until the cystic duct could be visualized. Using L-hook cautery the peritoneum overlying the Calot's triangle was opened medially and laterally until the cystic duct and the cystic artery were skeletonized. Dissection was carried along the body of the gallbladder and after ensuring critical view of safety, a clip was applied on the cystic duct and a cholangiogram catheter was introduced through separate introducer sheath between the midclavicular and axillary 5 mm ports. An opening was made in the cystic duct with laparoscopic scissors and the catheter was introduced and the balloon inflated. Omnipaque 50: 50 diluted with saline was injected through the cholangiogram catheter. There was filling of the dilated right and left hepatic ducts as well as common bile duct. A small 5 mm filling defect was noted which could not be seen on later images. 1 mg of glucagon was administrated and the catheter was flushed with saline. On repeat imaging the filling defect was not visualized and there was contrast noted in the duodenum. 3 clips were applied on the cystic duct distally and 3 clips applied on the cystic artery and cut leaving, 3 clips on the remaining portion of the duct and 2 clips on the remaining portion of the artery. The rest of the gallbladder was dissected off the liver using L-hook cautery. The plane of dissection was extremely difficult to identify due to significant inflammation. There was bleeding from the hepatic parenchyma which was controlled with cautery and a 4 x 8 cm Surgicel placed in the gallbladder fossa. There were couple of openings made in the body of the gallbladder with spillage of stones which was irrigated and suctioned out. An EndoCatch bag was introduced to remove the gallbladder. A 10 flat KAREEN drain was introduced through the lateralmost port, placed in the subhepatic space and secured to the skin using 3-0 Prolene suture. All the ports were removed under direct visualization and there was no bleeding noted from the port sites. The fascia of the umbilicus was closed using [id number] Vicryl sutures and the subcutaneous tissue was approximated using 3-0 Vicryl sutures. The skin at all four ports were closed using torrey. A total of 10 millimeters of 0.5% Marcaine was infiltrated around the port sites. The patient was stable throughout the procedure, extubated and transferred to recovery room in stable condition.
[2021-06-26] MEDS: famotidine 20 mg/2 mL INJ IVP (21:46)
[2021-06-26] MEDS: heparin 5,000 unit/mL INJ 1 mL 5000 UNIT SUBCUT (21:46)
[2021-06-27] VITALS (9 sets, daily range): BP systolic 102–126; BP diastolic 53–73; PULSE 84–100; RESP 16–18; TEMP 36.8–37.7; O2SAT 94–97
[2021-06-27] MEDS: morphine 4 mg/mL SDV 1 mL 2 MG IVP (03:00)
--- NOTE | 2021-06-27 03:07 | PC.NURSE ---
pt awoke slightly confused and needing to urinate. pt had pulled at gerry drain and bandaids causing bleeding. cleaned pt and reinforced bandaids and a drain sponge around the drain, 150ml drained from gerry. pain meds administered and water provided. pt settled back into bed and comfortable at this time.
[2021-06-27 06:03] LABS: Basophils % 0.2 %; Hemoglobin 11.6 g/dL (11.7-16.6); Lymphocytes # 0.4 10^3/uL (0.8-4.8); Lymphocytes % 7.4 %; Mean Corpuscular HGB Conc 31.4 g/dL (30.0-36.0); Mean Corpuscular Hemoglobin 29.1 pg (28.0-34.0); Mean Corpuscular Volume 92.7 fl (80-94); Mean Platelet Volume 10.7 fL (7.4-10.4); Monocytes # 0.4 10^3/uL (0.2-0.9); Monocytes % 6.7 %; Neutrophils # 5.09 10^3/uL (1.8-7.7); Nucleated Red Blood Cells % 0 %; Platelet Count 116 10^3/cmm (130-400); Red Blood Count 3.99 10^6/uL (4.1-5.3)
[2021-06-27 06:19] LABS: Alanine Aminotransferase 173 U/L (0-41); Albumin Level 3.5 g/dL (3.5-5.2); Alkaline Phosphatase 583 IU/L (40-130); Anion Gap 20.1 (5-19); Aspartate Amino Transferase 208 U/L (0-40); Blood Urea Nitrogen 20 mg/dL (8-23); Calcium 7.7 mg/dL (8.5-10.5); Carbon Dioxide 18 mmol/L (22-29); Chloride 105 mmol/L (98-107); Glucose 166 mg/dL (65-115); Osmolality Calculated 292 mOsm/kg (285-295); Potassium 5.1 mmol/L (3.5-5.1); Sodium 138 mmol/L (136-145); Total Bilirubin 3.7 mg/dL (0.15-1.2); Total Protein 5.5 g/dL (6.6-8.7)
[2021-06-27 08:19] LABS: Glucose Point of Care 206 mg/dL (70-110)
[2021-06-27 08:19] LABS: Glucose Point of Care 186 mg/dL (70-110)
--- NOTE | 2021-06-27 11:00 | PM.PN ---
Documented by User: Yumiko Obando MED STDNT 06/27/21 11:15 Subjective Subjective: Interval history: Norbert states he is sore all over from his surgery yesterday but the pain meds help. He is tolerating liquids and would like to know when he can go home. Vitals/I&O/Wt Last Vital Signs Temp 98.3 F 06/27/21 04:00 Pulse 97 06/27/21 08:00 Resp 18 06/27/21 08:00 BP 120/71 06/27/21 08:00 Pulse Ox 97 06/27/21 08:00 06/26/21 06/27/21 06/27/21 22:59 06:59 14:59 Intake Total 3430 / 4480 240 / 4720 480 / 480 Output Total 330 / 330 610 / 940 Balance 3100 / 4150 -370 / 3780 480 / 480 Weight last 48 hrs Weight 67.755 kg Physical Exam Narrative: EXAM NARRATIVE: General: in no acute distress, conversive, in good spirits HEENT: normocephalic, atraumatic Neck: supple, no thyromegaly, no lymphadenopathy Cardiovascular: RRR w/o murmurs Lungs: clear to auscultation bilaterally, no wheezes Abdomen: soft, slightly tender to palpation, positive bowel sounds, surgical wounds dressed and bandaged : deferred Extremities: no cyanosis, clubbing, or edema Skin: no rash Neuro: no obvious focal deficits Data : 06/27/21 05:20 06/27/21 05:20 Micro: Microbiology 06/26/21 07:10 Blood Culture - Preliminary Blood NEGATIVE TO DATE 06/26/21 06:58 Blood Culture - Preliminary Blood Other data: HIDA scan showed patent CBD and was suggestive of cystic duct obstruction from acute cholecystitis. Intraop cholangiogram showed patent right and left hepatic ducts and possible 5mm stone in distal CBD at one point that was later not visualized A&P Additional A&P Information (1) Cholecystitis: Patient underwent lap cholecystectomy with intraop cholangiogram yesterday. Intraop cholangiogram showed patent right and left hepatic ducts and possible 5mm stone in distal CBD at one point that was later not visualized. Patient will be observed today due to concern for retained stone. Continue Zosyn Started back up on several home meds (aspirin, atorvastatin, levothyroxine, metoprolol, famotidine) Full liquid diet Status: Resolved (2) Atherosclerotic cardiovascular disease: His most recent stenting was December 08, 2020 He is currently on Plavix, aspirin, Imdur, metoprolol He has not been having any cardiac symptoms As it has been over 6 months since his intervention Plavix will be held currently. I clarified this with his private pmo business analyst as well. Status: Chronic (3) Diabetes mellitus with hyperglycemia, with long-term current use of insulin: Sliding scale insulin Status: Chronic Coding Level of Care Code Acute Adaptive Physical Education Specialist for Lu Fwd Documented by User: Clive Mejia MD 06/27/21 11:18 Subjective Subjective: Interval history: Agree with above. No changes. I interviewed the patient as well. Medications: Reviewed: Yes Physical Exam Narrative: EXAM NARRATIVE: Agree with above. No changes. Note that he has a drain, coming from his gallbladder area with serosanguineous fluid. Data : 06/27/21 05:20 06/27/21 05:20 A&P Additional A&P Information Agree with above. Some areas to clarify. He will continue his Zosyn. Repeat LFTs tomorrow. Diet has been advanced to full liquids. Continue to hold Plavix currently, but may restart tomorrow if no evidence of increasing or worsening LFTs that would warrant possible ERCP. Attestations Medical Necessity Statement*: Needs continued hospitalization for IV antibiotics secondary to cholecystitis, status post cholecystectomy with cholestatic pattern to his liver function tests. Coding Level of Care Code Acute Adaptive Physical Education Specialist for Farrahg Fwd
[2021-06-27 11:17] LABS: Glucose Point of Care 249 mg/dL (70-110)
[2021-06-27] MEDS: famotidine 20 mg Tablet PO ×2 (11:17→17:02)
[2021-06-27] MEDS: HYDROcodone-acetaminophen 5-325 mg Tablet 1 TAB PO ×2 (11:17→20:10)
[2021-06-27] MEDS: aspirin 81 mg EC Tablet PO (11:17)
[2021-06-27] MEDS: heparin 5,000 unit/mL INJ 1 mL 5000 UNIT SUBCUT ×2 (11:17→20:53)
[2021-06-27] MEDS: sennosides-docusate Tablet 1 TAB PO ×2 (11:17→17:02)
[2021-06-27] MEDS: piperacillin-tazobactam 3.375 GM in sodium chloride 0.9% (plus) 50 ML IV ×2 (12:09→17:02)
[2021-06-27] MEDS: insulin lispro 100 unit/1 mL SUBCUT ×3 (12:14→22:14)
--- NOTE | 2021-06-27 16:51 | PM.PN ---
Subjective Subjective: Interval history: Patient tolerating full liquid diet, denies any nausea or vomiting, wants to go home Vitals/I&O/Wt Last Vital Signs Temp 98.3 F 06/27/21 04:00 Pulse 84 06/27/21 16:00 Resp 18 06/27/21 16:00 BP 123/70 06/27/21 16:00 Pulse Ox 94 06/27/21 16:00 06/27/21 06/27/21 06/27/21 06:59 14:59 22:59 Intake Total 240 / 4720 960 / 1010 50 / 1010 Output Total 610 / 940 Balance -370 / 3780 960 / 1010 50 / 1010 Weight last 48 hrs Weight 149 lb 6 oz Physical Exam Narrative: EXAM NARRATIVE: Abdomen: Soft, tender, nondistended, incision clean dry and intact, KAREEN drain output is sanguinous Data : 06/27/21 05:20 06/27/21 05:20 Micro: Microbiology 06/26/21 07:10 Blood Culture - Preliminary Blood NEGATIVE TO DATE 06/26/21 06:58 Blood Culture - Preliminary Blood A&P Assessment and plan (1) Status post laparoscopic cholecystectomy: 75-year-old male status post laparoscopic cholecystectomy with cholangiogram. WBC is normal, but LFTs are elevated His KAREEN drain output is sanguinous and his hemoglobin is 11.6 Advance to full liquid diet CBC CMP tomorrow Continue aspirin, hold Plavix Heparin for DVT prophylaxis Pepcid 20 mg twice daily Continue Zosyn Senna S for bowel regimen Patient will need greater than 2 nights of inpatient stay to ensure that LFTs are trending down and he does not have significant postop bleeding Status: Acute Attestations Medical Necessity Statement*: Status post cholecystectomy with elevated LFTs with significant cardiac history currently off Plavix requiring 1 more night of inpatient stay Coding Level of Care Code Acute Drying Machine Receiver for Chg Fwd Diagnoses Status post laparoscopic cholecystectomy Z90.49
[2021-06-27 17:02] LABS: Glucose Point of Care 215 mg/dL (70-110)
[2021-06-27] MEDS: enoxaparin 40 mg/0.4 mL Syringe SUBCUT (17:02)
[2021-06-27 20:59] LABS: Glucose Point of Care 191 mg/dL (70-110)
[2021-06-28] VITALS (7 sets, daily range): BP systolic 95–130; BP diastolic 47–72; PULSE 61–106; RESP 17–18; TEMP 36.5–38.1; O2SAT 90–98
[2021-06-28] MEDS: piperacillin-tazobactam 3.375 GM in sodium chloride 0.9% (plus) 50 ML IV ×3 (00:54→18:24)
[2021-06-28 03:06] LABS: Basophils % 0.3 %; Eosinophils % 0.5 %; Hematocrit 35.1 % (42.0-52.0); Lymphocytes # 1.1 10^3/uL (0.8-4.8); Lymphocytes % 14.2 %; Mean Corpuscular HGB Conc 31.3 g/dL (30.0-36.0); Mean Corpuscular Hemoglobin 28.4 pg (28.0-34.0); Mean Corpuscular Volume 90.5 fl (80-94); Mean Platelet Volume 10.3 fL (7.4-10.4); Monocytes # 0.7 10^3/uL (0.2-0.9); Monocytes % 8.9 %; Neutrophils # 5.75 10^3/uL (1.8-7.7); Neutrophils % 75.7 %; Nucleated Red Blood Cells % 0 %; Platelet Count 134 10^3/cmm (130-400); Red Blood Count 3.88 10^6/uL (4.1-5.3); Red Cell Distribution Width 15.4 % (12.1-15.1); White Blood Count 7.6 10^3/uL (4.0-10.0)
[2021-06-28 03:33] LABS: Alanine Aminotransferase 148 U/L (0-41); Albumin Level 3.2 g/dL (3.5-5.2); Alkaline Phosphatase 490 IU/L (40-130); Anion Gap 16.1 (5-19); Aspartate Amino Transferase 142 U/L (0-40); Blood Urea Nitrogen 22 mg/dL (8-23); Calcium 7.8 mg/dL (8.5-10.5); Carbon Dioxide 20 mmol/L (22-29); Chloride 104 mmol/L (98-107); Globulin 2.3 g/dL (1.3-4.6); Glucose 167 mg/dL (65-115); Osmolality Calculated 289 mOsm/kg (285-295); Potassium 4.1 mmol/L (3.5-5.1); Sodium 136 mmol/L (136-145); Total Bilirubin 1.6 mg/dL (0.15-1.2); Total Protein 5.5 g/dL (6.6-8.7)
[2021-06-28] MEDS: ondansetron 2 mg/ML SDV 2 mL 4 MG IVP (05:36)
[2021-06-28] MEDS: acetaminophen 325 mg Tablet 650 MG PO (05:50)
[2021-06-28] MEDS: levothyroxine 50 mcg Tablet PO (05:50)
[2021-06-28] MEDS: HYDROcodone-acetaminophen 5-325 mg Tablet 1 TAB PO ×2 (05:50→21:21)
[2021-06-28] MEDS: atorvastatin 40 mg Tablet PO (05:51)
[2021-06-28] MEDS: metoprolol succinate ER (24 HR) 25 mg Tablet 12.5 MG PO (05:51)
[2021-06-28 06:49] LABS: Glucose Point of Care 203 mg/dL (70-110)
--- NOTE | 2021-06-28 07:16 | ANE.PACU2 ---
Inpatient post-anesthesia follow up: Airway intact: Yes Vital signs: Temperature 100.1 F Pulse Rate 61 Respiratory Rate 18 Blood Pressure 126/72 Pulse Oximetry 97 Oxygen Delivery Me thod Room Air Oxygen Flow Rate 6 Fraction of Inspir ed Oxygen Hydration adequate: Yes Nausea and vomiting: No Pain level: 2 Mental status: Baseline
--- NOTE | 2021-06-28 08:43 | P.PN_ITS ---
Documented by User: SAVANNA Tidwell STDMAYELA 06/28/21 09:14 Subjective Subjective: Interval history: Norbert had a low grade fever last night and this morning. He was eating breakfast this morning and states that he is still sore. He had some nausea last night that resolved this morning. Vitals/I&O/Wt Last Vital Signs Temp 99.3 F 06/28/21 08:00 Pulse 101 H 06/28/21 08:00 Resp 17 06/28/21 08:00 BP 95/55 06/28/21 08:00 Pulse Ox 94 06/28/21 08:00 06/27/21 06/28/21 06/28/21 22:59 06:59 14:59 Intake Total 460 / 1420 110 / 1530 Output Total 70 / 70 515 / 585 Balance 390 / 1350 -405 / 945 Weight last 48 hrs Weight 67.755 kg Physical Exam Narrative: EXAM NARRATIVE: General: in no acute distress, sitting up eating breakfast, forehead warm to touch HEENT: normocephalic, atraumatic, oropharynx clear Neck: supple Cardiovascular: RRR without murmurs Lungs: clear to auscultation bilaterally, no wheezes Abdomen: soft, surgical wounds bandaged, drain located on right side with serosanguineous fluid Extremities: no cyanosis or edema Neuro: no obvious focal deficits Skin: no rash Data : 06/28/21 02:08 06/28/21 02:08 Micro: Microbiology 06/26/21 07:10 Blood Culture - Preliminary Blood NEGATIVE TO DATE 06/26/21 06:58 Blood Culture - Preliminary Blood Other data: WBC 7.6 Total bili, AST, ALT, ALP trending down A&P Additional A&P Information (1) Cholecystitis: Patient underwent lap cholecystectomy with intraop cholangiogram yesterday. Intraop cholangiogram showed patent right and left hepatic ducts and possible 5mm stone in distal CBD at one point that was later not visualized. Patient will be continue to be monitored today due to concern for retained stone and low grade fever. Continue Zosyn Hold Plavix Started on GI soft diet (2) Atherosclerotic cardiovascular disease: His most recent stenting was December 08, 2020 He has not been having any cardiac symptoms As it has been over 6 months since his intervention Plavix will be held currently. I clarified this with his private cut off machine unloader as well. Status: Chronic (3) Diabetes mellitus with hyperglycemia, with long-term current use of insulin: Sliding scale insulin Status: Chronic Full code Lovenox for DVT prophylaxis Coding Level of Care Code Acute Franchise Sales Manager for Lu Fwd Documented by User: Clive Mejia MD 06/28/21 09:32 Subjective Subjective: Interval history: Agree with above. I interviewed the patient as well. Medications: Reviewed: Yes Physical Exam Narrative: EXAM NARRATIVE: Agree with above. No changes needed. Note that the patient has bowel sounds, denies nausea, and is eager to eat. Data : 06/28/21 02:08 06/28/21 02:08 A&P Additional A&P Information Agree with above. No overall changes. Note that the patient needs to continue IV antibiotics currently. He had a low-grade temperature last night. Gallbladder showed marked inflammation at surgery. Further IV antibiotics are warranted, and will discharge him and resume his Plavix when okayed by surgery. I suspect he will still need 1-2 more days of hospitalization. Blood culture growing 1 out of 3 bottles positive for gram-positive cocci in clusters. I believe this is likely contaminant. Will redraw blood culture. Attestations Medical Necessity Statement*: Needs continued hospitalization for IV antibiotics related to acute cholecystitis Coding Level of Care Code Acute Franchise Sales Manager for Farrahg Fwd
[2021-06-28] MEDS: insulin lispro 100 unit/1 mL SUBCUT ×4 (09:09→21:58)
[2021-06-28] MEDS: aspirin 81 mg EC Tablet PO (09:10)
[2021-06-28] MEDS: sennosides-docusate Tablet 1 TAB PO ×2 (09:10→18:25)
[2021-06-28] MEDS: famotidine 20 mg Tablet PO ×2 (09:10→18:25)
[2021-06-28] MEDS: heparin 5,000 unit/mL INJ 1 mL 5000 UNIT SUBCUT (09:10)
[2021-06-28 11:46] LABS: Glucose Point of Care 289 mg/dL (70-110)
--- NOTE | 2021-06-28 17:13 | P.PN_ITS ---
Subjective Subjective: Interval history: Patient tolerating full liquid diet, no nausea or vomiting. His T-max today was 100.1 this morning Vitals/I&O/Wt Last Vital Signs Temp 98.8 F 06/28/21 16:00 Pulse 95 06/28/21 16:00 Resp 18 06/28/21 16:00 BP 125/61 06/28/21 16:00 Pulse Ox 94 06/28/21 16:00 06/28/21 06/28/21 06/28/21 06:59 14:59 22:59 Intake Total 110 / 1530 370 / 370 Output Total 515 / 585 Balance -405 / 945 370 / 370 Weight last 48 hrs Weight 149 lb 6 oz Physical Exam Narrative: EXAM NARRATIVE: Abdomen: Soft, mildly tender, nondistended, incisions clean dry and intact, KAREEN drain output serosanguineous Data : 06/28/21 02:08 06/28/21 02:08 Micro: Microbiology 06/26/21 07:10 Blood Culture - Preliminary Blood Staphylococcus species 06/26/21 06:58 Blood Culture - Preliminary Blood Staphylococcus species 06/28/21 10:30 Blood Culture - Preliminary Blood SPECIMEN COLLECTED 06/28/21 10:25 Blood Culture - Preliminary Blood SPECIMEN COLLECTED A&P Assessment and plan (1) Status post laparoscopic cholecystectomy: 75-year-old male status post laparoscopic cholecystectomy with cholangiogram. WBC is normal, but LFTs are elevated His KAREEN drain output is sanguinous and his hemoglobin is 11.0 Advance to GI soft diet CBC CMP tomorrow Continue aspirin, hold Plavix Heparin for DVT prophylaxis Pepcid 20 mg twice daily Continue Zosyn Senna S for bowel regimen Patient will need greater than 2 nights of inpatient stay to ensure that LFTs are trending down and he does not have significant postop bleeding Status: Acute Attestations Medical Necessity Statement*: Patient will need 1 more night of inpatient stay to ensure that LFTs are trending down and that he continues to be afebrile Coding Level of Care Code Acute Environmental Field Services Technician for Chg Fwd Diagnoses Status post laparoscopic cholecystectomy Z90.49
[2021-06-28 17:28] LABS: Glucose Point of Care 214 mg/dL (70-110)
--- NOTE | 2021-06-28 20:19 | PC.NURSE ---
i reported high temp 100.6 and high pulse 106 to nurse
[2021-06-28 21:33] LABS: Glucose Point of Care 253 mg/dL (70-110)
[2021-06-29] VITALS (8 sets, daily range): BP systolic 92–137; BP diastolic 56–74; PULSE 84–104; RESP 18–20; TEMP 37–37.6; O2SAT 90–96
[2021-06-29] MEDS: piperacillin-tazobactam 3.375 GM in sodium chloride 0.9% (plus) 50 ML IV ×3 (01:09→15:56)
[2021-06-29] MEDS: morphine 4 mg/mL SDV 1 mL 2 MG IVP (01:09)
[2021-06-29 05:44] LABS: Basophils % 0.2 %; Eosinophils # 0.1 10^3/uL (0.0-0.8); Eosinophils % 0.8 %; Hematocrit 29.2 % (42.0-52.0); Hemoglobin 9.2 g/dL (11.7-16.6); Lymphocytes # 1.3 10^3/uL (0.8-4.8); Lymphocytes % 15.1 %; Mean Corpuscular HGB Conc 31.5 g/dL (30.0-36.0); Mean Corpuscular Hemoglobin 28.8 pg (28.0-34.0); Mean Corpuscular Volume 91.3 fl (80-94); Mean Platelet Volume 10.4 fL (7.4-10.4); Monocytes # 0.8 10^3/uL (0.2-0.9); Monocytes % 9.7 %; Neutrophils # 6.39 10^3/uL (1.8-7.7); Neutrophils % 73.6 %; Nucleated Red Blood Cells % 0 %; Platelet Count 124 10^3/cmm (130-400); Red Cell Distribution Width 15.4 % (12.1-15.1); White Blood Count 8.7 10^3/uL (4.0-10.0)
[2021-06-29 06:04] LABS: Alanine Aminotransferase 85 U/L (0-41); Albumin Level 2.8 g/dL (3.5-5.2); Alkaline Phosphatase 314 IU/L (40-130); Aspartate Amino Transferase 59 U/L (0-40); Blood Urea Nitrogen 19 mg/dL (8-23); Calcium 7.7 mg/dL (8.5-10.5); Carbon Dioxide 20 mmol/L (22-29); Chloride 104 mmol/L (98-107); Globulin 2.6 g/dL (1.3-4.6); Glucose 161 mg/dL (65-115); Osmolality Calculated 290 mOsm/kg (285-295); Sodium 137 mmol/L (136-145); Total Bilirubin 1.6 mg/dL (0.15-1.2); Total Protein 5.4 g/dL (6.6-8.7)
[2021-06-29 06:28] LABS: Glucose Point of Care 197 mg/dL (70-110)
[2021-06-29] MEDS: metoprolol succinate ER (24 HR) 25 mg Tablet 12.5 MG PO (06:36)
[2021-06-29] MEDS: levothyroxine 50 mcg Tablet PO (06:36)
[2021-06-29] MEDS: atorvastatin 40 mg Tablet PO (06:36)
[2021-06-29] MEDS: sennosides-docusate Tablet 1 TAB PO ×2 (08:02→15:56)
[2021-06-29] MEDS: aspirin 81 mg EC Tablet PO (08:02)
[2021-06-29] MEDS: famotidine 20 mg Tablet PO ×2 (08:28→15:56)
[2021-06-29] MEDS: vancomycin 1,250 MG/250 ML PIGGYBACK 200 MG IV (09:29)
[2021-06-29] MEDS: clopidogrel 75 mg Tablet PO (09:29)
[2021-06-29 09:41] LABS: Bacillus cereus group Not Detected (NOT DETECT); Bacillus subtillis group Not Detected (NOT DETECT); Corynebacterium Not Detected (NOT DETECT); Cutibacterium acnes (P.acnes) Not Detected (NOT DETECT); Enterococcus Not Detected (NOT DETECT); Enterococcus faecalis Not Detected (NOT DETECT); Enterococcus faecium Not Detected (NOT DETECT); Lactobacillus species Not Detected (NOT DETECT); Listeria Not Detected (NOT DETECT); Listeria monocytogenes Not Detected (NOT DETECT); Micrococcus Not Detected (NOT DETECT); Pan Candida Not Detected (NOT DETECT); Pan Gram-Negative Not Detected (NOT DETECT); Staphylococcus epidermidis Not Detected (NOT DETECT); Staphylococcus lugdunensis Not Detected (NOT DETECT); Staphylococcus species Detected (NOT DETECT); Streptococcus agalactiae Not Detected (NOT DETECT); Streptococcus anginosus group Not Detected (NOT DETECT); Streptococcus pneumoniae Not Detected (NOT DETECT); Streptococcus pyogenes Not Detected (NOT DETECT); Streptococcus species Not Detected (NOT DETECT); mecC Not Detected (NOT DETECT)
--- NOTE | 2021-06-29 10:06 | PM.PN ---
Documented by User: SAVANNA Tidwell STDMAYELA 06/29/21 10:18 Subjective Subjective: Interval history: Norbert spiked a fever of 100.6 yesterday at 8pm. He has no specific complaints today. Vitals/I&O/Wt Last Vital Signs Temp 99.6 F 06/29/21 08:00 Pulse 98 06/29/21 08:00 Resp 18 06/29/21 08:00 BP 92/56 06/29/21 08:00 Pulse Ox 94 06/29/21 08:00 06/28/21 06/29/21 06/29/21 22:59 06:59 14:59 Intake Total 410 / 780 250 / 1030 480 / 480 Output Total 810 / 810 350 / 1160 Balance -400 / -30 -100 / -130 480 / 480 Physical Exam Narrative: EXAM NARRATIVE: General: in no acute distress HEENT: normocephalic, atraumatic, oropharynx clear Neck: supple Cardiovascular: RRR without murmurs Lungs: clear bilaterally, no wheezes Abdomen: soft, nondistended, drain on right side draining serosanguineous fluid with no bleeding currently Extremities: no cyanosis, clubbing, or edema Skin: no rash Neuro: no obvious focal deficits Data : 06/29/21 04:36 06/29/21 04:36 Micro: Microbiology 06/26/21 07:10 Blood Culture - Preliminary Blood Staphylococcus species 06/26/21 06:58 Blood Culture - Preliminary Blood Staphylococcus species 06/28/21 10:30 Blood Culture - Preliminary Blood SPECIMEN COLLECTED 06/28/21 10:25 Blood Culture - Preliminary Blood SPECIMEN COLLECTED Other data: Hgb 9.2 from 11. Nurse reports that he had some bleeding around his drain tube last night. Plt 124 Total bili 1.6, unchanged from yesterday AST, ALT, ALP downtrending Blood cultures collected 06/26/21 growing Staph species in 3/3 bottles A&P Additional A&P Information (1) Cholecystitis: Patient underwent lap cholecystectomy with intraop cholangiogram yesterday. Intraop cholangiogram showed patent right and left hepatic ducts and possible 5mm stone in distal CBD at one point that was later not visualized. Patient will be continue to be monitored today due to concern for retained stone and low grade fever within past 24hrs Continue Zosyn Anticoagulants stopped today due to bleeding around drainage tube last night per nurse Initiate Plavix today Continue GI soft diet (2) Atherosclerotic cardiovascular disease: His most recent stenting was December 08, 2020 He has not been having any cardiac symptoms As it has been over 6 months since his intervention Plavix will be held currently. I clarified this with his private technology specialist as well. Status: Chronic (3) Diabetes mellitus with hyperglycemia, with long-term current use of insulin: Sliding scale insulin Status: Chronic (4) Staph bacteremia Patient has 3/3 bottles collected on 06/26/21 growing Staph species Repeat blood cultures drawn 06/28/21 Initiate Vancomycin in addition to Zosyn that patient is already receiving Full code SCD for DVT prophylaxis Coding Level of Care Code Acute Content Creation Manager for lexi Fwd Documented by User: Clive Mejia MD 06/29/21 10:35 Subjective Subjective: Interval history: Agree with above. No changes warranted. Medications: Reviewed: Yes Physical Exam Narrative: EXAM NARRATIVE: No active bleeding from surgical site. Agree with above. Data : 06/29/21 04:36 06/29/21 04:36 A&P Additional A&P Information Agree with above. Vancomycin added secondary to positive blood cultures. Await cultures. Continue Zosyn. Not yet ready for discharge secondary to significant cholecystitis on admission, positive blood cultures. We will restart Plavix today secondary to his coronary disease. He was having some bleeding around his KAREEN catheter. Hold off on any anticoagulant today. SCDs for DVT prophylaxis. Consider starting subcutaneous Lovenox tomorrow if no significant bleeding, hemoglobin stable. Attestations Medical Necessity Statement*: Needs continued hospital stay for IV antibiotics secondary to acute cholecystitis, with positive blood cultures Coding Level of Care Code Acute Content Creation Manager for Chg Fwd
--- NOTE | 2021-06-29 10:58 | P.PN_ITS ---
Subjective Subjective: Interval history: Patient had a T-max of 100.6 last night, denies any significant nausea, vomiting, tolerating regular diet. He has not had a bowel movement. KAREEN drain output was 45 cc yesterday, sanguinous Vitals/I&O/Wt Last Vital Signs Temp 99.6 F 06/29/21 08:00 Pulse 98 06/29/21 08:00 Resp 18 06/29/21 08:00 BP 92/56 06/29/21 08:00 Pulse Ox 94 06/29/21 08:00 06/28/21 06/29/21 06/29/21 22:59 06:59 14:59 Intake Total 410 / 1030 250 / 1030 480 / 480 Output Total 810 / 1160 350 / 1160 Balance -400 / -130 -100 / -130 480 / 480 Physical Exam Narrative: EXAM NARRATIVE: Abdomen:Soft, nondistended, tender around the KAREEN drain, sanguinous output Data : 06/29/21 04:36 06/29/21 04:36 Micro: Microbiology 06/28/21 10:30 Blood Culture - Preliminary Blood NEGATIVE TO DATE 06/28/21 10:25 Blood Culture - Preliminary Blood NEGATIVE TO DATE 06/26/21 07:10 Blood Culture - Preliminary Blood Staphylococcus species 06/26/21 06:58 Blood Culture - Preliminary Blood Staphylococcus species A&P Assessment and plan (1) Status post laparoscopic cholecystectomy: 75-year-old male status post laparoscopic cholecystectomy with cholangiogram. WBC is normal, but LFTs are trending down except bilirubin which has remained at 1.6 His KAREEN drain output is sanguinous and his hemoglobin is down to 9.2, he received heparin and Lovenox yesterday GI soft diet CBC CMP tomorrow Continue aspirin, restart Plavix Hold Lovenox and heparin, continue SCD, ambulate ad aly. Pepcid 20 mg twice daily Blood cultures: 3 bottles positive for staph aureus, added vancomycin to Zosyn Senna S for bowel regimen , add lactulose Patient will need greater than 2 nights of inpatient stay to ensure that LFTs are trending down and he does not have significant postop bleeding Status: Acute Attestations Medical Necessity Statement*: Patient will need 1 more night of inpatient stay for IV antibiotics as his blood cultures are positive and he has been febrile Coding Level of Care Code Acute Automatic Pattern Edger for Chg Fwd Diagnoses Status post laparoscopic cholecystectomy Z90.49
[2021-06-29] MEDS: lactulose oral liq 20 gm/30 mL UDC 10 GM PO (12:14)
[2021-06-29] MEDS: insulin lispro 100 unit/1 mL SUBCUT (12:14)
--- NOTE | 2021-06-29 13:23 | PC.SOCIAL ---
Pg 2 IMM. Explained to pt Pg 2 IMM. No questions voiced. Provided pt a copy. Initialed, dated, & timed a copy & placed in chart.
[2021-06-29 21:22] LABS: Glucose Point of Care 223 mg/dL (70-110)
[2021-06-29 21:22] LABS: Glucose Point of Care 266 mg/dL (70-110)
[2021-06-29 22:00] LABS: Glucose Point of Care 269 mg/dL (70-110)
[2021-06-30] VITALS: BP 145/66; PULSE 99; RESP 18; TEMP 36.8; O2SAT 95
[2021-06-30] MEDS: insulin lispro 100 unit/1 mL SUBCUT ×2 (00:14→08:55)
[2021-06-30] MEDS: piperacillin-tazobactam 3.375 GM in sodium chloride 0.9% (plus) 50 ML IV ×2 (00:15→11:16)
[2021-06-30] MEDS: lactulose oral liq 20 gm/30 mL UDC 10 GM PO (00:15)
[2021-06-30 04:00] VITALS: BP 125/64; PULSE 89; RESP 20; TEMP 36.7; O2SAT 97
[2021-06-30] MEDS: atorvastatin 40 mg Tablet PO (05:33)
[2021-06-30] MEDS: levothyroxine 50 mcg Tablet PO (05:33)
[2021-06-30] MEDS: metoprolol succinate ER (24 HR) 25 mg Tablet 12.5 MG PO (05:33)
[2021-06-30 06:48] LABS: Glucose Point of Care 158 mg/dL (70-110)
[2021-06-30] MEDS: clopidogrel 75 mg Tablet PO (07:22)
[2021-06-30] MEDS: sennosides-docusate Tablet 1 TAB PO (07:23)
[2021-06-30] MEDS: famotidine 20 mg Tablet PO (07:23)
[2021-06-30] MEDS: aspirin 81 mg EC Tablet PO (07:23)
[2021-06-30 08:00] VITALS: BP 139/74; PULSE 85; RESP 16; TEMP 36.6; O2SAT 97
[2021-06-30] MEDS: vancomycin 1,250 MG/250 ML PIGGYBACK 200 MG IV (09:00)
--- NOTE | 2021-06-30 10:27 | PM.PN ---
Subjective Subjective: Interval history: Feeling good. No significant abdominal pain. Wondering if he can go home today. Medications: Reviewed: Yes Vitals/I&O/Wt Last Vital Signs Temp 97.8 F 06/30/21 08:00 Pulse 85 06/30/21 08:00 Resp 16 06/30/21 08:00 BP 139/74 06/30/21 08:00 Pulse Ox 97 06/30/21 08:00 06/29/21 06/30/21 06/30/21 22:59 06:59 14:59 Intake Total 300 / 830 50 / 880 Output Total 705 / 705 200 / 905 Balance -405 / 125 -150 / -25 Physical Exam Narrative: EXAM NARRATIVE: General exam no distress Neck is supple Cardiovascular regular rate and rhythm Lungs clear Abdomen is soft, drain still present Extremities no cyanosis clubbing or edema Data : 06/29/21 04:36 06/29/21 04:36 Micro: Microbiology 06/26/21 06:58 Blood Culture - Preliminary Blood Staphylococcus hominis 06/26/21 07:10 Blood Culture - Preliminary Blood Staphylococcus hominis 06/28/21 10:30 Blood Culture - Preliminary Blood NEGATIVE TO DATE 06/28/21 10:25 Blood Culture - Preliminary Blood NEGATIVE TO DATE A&P Assessment and plan (1) Cholecystitis: Patient with cholecystitis, clinical exam initially and history consistent with this. There is concern regarding his elevated bilirubin. From my understanding he is going to have a HIDA scan done, surgery consult, and then determine whether he is a surgical candidate here or proceeding with transfer and ERCP secondary to his cholestatic pattern on his laboratory. Currently on Zosyn IV Appreciate surgical consultation Now postoperative day #4, status post cholecystectomy and doing well. Awaiting liver function test today. 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 Staph hominis that grew from blood is likely a contaminant. Repeat blood cultures have been negative. Cipro does have activity against staph hominis as noted on his microbiology report. Attestations Medical Necessity Statement*: As per primary Coding Level of Care Code Acute Analysis Reporting Developer for [facility] Fwd Diagnoses Cholecystitis K81.9 Atherosclerotic cardiovascular disease I25.10 Diabetes mellitus with hyperglycemia, with long-term current use of insulin E11.65; Z79.4 Diabetes mellitus type: type 2
[2021-06-30 10:35] LABS: Basophils % 0.3 %; Eosinophils # 0.2 10^3/uL (0.0-0.8); Eosinophils % 3.2 %; Hematocrit 28.3 % (42.0-52.0); Hemoglobin 8.9 g/dL (11.7-16.6); Lymphocytes # 0.9 10^3/uL (0.8-4.8); Lymphocytes % 11.6 %; Mean Corpuscular HGB Conc 31.4 g/dL (30.0-36.0); Mean Corpuscular Hemoglobin 28.3 pg (28.0-34.0); Mean Corpuscular Volume 90.1 fl (80-94); Mean Platelet Volume 10.2 fL (7.4-10.4); Monocytes # 0.6 10^3/uL (0.2-0.9); Monocytes % 7.4 %; Neutrophils # 5.76 10^3/uL (1.8-7.7); Nucleated Red Blood Cells % 0 %; Platelet Count 132 10^3/cmm (130-400); Red Blood Count 3.14 10^6/uL (4.1-5.3); Red Cell Distribution Width 15.3 % (12.1-15.1); White Blood Count 7.5 10^3/uL (4.0-10.0)
[2021-06-30 10:50] LABS: Alanine Aminotransferase 62 U/L (0-41); Albumin Level 2.9 g/dL (3.5-5.2); Alkaline Phosphatase 424 IU/L (40-130); Anion Gap 15.1 (5-19); Aspartate Amino Transferase 44 U/L (0-40); Blood Urea Nitrogen 16 mg/dL (8-23); Carbon Dioxide 21 mmol/L (22-29); Chloride 103 mmol/L (98-107); Globulin 2.8 g/dL (1.3-4.6); Glucose 192 mg/dL (65-115); Osmolality Calculated 286 mOsm/kg (285-295); Potassium 4.1 mmol/L (3.5-5.1); Sodium 135 mmol/L (136-145); Total Bilirubin 1.3 mg/dL (0.15-1.2); Total Protein 5.7 g/dL (6.6-8.7)
[2021-06-30 12:00] VITALS: BP 116/57; PULSE 98; RESP 18; TEMP 36.7
--- NOTE | 2021-06-30 12:24 | P.DS_ITS ---
Discharge Providers Date of Admission: 06/26/21 20:58 Date of Discharge: June 30, 2021 Attending Provider at Admission: Froylan Phillips MD Attending Provider at Discharge: Froylan Phillips MD Primary Care Provider: SHANNAN Eastman Diagnoses at Discharge Discharge Diagnosis (1) Cholecystitis: Status: Resolved (2) Atherosclerotic cardiovascular disease: Status: Chronic (3) Diabetes mellitus with hyperglycemia, with long-term current use of insulin: Status: Chronic Qualifiers: Diabetes mellitus type: type 2 Qualified Code(s): E11.65 - Type 2 diabetes mellitus with hyperglycemia; Z79.4 - continuous churn buttermaker (current) use of insulin Reason for Visit Reason for Visit: ABD PAIN Brief History: ben Link is a 75 year old male who had cardiac stents placed 6 months ago who now presents to the ER with complaints of abdominal pain, nausea and vomiting. Patient states that the pain has been ongoing for couple of days and he has been in the emergency room for about 30 hours and at present is completely asymptomatic. Denies any fevers chills or jaundice. He has had similar episodes in the past and had seen my partner but due to significant cardiac history surgery was on hold as patient had recently been not that symptomatic. Patient was noted to have elevated LFT, but he could not have an MRCP due to pacemaker and he could not be transferred for ERCP. A HIDA scan was obtained which showed nonfilling of the gallbladder and no evidence of obstruction of the CBD. Patient underwent laparoscopic cholecystectomy with cholangiogram on 06/26/2020. Postop patient initially had elevated LFTs which slowly trended down over the next 3 days. He also had a drop in hemoglobin and at time of discharge his hemoglobin is stable at 8.9, hemodynamically stable without evidence of peritonitis. Patient's KAREEN drain output is serosanguineous. Patient was also febrile postop and his blood cultures are positive for Staphylococcus hominis but it was felt by Dr. Figueroa to be a contaminant. Patient was therefore discharged home on oral Cipro and Flagyl. He will follow-up with me in clinic next week with repeat CBC and CMP Discharge Data Data Completed and Pending: Completed Studies During Hospitalization Category Date Time Status XR cholangio oper ative [id number] Routin e Exams 06/26/21 18:12 Completed [place] hepatobiliary wo phar [id number] Stat Nuc Med 06/26/21 09:18 Completed Pathology: Surgic al [PTH] Routine Pth 06/26/21 19:20 Completed US gall bladder 7 [id number] Urgent Ultrasound 06/25/21 10:43 Completed Pending at discharge Category Date Time Status ES surgery / GI i mages Routine Exams 06/26/21 17:10 Taken Blood Culture Sta t Lab 06/26/21 07:10 Results Blood Culture Sta t Lab 06/28/21 10:30 Results Complete Blood Co unt w/Auto AM LABS Lab 06/30/21 04:00 Ordered Complete Blood Co unt w/Auto AM LABS Lab 07/01/21 04:00 Ordered Comprehensive Met abolic Panel AM LA BS Lab 06/30/21 04:00 Ordered Comprehensive Met abolic Panel AM LA BS Lab 07/01/21 04:00 Ordered Vancomycin Trough Timed Lab 07/01/21 08:30 Ordered Labs from last 24 hours 06/30/21 06/30/21 06/30/21 10:20 10:20 06:14 WBC 7.5 RBC 3.14 L Hgb 8.9 L Hct 28.3 L MCV 90.1 MCH 28.3 MCHC 31.4 RDW 15.3 H Plt Count 132 MPV 10.2 Neut % (Auto) 77.0 Lymph % (Auto) 11.6 [place] % (Auto) 7.4 Eos % (Auto) 3.2 Baso % (Auto) 0.3 Neut # (Auto) 5.76 Lymph # (Auto) 0.9 [place] # (Auto) 0.6 Eos # (Auto) 0.2 Baso # (Auto) 0.0 Nucleated RBC % (a uto) 0 Nucleated RBCs # 0.0 Sodium 135 L Potassium 4.1 Chloride 103 Carbon Dioxide 21 L Anion Gap 15.1 BUN 16 Creatinine 1.1 GFR Calculation Not Reportable Glucose 192 H POC Glucose 158 H Calculated Osmolal ity 286 Calcium 8.0 L Total Bilirubin 1.3 H AST 44 H ALT 62 H Alkaline Phosphata se 424 H Total Protein 5.7 L Albumin 2.9 L Globulin 2.8 06/29/21 06/29/21 06/29/21 21:48 16:26 12:08 WBC RBC Hgb Hct MCV MCH MCHC RDW Plt Count MPV Neut % (Auto) Lymph % (Auto) [place] % (Auto) Eos % (Auto) Baso % (Auto) Neut # (Auto) Lymph # (Auto) [place] # (Auto) Eos # (Auto) Baso # (Auto) Nucleated RBC % (a uto) Nucleated RBCs # Sodium Potassium Chloride Carbon Dioxide Anion Gap BUN Creatinine GFR Calculation Glucose POC Glucose 269 H 223 H 266 H Calculated Osmolal ity Calcium Total Bilirubin AST ALT Alkaline Phosphata se Total Protein Albumin Globulin Vitals: Last Vital Signs Temp 98.1 F 06/30/21 12:00 Pulse 98 06/30/21 12:00 Resp 18 06/30/21 12:00 BP 116/57 06/30/21 12:00 Pulse Ox 97 06/30/21 08:00 Discharge Plan Discharge Patient Disposition: Home Condition: Stable Prescriptions: New Cipro 500 mg tablet 500 mg PO BID Qty: 20 RF: 0 Flagyl 500 mg tablet 500 mg PO TID Qty: 30 RF: 0 Zofran 4 mg tablet 4 mg PO Q6H PRN (Reason: nausea and vomiting) Qty: 20 RF: 0 Senna with Docusate Sodium 8.6-50 mg tablet 1 tab-cap PO BID Qty: 30 RF: 0 hydrocodone-acetaminophen 5-325 mg tablet 1 tab PO Q6H PRN (Reason: pain) Qty: 20 RF: 0 Continued aspirin 81 mg tablet,delayed release (DR/EC) 81 mg PO DAILY RF: 0 Lipitor 40 mg tablet 40 mg PO DAILY@0600 30 Days Qty: 30 RF: 2 Jardiance 25 mg tablet 25 mg PO QAM Qty: 90 RF: 0 isosorbide mononitrate 30 mg tablet extended release 24 hr 30 mg PO DAILY@0600 30 Days Qty: 30 RF: 2 levothyroxine 50 mcg tablet 50 mcg PO DAILY@0600 Qty: 30 RF: 2 lisinopril 5 mg tablet 5 mg PO DAILY@0600 Qty: 30 RF: 2 Hold Instructions: Resume on 10/14/20. resume after following up with Indira Nevarez metoprolol succinate 25 mg tablet extended release 24 hr 12.5 mg PO DAILY@0600 Qty: 16 RF: 2 omega-3 fatty acids [Fish Oil Concentrate] 1,000 mg capsule 1,000 mg PO DAILY@0600 RF: 0 (DME) pen needle, diabetic 33 gauge x 5/32 needle See Rx Instructions .ROUTE .MEDSUPPLY Qty: 100 RF: 2 clopidogrel 75 mg tablet 75 mg PO DAILY@0600 Qty: 90 RF: 3 multivitamin [Daily Multi-Vitamin] Tablet 1 tab PO DAILY@0600 RF: 0 PreserVision AREDS-2 250-90-40-1 mg Capsule 1 tab PO DAILY@0600 RF: 0 famotidine 20 mg Tablet 20 mg PO DAILY@0600 RF: 0 cyanocobalamin (vitamin B-12) [Vitamin B-12] 500 mcg Tablet 500 mcg PO DAILY RF: 0 Levemir FlexTouch U-100 Insuln 100 unit/mL (3 mL) insulin pen 34 unit SUBCUT DAILY@1500 RF: 0 Discharge Orders: Discharge Order (Routine); Ordered 06/30/21 Ordered By: Froylan Phillips Referrals: Ree Crooks FNP-C [Primary Care Provider] - 07/10/21 9:40 am Froylan Phillips MD [Physician] - 07/04/21 9:30 am (Please go to hospital one hour prior to the appointment to have labs drawn. You may get them drawn by going to the outpatient surgery entrance and checking in with registration.) Discharge Diet: Diabetic Patient Instructions: Ciprofloxacin (By mouth) (Cipro), Hydrocodone/Acetaminophen (By mouth), Laxative, Stimulant (By mouth) (Dulcolax, EX-Lax, Fleet Bisacodyl,..., Metronidazole (By mouth), Ondansetron (By mouth), Cholecystitis (DC), Laparoscopic Cholecystectomy (DC), Opioid Safety Activity Restrictions/Additional Instructions: Diet Advance to normal diet as tolerated, increase fluid intake as much as possible. Activity Avoid strenuous activity for 2 weeks but continue with daily activities including walking as tolerated. Do not lift more than 10 pounds for 2 weeks Return to work/school You can return to work/ school whenever you feel ready as long as you don?t have to lift more than 10 pounds at work. If you have paperwork that needs to be completed for time off from work, please contact my office Driving You can resume driving once you stop using narcotic pain medications, and transition to non-opioid pain medications like Tylenol, Motrin, Aleve, etc. Medications Pain Take opioid pain medications as prescribed and transition to non-opioid pain medications like Tylenol, Motrin, Aleve etc. over the next few days. The goal of the pain medications is to make the pain bearable and not to be pain free since you recently had surgery. Resume all home medications after surgery as per the medication reconciliation list Nausea Nausea is common after surgery, take nausea medications as needed and stay on a liquid bland diet until nausea resolves. Constipation The combination of surgery, anesthesia and pain medications can result in constipation. Take stool softeners as prescribed. If you do not have a bowel movement in 3 days, please take an [id number]-kby-tiwbgde laxative like MiraLAX to address the constipation. Shower It is ok to shower but avoid getting the wound wet for 48 hours after surgery. Do not soak in bathtub, swimming pool or hot tub for 2 weeks. Wound care If you had open wound, pack it with ribbon gauze once daily. The glue applied to the incision will peel slowly over the next two weeks. The stitches used are dissolvable and will not need to be removed. If you have torrey, they will be removed 2 weeks after surgery at follow up in my clinic. Do not apply antibiotics or other medications on the incision Drain care: strip drain 3 times a day, document daily 24 hour drain output Problems with the wound You can develop some redness around the incision from bruising after surgery. If there is increasing pain, redness, tenderness around the incision with or without drainage, please contact my office to rule out an infection. Sometimes the skin at the incisions can separate, resulting in reopening of the wound. Cover the wound with antibiotic cream and sterile dressings and contact my office. Contact physician Call the office at [phone] during office hours or go the Emergency Room after hours for - ?Fever to 100.4 or greater ?Shaking chills ?Pain that increases over time ?Redness, warmth, or pus draining from incision sites ?Persistent nausea or inability to take in liquids Discharge Attestations Time Spent in Discharge Care*: less than 30 min Status at Discharge: Cognitive status at discharge: cognitively intact , Quality Metrics Clinical Quality Measures During this hospital stay, did patient experience: None Coding Level of Care Code Acute g FW DC note Diagnoses Cholecystitis K81.9 Atherosclerotic cardiovascular disease I25.10 Diabetes mellitus with hyperglycemia, with long-term current use of insulin E11.65; Z79.4 Diabetes mellitus type: type 2
--- NOTE | 2021-06-30 12:24 | P.PN_ITS ---
Subjective Subjective: Interval history: Patient is keen to go home. Tolerating regular diet, denies nausea or vomiting, he has been afebrile for over 36 hours Vitals/I&O/Wt Last Vital Signs Temp 98.1 F 06/30/21 12:00 Pulse 98 06/30/21 12:00 Resp 18 06/30/21 12:00 BP 116/57 06/30/21 12:00 Pulse Ox 97 06/30/21 08:00 06/29/21 06/30/21 06/30/21 22:59 06:59 14:59 Intake Total 300 / 880 50 / 880 Output Total 705 / 905 200 / 905 300 / 300 Balance -405 / -25 -150 / -25 -300 / -300 Physical Exam Narrative: EXAM NARRATIVE: Abdomen: Soft, nondistended, mildly tender, KAREEN drain output is sanguinous, 5 cc yesterday Data : 06/30/21 10:20 06/30/21 10:20 Micro: Microbiology 06/26/21 06:58 Blood Culture - Preliminary Blood Staphylococcus hominis 06/26/21 07:10 Blood Culture - Preliminary Blood Staphylococcus hominis 06/28/21 10:30 Blood Culture - Preliminary Blood NEGATIVE TO DATE 06/28/21 10:25 Blood Culture - Preliminary Blood NEGATIVE TO DATE A&P Assessment and plan (1) Status post laparoscopic cholecystectomy: 75-year-old male status post laparoscopic cholecystectomy with cholangiogram. WBC is normal, but LFTs are trending down except alkaline phosphatase which is elevated His KAREEN drain output is sanguinous and his hemoglobin is down to 8.9. Hemodynamically stable, continue to monitor GI soft diet DC home today Status: Acute Attestations Medical Necessity Statement*: DC home today Coding Level of Care Code Acute Assistant Strength Coach for Chg Fwd Diagnoses Status post laparoscopic cholecystectomy Z90.49
--- NOTE | 2021-06-30 15:15 | PC.CHAP ---
Pastoral Care Encounter/Spiritual Assessment Type of Contact [] Declined payroll examiner visit [] Patient/Family/Request visit [] Outpatient visit [xx] Follow-up visit [] Physician referral [] Code/Alert [xx] Routine visit [] Staff referral [] Actively dying [] Patient sleeping [] Family support [] [] Out of room [] Palliative care [] [] Receiving care in room [] Pre-surgical visit [] Trauma [xx] Long length of stay [] ICU visit [] Other: Relational/Emotional Strength [xx] Patient feels connected with others/family/visitors/staff [] Distress [] Loneliness/isolation [] Abandonment Spirituality of Patient [xx] Person of [place] [] Attends Jainism of their [place] [xx] Believes in Prayer [] Reads Bible or Muslim materials [] There are Spiritual issues to be addressed Biometrics Analyst Interventions [] Prayer [xx] Active listening [xx] Non-anxious presence [] Spiritual/emotional support [] Crisis/trauma care [] Spiritual counseling [] Bereavement support [] Provided bereavement packet [xx] Provided Bible/devotional materials [] Provided toy/stuffed animal, coloring book to patient or family member [] Provided Communion [] Anointing/Fair Play [] Salvation [xx] Completed spiritual assessment [] Other: Impact on Illness or Injury [] Angry [] Fearful [] Anxious [] Often cries [] Exhaustion [] Unable to work [] Unable to attend presybeterian [] Unable to walk/stand [] Unable to read [] Unable to drive [] Unable to eat/drink [] Unable to sleep [] Unable to be with family [] Patient intubated [] Other: Summary Patient feels great and wants to be discharged. Before payroll examiner could pray, doctor arrived to start discharge process. Biometrics Analyst deferred to doctor and left. Time spent with patient 3 minutes
[2021-06-30 17:11] LABS: mecA Not Detected (NOT DETECT)
== END 2021-06-30 16:05 | disposition home or self-care (01) | DRG 419 ==
LOC: ER 06-26 06:28 → OPS 06-26 16:19 → MEDSURG 06-26 20:58
PROVIDERS: Emergency Medicine; Internal Medicine; Admitting Provider Surgery; Emergency Provider Family Medicine; PCP Nurse Practitioner; Visit Provider Surgery
PROC: 0FT44ZZ Resection of Gallbladder, Percutaneous Endoscopic Approach (ICD-10-PCS; CPT 47562; principal; 2021-06-26 15:50)
DX: K80.00 Calculus of gallbladder with acute cholecystitis without obstruction (principal); I25.10 Atherosclerotic heart disease of native coronary artery without angina pectoris; E11.65 Type 2 diabetes mellitus with hyperglycemia; R50.82 Postprocedural fever; R79.89 Other specified abnormal findings of blood chemistry; Z79.4 Long term (current) use of insulin; Z95.5 Presence of coronary angioplasty implant and graft; Z95.0 Presence of cardiac pacemaker; Z79.82 Long term (current) use of aspirin; Z79.02 Long term (current) use of antithrombotics/antiplatelets
CPT/HCPCS: 12345; 36415; 36416; 74300; 76705; 78226; 80053; 82962; 83605; 83690; 85025; 85610; 87040; 87077; 87150; 87186; 87205; 87426; 88304; 96361; 96372; 96374; 96375; 97161; 99285; A9537; J0330; J1100; J1610; J1644; J1650; J1815; J2270; J2405; J2543; J2704; J2710; J2765; J3010; J3370; J3490; J7030

== ENCOUNTER 2021-07-04 08:49 | Outpatient (CLI) | payer MEDICARE, OTHER, SELFPAY ==
[2021-07-04 09:21] LABS: Basophils # 0.1 10^3/uL (0.0-0.1); Basophils % 0.5 %; Eosinophils # 0.4 10^3/uL (0.0-0.8); Eosinophils % 3.4 %; Hematocrit 29.7 % (42.0-52.0); Hemoglobin 9.2 g/dL (11.7-16.6); Lymphocytes # 1.7 10^3/uL (0.8-4.8); Lymphocytes % 15.2 %; Mean Corpuscular Hemoglobin 28.5 pg (28.0-34.0); Mean Platelet Volume 9.6 fL (7.4-10.4); Monocytes # 0.7 10^3/uL (0.2-0.9); Monocytes % 6.7 %; Neutrophils # 7.98 10^3/uL (1.8-7.7); Neutrophils % 72.6 %; Nucleated Red Blood Cells % 0 %; Platelet Count 337 10^3/cmm (130-400); Red Blood Count 3.23 10^6/uL (4.1-5.3); Red Cell Distribution Width 15.8 % (12.1-15.1)
[2021-07-04 09:56] LABS: Alanine Aminotransferase 49 U/L (0-41); Albumin Level 3.6 g/dL (3.5-5.2); Alkaline Phosphatase 720 IU/L (40-130); Anion Gap 20.2 (5-19); Aspartate Amino Transferase 48 U/L (0-40); Blood Urea Nitrogen 24 mg/dL (8-23); Calcium 8.4 mg/dL (8.5-10.5); Carbon Dioxide 20 mmol/L (22-29); Chloride 100 mmol/L (98-107); Chol HDL Ratio 3.58 mg/dL (1.0-5.00); Cholesterol 93 mg/dL (0-200); Globulin 3.2 g/dL (1.3-4.6); Glucose 166 mg/dL (65-115); HDL Cholesterol 26 mg/dL (60-100); LDL Cholesterol Calculated 41 mg/dL (50-129); Osmolality Calculated 290 mOsm/kg (285-295); Potassium 4.2 mmol/L (3.5-5.1); Sodium 136 mmol/L (136-145); Total Bilirubin 1.1 mg/dL (0.15-1.2); Total Protein 6.8 g/dL (6.6-8.7); Triglycerides 132 mg/dL (0-150); VLDL Cholestrol Calculation 26 mg/dL (0-30)
== END 2021-07-04 08:50 | disposition home or self-care (01) ==
LOC: LAB 08:52
PROVIDERS: Surgery; PCP Nurse Practitioner; Visit Provider Internal Medicine Cardiovascular Disease
DX: E78.2 Mixed hyperlipidemia (principal); K81.9 Cholecystitis, unspecified
CPT/HCPCS: 36415; 80053; 80061; 85025

== ENCOUNTER → 2021-07-10 09:50 | Outpatient (BNVA) | payer MEDICARE, OTHER, SELFPAY | PROVIDERS: PCP Nurse Practitioner; Visit Provider Nurse Practitioner | DX: N18.32 Chronic kidney disease, stage 3b (principal); K80.50 Calculus of bile duct without cholangitis or cholecystitis without obstruction | CPT/HCPCS: 80053; 80069; 81003; 82043; 83690; 83883; 84155; 84165; 85025 ==

== ENCOUNTER → 2021-08-09 12:01 | Outpatient (BNVA) | payer MEDICARE, OTHER, SELFPAY | PROVIDERS: PCP Nurse Practitioner; Visit Provider Nurse Practitioner | DX: E11.65 Type 2 diabetes mellitus with hyperglycemia (principal); Z79.4 Long term (current) use of insulin; I25.10 Atherosclerotic heart disease of native coronary artery without angina pectoris; E03.8 Other specified hypothyroidism | CPT/HCPCS: 80053; 81000; 82248; 83036; 85025 ==

== ENCOUNTER 2021-08-25 11:56 | Outpatient (CLI) | payer OTHER, MEDICARE, SELFPAY ==
--- NOTE | 2021-08-25 12:07 | US_ITS ---
WS: [id number] ULTRASOUND RENAL TECHNIQUE: Ultrasound examination of both kidneys. CLINICAL INFORMATION: STAGE 3b CHRONIC KIDNEY DISEASE COMPARISON: 2017 FINDINGS: RIGHT: Right kidney is normal in size and appearance. Echogenicity: Normal. Cortical thickness: 1.2 cm; Normal. Hydronephrosis: None. Perinephric fluid: None. Right kidney measures: 8.1 cm x 4.3 cm x 4.8 cm. LEFT: Left kidney is normal in size and appearance. Echogenicity: Normal. Cortical thickness: 1.4 cm; Normal. Hydronephrosis: None. Perinephric fluid: None. Left kidney measures: 9.0 cm x 4.8 cm x 4.2 cm. Normal visualized aorta. US/US renal BI* [id number] IMPRESSION: 1. No hydronephrosis in either kidney. 2. Bladder is normal in appearance. 3. No suspicious findings.
== END 2021-08-25 11:57 | disposition home or self-care (01) ==
LOC: RAD 12:03
PROVIDERS: PCP Nurse Practitioner; Visit Provider Internal Medicine Nephrology
DX: N18.32 Chronic kidney disease, stage 3b (principal)
CPT/HCPCS: 76770

== ENCOUNTER → 2021-11-08 10:53 | Outpatient (BNVA) | payer MEDICARE, OTHER, SELFPAY | PROVIDERS: PCP Nurse Practitioner; Visit Provider Nurse Practitioner | DX: E11.65 Type 2 diabetes mellitus with hyperglycemia (principal); Z79.4 Long term (current) use of insulin; I25.10 Atherosclerotic heart disease of native coronary artery without angina pectoris; K21.9 Gastro-esophageal reflux disease without esophagitis; E03.8 Other specified hypothyroidism; E78.2 Mixed hyperlipidemia; I10 Essential (primary) hypertension; J30.89 Other allergic rhinitis | CPT/HCPCS: 80053; 80061; 81000; 83036; 84443; 85025 ==

== ENCOUNTER → 2021-12-08 09:28 | Outpatient (BNVA) | payer MEDICARE, OTHER, SELFPAY | PROVIDERS: PCP Nurse Practitioner; Visit Provider Internal Medicine Cardiovascular Disease | DX: Z45.010 Encounter for checking and testing of cardiac pacemaker pulse generator [battery] (principal) | CPT/HCPCS: 93280 ==

== ENCOUNTER → 2021-12-27 08:27 | Outpatient (BNVA) | payer MEDICARE, OTHER, SELFPAY | PROVIDERS: PCP Nurse Practitioner; Visit Provider Internal Medicine Nephrology | DX: N18.32 Chronic kidney disease, stage 3b (principal) | CPT/HCPCS: 80069; 82043; 82310; 83970; 85025 ==

== ENCOUNTER 2022-02-20 12:19 | Outpatient (CLI) | payer MEDICARE, OTHER, SELFPAY ==
--- NOTE | 2022-02-20 12:45 | USCV_ITS ---
Norbert Link Age: 76 Gender: M : 1945 Exam Date: 02/20/2022 12:58 Ordering Phys: Parag Parmar MD (Andy) ([email or web address] [place]) Technologist: Waqar Dwyer [place] [facility] [place]: occlusion and stenosis Risk Factors: Previous Vascular Surgery: Right Brachial BP: / Left Brachial BP: / Right Left Velocity (cm/s) Spectral Plaque Velocity (cm/s) Spectral Plaque Syst/Diast Broadening Syst/Diast Broadening 53.90/ 11.20 Prox CCA 86.90 / 17.90 44.70/ 9.20 Mid CCA 101.40/ 26.50 53.20/ 12.50 Distal CCA 81.60 / 15.40 / Prox ICA 104.70/ 25.40 / Mid ICA 103.60/ 28.70 / Distal ICA 61.70 / 19.80 136.70 ECA 226.70 ICA/CCA 1.02 Antegrade Vertebral Antegrade 48.20/ 9.30 cm/s 47.40/ 11.70 cm/s Bi Subclavian Bi 123.5 109.2 0 0 FINDINGS Comparison:. 02/20/21 Known chronically occluded right ICA. Calcified plaque left carotid with no high grade stenosis.Diffuse plaque. Bilateral antegrade vertebral arteries. CONCLUSIONS Left ICA stenosis < 50%. Diffuse left carotid atherosclerosis. Known chronically occluded right ICA. Dr. Lauren Escalona DO (Electronically Signed) Final Date: 20 February 2022 14:07 S
== END 2022-02-20 12:20 | disposition home or self-care (01) ==
LOC: RAD 12:20
PROVIDERS: PCP Nurse Practitioner; Visit Provider Thoracic Surgery (Cardiothoracic Vascular Surgery)
DX: I65.23 Occlusion and stenosis of bilateral carotid arteries (principal)
CPT/HCPCS: 93880

== ENCOUNTER → 2022-02-21 09:30 | Outpatient (BNVA) | payer MEDICARE, OTHER, SELFPAY | PROVIDERS: PCP Nurse Practitioner; Visit Provider Nurse Practitioner | DX: E11.65 Type 2 diabetes mellitus with hyperglycemia (principal); Z79.4 Long term (current) use of insulin; I25.10 Atherosclerotic heart disease of native coronary artery without angina pectoris; E03.8 Other specified hypothyroidism; K21.9 Gastro-esophageal reflux disease without esophagitis; E11.8 Type 2 diabetes mellitus with unspecified complications | CPT/HCPCS: 80053; 81000; 83036 ==

== ENCOUNTER → 2022-03-16 09:49 | Outpatient (BNVA) | payer MEDICARE, OTHER, SELFPAY | PROVIDERS: PCP Nurse Practitioner; Visit Provider Internal Medicine Cardiovascular Disease | DX: Z45.010 Encounter for checking and testing of cardiac pacemaker pulse generator [battery] (principal) | CPT/HCPCS: 93280 ==

== ENCOUNTER → 2022-04-19 13:32 | Outpatient (BNVA) | payer MEDICARE, OTHER, SELFPAY | PROVIDERS: PCP Nurse Practitioner; Visit Provider Thoracic Surgery (Cardiothoracic Vascular Surgery) | DX: I65.23 Occlusion and stenosis of bilateral carotid arteries (principal); Z87.891 Personal history of nicotine dependence | CPT/HCPCS: 99212; 99213 ==

== ENCOUNTER → 2022-05-30 12:24 | Outpatient (BNVA) | payer MEDICARE, OTHER, SELFPAY | PROVIDERS: PCP Nurse Practitioner; Visit Provider Nurse Practitioner | DX: E11.65 Type 2 diabetes mellitus with hyperglycemia (principal); Z79.4 Long term (current) use of insulin; I25.10 Atherosclerotic heart disease of native coronary artery without angina pectoris; E78.2 Mixed hyperlipidemia; Z79.899 Other long term (current) drug therapy | CPT/HCPCS: 80053; 80061; 81003; 83036; 84443; 85025; 87077; 87086; 87184 ==

== ENCOUNTER → 2022-07-13 08:02 | Outpatient (BNVA) | payer MEDICARE, OTHER, SELFPAY | PROVIDERS: PCP Nurse Practitioner; Visit Provider Registered Nurse | DX: N18.32 Chronic kidney disease, stage 3b (principal) | CPT/HCPCS: 80069; 82043; 82306; 82310; 83970; 85025 ==

== ENCOUNTER → 2022-07-25 10:30 | Outpatient (BNVA) | payer MEDICARE, OTHER, SELFPAY | PROVIDERS: PCP Nurse Practitioner; Visit Provider Internal Medicine Cardiovascular Disease | DX: I95.1 Orthostatic hypotension (principal); R23.3 Spontaneous ecchymoses; E78.2 Mixed hyperlipidemia; Z95.0 Presence of cardiac pacemaker; E11.65 Type 2 diabetes mellitus with hyperglycemia; Z79.4 Long term (current) use of insulin; I65.23 Occlusion and stenosis of bilateral carotid arteries; I25.10 Atherosclerotic heart disease of native coronary artery without angina pectoris; Z87.891 Personal history of nicotine dependence; I12.9 Hypertensive chronic kidney disease with stage 1 through stage 4 chronic kidney disease, or unspecified chronic kidney disease; E11.22 Type 2 diabetes mellitus with diabetic chronic kidney disease; N18.9 Chronic kidney disease, unspecified | CPT/HCPCS: 99214 ==

== ENCOUNTER → 2022-08-22 09:49 | Outpatient (BNVA) | payer MEDICARE, OTHER, SELFPAY | PROVIDERS: PCP Nurse Practitioner; Visit Provider Nurse Practitioner | DX: E78.2 Mixed hyperlipidemia (principal); E03.8 Other specified hypothyroidism; I10 Essential (primary) hypertension; E11.65 Type 2 diabetes mellitus with hyperglycemia; Z79.4 Long term (current) use of insulin; I25.10 Atherosclerotic heart disease of native coronary artery without angina pectoris; K21.9 Gastro-esophageal reflux disease without esophagitis | CPT/HCPCS: 80053; 80061; 81000; 82043; 83036; 84443 ==

== ENCOUNTER 2022-11-03 14:21 | Emergency (ER) | payer MEDICARE, OTHER, SELFPAY ==
[2022-11-03 14:30] VITALS: BP 108/59; PULSE 84; RESP 16; TEMP 36.6; O2SAT 97; BMI 21.2
[2022-11-03 15:37] VITALS: BP 110/56; PULSE 63; RESP 16; O2SAT 98
--- NOTE | 2022-11-03 15:42 | CTR_ITS ---
PROCEDURE INFORMATION: Exam: CT Head Without Contrast Exam date and time: 11/03/2022 4:12 PM Age: 77 years old Clinical indication: Injury or trauma; Fall; Blunt trauma (contusions or hematomas); Additional info: Fall with head trauma TECHNIQUE: Imaging protocol: Computed tomography of the head without contrast. Radiation optimization: All CT scans at this facility use at least one of these dose optimization techniques: automated exposure control; mA and/or kV adjustment per patient size (includes targeted exams where dose is matched to clinical indication); or iterative reconstruction. REPORTING DATA: Count of CT and Cardiac NM exams in prior 12 months: This patient has received 0 known CTs and 0 known cardiac nuclear medicine studies in the 12 months prior to the current study. COMPARISON: CT head wo con* [id number] 05/19/2021 3:35 PM RADIATION DOSE METRICS: Total DLP (mGy-cm): 997.58 FINDINGS: Brain: Normal. No hemorrhage. Unremarkable white matter. No mass effect. Cerebral ventricles: There is age appropriate ventriculomegaly. The left lateral ventricle is asymmetrically enlarged compared to the right side. Paranasal sinuses: Visualized sinuses are unremarkable. No fluid levels. Mastoid air cells: Visualized mastoid air cells are well aerated. Bones/joints: Unremarkable. No acute fracture. Soft tissues: Unremarkable. CT/CT head wo con* [id number] IMPRESSION: 1. No acute intracranial abnormality. 2. Asymmetric ventriculomegaly 3. Negative for skull fracture.
--- NOTE | 2022-11-03 15:44 | W.ED.FALL ---
HPI - Fall General: Chief Complaint: Fall Stated Complaint: Fall, Hit head Time Seen by Provider: 11/03/22 15:36 Source: patient Mode of arrival: ambulatory Limitations: no limitations History of Present Illness: This 77-year-old male with a history of hyperlipidemia, diabetes and hypertension presents to the ER for evaluation following a fall. He was at the head of the stairs when he lost his balance and tumbled down the stairs. He reports hitting his head on a concrete floor. Patient denies loss of consciousness. He is on Plavix and so presented for evaluation. He is able to move all extremities with no focal weakness. He has been able to stand and walk around since the incident. He is alert and oriented. He sustained superficial abrasion on the anterior aspect of the right knee and some superficial skin tear on the right forearm. Associated symptoms-after fall: Denies chest pain, headache(s), lightheadedness or neck pain Review of Systems Const: Denies: chills, body aches or change in appetite Eyes: Denies: change in vision or eye discharge ENMT: Denies: throat pain or dental pain Card: Denies: chest pain or lightheadedness GI: Denies: diarrhea : Denies: dysuria Musc: Reports: extremity pain (Right knee and right forearm); Denies: neck pain Neuro: Denies: headache(s) or weakness in extremities Psych: Denies: depression Levar/Lymph: Denies: easy bruising All/Imm: Denies: urticaria, tongue swelling or facial swelling PFSH ED PFSH: Medical History Adult onset hypothyroidism Atherosclerotic cardiovascular disease B12 deficiency Benign hypertension Carotid stenosis Cholecystitis Chronic kidney disease (CKD) Chronic kidney disease, unspecified Coronary artery disease COVID-19 vaccine administered 2 primary doses and booster Diabetes mellitus with hyperglycemia, with long-term current use of insulin GERD (gastroesophageal reflux disease) Mixed hyperlipidemia Noncompliance with medication regimen Presence of cardiac pacemaker Pulmonary nodule 5 mm on the left on CT imaging 05/19/2021 Surgical History H/O right knee surgery History of cardiac pacemaker in situ History of cervical discectomy History of ear surgery History of PTCA -distal RCA DAMEON 12/2020 -proximal RCA DAMEON, distal RCA balloon angioplasty, proximal and distal left circumflex DAMEON 10/2020 -previous RCA and circ stents in 2010 Status post carotid endarterectomy (10/19/19) right Status post laparoscopic cholecystectomy (06/26/21) Family History Brother CAD (coronary artery disease) Cancer Diabetes Lung disease Mother CAD (coronary artery disease) Diabetes Family/Other Cancer Diabetes Sister Diabetes Father Diabetes Denies family history of Clotting disorder Dementia Chronic kidney disease (CKD) Suicide Anesthesia complication Bleeding disorder Stroke Social History Smoking and tobacco status: former smoker Second hand smoke exposure: No Smoking risk assessment/counseling performed?: No Alcohol intake: never Desire information about alcohol rehabilitation?: No Counseling given: No Substance/Drug Use: never Desire information about substance/drug rehabilitation?: No Counseling given: No Adopted: No Caregiver/support person: No Lives independently: Yes Household members: none Housing: House Marital status: Single Number of children: 1 service: Yes branch: [employer] Current occupational status: retired Current occupation: [employer] Do you think of yourself as: Straight/Heterosexual Current gender identity: Male Physical Exam Const: COMMON NORMALS: no acute distress, patient oriented x3, no limitations and alert HENMT: COMMON NORMALS: normocephalic HEAD & SCALP: normocephalic Eye: COMMON NORMALS: EOMs intact bilaterally Neck/C-Spine: COMMON NORMALS: full ROM and supple Chest: COMMONS NORMALS: normal inspection of the chest Resp: COMMON NORMALS: normal respiratory effort, No retractions, No use of accessory muscles and clear to auscultation bilaterally AUSCULTATION: clear to auscultation bilaterally Cardio: COMMON NORMALS: regular rate, regular rhythm and No murmurs present (Cardio) RATE: regular rate RHYTHM: regular rhythm GI: COMMON NORMALS: Normal to inspection, nondistended, normoactive bowel sounds present and non-tender : COMMON NORMALS: Yes no CVA tenderness BLADDER/KIDNEY EXAM: Yes no CVA tenderness Back/Pelvis: COMMON NORMALS: no CVA tenderness and no thoracic nor lumbar tenderness Extremity: GENERAL: Yes normal exam except as noted and Yes other findings (Full range of movement on all extremities including R knee and R forearm) Neuro: COMMON NORMALS: patient oriented x3 and no focal motor deficits SENSORIUM/ORIENTATION: Yes alert Psych: COMMON NORMALS: mental status grossly normal and cooperative Skin: OTHER: Superficial skin tear right forearm. Superficial abrasion on right knee. Course Vital Signs: Vital signs: Vital Signs Temperature 97.9 F 11/03/22 14:30 Pulse Rate 63 11/03/22 15:37 Respiratory Rate 16 11/03/22 15:37 Blood Pressure 110/56 11/03/22 15:37 Pulse Oximetry 98 11/03/22 15:37 Oxygen Delivery Me thod Room Air 11/03/22 15:37 MDM - Fall Medical Decision Making Medical decision making: History as above. X-rays and CT scans are negative for any acute injury. Patient will be treated symptomatically. Return instructions provided. Lab Data Radiology Impressions Head CT 11/03/22 15:42 IMPRESSION: 1. No acute intracranial abnormality. 2. Asymmetric ventriculomegaly 3. Negative for skull fracture. Knee X-Ray 11/03/22 15:53 IMPRESSION: No acute findings. Discharge Plan Discharge Patient Disposition: Home Clinical Impression: Closed head injury, Skin tear of left upper extremity, Contusion of knee, right Condition: Stable Prescriptions: No Action nitroglycerin [Nitrostat] 0.4 mg tablet, sublingual 0.4 mg sublingual Q5M PRN (Reason: Chest Pain) Rx Instructions: do not exceed 3 doses per episode (DME) pen needle, diabetic 33 gauge x 5/32 needle See Rx Instructions .ROUTE .MEDSUPPLY Qty: 100 2RF Rx Instructions: daily cholecalciferol (vitamin D3) 25 mcg (1,000 unit) capsule 25 mcg PO DAILY Lipitor 40 mg tablet 40 mg PO DAILY@0600 Qty: 90 0RF famotidine 20 mg tablet 20 mg PO DAILY@0600 Qty: 90 0RF isosorbide mononitrate 30 mg tablet extended release 24 hr 30 mg PO DAILY@0600 Qty: 90 0RF levothyroxine 50 mcg tablet 50 mcg PO DAILY@0600 Qty: 90 0RF clopidogrel 75 mg tablet 75 mg PO DAILY@0600 Qty: 90 3RF lisinopril 5 mg tablet 5 mg PO DAILY@0600 Qty: 90 3RF Hold Instructions: Resume on 10/14/20. resume after following up with Indira Nevarez metoprolol succinate 25 mg tablet extended release 24 hr 12.5 mg PO DAILY@0600 Qty: 90 0RF Jardiance 25 mg tablet 25 mg PO QAM Qty: 90 0RF Rx Instructions: use 25mg due to cost Levemir FlexTouch U-100 Insuln 100 unit/mL (3 mL) insulin pen 30 unit SUBCUT DAILY@1500 Qty: 15 0RF multivitamin [Daily Multi-Vitamin] Tablet 1 tab PO DAILY@0600 PreserVision AREDS-2 250-90-40-1 mg Capsule 1 tab PO DAILY@0600 cyanocobalamin (vitamin B-12) [Vitamin B-12] 500 mcg Tablet 500 mcg PO DAILY Fish Oil 100-160-1,000 mg Capsule 1 cap PO DAILY Discharge Orders: Discharge ED (Routine); Ordered 11/03/22 Ordered By: Fina Conklin Referrals: Ree Crooks, FREELANCE MAKEUP ARTIST-C [Primary Care Provider] - Patient Instructions: Opioid Safety, Pain Management Activity Restrictions/Additional Instructions: Clean the skin tear and skin abrasions with mild soap and water daily. Apply [id number] triple antibiotics twice daily. Take [id number] Tylenol as needed for pain. Follow-up with your primary care physician in a week for reevaluation. Return with new or worsening symptoms. Coding Level of Care Code ED Maintenance Man for Lu Leyva
--- NOTE | 2022-11-03 15:53 | XRR_ITS ---
PROCEDURE INFORMATION: Exam: XR Right Knee Exam date and time: 11/03/2022 3:55 PM Age: 77 years old Clinical indication: Injury or trauma; Fall; Blunt trauma; Knee; Right; Additional info: Fall, right knee pain TECHNIQUE: Imaging protocol: Radiologic exam of the right knee. Views: 3 views. COMPARISON: No relevant prior studies available. FINDINGS: Bones/joints: Normal. Soft tissues: Normal. XR/XR knee RT 3V* [id number] IMPRESSION: No acute findings.
== END 2022-11-03 17:12 | disposition home or self-care (01) ==
PROVIDERS: Emergency Provider Family Medicine; PCP Nurse Practitioner
DX: S09.8XXA Other specified injuries of head, initial encounter (principal); S41.112A Laceration without foreign body of left upper arm, initial encounter; S80.01XA Contusion of right knee, initial encounter; Z79.02 Long term (current) use of antithrombotics/antiplatelets; Z79.4 Long term (current) use of insulin; Z87.891 Personal history of nicotine dependence; E11.22 Type 2 diabetes mellitus with diabetic chronic kidney disease; I12.9 Hypertensive chronic kidney disease with stage 1 through stage 4 chronic kidney disease, or unspecified chronic kidney disease; N18.9 Chronic kidney disease, unspecified; I25.10 Atherosclerotic heart disease of native coronary artery without angina pectoris; E78.2 Mixed hyperlipidemia; Z95.0 Presence of cardiac pacemaker; W10.9XXA Fall (on) (from) unspecified stairs and steps, initial encounter
CPT/HCPCS: 70450; 73562; 99284

== ENCOUNTER → 2022-11-14 10:29 | Outpatient (BNVA) | payer MEDICARE, OTHER, SELFPAY | PROVIDERS: PCP Nurse Practitioner; Visit Provider Nurse Practitioner | DX: I25.10 Atherosclerotic heart disease of native coronary artery without angina pectoris (principal); E11.65 Type 2 diabetes mellitus with hyperglycemia; K21.9 Gastro-esophageal reflux disease without esophagitis; E03.8 Other specified hypothyroidism; Z79.4 Long term (current) use of insulin | CPT/HCPCS: 80053; 81000; 83036 ==

== ENCOUNTER → 2023-02-06 09:49 | Outpatient (BNVA) | payer MEDICARE, SELFPAY | PROVIDERS: PCP Nurse Practitioner; Visit Provider Internal Medicine Cardiovascular Disease | DX: I95.9 Hypotension, unspecified (principal); I25.10 Atherosclerotic heart disease of native coronary artery without angina pectoris; Z95.0 Presence of cardiac pacemaker; E78.2 Mixed hyperlipidemia; E11.65 Type 2 diabetes mellitus with hyperglycemia; Z79.4 Long term (current) use of insulin; I65.23 Occlusion and stenosis of bilateral carotid arteries; Z87.891 Personal history of nicotine dependence | CPT/HCPCS: 99214 ==

== ENCOUNTER → 2023-02-12 16:26 | Outpatient (BNVA) | payer MEDICARE, SELFPAY | PROVIDERS: PCP Nurse Practitioner; Visit Provider Nurse Practitioner | DX: E03.8 Other specified hypothyroidism (principal); E11.65 Type 2 diabetes mellitus with hyperglycemia; Z79.4 Long term (current) use of insulin | CPT/HCPCS: 80053; 80061; 81000; 83036 ==

== ENCOUNTER → 2023-02-13 09:47 | Outpatient (BNVA) | payer MEDICARE, SELFPAY | PROVIDERS: PCP Nurse Practitioner; Visit Provider Nurse Practitioner | DX: E03.8 Other specified hypothyroidism (principal); E11.65 Type 2 diabetes mellitus with hyperglycemia; Z79.4 Long term (current) use of insulin; N18.32 Chronic kidney disease, stage 3b | CPT/HCPCS: 80069; 82043; 82306; 82310; 83970; 85025 ==

== ENCOUNTER → 2023-04-29 14:54 | Outpatient (BNVA) | payer MEDICARE, SELFPAY | PROVIDERS: PCP Nurse Practitioner; Visit Provider Nurse Practitioner | DX: E03.8 Other specified hypothyroidism (principal); E11.65 Type 2 diabetes mellitus with hyperglycemia; Z79.4 Long term (current) use of insulin; I25.10 Atherosclerotic heart disease of native coronary artery without angina pectoris | CPT/HCPCS: 80053; 81000; 83036; 85025 ==

== ENCOUNTER 2023-05-08 09:33 | Outpatient (CLI) | payer MEDICARE, SELFPAY ==
--- NOTE | 2023-05-08 10:15 | USCV_ITS ---
LinkNorbert Age: 77 Gender: M : 1945 Exam Date: 05/08/2023 09:58 Ordering Phys: Parag Parmar MD (Andy) ([email or web address] [place]) Technologist: ANA [place] [facility] [place] Indication: Stenosis and occlusion Risk Factors: Previous Vascular Surgery: Right Brachial BP: / Left Brachial BP: / Right Left Velocity (cm/s) Spectral Plaque Velocity (cm/s) Spectral Plaque Syst/Diast Broadening Syst/Diast Broadening 53.20/ 8.50 Prox CCA 73.60 / 21.00 36.80/ 7.90 Mid CCA 78.90 / 25.00 53.90/ 11.80 Distal CCA 59.20 / 15.80 / Prox ICA 96.00 / 31.60 / Mid ICA 82.10 / 29.00 / Distal ICA 57.90 / 20.50 80.00 ECA 123.60 ICA/CCA 1.22 Antegrade Vertebral Antegrade 42.70/ 14.00 cm/s 78.40/ 20.50 cm/s Bi Subclavian Bi 88.90 95.60 FINDINGS No significant changes since 02/20/22 CONCLUSIONS Chronic occlusion RIGHT ICA. RIGHT CCA is patent Left ICA stenosis <50%. Moderate calcified atheromatous plaque left carotid bulb/ICA. Intimal thickening in the common carotid arteries and internal carotid arteries bilaterally. Normal antegrade Doppler flow noted in the right vertebral artery. Normal antegrade Doppler flow noted in the left vertebral artery. Isaiah Bridges MD (Electronically Signed) Final Date: 08 May 2023 13:54 S
== END 2023-05-08 09:34 | disposition home or self-care (01) ==
LOC: RAD 09:33
PROVIDERS: PCP Nurse Practitioner; Visit Provider Thoracic Surgery (Cardiothoracic Vascular Surgery)
DX: I65.23 Occlusion and stenosis of bilateral carotid arteries (principal); I25.10 Atherosclerotic heart disease of native coronary artery without angina pectoris; I10 Essential (primary) hypertension; Z95.0 Presence of cardiac pacemaker; Z79.4 Long term (current) use of insulin; Z87.891 Personal history of nicotine dependence; Z79.899 Other long term (current) drug therapy; Z79.02 Long term (current) use of antithrombotics/antiplatelets
CPT/HCPCS: 93880; 99214

== ENCOUNTER 2023-06-11 10:22 | Emergency (ER) | payer MEDICARE, SELFPAY ==
[2023-06-11 10:28] VITALS: BP 106/65; PULSE 82; TEMP 36.4; O2SAT 98; BMI 21.4
--- NOTE | 2023-06-11 12:38 | W.ED.FALL ---
HPI - Fall General: Chief Complaint: Neck Pain/Injury Stated Complaint: fall, neck and knee pain Time Seen by Provider: 06/11/23 12:26 Source: patient Mode of arrival: ambulatory Limitations: no limitations History of Present Illness: Patient is a very nice 77-year-old male who presents to ED today with a complaint of right knee and neck pain following a fall. Patient states a few days ago he was reaching up high to get some type of tin down in his garage when he accidentally tripped and fell and states the tin struck him in the head and he fell backwards and struck his neck on a wall. He reports previous neck surgery. States he had a headache yesterday but none today. He has continued to be ambulatory on the right knee. He states the right knee has had an operation. He states mainly I am here to get my knee and neck checked out . He has no back pain. No other injuries apart from previously documented. He is on anticoagulation. MD complaint: fall Onset (ago): day(s) Fall from: standing Fall witnessed: no Place fall occurred: home Loss of consciousness: None Prolonged down time: no Symptoms prior to fall: none Context: tripped/slipped Location of injury: neck Location of injury - extremities: Right: knee Severity: mild Associated symptoms-after fall: Reports no associated symptoms and neck pain; Denies abdominal pain, chest pain, headache(s), hematuria or lightheadedness Review of Systems Eyes: Denies: change in vision, blurry vision, photophobia, eye discharge, floaters or seeing flashes ENMT: Denies: throat pain, odynophagia, ear or mastoid pain, ear discharge, nasal discharge, epistaxis or sinus pain Card: Denies: chest pain, palpitations, lightheadedness, syncope or pre-syncope Resp: Denies: dyspnea or pain on inspiration GI: Denies: abdominal pain : Denies: flank pain or hematuria Musc: Reports: neck pain and joint pain (R knee); Denies: back pain, extremity pain, extremity swelling, joint swelling, joint redness, joint warmth or limited range of motion Neuro: Denies: headache(s), numbness in extremities, weakness in extremities, sensory changes or dizziness PFS ED PFSH: Medical History Pulmonary nodule 5 mm on the left on CT imaging 05/19/2021 COVID-19 vaccine administered 2 primary doses and booster Cholecystitis Diabetes mellitus with hyperglycemia, with long-term current use of insulin Coronary artery disease Noncompliance with medication regimen Mixed hyperlipidemia Carotid stenosis Atherosclerotic cardiovascular disease Adult onset hypothyroidism Benign hypertension Chronic kidney disease, unspecified B12 deficiency GERD (gastroesophageal reflux disease) Presence of cardiac pacemaker Surgical History Status post laparoscopic cholecystectomy (06/26/21) History of PTCA -distal RCA DAMEON 12/2020 -proximal RCA DAMEON, distal RCA balloon angioplasty, proximal and distal left circumflex DAMEON 10/2020 -previous RCA and circ stents in 2010 H/O right knee surgery History of ear surgery Status post carotid endarterectomy (10/19/19) right History of cardiac pacemaker in situ History of cervical discectomy Family History Brother CAD (coronary artery disease) Cancer Diabetes Lung disease Mother CAD (coronary artery disease) Diabetes Family/Other Cancer Diabetes Sister Diabetes Father Diabetes Denies family history of Clotting disorder Dementia Chronic kidney disease (CKD) Suicide Anesthesia complication Bleeding disorder Stroke Social History Smoking and tobacco/nicotine status: former use of tobacco/nicotine Second hand smoke exposure: No Alcohol intake: never Substance/Drug Use: never Adopted: No Caregiver/support person: No Lives independently: Yes Household members: none Housing: House Marital status: Single Number of children: 1 service: Yes branch: [employer] Current occupational status: retired Current occupation: [employer] Do you think of yourself as: Straight/Heterosexual Current gender identity: Male Physical Exam Const: COMMON NORMALS: no acute distress, average body habitus, patient oriented x3, no limitations, healthy appearing, alert and well nourished GENERAL APPEARANCE: cooperative ORIENTATION/CONSCIOUSNESS: Yes awake, Yes oriented to person, Yes oriented to place and Yes oriented to time HENMT: COMMON NORMALS: normocephalic, atraumatic and TM's normal bilaterally HEAD & SCALP: normal to inspection, normocephalic and atraumatic; no Galvez's sign, no hematoma and no raccoon eyes FACE & SINUS: normal facial exam TYMPANIC MEMBRANE: TM's normal bilaterally MOUTH: other (no intraoral injuries noted) Eye: COMMON NORMALS: Equal, round and reactive pupils present and EOMs intact bilaterally GENERAL EYE: appearance normal, both eyes and all related structures and normal light reflex PUPIL: Yes Equal, round and reactive pupils present DIRECT OPHTHALMOSCOPY: Yes normal light reflex Neck/C-Spine: COMMON NORMALS: full ROM GENERAL: Yes normal visual inspection CERVICAL SPINE: Yes cervical ROM normal, Yes pain with cervical ROM, Yes Cervical spine tenderness, No step off deformity, No Paracervical muscle tenderness and No Trapezius muscle tenderness Chest: COMMONS NORMALS: normal inspection of the chest and normal palpation of entire chest wall Resp: COMMON NORMALS: normal respiratory effort and clear to auscultation bilaterally AUSCULTATION: clear to auscultation bilaterally Cardio: COMMON NORMALS: regular rate and regular rhythm RATE: regular rate RHYTHM: regular rhythm GI: COMMON NORMALS: Normal to inspection, nondistended, normoactive bowel sounds present, Soft to palpation, non-tender, No hepatosplenomegaly present and no masses INSPECTION: Yes normal to inspection and No abdominal wall ecchymosis AUSCULTATION: Yes normoactive bowel sounds PALPATION: Yes Soft to palpation and Yes No hepatosplenomegaly present Back/Pelvis: COMMON NORMALS: thoracic and lumbar spine normal to inspection, no thoracic nor lumbar tenderness and thoraco-lumbar ROM normal Extremity: COMMON NORMALS: normal to inspection, full ROM, capillary refill normal, no joint enlargement, no clubbing, cyanosis or edema, no calf tenderness and no pedal edema GENERAL: Yes normal exam except as noted RIGHT LOWER EXTREMITY: Yes knee joint (mild tenderness distal anterior knee joint) Right knee: Yes ROM (normal) and Yes neurovascular exam (normal) Neuro: RONALD COMA SCALE: document GCS findings [place] coma scale eye opening: Spontaneous Ronald coma scale verbal response: Orientated Ronald coma scale motor response: Obey commands Ronald coma scale total score: 15 COMMON NORMALS: patient oriented x3, CN's II-XII intact bilaterally, moves all extremities, no focal motor deficits, no sensory deficits noted and gait normal SENSORIUM/ORIENTATION: Yes alert, Yes oriented to person, Yes oriented to place and Yes oriented to time SPEECH: speech normal GAIT: Yes Normal gait present Skin: COMMON NORMALS: no rashes or lesions noted GENERAL SKIN EXAM: no rashes or lesions noted TRAUMA: no lacerations or abrasions Course Vital Signs: Vital signs: Vital Signs Temperature 97.5 F L 06/11/23 10:28 Pulse Rate 82 06/11/23 12:45 Blood Pressure 148/65 06/11/23 12:45 Pulse Oximetry 99 06/11/23 12:45 Oxygen Delivery Me thod Room Air 06/11/23 12:45 MDM - Fall Medical Decision Making CTs head/cervical spine negative. XRs of R knee/tibfib negative. He will be allowed discharge with return precautions and can otherwise follow up with PCP if pain persists. Medical Records I reviewed the patient's medical records. Lab Data Radiology Impressions Cervical Spine CT 06/11/23 12:44 IMPRESSION: No acute findings. Head CT 06/11/23 12:44 IMPRESSION: 1. No acute intracranial abnormality. All radiology interpretation(s) finalized by discharge Discharge Plan Discharge Patient Disposition: Home Clinical Impression: Fall on same level from tripping, Acute neck pain Pain in right knee Qualifiers: Chronicity: acute Qualified Code(s): M25.561 - Pain in right knee Condition: Stable Prescriptions: No Action nitroglycerin [Nitrostat] 0.4 mg tablet, sublingual 0.4 mg sublingual Q5M PRN (Reason: Chest Pain) Rx Instructions: do not exceed 3 doses per episode (DME) pen needle, diabetic 33 gauge x 5/32 needle See Rx Instructions .ROUTE .MEDSUPPLY Qty: 100 2RF Rx Instructions: daily Lipitor 40 mg tablet 40 mg PO DAILY@0600 Qty: 90 0RF Jardiance 25 mg tablet 25 mg PO QAM Qty: 90 0RF insulin detemir U-100 100 unit/mL (3 mL) insulin pen 30 unit SUBCUT DAILY@1500 Qty: 15 0RF levothyroxine 50 mcg tablet 50 mcg PO DAILY@0600 Qty: 90 0RF metoprolol succinate 25 mg tablet extended release 24 hr 12.5 mg PO DAILY@0600 Qty: 90 0RF cholecalciferol (vitamin D3) 25 mcg (1,000 unit) capsule 25 mcg PO DAILY clopidogrel 75 mg tablet 75 mg PO DAILY@0600 Qty: 90 3RF famotidine 20 mg tablet 20 mg PO DAILY@0600 Qty: 90 0RF multivitamin [Daily Multi-Vitamin] Tablet 1 tab PO DAILY@0600 PreserVision AREDS-2 250-90-40-1 mg Capsule 1 tab PO DAILY@0600 cyanocobalamin (vitamin B-12) [Vitamin B-12] 500 mcg Tablet 500 mcg PO DAILY Fish Oil 100-160-1,000 mg Capsule 1 cap PO DAILY isosorbide mononitrate 30 mg tablet extended release 24 hr 30 mg PO QPM Discharge Orders: Discharge ED (Routine); Ordered 06/11/23 Ordered By: Martha Salazar Referrals: Ree Crooks, DIVORCE MEDIATOR-C [Primary Care Provider] - Activity Restrictions/Additional Instructions: As we discussed all of your imaging today was negative for acute injury related to your recent fall. You may follow-up with your primary care provider if pain persists or fails to improve over the next week or so. Coding Level of Care Code ED Professor Of Theater for Lu Leyva
--- NOTE | 2023-06-11 12:44 | XR_ITS ---
WS: [id number] Right knee, 3 views, 06/11/2023 Clinical Data: fall Comparison: Right knee, 11/03/2022 Findings: No fractures or dislocations are seen. The joint spaces are normal. The patella is intact. There are spurs of the anterior superior and anterior inferior patella. The soft tissues are unremarkable. There is vascular calcification. Impression: 1. Negative for acute change in the right knee. 2. Irregularity of the anterior right patella. Kellgren-Dallin Classification: grade 0 (none): definite absence of x-ray changes of osteoarthritis
--- NOTE | 2023-06-11 12:44 | CTR_ITS ---
PROCEDURE INFORMATION: Exam: CT Head Without Contrast Exam date and time: 06/11/2023 1:27 PM Age: 77 years old Clinical indication: Injury or trauma; Fall; Blunt trauma (contusions or hematomas); Consciousness not specified; Additional info: Trauma/fall TECHNIQUE: Imaging protocol: Computed tomography of the head without contrast. Radiation optimization: All CT scans at this facility use at least one of these dose optimization techniques: automated exposure control; mA and/or kV adjustment per patient size (includes targeted exams where dose is matched to clinical indication); or iterative reconstruction. COMPARISON: CT head wo con* [id number] 11/03/2022 4:12 PM RADIATION DOSE METRICS: Total DLP (mGy-cm): 179.3 FINDINGS: Brain: No evidence of intra-axial or extra-axial hemorrhage. No mass effect or midline shift. Oswald-white differentiation is maintained. Basilar cisterns are patent. Cerebral ventricles: No hydrocephalus. Paranasal sinuses: The visualized paranasal sinuses are well aerated. Mastoid air cells: The visualized mastoids and middle ears are clear. Bones/joints: The visualized calvarium and bony orbits are intact. Soft tissues: No gross soft tissue abnormality. CT/CT head wo con* [id number] IMPRESSION: 1. No acute intracranial abnormality.
--- NOTE | 2023-06-11 12:44 | XR_ITS ---
WS: [id number] Right leg including the tibia and fibula, AP and lateral views, 06/11/2023 Clinical Data: fall Comparison: Right knee, 12/29/2014 Findings: No fractures or dislocations are seen. The tibia and fibula are intact. The soft tissues are normal. There is anterior spurring of the right patella. Impression: No acute bony change of the right leg.
--- NOTE | 2023-06-11 12:44 | CTR_ITS ---
PROCEDURE INFORMATION: Exam: CT Cervical Spine Without Contrast Exam date and time: 06/11/2023 1:27 PM Age: 77 years old Clinical indication: Injury or trauma; Fall; Blunt trauma; Prior surgery; Surgery date: 6+ months; Surgery type: Spinal fusion; Additional info: Injury/fall TECHNIQUE: Imaging protocol: Computed tomography of the cervical spine without contrast. Radiation optimization: All CT scans at this facility use at least one of these dose optimization techniques: automated exposure control; mA and/or kV adjustment per patient size (includes targeted exams where dose is matched to clinical indication); or iterative reconstruction. COMPARISON: CR XR cervical spine 3V* [id number] 06/17/2019 4:21 PM RADIATION DOSE METRICS: Total DLP (mGy-cm): 179.3 FINDINGS: Bones/joints: Prior anterior plate and fusion C6-C7. Slight disc space narrowing and mild spurring C4 through C6. No fracture, lytic, or sclerotic bone lesion. Lungs: Lung apices are normal. Soft tissues: Unremarkable. CT/CT cervical spin wo con* [id number] IMPRESSION: No acute findings.
[2023-06-11 12:45] VITALS: BP 148/65; PULSE 82; O2SAT 99
== END 2023-06-11 14:43 | disposition home or self-care (01) ==
PROVIDERS: Emergency Provider Physician Assistant; PCP Nurse Practitioner
DX: M54.2 Cervicalgia (principal); Z79.02 Long term (current) use of antithrombotics/antiplatelets; Z79.4 Long term (current) use of insulin; Z87.891 Personal history of nicotine dependence; Z95.0 Presence of cardiac pacemaker; I25.10 Atherosclerotic heart disease of native coronary artery without angina pectoris; E78.2 Mixed hyperlipidemia; E11.22 Type 2 diabetes mellitus with diabetic chronic kidney disease; I12.9 Hypertensive chronic kidney disease with stage 1 through stage 4 chronic kidney disease, or unspecified chronic kidney disease; N18.9 Chronic kidney disease, unspecified
CPT/HCPCS: 70450; 72125; 73562; 73590; 99284

== ENCOUNTER → 2023-07-04 14:13 | Outpatient (BNVA) | payer MEDICARE, SELFPAY | PROVIDERS: PCP Nurse Practitioner; Visit Provider Thoracic Surgery (Cardiothoracic Vascular Surgery) | DX: I65.23 Occlusion and stenosis of bilateral carotid arteries (principal) | CPT/HCPCS: 99213 ==

== ENCOUNTER → 2023-07-17 10:04 | Outpatient (BNVA) | payer MEDICARE, SELFPAY | PROVIDERS: PCP Nurse Practitioner; Visit Provider Nurse Practitioner | DX: E11.9 Type 2 diabetes mellitus without complications (principal); E03.8 Other specified hypothyroidism; I25.10 Atherosclerotic heart disease of native coronary artery without angina pectoris; E11.65 Type 2 diabetes mellitus with hyperglycemia; Z79.4 Long term (current) use of insulin; K21.9 Gastro-esophageal reflux disease without esophagitis; Z79.899 Other long term (current) drug therapy | CPT/HCPCS: 80053; 80061; 81000; 82607; 83036; 84443 ==

== ENCOUNTER → 2023-08-21 09:51 | Outpatient (BNVA) | payer MEDICARE, SELFPAY | PROVIDERS: PCP Nurse Practitioner; Visit Provider Internal Medicine Cardiovascular Disease | DX: Z95.0 Presence of cardiac pacemaker (principal); I25.10 Atherosclerotic heart disease of native coronary artery without angina pectoris; I10 Essential (primary) hypertension; I65.23 Occlusion and stenosis of bilateral carotid arteries; E78.2 Mixed hyperlipidemia; I95.1 Orthostatic hypotension; Z87.891 Personal history of nicotine dependence | CPT/HCPCS: 99214 ==

== ENCOUNTER → 2023-08-28 10:38 | Outpatient (BNVA) | payer MEDICARE, SELFPAY | PROVIDERS: PCP Nurse Practitioner; Visit Provider Nurse Practitioner | DX: M54.9 Dorsalgia, unspecified (principal); M25.561 Pain in right knee | CPT/HCPCS: 72100; 73502; 73562 ==

== ENCOUNTER 2023-11-15 12:14 | Outpatient (CLI) | payer MEDICARE, OTHER, SELFPAY ==
--- NOTE | 2023-11-15 12:45 | USCV_ITS ---
Link Norbert Age: 78 Gender: M : 1945 Exam Date: 11/15/2023 12:49 Ordering Phys: Parag Parmar MD (Andy) ([email or web address] [place]) Technologist: ANA Exam Location: [facility] [place] Indication: occluded rt ica Risk Factors: Previous Vascular Surgery: Right Brachial BP: / Left Brachial BP: / Right Left Velocity (cm/s) Spectral Plaque Velocity (cm/s) Spectral Plaque Syst/Diast Broadening Syst/Diast Broadening 57.10/ Prox CCA 74.00 / 61.70/ Mid CCA 76.60 / 61.50/ Distal CCA 68.70 / 75.60/ Prox ICA 99.50 / / Mid ICA 96.70 / / Distal ICA 75.70 / 106.20 ECA 211.40 1.20 ICA/CCA 1.40 Antegrade Vertebral Antegrade 66.80/ cm/s 36.00/ cm/s Bi Subclavian Bi 130.5 126.1 0 0 FINDINGS Comparison:. 05/08/23 Chronic occlusion right ICA. Marked plaque in a patent right CCA. Marked plaque diffuse left carotid artery. Mild elevation of velocity. Antegrade vertebral arteries. CONCLUSIONS Chronic right ICA occlusion. Left ICA stenosis < 50%. Marked plaque left carotid. Dr. Lauren Escalona DO (Electronically Signed) Final Date: 18 November 2023 08:06 S
== END 2023-11-15 12:15 | disposition home or self-care (01) ==
LOC: RAD 12:14
PROVIDERS: PCP Nurse Practitioner; Visit Provider Thoracic Surgery (Cardiothoracic Vascular Surgery)
DX: I65.23 Occlusion and stenosis of bilateral carotid arteries (principal)
CPT/HCPCS: 93880

== ENCOUNTER → 2023-12-02 09:51 | Outpatient (BNVA) | payer MEDICARE, OTHER, SELFPAY | PROVIDERS: PCP Nurse Practitioner; Visit Provider Thoracic Surgery (Cardiothoracic Vascular Surgery) | DX: I65.23 Occlusion and stenosis of bilateral carotid arteries (principal) | CPT/HCPCS: 99213 ==

== ENCOUNTER → 2023-12-11 10:06 | Outpatient (BNVA) | payer MEDICARE, OTHER, SELFPAY | PROVIDERS: PCP Nurse Practitioner; Visit Provider Nurse Practitioner | DX: E11.9 Type 2 diabetes mellitus without complications (principal); E11.65 Type 2 diabetes mellitus with hyperglycemia; Z79.4 Long term (current) use of insulin; E03.8 Other specified hypothyroidism; N39.0 Urinary tract infection, site not specified | CPT/HCPCS: 80053; 80061; 81000; 82607; 83036; 84443; 87086 ==

== ENCOUNTER → 2024-02-21 09:30 | Outpatient (BNVA) | payer MEDICARE, SELFPAY | PROVIDERS: PCP Nurse Practitioner; Visit Provider Nurse Practitioner Family | DX: I25.10 Atherosclerotic heart disease of native coronary artery without angina pectoris (principal); Z95.0 Presence of cardiac pacemaker; I10 Essential (primary) hypertension | CPT/HCPCS: 99214 ==

== ENCOUNTER → 2024-05-27 10:19 | Outpatient (BNVA) | payer MEDICARE, SELFPAY | PROVIDERS: PCP Nurse Practitioner; Visit Provider Nurse Practitioner | DX: I25.10 Atherosclerotic heart disease of native coronary artery without angina pectoris (principal); E11.65 Type 2 diabetes mellitus with hyperglycemia; Z79.4 Long term (current) use of insulin; K21.9 Gastro-esophageal reflux disease without esophagitis; E03.8 Other specified hypothyroidism; E11.9 Type 2 diabetes mellitus without complications; Z79.899 Other long term (current) drug therapy | CPT/HCPCS: 80053; 82607; 83036 ==

== ENCOUNTER → 2024-08-12 10:45 | Outpatient (BNVA) | payer MEDICARE, SELFPAY | PROVIDERS: PCP Nurse Practitioner; Visit Provider Nurse Practitioner | DX: E11.65 Type 2 diabetes mellitus with hyperglycemia (principal); Z79.4 Long term (current) use of insulin; E11.9 Type 2 diabetes mellitus without complications | CPT/HCPCS: 80053; 80061; 81000; 83036; 87086 ==

== ENCOUNTER → 2024-08-25 09:48 | Outpatient (BNVA) | payer MEDICARE, SELFPAY | PROVIDERS: PCP Nurse Practitioner; Visit Provider Internal Medicine Cardiovascular Disease | DX: I95.1 Orthostatic hypotension (principal); I25.10 Atherosclerotic heart disease of native coronary artery without angina pectoris; Z95.0 Presence of cardiac pacemaker; I65.23 Occlusion and stenosis of bilateral carotid arteries; E78.2 Mixed hyperlipidemia; Z87.891 Personal history of nicotine dependence; E11.22 Type 2 diabetes mellitus with diabetic chronic kidney disease; Z79.4 Long term (current) use of insulin; E11.65 Type 2 diabetes mellitus with hyperglycemia; N18.32 Chronic kidney disease, stage 3b | CPT/HCPCS: 99214 ==

== ENCOUNTER → 2024-11-05 10:47 | Outpatient (BNVA) | payer MEDICARE, SELFPAY | PROVIDERS: PCP Nurse Practitioner; Visit Provider Nurse Practitioner | DX: E11.65 Type 2 diabetes mellitus with hyperglycemia (principal); Z79.4 Long term (current) use of insulin; E03.8 Other specified hypothyroidism | CPT/HCPCS: 80053; 80061; 82043; 82607; 83036; 84443; 85025 ==

== ENCOUNTER → 2025-02-25 10:10 | Outpatient (BNVA) | payer MEDICARE, SELFPAY | PROVIDERS: PCP Nurse Practitioner; Visit Provider Internal Medicine Cardiovascular Disease | DX: I25.10 Atherosclerotic heart disease of native coronary artery without angina pectoris (principal); I12.9 Hypertensive chronic kidney disease with stage 1 through stage 4 chronic kidney disease, or unspecified chronic kidney disease; N18.9 Chronic kidney disease, unspecified; I95.1 Orthostatic hypotension; I65.23 Occlusion and stenosis of bilateral carotid arteries; E78.2 Mixed hyperlipidemia; Z95.0 Presence of cardiac pacemaker; Z95.5 Presence of coronary angioplasty implant and graft; Z87.891 Personal history of nicotine dependence | CPT/HCPCS: 99214 ==

== ENCOUNTER → 2025-03-24 10:21 | Outpatient (BNVA) | payer MEDICARE, SELFPAY | PROVIDERS: PCP Nurse Practitioner; Visit Provider Internal Medicine Cardiovascular Disease | DX: Z45.018 Encounter for adjustment and management of other part of cardiac pacemaker (principal) | CPT/HCPCS: 93296 ==

== ENCOUNTER → 2025-04-13 11:33 | Outpatient (BNVA) | payer MEDICARE, SELFPAY | PROVIDERS: PCP Nurse Practitioner; Visit Provider Nurse Practitioner | DX: E11.65 Type 2 diabetes mellitus with hyperglycemia (principal); Z79.4 Long term (current) use of insulin; E03.8 Other specified hypothyroidism | CPT/HCPCS: 80053; 80061; 81000; 82043; 83036; 84443; 85025 ==